=== PATIENT | male | born 1940 | race Caucasian/White ===

== ENCOUNTER 2020-06-20 08:33 | Inpatient (IN) | payer MEDICARE ==
[~2020-06-20] VITALS: Ht 182.9 cm; Wt 66.4 kg
[2020-06-20 09:09] LABS: BILIRUBIN,URINE NEGATIVE (NEG); CLARITY,URINE CLOUDY; COLOR,URINE AMBER; NITRITE,URINE NEGATIVE (NEG); PROTEIN,URINE 30 mg/dL (NEG-TRACE); UROBILINOGEN,URINE 0.2 mg/dL (0.2 mg/dL)
[2020-06-20 09:11] LABS: BASO # 0.2 x10^3/uL (0.0-0.2); BASO % 1 % (0-3); EOS # 0.2 x10^3/uL (0.0-0.7); EOS % 1 % (0-3); HEMATOCRIT 35.6 % (39.0-53.0); HEMOGLOBIN 11.2 g/dL (13.0-17.5); LYMPH # 1.7 x10^3/uL (1.0-4.8); LYMPH % 8 % (24-48); MEAN CORPUSCULAR HEMOGLOBIN 31 pg (25-35); MEAN CORPUSCULAR HGB CONC 32 g/dL (31-37); MEAN CORPUSCULAR VOLUME 99 fL (79-100); MONO # 0.8 x10^3/uL (0.0-1.1); MONO % 3 % (0-9); NEUT # 19.3 x10^3/uL (1.8-7.7); NEUT % 87 % (31-73); PLATELET COUNT 430 x10^3/uL (140-400); RED CELL DISTRIBUTION WIDTH 15.3 % (11.5-14.5); WHITE BLOOD COUNT 22.2 x10^3/uL (4.0-11.0)
[2020-06-20 09:16] LABS: CALCIUM 9.7 mg/dL (8.5-10.1); CREATININE 3.8 mg/dL (0.7-1.3); GFR 15.4; POTASSIUM 4.3 mmol/L (3.5-5.1)
[2020-06-20 09:26] LABS: ALBUMIN 2.3 g/dL (3.4-5.0); ALBUMIN/GLOBULIN RATIO 0.5 (1.0-1.7); TOTAL BILIRUBIN 0.6 mg/dL (0.2-1.0); TOTAL PROTEIN 7.2 g/dL (6.4-8.2)
--- NOTE | 2020-06-20 09:27 | PHYS DOC ---
Past Medical History Past Medical History: Bipolar, GERD Additional Past Medical Histor: DYSPHAGIA, WEAKNESS, BPH Past Surgical History: Other Additional Past Surgical Histo: UNKNOWN Smoking Status: Unknown if ever smoked Alcohol Use: None General Adult EDM: Chief Complaint: ALTERED MENTAL STATUS HPI: HPI: Patient is a 79 year old male who was brought here by EMS from a local skilled nursing due to altered mental status. Per report patient lives at the skilled nursing, history of dementia, bipolar disorder, had chronic indwelling Carbajal catheter. Patient has been treated for UTI. It was reported that he was confused and not very responsive compared to his baseline so EMS were called to take him here for evaluation. Patient could not provide any information. Upon arrival to room, it appeared that the Carbajal catheter was not in the bladder but in his urethra. There was purulent drainage at the glans penis and inside the tubing of the Carbajal. Review of Systems: Review of Systems: NOT ABLE TO OBTAIN DUE TO CONDITION. Heart Score: Risk Factors: Risk Factors: DM, Current or recent (<one month) smoker, HTN, HLP, family history of CAD, obesity. Risk Scores: Score 0 - 3: 2.5% MACE over next 6 weeks - Discharge Home Score 4 - 6: 20.3% MACE over next 6 weeks - Admit for Clinical Observation Score 7 - 10: 72.7% MACE over next 6 weeks - Early Invasive Strategies Allergies: Allergies: Allergies Coded Allergies Type Severity Reaction Last Updated Verified amitriptyline Allergy Unknown 06/20/20 Yes haloperidol Allergy Unknown 06/20/20 Yes lorazepam Allergy Unknown UNKNOWN 06/20/20 Yes quetiapine Allergy Unknown 06/20/20 Yes Physical Exam: PE: Constitutional: Well developed, well nourished,APPEARED TOXIC, MAKING EYE CONTACT HENT: Normocephalic, atraumatic, bilateral external ears normal, oropharynx DRIED, no oral exudates, nose normal. [] Eyes: PERRLA, EOMI, conjunctiva normal, no discharge. [] Neck: Normal range of motion, no tenderness, supple, no stridor. [] Cardiovascular:Heart rate regular rhythm, no murmur [] Lungs & Thorax: Bilateral breath sounds clear to auscultation [] Abdomen: Bowel sounds normal, soft, no tenderness, no masses, no pulsatile masses. purulent drainage at the external meatus. Skin: Warm, dry, no erythema, no rash. [] Back: No tenderness, no CVA tenderness. [] Extremities: No tenderness, no cyanosis, no clubbing, ROM intact, no edema. [] Neurologic:alert but confused, just moaning, observed moving extremities Psychologic: not able to evaluate. Current Patient Data: Labs: Laboratory Tests Test 06/20/20 08:45 Sodium Level 148 mmol/L (136-145) H Potassium Level 4.3 mmol/L (3.5-5.1) Chloride Level 114 mmol/L (98-107) H Carbon Dioxide Level 26 mmol/L (21-32) Anion Gap 8 (6-14) Blood Urea Nitrogen 62 mg/dL (8-26) H Creatinine 3.8 mg/dL (0.7-1.3) H Estimated GFR (Cockcroft-Gault) 15.4 BUN/Creatinine Ratio 16 (6-20) Glucose Level 100 mg/dL (70-99) H Calcium Level 9.7 mg/dL (8.5-10.1) Total Bilirubin 0.6 mg/dL (0.2-1.0) Aspartate Amino Transferase (AST) 92 U/L (15-37) H Alanine Aminotransferase (ALT) 16 U/L (16-63) Alkaline Phosphatase 102 U/L (46-116) Total Protein 7.2 g/dL (6.4-8.2) Albumin 2.3 g/dL (3.4-5.0) L Albumin/Globulin Ratio 0.5 (1.0-1.7) L Laboratory Tests 06/20/20 08:45 Vital Signs: Vital Signs Date Time Temp Pulse Resp B/P (MAP) Pulse Ox O2 Delivery O2 Flow Rate FiO2 06/20/20 08:39 98.8 78 18 121/66 (84) 96 Room Air 98.8 EKG: EKG: EKG was done at a 50, heart rate of 78 bpm, sinus rhythm, no ST segment elevation. Radiology/Procedures: Radiology/Procedures: [][facility] [address] [place] [address] IMAGING REPORT Signed PATIENT: TRISH GRIFFITH ACCOUNT: [id number] : 1940 LOCATION: ER AGE: 79 SEX: M EXAM STATUS: REG ER ORD. PHYSICIAN: DARELL SHAVER DO REASON: SOA PROCEDURE: CHEST AP ONLY XR CHEST 1V INDICATION: Reason: SOA / Spl. Instructions: / History: . COMPARISON STUDY: None. FINDINGS: Lungs: Hyperexpanded lung volume. Prominent interstitial marking. No confluent consolidations. Pleura: No pleural effusion or pneumothorax. Heart and Mediastinum: The cardiomediastinal silhouette is normal. Ather osclerosis of the thoracic aorta. IMPRESSION: Mildly prominent interstitial markings, which may reflect interstitial edema. Electronically signed by: Alethea Gonzales MD (06/20/2020 10:34 AM) [id number] DICTATED and SIGNED BY: ALETHEA GONZALES MD DATE: 06/20/20 [id number] Course & Med Decision Making: Course & Med Decision Making Pertinent Labs and Imaging studies reviewed. (See chart for details) [] Dragon Disclaimer: Dragon Disclaimer: This electronic medical record was generated, in whole or in part, using a voice recognition dictation system. Departure Departure Impression: Primary Impression: UTI (urinary tract infection) Additional Impressions: Dehydration Renal failure Person under investigation for COVID-19 Metabolic encephalopathy Disposition: ADMITTED INPT THIS HOSP Admitting Physician: JAHAIRA (DR. FLOOD) Condition: STABLE Referrals: UNKNOWN PCP NAME (PCP) DARELL SHAVER DO Jun 20, 2020 09:27
[2020-06-20 09:35] LABS: BACTERIA,URINE MANY /HPF (0-FEW); RBC,URINE FIELD OBSCURED /HPF (0-2); WBC,URINE TNTC /HPF (0-4)
[2020-06-20 09:36] LABS: HYALINE CASTS, URINE OCCASIONAL /HPF
--- NOTE | 2020-06-20 10:36 | RAD ---
XR CHEST 1V INDICATION: Reason: SOA / Spl. Instructions: / History: . COMPARISON STUDY: None. FINDINGS: Lungs: Hyperexpanded lung volume. Prominent interstitial marking. No confluent consolidations. Pleura: No pleural effusion or pneumothorax. Heart and Mediastinum: The cardiomediastinal silhouette is normal. Atherosclerosis of the thoracic ao rta. IMPRESSION: Mildly prominent interstitial markings, which may reflect interstitial edema. Electronically signed by: Naman Gonzales MD (06/20/2020 10:34 AM) [id number]
[2020-06-20 10:42] LABS: % BANDS 3 % (0-9); % EOS 1 % (0-5); % LYMPHS 4 % (24-48); % MONOS 2 % (0-10); % SEGS 90 % (35-66); PLT ESTIMATE ADEQUATE (ADEQUATE)
[2020-06-20] MEDS ORDERED: cefTRIAXone IV Push 1 GM VIAL. IVP ONE (10:45)
[2020-06-20] MEDS ORDERED: IV NORMAL SALINE 1000ML BAG 1,000 ML IV ONE (10:45)
[2020-06-20] MEDS ORDERED: ONDANSETRON PF 4 MG/2 ML VIAL. IV PRN (11:30)
[2020-06-20] MEDS: IV NORMAL SALINE 1000ML BAG 1,000 ML IV SCH (12:00)
--- NOTE | 2020-06-20 13:28 | HP ---
ADMIT DATE: 06/20/2020 CHIEF COMPLAINT: Mental status change. HISTORY OF PRESENT ILLNESS: The patient is a pleasant 79-year-old male, who has a chronic indwelling Carbajal. He is now presenting from a facility. He has mental status change. I believe the catheter got pulled out by accident last night. I discussed the case with the ER physician. It appears he has probable urinary tract infection with urosepsis and metabolic encephalopathy. We are going to admit the patient and give him IV antibiotics and fluids and try to get him feeling better. PAST MEDICAL HISTORY: Chronic indwelling Carbajal, bipolar, GERD, dysphagia, weakness, BPH. ALLERGIES: AMITRIPTYLINE, HALDOL, LORAZEPAM AND QUETIAPINE. FAMILY HISTORY: Diabetes. SOCIAL HISTORY: I think he lives at a facility. He does not drink, smoke or take drugs. I think he is disabled. MEDICATIONS: Reviewed, please refer to the MRAD. REVIEW OF SYSTEMS: Unable to obtain. He is too confused. PHYSICAL EXAMINATION: VITALS: Within normal limits and are stable. GENERAL: He is encephalopathic. HEENT: Normocephalic, atraumatic, external auditory canals are patent. EYES: Extraocular muscles are intact, pupils are equally round and reactive to light and accommodation. MUSCULOSKELETAL: Well developed, well nourished, good range of motion. ENDOCRINE: No thyromegaly was palpated. LYMPHATICS: No cervical chain or axillary nodes were noted. HEMATOPOIETIC: No bruising. NECK: Supple, no JVD, no thyromegaly was noted. LUNGS: Clear to auscultation in all lung leo without rhonchi or wheezing. HEART: RRR, S1, S2 present. Peripheral pulses intact, no obvious murmurs were noted. ABDOMEN: Soft, nontender. Positive bowel sounds no organomegaly, normal bowel sounds. EXTREMITIES: Without any cyanosis, clubbing, or edema. Pedal pulses intact, Homans sign is negative. NEUROLOGIC: He is encephalopathic. PSYCHIATRIC: He is encephalopathic. SKIN: No ulcerations or rashes, good skin turgor, no jaundice. VASCULAR: Good capillary refill, neurovascular bundle appears to be intact. GENITOURINARY: He has a Carbajal. LABORATORY DATA: White count 22, hemoglobin 11. Urinalysis shows a large amount of leukocyte esterase and zrs-iwarliao-li-count white cells. Sodium is 148, creatinine is 3.8, BUN 62. ASSESSMENT AND PLAN: Metabolic encephalopathy, urinary tract infection, sepsis, hypernatremia, urinary tract infection, azotemia, renal failure, leukocytosis. The patient will be admitted. We will start IV antibiotics. Consult Nephrology. IV fluids, home meds, DVT prophylaxis, full code, Carbajal to bedside drainage, p.r.n. Zofran, ceftriaxone 1 gram every day. Consult by ID. YARIEL FLOOD DO DR: JOSY/susy JOB#: [id number] / [id number]
[2020-06-20 13:30] VITALS: BP 126/61
[2020-06-20] MEDS ORDERED: ROPI0.5T4 PO (14:00)
[2020-06-20] MEDS ORDERED: CIPR500T94 PO (14:00)
[2020-06-20] MEDS ORDERED: ERGO500027 PO (14:00)
[2020-06-20] MEDS ORDERED: FLUT9.9S NS (14:00)
[2020-06-20] MEDS ORDERED: METH2.5T PO (14:00)
[2020-06-20] MEDS ORDERED: ACET325T9 PO (14:00)
[2020-06-20] MEDS ORDERED: SENN-213 PO (14:00)
[2020-06-20] MEDS ORDERED: CARB1TAB22 PO (14:00)
[2020-06-20] MEDS ORDERED: NITR0.4T22 SL (14:00)
[2020-06-20] MEDS ORDERED: FOLI0.4T2 PO (14:00)
[2020-06-20] MEDS ORDERED: FERR220S16 PO (14:00)
[2020-06-20] MEDS ORDERED: MELA5TAB20 PO (14:00)
[2020-06-20] MEDS ORDERED: BUSP5TAB PO (14:00)
[2020-06-20] MEDS ORDERED: ASPI81TA59 PO (14:00)
[2020-06-20] MEDS ORDERED: LEVO125T5 PO (14:00)
[2020-06-20] MEDS ORDERED: DOCU-109 PO (14:00)
[2020-06-20] MEDS ORDERED: OLAN5TAB9 PO (14:00)
[2020-06-20] MEDS ORDERED: OMEP20TA63 PO (14:00)
[2020-06-20] MEDS ORDERED: MIDO5TAB4 PO (14:00)
[2020-06-20] MEDS ORDERED: LITH300C PO (14:00)
[2020-06-20] MEDS ORDERED: LACT10PA3 PO (14:00)
[2020-06-20] MEDS ORDERED: MULT-121 PO (14:00)
[2020-06-20] MEDS ORDERED: BUPR100T8 PO (14:00)
[2020-06-20] MEDS ORDERED: FLUD0.1T PO (14:00)
--- NOTE | 2020-06-20 14:30 | NUR ---
Verified code status with patient /emergency contact Judy. Ly remains a full code. Allergies verified with . Patient pass code given to . Updated on POC. Will continue to monitor.
[2020-06-20 15:00] VITALS: BP 111/41
--- NOTE | 2020-06-20 15:30 | NUR ---
Dr. Padilla paged to get admission orders. Awaiting a call back. Routine consults to Dr. Loomis and Dr. Shabnam Steven. Will continue to monitor.
[2020-06-20] MEDS ORDERED: cefTRIAXone IV Push 1 GM VIAL. IVP SCH (17:00)
[2020-06-20 19:00] VITALS: BP 97/41
[2020-06-20 23:00] VITALS: BP 114/74
[2020-06-21] VITALS (8 sets, daily range): BP systolic 77–130; BP diastolic 34–57
[2020-06-21] MEDS: IV NORMAL SALINE 1000ML BAG 1,000 ML IV SCH (06:22)
--- NOTE | 2020-06-21 08:59 | PDOC ---
PROGRESS NOTES Date of Service: DATE: 06/21/20 TIME: 08:59 Chief Complaint Chief Complaint ASSESSMENT AND PLAN: Metabolic encephalopathy, ACUTE urinary tract infection, sepsis, BACTEREMIA hypernatremia, urinary tract infection, azotemia, ACUTE renal INJURY , , ACUTE RENAL TUBULAR NECROSIS leukocytosis. admitted. IV antibiotics. Consult Nephrology. CONSULT ID IV fluids, chg hypotonic saline home meds, DVT prophylaxis, full code, Carbajal to bedside p.r.n. Zofran, D/C ceftriaxone 1 gram every day. CHG TO ZOSYN 1-15 D/W RN 38 MIN pt exam, chart review,> 50% of time spent with exam, chart review, pt care coordination History of Present Illness History of Present Illness HISTORY OF PRESENT ILLNESS: The patient is a pleasant 79-year-old male, who has a chronic indwelling Carbajal. He is now presenting from a facility. He has mental status change. I believe the catheter got pulled out by accident last night. I discussed the case with the ER physician. It appears he has probable urinary tract infection with urosepsis and metabolic encephalopathy. We are going to admit the patient and give him IV antibiotics and fluids and try to get him feeling better. PAST MEDICAL HISTORY: Chronic indwelling Carbajal, bipolar, GERD, dysphagia, weakness, BPH. ALLERGIES: AMITRIPTYLINE, HALDOL, LORAZEPAM AND QUETIAPINE. FAMILY HISTORY: Diabetes. SOCIAL HISTORY: I think he lives at a facility. He does not drink, smoke or take drugs. I think he is disabled. MEDICATIONS: Reviewed, please refer to the MRAD. Vitals Vitals Vital Signs Date Time Temp Pulse Resp B/P (MAP) Pulse Ox O2 Delivery O2 Flow Rate FiO2 06/21/20 03:00 96.8 76 20 117/54 (75) 96 Room Air 96.8 Physical Exam Physical Exam GENERAL: He is encephalopathic. HEENT: Normocephalic, atraumatic, external auditory canals are patent. EYES: Extraocular muscles are intact, pupils are equally round and reactive to light and accommodation. MUSCULOSKELETAL: Well developed, well nourished, good range of motion. ENDOCRINE: No thyromegaly was palpated. LYMPHATICS: No cervical chain or axillary nodes were noted. HEMATOPOIETIC: No bruising. NECK: Supple, no JVD, no thyromegaly was noted. LUNGS: Clear to auscultation in all lung leo without rhonchi or wheezing. HEART: RRR, S1, S2 present. Peripheral pulses intact, no obvious murmurs were noted. ABDOMEN: Soft, nontender. Positive bowel sounds no organomegaly, normal bowel sounds. EXTREMITIES: Without any cyanosis, clubbing, or edema. Pedal pulses intact, Homans sign is negative. NEUROLOGIC: He is encephalopathic. PSYCHIATRIC: He is encephalopathic. SKIN: No ulcerations or rashes, good skin turgor, no jaundice. VASCULAR: Good capillary refill, neurovascular bundle appears to be intact. GENITOURINARY: He has a Carbajal. Extremities: No cyanosis Labs LABS ORDERED: BCULT ------- ----- Procedure Result BLOOD CULTURE Final GRAM POSITIVE COCCI IN CLUSTERS, SUGGESTIVE OF STAPH, IN 1 OF 3 BOTTLES, TWO SETS DRAWN. CALLED TO JENNIFER SCHWARTZ RN ON 6S AT 10:45 ON 06/21/[address] [facility] FOR FURTHER WORKUP. Assessment and Plan Assessmemt and Plan Problems Medical Problems: (1) Dehydration Status: Acute (2) Metabolic encephalopathy Status: Acute (3) Person under investigation for COVID-19 Status: Acute (4) Renal failure Status: Acute (5) UTI (urinary tract infection) Status: Acute DPOA REVIEW 18 MIN to patient portal What Is a Power of Hide Washer? A power of principal scientist (POA) is a legal document giving one person (the agent or [id number]) the power to act for another person (the principal). The agent can have broad legal authority or limited authority to make legal decisions about the principal's property, finances or medical care. The power of principal scientist is frequently used in the event of a principal's illness or disability, or when the principal can't be present to sign necessary legal documents for financial transactions. A power of principal scientist can end for a number of reasons, such as when the principal dies, the principal revokes it, a court invalidates it, the principal divorces their spouse, who happens to be the agent, or the agent can no longer carry out the outlined responsibilities. Conventional POAs lapse when the creator becomes incapacitated, but a durable POA remains in force to enable the agent to manage the creators affairs, and a springing POA comes into effect only if and when the creator of the POA becomes incapacitated. A medical or healthcare POA enables an agent to make medical decisions on behalf of an incapacitated person. [employer] Takeaways A power of principal scientist (POA) is a legal document giving one person, the agent or [id number]-[id number] the power to act for another person, the principal. The agent can have broad legal authority or limited authority to make decisions about the principal's property, finances or medical care. The power of principal scientist is often used when a principal becomes ill or disabled, or when they can't be present to sign necessary legal documents for financial transactions. Understanding Power of Hide Washer A power of principal scientist should be considered when planning for long-term care. There are different types of POAs that fall under either a general power of principal scientist or limited power of principal scientist. A general power of principal scientist acts on behalf of the principal in any and all matters, as allowed by the state. The agent under a general POA agreement may be authorized to take care of issues such as handling bank accounts, signing checks, selling property and assets like stocks, f A limited power of principal scientist gives the agent the power to act on behalf of the principal in specific matters or events. For example, the limited POA may explicitly state that the agent is only allowed to manage the principal's assisted accounts. A limited POA may also be limited to a specific period of time (e.g., if the principal will be out of the country for, say, two years). Most echevarria of principal scientist documents allow an agent to represent the principal in all property and financial matters as long as the principals mental state of mind is good. If a situation occurs where the principal becomes incapable of making decisions for him or herself, the POA agreement would automatically end. However, someone who wants the POA to remain in effect after the persons health deteriorates would need to sign a durable power of principal scientist (DPOA). What is an advance directive? An advance directive is a legal document that says how you want to be cared for if you are unable to make decisions. You can include what medical treatments you would want and who you would trust to make decisions for you. An advance directive can also include other legal documents. A living will is a list of treatment preferences. It can be used to indicate whether you would want cardiopulmonary resuscitation (CPR), tube feedings, a breathing machine, or certain medicines, like antibiotics. The durable power of principal scientist for health care document identifies the person you would want to make medical decisions for you. This person is also called a proxy. Your proxy should be familiar with your values and wishes. How do I get started? You can get advance directive documents for your state from your doctor's office or from http://www.caringinfo.org. Review the forms, and ask your doctor if you have any questions. Pick a person to be your proxy, and talk it over with that person. Comment Review of Relevant I have reviewed the following items ab (where applicable) has been applied. Labs Laboratory Tests Test 06/20/20 08:45 White Blood Count 22.2 x10^3/uL (4.0-11.0) Red Blood Count 3.60 x10^6/uL (4.30-5.70) Hemoglobin 11.2 g/dL (13.0-17.5) Hematocrit 35.6 % (39.0-53.0) Mean Corpuscular Volume 99 fL (79-100) Mean Corpuscular Hemoglobin 31 pg (25-35) Mean Corpuscular Hemoglobin Concent 32 g/dL (31-37) Red Cell Distribution Width 15.3 % (11.5-14.5) Platelet Count 430 x10^3/uL (140-400) Neutrophils (%) (Auto) 87 % (31-73) Lymphocytes (%) (Auto) 8 % (24-48) Monocytes (%) (Auto) 3 % (0-9) Eosinophils (%) (Auto) 1 % (0-3) Basophils (%) (Auto) 1 % (0-3) Neutrophils # (Auto) 19.3 x10^3/uL (1.8-7.7) Lymphocytes # (Auto) 1.7 x10^3/uL (1.0-4.8) Monocytes # (Auto) 0.8 x10^3/uL (0.0-1.1) Eosinophils # (Auto) 0.2 x10^3/uL (0.0-0.7) Basophils # (Auto) 0.2 x10^3/uL (0.0-0.2) Segmented Neutrophils % 90 % (35-66) Band Neutrophils % 3 % (0-9) Lymphocytes % 4 % (24-48) Monocytes % 2 % (0-10) Eosinophils % 1 % (0-5) Platelet Estimate Adequate (ADEQUATE) Urine Collection Type U cath Urine Color Ramonita Urine Clarity Cloudy Urine pH 6.0 (<5.0-8.0) Urine Specific [place] 1.015 (1.000-1.030) Urine Protein 30 mg/dL (NEG-TRACE) Urine Glucose (UA) Negative mg/dL (NEG) Urine Ketones (Stick) Negative mg/dL (NEG) Urine Blood Moderate (NEG) Urine Nitrite Negative (NEG) Urine Bilirubin Negative (NEG) Urine Urobilinogen Dipstick 0.2 mg/dL (0.2 mg/dL) Urine Leukocyte Esterase Large (NEG) Urine RBC Field obscured /HPF (0-2) Urine WBC Tntc /HPF (0-4) Urine Bacteria Many /HPF (0-FEW) Urine Hyaline Casts Occasional /HPF Sodium Level 148 mmol/L (136-145) Potassium Level 4.3 mmol/L (3.5-5.1) Chloride Level 114 mmol/L (98-107) Carbon Dioxide Level 26 mmol/L (21-32) Anion Gap 8 (6-14) Blood Urea Nitrogen 62 mg/dL (8-26) Creatinine 3.8 mg/dL (0.7-1.3) Estimated GFR (Cockcroft-Gault) 15.4 BUN/Creatinine Ratio 16 (6-20) Glucose Level 100 mg/dL (70-99) Lactic Acid Level 1.6 mmol/L (0.4-2.0) Calcium Level 9.7 mg/dL (8.5-10.1) Magnesium Level 2.6 mg/dL (1.8-2.4) Total Bilirubin 0.6 mg/dL (0.2-1.0) Aspartate Amino Transf (AST/SGOT) 92 U/L (15-37) Alanine Aminotransferase (ALT/SGPT) 16 U/L (16-63) Alkaline Phosphatase 102 U/L (46-116) Troponin I Quantitative 0.028 ng/mL (0.000-0.055) Total Protein 7.2 g/dL (6.4-8.2) Albumin 2.3 g/dL (3.4-5.0) Albumin/Globulin Ratio 0.5 (1.0-1.7) Medications Current Medications Ceftriaxone Sodium (Rocephin) 1 gm 1X ONCE IVP Last administered on 06/20/20at 11:34; Start 06/20/20 at 10:45; Stop 06/20/20 at 10:47; Status DC Sodium Chloride 1,000 ml @ 1,000 mls/hr 1X ONCE IV Last administered on 06/20/20at 11:34; Start 06/20/20 at 10:45; Stop 06/20/20 at 11:44; Status DC Ondansetron HCl (Zofran) 4 mg PRN Q8HRS PRN IV NAUSEA/VOMITING; Start 06/20/20 at 11:30; Stop 06/21/20 at 11:29 Sodium Chloride 1,000 ml @ 75 mls/hr [id number] IV Last administered on 06/21/20at 06:22; Start 06/20/20 at 12:00; Stop 06/21/20 at 11:59 Ceftriaxone Sodium (Rocephin) 1 gm Q24H IVP Last administered on 06/20/20at 17:06; Start 06/20/20 at 17:00 Active Scripts Active Reported Tylenol (Acetaminophen) 325 Mg Tablet 2 Tab PO PRN Q6HRS PRN Senna-S 8.6-50 mg Tablet (Sennosides/Docusate Sodium) 1 Each Tablet 1 Each PO BID Ropinirole Hcl 0.5 Mg Tablet 0.5 Mg PO TID Prilosec Otc (Omeprazole Magnesium) 20 Mg Tablet.dr 40 Mg PO DAILY Olanzapine 5 Mg Tablet 5 Mg PO DAILY NITROGLYCERIN SubLingual (Nitroglycerin) 0.4 Mg Tab.subl 0.4 Mg SL PRN Q5MIN PRN Midodrine Hcl 5 Mg Tablet 10 Mg PO TID Methotrexate (Methotrexate Sodium) 2.5 Mg Tablet 20 Tab PO WEEKLY Melatonin 5 Mg Tab.rapdis 1 Tab PO QHS 30 Days [place] Carbonate 300 Mg Capsule 1 Cap PO DAILY Levothyroxine Sodium 125 Mcg Tablet 1 Tab PO DAILY Lactulose 10 Gm Packet 10 Gm PO PRN DAILY PRN Folic Acid 0.4 Mg Tablet 1 Mg PO DAILY Fludrocortisone Acetate 0.1 Mg Tablet 0.1 Mg PO DAILY Flonase Allergy Relief (Fluticasone Propionate) 9.9 Ml [place].susp 2 Sprays NS DAILY Ferrous Sulfate 220 Mg/5 Ml Solution 325 Mg PO DAILY Multiple Vitamins (Multivitamin) 1 Each Tablet 1 Tab PO DAILY 30 Days Vitamin D2 (Ergocalciferol (Vitamin D2)) 1,250 Mcg Capsule 1,250 Mcg PO DAILY Colace (Docusate Sodium) 100 Mg Capsule 1 Cap PO PRN Q12HRS PRN 30 Days Cipro (Ciprofloxacin Hcl) 500 Mg Tablet 1 Tab PO BID 7 Days Carbidopa-Levodopa 25-100 Tab (Carbidopa/Levodopa) 1 Each Tablet 2 Tab PO TID 30 Days Buspirone Hcl 5 Mg Tablet 2 Tab PO TID Bupropion Hcl Sr (Bupropion Hcl) 100 Mg Tablet.er 75 Mg PO BID Children's Aspirin (Aspirin) 81 Mg Tab.chew 1 Tab PO DAILY 30 Days Vitals/I & O Vital Sign - Last 24 Hours 06/20/20 06/20/20 06/20/20 06/20/20 09:10 09:40 10:10 10:40 Pulse 74 78 78 76 Resp 18 18 18 18 Pulse Ox 93 94 94 94 06/20/20 06/20/20 06/20/20 06/20/20 11:10 12:20 13:30 15:00 Temp 98.0 97.6 98.0 97.6 Pulse 78 77 74 Resp 18 18 18 B/P (MAP) 126/61 (82) 111/41 (64) Pulse Ox 94 97 97 O2 Delivery Room Air Room Air Room Air 06/20/20 06/20/20 06/20/20 06/21/20 19:00 20:00 23:00 03:00 Temp 97.0 97.9 96.8 97.0 97.9 96.8 Pulse 80 82 76 Resp 19 20 20 B/P (MAP) 97/41 (59) 114/74 (87) 117/54 (75) Pulse Ox 96 94 96 O2 Delivery Room Air Room Air Room Air Room Air Intake and Output 06/20/20 06/20/20 06/21/20 14:59 22:59 06:59 Intake Total 359 ml 0 ml Output Total 1551 ml 150 ml Balance -1192 ml -150 ml Justicifation of Admission Dx: Justifications for Admission: Justification of Admission Dx: Yes Sepsis: Bacteremia GRZEGORZ VERMA MD Jun 21, 2020 08:59
[2020-06-21] MEDS ORDERED: NITROGLYCERIN SUBLINGUAL 0.4 MG BOTTLE OF 25. SL PRN (10:15)
[2020-06-21] MEDS ORDERED: ACETAMINOPHEN 325 MG TABLET. PO PRN (10:15)
[2020-06-21] MEDS ORDERED: DOCUSATE SODIUM 100 MG CAPSULE. PO PRN (10:15)
[2020-06-21] MEDS ORDERED: busPIRone 5 MG TABLET. PO SCH (11:00)
--- NOTE | 2020-06-21 11:00 | NUR ---
SW following for discharge planning. Spoke with RN and reviewed chart. SW consulted as pt resides in LTC at [facility]. Pt currently COVID pending, room air, IV Rocephin, regular diet. Wound care following. BILL faxed clinicals to [facility] to coordinate care. SW following. Addendum: 06/24/20 at 0915 by REBEKA KHAN Pt identified as BPCI. Discharge planners to follow, no further needs from this SW.
[2020-06-21] MEDS: MIDODRINE 5 MG TABLET PO SCH ×2 (11:11→18:43)
[2020-06-21] MEDS ORDERED: LACTULOSE 20 GM/30 ML SOLUTION. PO PRN (11:15)
[2020-06-21] MEDS: OLANZapine 5 MG TABLET PO SCH (11:40)
[2020-06-21] MEDS: MULTIVITAMIN with MINERAL TABLET. PO SCH (11:40)
[2020-06-21] MEDS: CARBIDOPA/LEVODOPA 25/100MG TABLET PO SCH ×3 (11:40→21:29)
[2020-06-21] MEDS: buPROPion SR 100 MG TABLET.SA. PO SCH ×2 (11:40→21:29)
[2020-06-21] MEDS: SENNOSIDES/DOCUSATE 8.6/50MG TABLET. PO SCH ×2 (11:40→21:29)
[2020-06-21] MEDS: ASPIRIN CHEWABLE 81 MG TABLET. PO SCH (11:40)
[2020-06-21] MEDS: busPIRone 10 MG TABLET. PO SCH ×3 (11:41→21:29)
[2020-06-21] MEDS: LITHIUM CARBONATE ER 300 MG TABLET.ER PO SCH (11:41)
[2020-06-21] MEDS: FLUDROCORTISONE 0.1 MG TABLET PO SCH (11:41)
[2020-06-21] MEDS: FOLIC ACID 1 MG TABLET. PO SCH (11:41)
[2020-06-21] MEDS: FERROUS SULFATE 325 MG TABLET. PO SCH (11:41)
[2020-06-21] MEDS: PANTOPRAZOLE 40 MG TABLET.DR. PO SCH (11:41)
[2020-06-21] MEDS ORDERED: PIP/TAZO PER PHARMACY MC PRN (12:45)
--- NOTE | 2020-06-21 13:37 | PDOC2 ---
CONSULT Date of Consult Date of Consult DATE: 06/21/20 TIME: 13:30 Reason for Consult Reason for Consult: FRACISCO Referring Physician Referring Physician: REMIGIO Identification/Chief Complaint Chief Complaint CONFUSION Source Source: Chart review History of Present Illness Reason for Visit: THIS IS AN 79 YR OLD WITH CONFUSION. NOTED TO URINARY BLADDER ATONY AND BPH AND HAS A CHRONIC WILLIS. ADMITTED WITH AN UTI AND CONFUSION. UNABLE TO GET ANY HX. HAS SIGNIFICANT LEUCOCYTOSIS AND FRACISCO WITH A CR OF 3.8. UNKNOWN BASELINE CR LEVEL. NO HEMODYNAMIC INSTABILITY OR NEPHROTOXINS NOTED. Past Medical History Past Medical History CHRONIC INDWELLING WILLIS Cardiovascular: HTN GI: GERD Heme/Onc: Anemia NOS Psych: Bipolar Renal/: No pertinent hx, Benign prostatic enlarg. Family History Family History: No Significant Social History No ALCOHOL: none Lives: Jail Current Problem List Problem List Problems Medical Problems: (1) Dehydration Status: Acute (2) Metabolic encephalopathy Status: Acute (3) Person under investigation for COVID-19 Status: Acute (4) Renal failure Status: Acute (5) UTI (urinary tract infection) Status: Acute Current Medications Current Medications Current Medications Ceftriaxone Sodium (Rocephin) 1 gm 1X ONCE IVP Last administered on 06/20/20at 11:34; Start 06/20/20 at 10:45; Stop 06/20/20 at 10:47; Status DC Sodium Chloride 1,000 ml @ 1,000 mls/hr 1X ONCE IV Last administered on 06/20/20at 11:34; Start 06/20/20 at 10:45; Stop 06/20/20 at 11:44; Status DC Ondansetron HCl (Zofran) 4 mg PRN Q8HRS PRN IV NAUSEA/VOMITING; Start 06/20/20 at 11:30; Stop 06/21/20 at 11:29; Status DC Sodium Chloride 1,000 ml @ 75 mls/hr [id number] IV Last administered on 06/21/20at 06:22; Start 06/20/20 at 12:00; Stop 06/21/20 at 11:59; Status DC Ceftriaxone Sodium (Rocephin) 1 gm Q24H IVP Last administered on 06/20/20at 17:06; Start 06/20/20 at 17:00; Stop 06/21/20 at 12:44; Status DC Acetaminophen (Tylenol) 650 mg PRN Q6HRS PRN PO MILD PAIN 1-3; Start 06/21/20 at 10:15 Aspirin (Aspirin Chewable) 81 mg DAILY PO Last administered on 06/21/20at 11:40; Start 06/21/20 at 11:00 Bupropion HCl (Wellbutrin Sr) 75 mg BID PO Last administered on 06/21/20at 11:40; Start 06/21/20 at 11:00 Buspirone HCl (Buspar) 10 mg TID PO ; Start 06/21/20 at 11:00; Stop 06/21/20 at 10:56; Status DC Carbidopa/Levodopa (Sinemet 25/100) 2 tab TID PO Last administered on 06/21/20at 11:40; Start 06/21/20 at 11:00 Docusate Sodium (Colace) 100 mg PRN Q12HRS PRN PO CONSTIPATION; Start 06/21/20 at 10:15 Fludrocortisone Acetate (Florinef) 0.1 mg DAILY PO Last administered on 06/21/20at 11:41; Start 06/21/20 at 11:00 Levothyroxine Sodium (Synthroid) 125 mcg DAILY06 PO ; Start 06/22/20 at 06:00 Midodrine (Proamatine) 10 mg [id number] PO ; Start 06/21/20 at 13:00 Nitroglycerin (Nitrostat) 0.4 mg PRN Q5MIN PRN SL CHEST PAIN; Start 06/21/20 at 10:15 Olanzapine (ZyPREXA) 5 mg DAILY PO Last administered on 06/21/20at 11:40; Start 06/21/20 at 11:00 Senna/Docusate Sodium (Senna Plus) 1 tab BID PO Last administered on 06/21/20at 11:40; Start 06/21/20 at 11:00 Non-Formulary Medication (Ciprofloxacin Hcl (Cipro)) 1 tab BID PO ; Start 06/21/20 at 21:00 Ferrous Sulfate (Feosol) 325 mg DAILYWBKFT PO Last administered on 06/21/20at 11:41; Start 06/21/20 at 12:00 Fluticasone Propionate (Flonase) 2 spray DAILY NS ; Start 06/21/20 at 12:00 Folic Acid (Folic Acid) 1 mg DAILY PO Last administered on 06/21/20at 11:41; Start 06/21/20 at 12:00 Lactulose (Lactulose) 10 gm PRN DAILY PRN PO CONSTIPATION; Start 06/21/20 at 11:15 [place] Carbonate (Lithobid) 300 mg DAILY PO Last administered on 06/21/20at 11:41; Start 06/21/20 at 12:00 Multivitamins (Thera M Plus) 1 tab DAILY PO Last administered on 06/21/20at 11:40; Start 06/21/20 at 12:00 Pantoprazole Sodium (Protonix) 40 mg DAILYAC PO Last administered on 06/21/20at 11:41; Start 06/21/20 at 11:30 Ropinirole HCl (Requip) 0.5 mg TID PO ; Start 06/21/20 at 14:00 Buspirone HCl (Buspar) 10 mg TID PO Last administered on 06/21/20at 11:41; Start 06/21/20 at 11:00 Piperacillin Sod/ Tazobactam Sod (Zosyn Per Pharmacy) 1 each PRN DAILY PRN MC SEE COMMENTS; Start 06/21/20 at 12:45 Sodium Chloride 1,000 ml @ 100 mls/hr Q10H IV ; Start 06/21/20 at 13:00 Piperacillin Sod/ Tazobactam Sod 2.25 gm/Sodium Chloride 50 ml @ 100 mls/hr Q6HRS IV ; Start 06/21/20 at 18:00 Active Scripts Active Reported Tylenol (Acetaminophen) 325 Mg Tablet 2 Tab PO PRN Q6HRS PRN Senna-S 8.6-50 mg Tablet (Sennosides/Docusate Sodium) 1 Each Tablet 1 Each PO BID Ropinirole Hcl 0.5 Mg Tablet 0.5 Mg PO TID Prilosec Otc (Omeprazole Magnesium) 20 Mg Tablet.dr 40 Mg PO DAILY Olanzapine 5 Mg Tablet 5 Mg PO DAILY NITROGLYCERIN SubLingual (Nitroglycerin) 0.4 Mg Tab.subl 0.4 Mg SL PRN Q5MIN PRN Midodrine Hcl 5 Mg Tablet 10 Mg PO TID Methotrexate (Methotrexate Sodium) 2.5 Mg Tablet 20 Tab PO WEEKLY Melatonin 5 Mg Tab.rapdis 1 Tab PO QHS 30 Days [place] Carbonate 300 Mg Capsule 1 Cap PO DAILY Levothyroxine Sodium 125 Mcg Tablet 1 Tab PO DAILY Lactulose 10 Gm Packet 10 Gm PO PRN DAILY PRN Folic Acid 0.4 Mg Tablet 1 Mg PO DAILY Fludrocortisone Acetate 0.1 Mg Tablet 0.1 Mg PO DAILY Flonase Allergy Relief (Fluticasone Propionate) 9.9 Ml [place].susp 2 Sprays NS DAILY Ferrous Sulfate 220 Mg/5 Ml Solution 325 Mg PO DAILY Multiple Vitamins (Multivitamin) 1 Each Tablet 1 Tab PO DAILY 30 Days Vitamin D2 (Ergocalciferol (Vitamin D2)) 1,250 Mcg Capsule 1,250 Mcg PO DAILY Colace (Docusate Sodium) 100 Mg Capsule 1 Cap PO PRN Q12HRS PRN 30 Days Cipro (Ciprofloxacin Hcl) 500 Mg Tablet 1 Tab PO BID 7 Days Carbidopa-Levodopa 25-100 Tab (Carbidopa/Levodopa) 1 Each Tablet 2 Tab PO TID 30 Days Buspirone Hcl 5 Mg Tablet 2 Tab PO TID Bupropion Hcl Sr (Bupropion Hcl) 100 Mg Tablet.er 75 Mg PO BID Children's Aspirin (Aspirin) 81 Mg Tab.chew 1 Tab PO DAILY 30 Days Allergies Allergies: Coded Allergies: amitriptyline (Verified Allergy, Intermediate, 06/20/20) haloperidol (Verified Allergy, Intermediate, 06/20/20) lorazepam (Verified Allergy, Intermediate, UNKNOWN, 06/20/20) quetiapine (Verified Allergy, Intermediate, 06/20/20) ROS Review of System UNABLE TO OBTAIN Physical Exam General: No acute distress HEENT: Atraumatic, Other (IKER MUCOSA) Lungs: Clear to auscultation Heart: Regular rate Abdomen: Normal bowel sounds, Soft, No tenderness Extremities: No cyanosis Skin: No breakdown Neuro: Other (CONFUSED) Psych/Mental Status: Other (UNABLE TO ASCERTAIN) MUSCULOSKELETAL: No deformity, Other (ATROPHY) Vitals VITALS Vital Signs Date Time Temp Pulse Resp B/P (MAP) Pulse Ox O2 Delivery O2 Flow Rate FiO2 06/21/20 11:11 74 130/57 06/21/20 11:06 96.3 14 94 Nasal Cannula 2.0 96.3 Labs Labs Laboratory Tests Test 06/20/20 08:45 White Blood Count 22.2 x10^3/uL (4.0-11.0) Red Blood Count 3.60 x10^6/uL (4.30-5.70) Hemoglobin 11.2 g/dL (13.0-17.5) Hematocrit 35.6 % (39.0-53.0) Mean Corpuscular Volume 99 fL (79-100) Mean Corpuscular Hemoglobin 31 pg (25-35) Mean Corpuscular Hemoglobin Concent 32 g/dL (31-37) Red Cell Distribution Width 15.3 % (11.5-14.5) Platelet Count 430 x10^3/uL (140-400) Neutrophils (%) (Auto) 87 % (31-73) Lymphocytes (%) (Auto) 8 % (24-48) Monocytes (%) (Auto) 3 % (0-9) Eosinophils (%) (Auto) 1 % (0-3) Basophils (%) (Auto) 1 % (0-3) Neutrophils # (Auto) 19.3 x10^3/uL (1.8-7.7) Lymphocytes # (Auto) 1.7 x10^3/uL (1.0-4.8) Monocytes # (Auto) 0.8 x10^3/uL (0.0-1.1) Eosinophils # (Auto) 0.2 x10^3/uL (0.0-0.7) Basophils # (Auto) 0.2 x10^3/uL (0.0-0.2) Segmented Neutrophils % 90 % (35-66) Band Neutrophils % 3 % (0-9) Lymphocytes % 4 % (24-48) Monocytes % 2 % (0-10) Eosinophils % 1 % (0-5) Platelet Estimate Adequate (ADEQUATE) Urine Collection Type U cath Urine Color Ramonita Urine Clarity Cloudy Urine pH 6.0 (<5.0-8.0) Urine Specific [place] 1.015 (1.000-1.030) Urine Protein 30 mg/dL (NEG-TRACE) Urine Glucose (UA) Negative mg/dL (NEG) Urine Ketones (Stick) Negative mg/dL (NEG) Urine Blood Moderate (NEG) Urine Nitrite Negative (NEG) Urine Bilirubin Negative (NEG) Urine Urobilinogen Dipstick 0.2 mg/dL (0.2 mg/dL) Urine Leukocyte Esterase Large (NEG) Urine RBC Field obscured /HPF (0-2) Urine WBC Tntc /HPF (0-4) Urine Bacteria Many /HPF (0-FEW) Urine Hyaline Casts Occasional /HPF Sodium Level 148 mmol/L (136-145) Potassium Level 4.3 mmol/L (3.5-5.1) Chloride Level 114 mmol/L (98-107) Carbon Dioxide Level 26 mmol/L (21-32) Anion Gap 8 (6-14) Blood Urea Nitrogen 62 mg/dL (8-26) Creatinine 3.8 mg/dL (0.7-1.3) Estimated GFR (Cockcroft-Gault) 15.4 BUN/Creatinine Ratio 16 (6-20) Glucose Level 100 mg/dL (70-99) Lactic Acid Level 1.6 mmol/L (0.4-2.0) Calcium Level 9.7 mg/dL (8.5-10.1) Magnesium Level 2.6 mg/dL (1.8-2.4) Total Bilirubin 0.6 mg/dL (0.2-1.0) Aspartate Amino Transf (AST/SGOT) 92 U/L (15-37) Alanine Aminotransferase (ALT/SGPT) 16 U/L (16-63) Alkaline Phosphatase 102 U/L (46-116) Troponin I Quantitative 0.028 ng/mL (0.000-0.055) Total Protein 7.2 g/dL (6.4-8.2) Albumin 2.3 g/dL (3.4-5.0) Albumin/Globulin Ratio 0.5 (1.0-1.7) Assessment/Plan Assessment/Plan IMP FRACISCO-CR OF 3.8-UNKNOWN BASELINE CR EXTRACELLULAR VOLUME DEPLETION URINARY TRACT INFECTION MET ENCEPHALOPATHY HYPERNATREMIA LEUCOCYTOSIS PLAN HYDRATION ANTIBIOTICS RENAL SONOGRAM LABS IN AM WILL FOLLOW RUBEN MCNEIL MD Jun 21, 2020 13:36
[2020-06-21] MEDS: rOPINIRole 0.25 MG TABLET. PO SCH ×2 (15:30→21:29)
[2020-06-21] MEDS: IV 1/2 NORMAL SALINE 1,000 ML IV SCH (15:30)
[2020-06-21] MEDS: FLUTICASONE 50MCG/NASAL SPRAY 16GM BOTTLE. NS SCH (15:31)
--- NOTE | 2020-06-21 15:32 | NUR ---
Wound Care Wound Type/Assessment: Consult to eval and treat for multiple wounds present on admission. All wounds measured and recorded in wound assessment. No blisters noted to feet, L plantar foot has a forefoot callus, and plantar heel callus that are intact and stable; wound occurrence discontinued to reflect absence of wound. R elbow skin tear unapproximated with red, nongranulated wound bed. R lower leg (merino) skin tear unapproximated with pale pink wound bed. R hip ST I pressure is intact, reddened and nonblanchable. L dorsal hand skin tear wound bed is slough covered. R buttock abrasion has dry, intact, stable scabs and is healed. Maintained wound occurrence in assessment for documentation of wound monitoring. Scrotum and L buttock/ischial ST II with DTI is dark red, nongranulated, with purple DTI to periwound ( into 2 different wound occurrences in wound assessment). L ischial tuberosity/hip ST I PU is red, intact, nonblanchable. Blanchable redness noted to lateral ankles and midfoot bilaterally, as well as a formerly pictured areas to the posterior L knee. The latter is blanchable at this time and not considered pressure, but will maintain a wound assessment for monitoring purposes. No other wounds noted on head to toe assessment. Treatment Recommendations/Plan: R elbow, RLE, L hand: Cleanse and pat dry. Apply xeroform gauze and foam dressings. R hip, R buttock, L hip: Cleanse and dry. Apply skin prep and foam for protection. L ischium, scrotum: Apply A&D oitnemnt BID and PRN soiling. Education provided: Pt did not receive education d/t mental status Offloading surface/device: [place] bed, pillows for positioning and comfort. Heel medics boots bilaterally. Recommended Referrals/Tests: NA Discharge Recommendations for dressings: As above./ Follow up 06/26/20
--- NOTE | 2020-06-21 15:35 | PDOC2 ---
CONSULT Date of Consult Date of Consult DATE: 06/21/20 TIME: 15:28 Reason for Consult Reason for Consult: UTI and sepsis Referring Physician Referring Physician: Dr. Padilla Identification/Chief Complaint Chief Complaint Mental status changes Source Source: Caregiver, Chart review History of Present Illness Reason for Visit: 79-year-old group home resident was brought in from the facility with altered mental status. Catheter got pulled out by accident night before admission. Patient is unable to give history history obtained from chart and medical staff. Patient found to have leukocytosis, pyuria, patient had been on Cipro prior to admission. He received a dose of ceftriaxone in the ER. He was started on IV Zosyn. ID consultation has been requested for antibiotic management. Patient has multiple decubitus wounds including scrotum. Blood cultures were done which are positive for gram-positive cocci. Patient appears very weak. Does not answer most of the questions. Past Medical History Cardiovascular: HTN GI: GERD Heme/Onc: Anemia NOS Psych: Bipolar Renal/: No pertinent hx, Benign prostatic enlarg. Family History Family History: No Significant Social History No ALCOHOL: none Lives: [facility] Current Problem List Problem List Problems Medical Problems: (1) Dehydration Status: Acute (2) Metabolic encephalopathy Status: Acute (3) Person under investigation for COVID-19 Status: Acute (4) Renal failure Status: Acute (5) UTI (urinary tract infection) Status: Acute Current Medications Current Medications Current Medications Ceftriaxone Sodium (Rocephin) 1 gm 1X ONCE IVP Last administered on 06/20/20at 11:34; Start 06/20/20 at 10:45; Stop 06/20/20 at 10:47; Status DC Sodium Chloride 1,000 ml @ 1,000 mls/hr 1X ONCE IV Last administered on 06/20/20at 11:34; Start 06/20/20 at 10:45; Stop 06/20/20 at 11:44; Status DC Ondansetron HCl (Zofran) 4 mg PRN Q8HRS PRN IV NAUSEA/VOMITING; Start 06/20/20 at 11:30; Stop 06/21/20 at 11:29; Status DC Sodium Chloride 1,000 ml @ 75 mls/hr [id number] IV Last administered on 06/21/20at 06:22; Start 06/20/20 at 12:00; Stop 06/21/20 at 11:59; Status DC Ceftriaxone Sodium (Rocephin) 1 gm Q24H IVP Last administered on 06/20/20at 17:06; Start 06/20/20 at 17:00; Stop 06/21/20 at 12:44; Status DC Acetaminophen (Tylenol) 650 mg PRN Q6HRS PRN PO MILD PAIN 1-3; Start 06/21/20 at 10:15 Aspirin (Aspirin Chewable) 81 mg DAILY PO Last administered on 06/21/20at 11:40; Start 06/21/20 at 11:00 Bupropion HCl (Wellbutrin Sr) 75 mg BID PO Last administered on 06/21/20at 11:40; Start 06/21/20 at 11:00 Buspirone HCl (Buspar) 10 mg TID PO ; Start 06/21/20 at 11:00; Stop 06/21/20 at 10:56; Status DC Carbidopa/Levodopa (Sinemet 25/100) 2 tab TID PO Last administered on 06/21/20at 11:40; Start 06/21/20 at 11:00 Docusate Sodium (Colace) 100 mg PRN Q12HRS PRN PO CONSTIPATION; Start 06/21/20 at 10:15 Fludrocortisone Acetate (Florinef) 0.1 mg DAILY PO Last administered on at 11:41; Start 06/21/20 at 11:00 Levothyroxine Sodium (Synthroid) 125 mcg DAILY06 PO ; Start 06/22/20 at 06:00 Midodrine (Proamatine) 10 mg [id number] PO ; Start 06/21/20 at 13:00 Nitroglycerin (Nitrostat) 0.4 mg PRN Q5MIN PRN SL CHEST PAIN; Start 06/21/20 at 10:15 Olanzapine (ZyPREXA) 5 mg DAILY PO Last administered on 06/21/20at 11:40; Start 06/21/20 at 11:00 Senna/Docusate Sodium (Senna Plus) 1 tab BID PO Last administered on 06/21/20at 11:40; Start 06/21/20 at 11:00 Non-Formulary Medication (Ciprofloxacin Hcl (Cipro)) 1 tab BID PO ; Start 06/21/20 at 21:00; Stop 06/21/20 at 15:01; Status DC Ferrous Sulfate (Feosol) 325 mg DAILYWBKFT PO Last administered on 06/21/20at 11:41; Start 06/21/20 at 12:00 Fluticasone Propionate (Flonase) 2 spray DAILY NS ; Start 06/21/20 at 12:00 Folic Acid (Folic Acid) 1 mg DAILY PO Last administered on 06/21/20at 11:41; Start 06/21/20 at 12:00 Lactulose (Lactulose) 10 gm PRN DAILY PRN PO CONSTIPATION; Start 06/21/20 at 11:15 [place] Carbonate (Lithobid) 300 mg DAILY PO Last administered on 06/21/20at 11:41; Start 06/21/20 at 12:00 Multivitamins (Thera M Plus) 1 tab DAILY PO Last administered on 06/21/20at 11:40; Start 06/21/20 at 12:00 Pantoprazole Sodium (Protonix) 40 mg DAILYAC PO Last administered on 06/21/20at 11:41; Start 06/21/20 at 11:30 Ropinirole HCl (Requip) 0.5 mg TID PO ; Start 06/21/20 at 14:00 Buspirone HCl (Buspar) 10 mg TID PO Last administered on 06/21/20at 11:41; Start 06/21/20 at 11:00 Piperacillin Sod/ Tazobactam Sod (Zosyn Per Pharmacy) 1 each PRN DAILY PRN MC SEE COMMENTS; Start 06/21/20 at 12:45 Sodium Chloride 1,000 ml @ 100 mls/hr Q10H IV ; Start 06/21/20 at 13:00 Piperacillin Sod/ Tazobactam Sod 2.25 gm/Sodium Chloride 50 ml @ 100 mls/hr Q6HRS IV ; Start 06/21/20 at 18:00 Daptomycin 350 mg/ Sodium Chloride 50 ml @ 100 mls/hr Q48H IV ; Start 06/21/20 at 17:00 Active Scripts Active Reported Tylenol (Acetaminophen) 325 Mg Tablet 2 Tab PO PRN Q6HRS PRN Senna-S 8.6-50 mg Tablet (Sennosides/Docusate Sodium) 1 Each Tablet 1 Each PO BID Ropinirole Hcl 0.5 Mg Tablet 0.5 Mg PO TID Prilosec Otc (Omeprazole Magnesium) 20 Mg Tablet.dr 40 Mg PO DAILY Olanzapine 5 Mg Tablet 5 Mg PO DAILY NITROGLYCERIN SubLingual (Nitroglycerin) 0.4 Mg Tab.subl 0.4 Mg SL PRN Q5MIN PRN Midodrine Hcl 5 Mg Tablet 10 Mg PO TID Methotrexate (Methotrexate Sodium) 2.5 Mg Tablet 20 Tab PO WEEKLY Melatonin 5 Mg Tab.rapdis 1 Tab PO QHS 30 Days [place] Carbonate 300 Mg Capsule 1 Cap PO DAILY Levothyroxine Sodium 125 Mcg Tablet 1 Tab PO DAILY Lactulose 10 Gm Packet 10 Gm PO PRN DAILY PRN Folic Acid 0.4 Mg Tablet 1 Mg PO DAILY Fludrocortisone Acetate 0.1 Mg Tablet 0.1 Mg PO DAILY Flonase Allergy Relief (Fluticasone Propionate) 9.9 Ml [place].susp 2 Sprays NS DAILY Ferrous Sulfate 220 Mg/5 Ml Solution 325 Mg PO DAILY Multiple Vitamins (Multivitamin) 1 Each Tablet 1 Tab PO DAILY 30 Days Vitamin D2 (Ergocalciferol (Vitamin D2)) 1,250 Mcg Capsule 1,250 Mcg PO DAILY Colace (Docusate Sodium) 100 Mg Capsule 1 Cap PO PRN Q12HRS PRN 30 Days Cipro (Ciprofloxacin Hcl) 500 Mg Tablet 1 Tab PO BID 7 Days Carbidopa-Levodopa 25-100 Tab (Carbidopa/Levodopa) 1 Each Tablet 2 Tab PO TID 30 Days Buspirone Hcl 5 Mg Tablet 2 Tab PO TID Bupropion Hcl Sr (Bupropion Hcl) 100 Mg Tablet.er 75 Mg PO BID Children's Aspirin (Aspirin) 81 Mg Tab.chew 1 Tab PO DAILY 30 Days Allergies Allergies: Coded Allergies: amitriptyline (Verified Allergy, Intermediate, 06/20/20) haloperidol (Verified Allergy, Intermediate, 06/20/20) lorazepam (Verified Allergy, Intermediate, UNKNOWN, 06/20/20) quetiapine (Verified Allergy, Intermediate, 06/20/20) ROS Review of System Unable to obtain due to altered mental status Physical Exam Physical Exam General lethargic, arousable but does not answer any questions HEENT normocephalic atraumatic anicteric no thrush oral mucosa moist Neck supple Lungs clear bilaterally no wheezing Heart S1-S2 Abdomen soft nontender nondistended Carbajal in place, scrotal enlargement, scrotal wounds, Extremities no edema no cyanosis contractures Neuro lethargic, confused Psychiatric unable to obtain Derm multiple wounds Per chart review Vitals VITALS Vital Signs Date Time Temp Pulse Resp B/P (MAP) Pulse Ox O2 Delivery O2 Flow Rate FiO2 06/21/20 11:11 74 130/57 06/21/20 11:06 96.3 14 94 Nasal Cannula 2.0 96.3 Labs Labs Laboratory Tests Test 06/20/20 08:45 White Blood Count 22.2 x10^3/uL (4.0-11.0) Red Blood Count 3.60 x10^6/uL (4.30-5.70) Hemoglobin 11.2 g/dL (13.0-17.5) Hematocrit 35.6 % (39.0-53.0) Mean Corpuscular Volume 99 fL (79-100) Mean Corpuscular Hemoglobin 31 pg (25-35) Mean Corpuscular Hemoglobin Concent 32 g/dL (31-37) Red Cell Distribution Width 15.3 % (11.5-14.5) Platelet Count 430 x10^3/uL (140-400) Neutrophils (%) (Auto) 87 % (31-73) Lymphocytes (%) (Auto) 8 % (24-48) Monocytes (%) (Auto) 3 % (0-9) Eosinophils (%) (Auto) 1 % (0-3) Basophils (%) (Auto) 1 % (0-3) Neutrophils # (Auto) 19.3 x10^3/uL (1.8-7.7) Lymphocytes # (Auto) 1.7 x10^3/uL (1.0-4.8) Monocytes # (Auto) 0.8 x10^3/uL (0.0-1.1) Eosinophils # (Auto) 0.2 x10^3/uL (0.0-0.7) Basophils # (Auto) 0.2 x10^3/uL (0.0-0.2) Segmented Neutrophils % 90 % (35-66) Band Neutrophils % 3 % (0-9) Lymphocytes % 4 % (24-48) Monocytes % 2 % (0-10) Eosinophils % 1 % (0-5) Platelet Estimate Adequate (ADEQUATE) Urine Collection Type U cath Urine Color Ramonita Urine Clarity Cloudy Urine pH 6.0 (<5.0-8.0) Urine Specific [place] 1.015 (1.000-1.030) Urine Protein 30 mg/dL (NEG-TRACE) Urine Glucose (UA) Negative mg/dL (NEG) Urine Ketones (Stick) Negative mg/dL (NEG) Urine Blood Moderate (NEG) Urine Nitrite Negative (NEG) Urine Bilirubin Negative (NEG) Urine Urobilinogen Dipstick 0.2 mg/dL (0.2 mg/dL) Urine Leukocyte Esterase Large (NEG) Urine RBC Field obscured /HPF (0-2) Urine WBC Tntc /HPF (0-4) Urine Bacteria Many /HPF (0-FEW) Urine Hyaline Casts Occasional /HPF Sodium Level 148 mmol/L (136-145) Potassium Level 4.3 mmol/L (3.5-5.1) Chloride Level 114 mmol/L (98-107) Carbon Dioxide Level 26 mmol/L (21-32) Anion Gap 8 (6-14) Blood Urea Nitrogen 62 mg/dL (8-26) Creatinine 3.8 mg/dL (0.7-1.3) Estimated GFR (Cockcroft-Gault) 15.4 BUN/Creatinine Ratio 16 (6-20) Glucose Level 100 mg/dL (70-99) Lactic Acid Level 1.6 mmol/L (0.4-2.0) Calcium Level 9.7 mg/dL (8.5-10.1) Magnesium Level 2.6 mg/dL (1.8-2.4) Total Bilirubin 0.6 mg/dL (0.2-1.0) Aspartate Amino Transf (AST/SGOT) 92 U/L (15-37) Alanine Aminotransferase (ALT/SGPT) 16 U/L (16-63) Alkaline Phosphatase 102 U/L (46-116) Troponin I Quantitative 0.028 ng/mL (0.000-0.055) Total Protein 7.2 g/dL (6.4-8.2) Albumin 2.3 g/dL (3.4-5.0) Albumin/Globulin Ratio 0.5 (1.0-1.7) Assessment/Plan Assessment/Plan Sepsis Leukocytosis Bacteremia gram-positive cocci UTI FRACISCO with underlying CKD Hypernatremia Covid PUI Encephalopathy likely metabolic Multiple wounds Generalized debility History of bipolar disorder BPH GERD Recommendations DC Cipro Continue Zosyn Start daptomycin Follow GPC in blood culture Follow cultures Monitor labs Follow-up COVID-19 PCR Wound care as directed Offload Maintain aspiration precaution Continue supportive care Overall prognosis poor Thank you for allowing me to participate in this patient's care. If you have any questions do not hesitate to contact me. SADIA STEWARD MD Jun 21, 2020 15:35
[2020-06-21] MEDS: DAPTOmycin (GENERIC) IVPB 350 MG in IV NORMAL SALINE 50ML 50 ML IV SCH (16:37)
--- NOTE | 2020-06-21 17:03 | RAD ---
US RENAL BILAT History: Reason: FRACISCO / Spl. Instructions: / History: Comparison: None. Procedure: Transabdominal ultrasound images are obtained of the kidneys and bladder. Findings: Degraded evaluation due to patient's immobility. Right kidney: measures 9.5 x 5.0 x 4.0 cm. Normal cortical echotexture. Corticomedullary differentia tion is preserved. No hydronephrosis. Left kidney: measures 7.1 x 4.3 x 3.6 cm. Normal cortical echotexture. Corticomedullary differentiat ion is preserved. No hydronephrosis. Urinary bladder: Decompressed urinary bladder. Aorta and IVC not well seen due to overlying structures. IMPRESSION: 1. Degraded evaluation. Unremarkable renal ultrasound. Electronically signed by: Chetan Cota DO (06/21/2020 5:01 PM) [facility]
[2020-06-21] MEDS: PIPERACILLIN/TAZOBACTAM 2.25 GM in IV NORMAL SALINE 50ML 50 ML IV SCH (17:39)
[2020-06-21] MEDS: VITS A & D/LANOLIN TOPICAL OINTMENT 42GM TUBE. TP SCH ×2 (17:39→21:30)
[2020-06-21] MEDS ORDERED: NON FORMULARY ITEM (Ciprofloxacin Hcl (Cipro) 1 TAB) PO SCH (21:00)
[2020-06-21] MEDS: LACTOBACILLUS RHAMNOSUS GG 1 CAPSULE. PO SCH (21:29)
[2020-06-22 03:00] VITALS: BP 102/47
[2020-06-22 05:09] LABS: BASO # 0.1 x10^3/uL (0.0-0.2); BASO % 1 % (0-3); EOS # 0.6 x10^3/uL (0.0-0.7); EOS % 3 % (0-3); HEMOGLOBIN 9.8 g/dL (13.0-17.5); LYMPH # 2.3 x10^3/uL (1.0-4.8); LYMPH % 12 % (24-48); MEAN CORPUSCULAR HEMOGLOBIN 32 pg (25-35); MEAN CORPUSCULAR HGB CONC 32 g/dL (31-37); MEAN CORPUSCULAR VOLUME 101 fL (79-100); MONO # 0.8 x10^3/uL (0.0-1.1); MONO % 4 % (0-9); NEUT # 15.2 x10^3/uL (1.8-7.7); NEUT % 80 % (31-73); PLATELET COUNT 306 x10^3/uL (140-400); RED BLOOD COUNT 3.06 x10^6/uL (4.30-5.70); RED CELL DISTRIBUTION WIDTH 15.8 % (11.5-14.5); WHITE BLOOD COUNT 19.1 x10^3/uL (4.0-11.0)
[2020-06-22] MEDS: PIPERACILLIN/TAZOBACTAM 2.25 GM in IV NORMAL SALINE 50ML 50 ML IV SCH ×5 (06:00→23:28)
[2020-06-22] MEDS: LEVOTHYROXINE 125 MCG TABLET PO SCH (06:09)
[2020-06-22] MEDS: IV 1/2 NORMAL SALINE 1,000 ML IV SCH ×3 (06:17→21:22)
[2020-06-22 06:18] VITALS: BP 115/42
[2020-06-22] MEDS: MIDODRINE 5 MG TABLET PO SCH ×3 (06:18→17:32)
[2020-06-22 08:29] LABS: ALBUMIN 1.7 g/dL (3.4-5.0); ALBUMIN/GLOBULIN RATIO 0.4 (1.0-1.7); CREATININE 2.4 mg/dL (0.7-1.3); GFR 26.1; POTASSIUM 3.5 mmol/L (3.5-5.1); TOTAL BILIRUBIN 0.3 mg/dL (0.2-1.0); TOTAL PROTEIN 5.6 g/dL (6.4-8.2)
[2020-06-22] MEDS: CARBIDOPA/LEVODOPA 25/100MG TABLET PO SCH ×3 (10:15→21:22)
[2020-06-22] MEDS: SENNOSIDES/DOCUSATE 8.6/50MG TABLET. PO SCH ×2 (10:15→21:22)
[2020-06-22] MEDS: buPROPion SR 100 MG TABLET.SA. PO SCH ×2 (10:15→21:22)
[2020-06-22] MEDS: LITHIUM CARBONATE ER 300 MG TABLET.ER PO SCH (10:15)
[2020-06-22] MEDS: FLUDROCORTISONE 0.1 MG TABLET PO SCH (10:16)
[2020-06-22] MEDS: MULTIVITAMIN with MINERAL TABLET. PO SCH (10:33)
[2020-06-22] MEDS: busPIRone 10 MG TABLET. PO SCH ×3 (10:33→21:22)
[2020-06-22] MEDS: rOPINIRole 0.25 MG TABLET. PO SCH ×3 (10:33→21:22)
[2020-06-22] MEDS: PANTOPRAZOLE 40 MG TABLET.DR. PO SCH (10:33)
[2020-06-22] MEDS: OLANZapine 5 MG TABLET PO SCH (10:33)
[2020-06-22] MEDS: LACTOBACILLUS RHAMNOSUS GG 1 CAPSULE. PO SCH ×2 (10:34→21:22)
[2020-06-22] MEDS: FLUTICASONE 50MCG/NASAL SPRAY 16GM BOTTLE. NS SCH (10:34)
[2020-06-22] MEDS: VITS A & D/LANOLIN TOPICAL OINTMENT 42GM TUBE. TP SCH ×2 (10:34→21:23)
[2020-06-22] MEDS: ASPIRIN CHEWABLE 81 MG TABLET. PO SCH (10:34)
[2020-06-22] MEDS: FOLIC ACID 1 MG TABLET. PO SCH (10:34)
[2020-06-22] MEDS: FERROUS SULFATE 325 MG TABLET. PO SCH (10:34)
--- NOTE | 2020-06-22 10:45 | PDOC ---
PROGRESS NOTES Date of Service: DATE: 06/22/20 TIME: 10:45 Chief Complaint Chief Complaint ASSESSMENT AND PLAN: Metabolic encephalopathy, ACUTE urinary tract infection, sepsis, BACTEREMIA hypernatremia, urinary tract infection, azotemia, ACUTE renal INJURY , , ACUTE RENAL TUBULAR NECROSIS leukocytosis. PLAN admitted. IV antibiotics. Consult Nephrology. CONSULT ID IV fluids, chg hypotonic saline home meds, DVT prophylaxis, full code, Carbajal to bedside p.r.n. Zofran, CHG TO ZOSYN 1-15 Continue Zosyn Start daptomycin IV Follow GPC in blood culture D/W RN 39 MIN pt exam, chart review,> 50% of time spent with exam, chart review, pt care coordination History of Present Illness History of Present Illness HISTORY OF PRESENT ILLNESS: The patient is a pleasant 79-year-old male, who has a chronic indwelling Carbajal. He is now presenting from a facility. He has mental status change. I believe the catheter got pulled out by accident last night. I discussed the case with the ER physician. It appears he has probable urinary tract infection with urosepsis and metabolic encephalopathy. We are going to admit the patient and give him IV antibiotics and fluids and try to get him feeling better. PAST MEDICAL HISTORY: Chronic indwelling Carbajal, bipolar, GERD, dysphagia, weakness, BPH. ALLERGIES: AMITRIPTYLINE, HALDOL, LORAZEPAM AND QUETIAPINE. FAMILY HISTORY: Diabetes. SOCIAL HISTORY: I think he lives at a facility. He does not drink, smoke or take drugs. I think he is disabled. MEDICATIONS: Reviewed, please refer to the MRAD. Vitals Vitals Vital Signs Date Time Temp Pulse Resp B/P (MAP) Pulse Ox O2 Delivery O2 Flow Rate FiO2 06/22/20 06:18 115/42 (66) 06/22/20 03:00 97.4 82 18 95 Nasal Cannula 3.5 97.4 Physical Exam Physical Exam GENERAL: encephalopathic., LETHARGIC HEENT: Normocephalic, atraumatic, external auditory canals are patent. EYES: Extraocular muscles are intact, pupils are equally round and reactive to light and accommodation. MUSCULOSKELETAL: Well developed, well nourished, good range of motion. ENDOCRINE: No thyromegaly was palpated. LYMPHATICS: No cervical chain or axillary nodes were noted. HEMATOPOIETIC: No bruising. NECK: Supple, no JVD, no thyromegaly was noted. LUNGS: Clear to auscultation in all lung leo without rhonchi or wheezing. HEART: RRR, S1, S2 present. Peripheral pulses intact, no obvious murmurs were noted. ABDOMEN: Soft, nontender. Positive bowel sounds no organomegaly, normal bowel sounds. EXTREMITIES: Without any cyanosis, clubbing, or edema. Pedal pulses intact, Homans sign is negative. NEUROLOGIC: He is encephalopathic. PSYCHIATRIC: He is encephalopathic. SKIN: No ulcerations or rashes, good skin turgor, no jaundice. VASCULAR: Good capillary refill, neurovascular bundle appears to be intact. GENITOURINARY: Carbajal. General: Cooperative, No acute distress Heart: Regular rate Abdomen: Normal bowel sounds, Soft, No tenderness, No hepatosplenomegaly Extremities: No clubbing, No cyanosis Skin: No breakdown Labs LABS SPEC #: [id number] WILLIE: 06/20/20 STATUS: RES REQ #: [id number] RECD: 06/20/[address]: DARELL SHAVER DO SOURCE: BLOOD ENTR: 06/21/20 [facility] DR: UNKNOWN PCP NAME SPDC: ORDERED: BLD CULT - LC Procedure Result BLOOD CULTURE LC Preliminary Preliminary FINAL ID= [STAPHYLOCOCCUS HOMINIS] Growth of organism in only one of multiple sets; isolation does not necessarily indicate infection. Contact Microbiology Lab if further testing is clinically warranted. STAPHYLOCOCCUS HOMINIS Unless otherwise specified, Testing Performed by: [address] [address] For Inquires, the Physician may contact the Microbiology department at [phone] XR CHEST 1V INDICATION: Reason: SOA / Spl. Instructions: / History: . COMPARISON STUDY: None. FINDINGS: Lungs: Hyperexpanded lung volume. Prominent interstitial marking. No confluent consolidations. Pleura: No pleural effusion or pneumothorax. Heart and Mediastinum: The cardiomediastinal silhouette is normal. Atherosclerosis of the thoracic aorta. IMPRESSION: Mildly prominent interstitial markings, which may reflect interstitial edema. Electronically signed by: Alethea Gonzales MD (06/20/2020 10:34 AM) [id number] DICTATED and SIGNED BY: ALETHEA GONZALES MSigned PATIENT: TRISH GRIFFITH ACCOUNT: [id number] : 1940 LOCATION: [address] [place] [address] AGE: 79 SEX: M EXAM STATUS: ADM IN ORD. PHYSICIAN: RUBEN MCNEIL MD REASON: FRACISCO PROCEDURE: RENAL COMPLETE BILATERAL US RENAL BILAT History: Reason: FRACISCO / Spl. Instructions: / History: Comparison: None. Procedure: Transabdominal ultrasound images are obtained of the kidneys and bladder. Findings: Degraded evaluation due to patient's immobility. Right kidney: measures 9.5 x 5.0 x 4.0 cm. Normal cortical echotexture. Corticomedullary differentiation is preserved. No hydronephrosis. Left kidney: measures 7.1 x 4.3 x 3.6 cm. Normal cortical echotexture. Corticomedullary differentiation is preserved. No hydronephrosis. Urinary bladder: Decompressed urinary bladder. Aorta and IVC not well seen due to overlying structures. IMPRESSION: 1. Degraded evaluation. Unremarkable renal ultrasound. Electronically signed by: Chetan Lerma DO (06/21/2020 5:01 PM) [facility] DICTATED and SIGNED BY: CHETAN LERMA DO DATE: 06/21/20 [id number] PDESC: ORDERED: BLD CULT - LC Procedure Result -- BLOOD CULTURE LC Preliminary Preliminary FINAL ID= [STAPHYLOCOCCUS HOMINIS] Growth of organism in only one of multiple sets; isolation does not necessarily indicate infection. Contact Microbiology Lab if further testing is clinically warranted. STAPHYLOCOCCUS HOMINIS Unless otherwise specified, Testing Performed by: [address] [address] For Inquires, the Physician may contact the Microbiology department at [phone] Laboratory Tests Test 06/21/20 15:05 06/22/20 04:30 Procalcitonin 0.30 ng/mL (0.00-0.10) White Blood Count 19.1 x10^3/uL (4.0-11.0) Red Blood Count 3.06 x10^6/uL (4.30-5.70) Hemoglobin 9.8 g/dL (13.0-17.5) Hematocrit 31.0 % (39.0-53.0) Mean Corpuscular Volume 101 fL (79-100) Mean Corpuscular Hemoglobin 32 pg (25-35) Mean Corpuscular Hemoglobin Concent 32 g/dL (31-37) Red Cell Distribution Width 15.8 % (11.5-14.5) Platelet Count 306 x10^3/uL (140-400) Neutrophils (%) (Auto) 80 % (31-73) Lymphocytes (%) (Auto) 12 % (24-48) Monocytes (%) (Auto) 4 % (0-9) Eosinophils (%) (Auto) 3 % (0-3) Basophils (%) (Auto) 1 % (0-3) Neutrophils # (Auto) 15.2 x10^3/uL (1.8-7.7) Lymphocytes # (Auto) 2.3 x10^3/uL (1.0-4.8) Monocytes # (Auto) 0.8 x10^3/uL (0.0-1.1) Eosinophils # (Auto) 0.6 x10^3/uL (0.0-0.7) Basophils # (Auto) 0.1 x10^3/uL (0.0-0.2) Sodium Level 156 mmol/L (136-145) Potassium Level 3.5 mmol/L (3.5-5.1) Chloride Level 123 mmol/L (98-107) Carbon Dioxide Level 26 mmol/L (21-32) Anion Gap 7 (6-14) Blood Urea Nitrogen 46 mg/dL (8-26) Creatinine 2.4 mg/dL (0.7-1.3) Estimated GFR (Cockcroft-Gault) 26.1 BUN/Creatinine Ratio 19 (6-20) Glucose Level 84 mg/dL (70-99) Calcium Level 9.0 mg/dL (8.5-10.1) Total Bilirubin 0.3 mg/dL (0.2-1.0) Aspartate Amino Transf (AST/SGOT) 70 U/L (15-37) Alanine Aminotransferase (ALT/SGPT) 9 U/L (16-63) Alkaline Phosphatase 75 U/L (46-116) Total Protein 5.6 g/dL (6.4-8.2) Albumin 1.7 g/dL (3.4-5.0) Albumin/Globulin Ratio 0.4 (1.0-1.7) Assessment and Plan Assessmemt and Plan Problems Medical Problems: (1) Dehydration Status: Acute (2) Metabolic encephalopathy Status: Acute (3) Person under investigation for COVID-19 Status: Acute (4) Renal failure Status: Acute (5) UTI (urinary tract infection) Status: Acute Comment Review of Relevant I have reviewed the following items ab (where applicable) has been applied. Labs Laboratory Tests Test 06/21/20 15:05 06/22/20 04:30 Procalcitonin 0.30 ng/mL (0.00-0.10) White Blood Count 19.1 x10^3/uL (4.0-11.0) Red Blood Count 3.06 x10^6/uL (4.30-5.70) Hemoglobin 9.8 g/dL (13.0-17.5) Hematocrit 31.0 % (39.0-53.0) Mean Corpuscular Volume 101 fL (79-100) Mean Corpuscular Hemoglobin 32 pg (25-35) Mean Corpuscular Hemoglobin Concent 32 g/dL (31-37) Red Cell Distribution Width 15.8 % (11.5-14.5) Platelet Count 306 x10^3/uL (140-400) Neutrophils (%) (Auto) 80 % (31-73) Lymphocytes (%) (Auto) 12 % (24-48) Monocytes (%) (Auto) 4 % (0-9) Eosinophils (%) (Auto) 3 % (0-3) Basophils (%) (Auto) 1 % (0-3) Neutrophils # (Auto) 15.2 x10^3/uL (1.8-7.7) Lymphocytes # (Auto) 2.3 x10^3/uL (1.0-4.8) Monocytes # (Auto) 0.8 x10^3/uL (0.0-1.1) Eosinophils # (Auto) 0.6 x10^3/uL (0.0-0.7) Basophils # (Auto) 0.1 x10^3/uL (0.0-0.2) Sodium Level 156 mmol/L (136-145) Potassium Level 3.5 mmol/L (3.5-5.1) Chloride Level 123 mmol/L (98-107) Carbon Dioxide Level 26 mmol/L (21-32) Anion Gap 7 (6-14) Blood Urea Nitrogen 46 mg/dL (8-26) Creatinine 2.4 mg/dL (0.7-1.3) Estimated GFR (Cockcroft-Gault) 26.1 BUN/Creatinine Ratio 19 (6-20) Glucose Level 84 mg/dL (70-99) Calcium Level 9.0 mg/dL (8.5-10.1) Total Bilirubin 0.3 mg/dL (0.2-1.0) Aspartate Amino Transf (AST/SGOT) 70 U/L (15-37) Alanine Aminotransferase (ALT/SGPT) 9 U/L (16-63) Alkaline Phosphatase 75 U/L (46-116) Total Protein 5.6 g/dL (6.4-8.2) Albumin 1.7 g/dL (3.4-5.0) Albumin/Globulin Ratio 0.4 (1.0-1.7) Laboratory Tests Test 06/21/20 15:05 06/22/20 04:30 Procalcitonin 0.30 ng/mL (0.00-0.10) White Blood Count 19.1 x10^3/uL (4.0-11.0) Red Blood Count 3.06 x10^6/uL (4.30-5.70) Hemoglobin 9.8 g/dL (13.0-17.5) Hematocrit 31.0 % (39.0-53.0) Mean Corpuscular Volume 101 fL (79-100) Mean Corpuscular Hemoglobin 32 pg (25-35) Mean Corpuscular Hemoglobin Concent 32 g/dL (31-37) Red Cell Distribution Width 15.8 % (11.5-14.5) Platelet Count 306 x10^3/uL (140-400) Neutrophils (%) (Auto) 80 % (31-73) Lymphocytes (%) (Auto) 12 % (24-48) Monocytes (%) (Auto) 4 % (0-9) Eosinophils (%) (Auto) 3 % (0-3) Basophils (%) (Auto) 1 % (0-3) Neutrophils # (Auto) 15.2 x10^3/uL (1.8-7.7) Lymphocytes # (Auto) 2.3 x10^3/uL (1.0-4.8) Monocytes # (Auto) 0.8 x10^3/uL (0.0-1.1) Eosinophils # (Auto) 0.6 x10^3/uL (0.0-0.7) Basophils # (Auto) 0.1 x10^3/uL (0.0-0.2) Sodium Level 156 mmol/L (136-145) Potassium Level 3.5 mmol/L (3.5-5.1) Chloride Level 123 mmol/L (98-107) Carbon Dioxide Level 26 mmol/L (21-32) Anion Gap 7 (6-14) Blood Urea Nitrogen 46 mg/dL (8-26) Creatinine 2.4 mg/dL (0.7-1.3) Estimated GFR (Cockcroft-Gault) 26.1 BUN/Creatinine Ratio 19 (6-20) Glucose Level 84 mg/dL (70-99) Calcium Level 9.0 mg/dL (8.5-10.1) Total Bilirubin 0.3 mg/dL (0.2-1.0) Aspartate Amino Transf (AST/SGOT) 70 U/L (15-37) Alanine Aminotransferase (ALT/SGPT) 9 U/L (16-63) Alkaline Phosphatase 75 U/L (46-116) Total Protein 5.6 g/dL (6.4-8.2) Albumin 1.7 g/dL (3.4-5.0) Albumin/Globulin Ratio 0.4 (1.0-1.7) Microbiology 06/20/20 Blood Culture - Preliminary, Resulted Medications Current Medications Ceftriaxone Sodium (Rocephin) 1 gm 1X ONCE IVP Last administered on 06/20/20at 11:34; Start 06/20/20 at 10:45; Stop 06/20/20 at 10:47; Status DC Sodium Chloride 1,000 ml @ 1,000 mls/hr 1X ONCE IV Last administered on 06/20/20at 11:34; Start 06/20/20 at 10:45; Stop 06/20/20 at 11:44; Status DC Ondansetron HCl (Zofran) 4 mg PRN Q8HRS PRN IV NAUSEA/VOMITING; Start 06/20/20 at 11:30; Stop 06/21/20 at 11:29; Status DC Sodium Chloride 1,000 ml @ 75 mls/hr [id number] IV Last administered on 06/21/20at 06:22; Start 06/20/20 at 12:00; Stop 06/21/20 at 11:59; Status DC Ceftriaxone Sodium (Rocephin) 1 gm Q24H IVP Last administered on 06/20/20at 17:06; Start 06/20/20 at 17:00; Stop 06/21/20 at 12:44; Status DC Acetaminophen (Tylenol) 650 mg PRN Q6HRS PRN PO MILD PAIN 1-3; Start 06/21/20 at 10:15 Aspirin (Aspirin Chewable) 81 mg DAILY PO Last administered on 06/22/20at 10:34; Start 06/21/20 at 11:00 Bupropion HCl (Wellbutrin Sr) 75 mg BID PO Last administered on 06/22/20at 10:15; Start 06/21/20 at 11:00 Buspirone HCl (Buspar) 10 mg TID PO ; Start 06/21/20 at 11:00; Stop 06/21/20 at 10:56; Status DC Carbidopa/Levodopa (Sinemet 25/100) 2 tab TID PO Last administered on 06/22/20at 10:15; Start 06/21/20 at 11:00 Docusate Sodium (Colace) 100 mg PRN Q12HRS PRN PO CONSTIPATION; Start 06/21/20 at 10:15 Fludrocortisone Acetate (Florinef) 0.1 mg DAILY PO Last administered on 06/22/20at 10:16; Start 06/21/20 at 11:00 Levothyroxine Sodium (Synthroid) 125 mcg DAILY06 PO Last administered on 06/22/20at 06:09; Start 06/22/20 at 06:00 Midodrine (Proamatine) 10 mg [id number] PO Last administered on 06/21/20at 18:43; Start 06/21/20 at 13:00 Nitroglycerin (Nitrostat) 0.4 mg PRN Q5MIN PRN SL CHEST PAIN; Start 06/21/20 at 10:15 Olanzapine (ZyPREXA) 5 mg DAILY PO Last administered on 06/22/20at 10:33; Start 06/21/20 at 11:00 Senna/Docusate Sodium (Senna Plus) 1 tab BID PO Last administered on 06/22/20at 10:15; Start 06/21/20 at 11:00 Non-Formulary Medication (Ciprofloxacin Hcl (Cipro)) 1 tab BID PO ; Start 06/21/20 at 21:00; Stop 06/21/20 at 15:01; Status DC Ferrous Sulfate (Feosol) 325 mg DAILYWBKFT PO Last administered on 06/22/20at 10:34; Start 06/21/20 at 12:00 Fluticasone Propionate (Flonase) 2 spray DAILY NS Last administered on 06/22/20at 10:34; Start 06/21/20 at 12:00 Folic Acid (Folic Acid) 1 mg DAILY PO Last administered on 06/22/20at 10:34; Start 06/21/20 at 12:00 Lactulose (Lactulose) 10 gm PRN DAILY PRN PO CONSTIPATION; Start 06/21/20 at 11:15 [place] Carbonate (Lithobid) 300 mg DAILY PO Last administered on 06/22/20at 10:15; Start 06/21/20 at 12:00 Multivitamins (Thera M Plus) 1 tab DAILY PO Last administered on 06/22/20at 10:33; Start 06/21/20 at 12:00 Pantoprazole Sodium (Protonix) 40 mg DAILYAC PO Last administered on 06/22/20at 10:33; Start 06/21/20 at 11:30 Ropinirole HCl (Requip) 0.5 mg TID PO Last administered on 06/22/20at 10:33; Start 06/21/20 at 14:00 Buspirone HCl (Buspar) 10 mg TID PO Last administered on 06/22/20at 10:33; Start 06/21/20 at 11:00 Piperacillin Sod/ Tazobactam Sod (Zosyn Per Pharmacy) 1 each PRN DAILY PRN MC SEE COMMENTS; Start 06/21/20 at 12:45 Sodium Chloride 1,000 ml @ 100 mls/hr Q10H IV Last administered on 06/22/20at 06:17; Start 06/21/20 at 13:00 Piperacillin Sod/ Tazobactam Sod 2.25 gm/Sodium Chloride 50 ml @ 100 mls/hr Q6HRS IV Last administered on 06/22/20at 06:08; Start 06/21/20 at 18:00 Daptomycin 350 mg/ Sodium Chloride 50 ml @ 100 mls/hr Q48H IV Last administered on 06/21/20at 16:37; Start 06/21/20 at 16:00 Vitamin A/Vitamin D (Vitamin A & D Ointment) 1 janina BID TP Last administered on 06/22/20at 10:34; Start 06/21/20 at 16:00 Lactobacillus Rhamnosus (Culturelle) 1 cap BID PO Last administered on 06/22/20at 10:34; Start 06/21/20 at 21:00 Active Scripts Active Reported Tylenol (Acetaminophen) 325 Mg Tablet 2 Tab PO PRN Q6HRS PRN Senna-S 8.6-50 mg Tablet (Sennosides/Docusate Sodium) 1 Each Tablet 1 Each PO BID Ropinirole Hcl 0.5 Mg Tablet 0.5 Mg PO TID Prilosec Otc (Omeprazole Magnesium) 20 Mg Tablet.dr 40 Mg PO DAILY Olanzapine 5 Mg Tablet 5 Mg PO DAILY NITROGLYCERIN SubLingual (Nitroglycerin) 0.4 Mg Tab.subl 0.4 Mg SL PRN Q5MIN PRN Midodrine Hcl 5 Mg Tablet 10 Mg PO TID Methotrexate (Methotrexate Sodium) 2.5 Mg Tablet 20 Tab PO WEEKLY Melatonin 5 Mg Tab.rapdis 1 Tab PO QHS 30 Days [place] Carbonate 300 Mg Capsule 1 Cap PO DAILY Levothyroxine Sodium 125 Mcg Tablet 1 Tab PO DAILY Lactulose 10 Gm Packet 10 Gm PO PRN DAILY PRN Folic Acid 0.4 Mg Tablet 1 Mg PO DAILY Fludrocortisone Acetate 0.1 Mg Tablet 0.1 Mg PO DAILY Flonase Allergy Relief (Fluticasone Propionate) 9.9 Ml [place].susp 2 Sprays NS DAILY Ferrous Sulfate 220 Mg/5 Ml Solution 325 Mg PO DAILY Multiple Vitamins (Multivitamin) 1 Each Tablet 1 Tab PO DAILY 30 Days Vitamin D2 (Ergocalciferol (Vitamin D2)) 1,250 Mcg Capsule 1,250 Mcg PO DAILY Colace (Docusate Sodium) 100 Mg Capsule 1 Cap PO PRN Q12HRS PRN 30 Days Cipro (Ciprofloxacin Hcl) 500 Mg Tablet 1 Tab PO BID 7 Days Carbidopa-Levodopa 25-100 Tab (Carbidopa/Levodopa) 1 Each Tablet 2 Tab PO TID 30 Days Buspirone Hcl 5 Mg Tablet 2 Tab PO TID Bupropion Hcl Sr (Bupropion Hcl) 100 Mg Tablet.er 75 Mg PO BID Children's Aspirin (Aspirin) 81 Mg Tab.chew 1 Tab PO DAILY 30 Days Vitals/I & O Vital Sign - Last 24 Hours 06/21/20 06/21/20 06/21/20 06/21/20 11:06 11:11 15:00 16:58 Temp 96.3 98.2 98.2 96.3 98.2 98.2 Pulse 74 74 88 88 Resp 14 14 14 B/P (MAP) 130/57 (81) 130/57 92/40 (57) 92/40 (57) Pulse Ox 94 93 93 O2 Delivery Nasal Cannula Nasal Cannula Nasal Cannula O2 Flow Rate 2.0 3.5 3.5 06/21/20 06/21/20 06/21/20 06/21/20 18:43 19:00 20:00 20:19 Temp 97.4 97.4 Pulse 88 80 Resp 18 B/P (MAP) 92/40 77/34 (48) 93/44 (60) Pulse Ox 95 O2 Delivery Nasal Cannula Nasal Cannula O2 Flow Rate 3.5 3.5 06/21/20 06/22/20 06/22/20 06/22/20 23:05 03:00 06:18 06:18 Temp 97.3 97.4 97.3 97.4 Pulse 84 82 Resp 16 18 B/P (MAP) 91/45 (60) 102/47 (65) 115/42 115/42 (66) Pulse Ox 100 95 O2 Delivery Nasal Cannula Nasal Cannula O2 Flow Rate 3.5 3.5 Intake and Output 06/21/20 06/21/20 06/22/20 15:00 23:00 07:00 Intake Total 250 ml 60 ml Output Total 800 ml 500 ml Balance -800 ml 250 ml -440 ml Nutrition Consultation Dietary Evaluation: Recommendations by RD: Dietary education by RD, Increase Calorie Intake, Protein supplementation Comments: mech soft renal diet with nepro supplements bid mvi and vit c per wound protocal Expected Outcomes/Goals: to meet >75% est nutr needs improved wound status and renal function Malnutrition Findings: Food and Nutrition Intake (Mod: <75% est energy req 7days Body Fat Depletion (Non Severe: Mild Depletion Weight Status: Underweight Justicifation of Admission Dx: Justifications for Admission: Justification of Admission Dx: Yes Sepsis: Bacteremia GRZEGORZ VERMA MD Jun 22, 2020 10:45
[2020-06-22 11:15] VITALS: BP 103/85
--- NOTE | 2020-06-22 11:29 | PDOC ---
Infectious Disease Note Vital Signs: Vital Signs Vital Signs Date Time Temp Pulse Resp B/P (MAP) Pulse Ox O2 Delivery O2 Flow Rate FiO2 06/22/20 11:15 97.7 85 18 103/85 (91) 95 Nasal Cannula 3.5 97.7 Physical Exam: PHYSICAL EXAM Medications: Inpatient Meds: Current Medications Medications (Trade) Dose Ordered Sig/Bianca Start Time Stop Time Status Last Admin Dose Admin Acetaminophen (Tylenol) 650 mg PRN Q6HRS PRN 06/21/20 10:15 Aspirin (Aspirin Chewable) 81 mg DAILY 06/21/20 11:00 06/22/20 10:34 81 MG Bupropion HCl (Wellbutrin Sr) 75 mg BID 06/21/20 11:00 06/22/20 10:15 75 MG Buspirone HCl (Buspar) 10 mg TID 06/21/20 11:00 06/22/20 10:33 10 MG Carbidopa/Levodopa (Sinemet 25/100) 2 tab TID 06/21/20 11:00 06/22/20 10:15 2 TAB Ceftriaxone Sodium (Rocephin) 1 gm Q24H 06/20/20 17:00 06/21/20 12:44 DC 06/20/20 17:06 1 GM Daptomycin 350 mg/ Sodium Chloride 50 ml @ 100 mls/hr Q48H 06/21/20 16:00 06/21/20 16:37 100 MLS/HR Docusate Sodium (Colace) 100 mg PRN Q12HRS PRN 06/21/20 10:15 Ferrous Sulfate (Feosol) 325 mg DAILYWBKFT 06/21/20 12:00 06/22/20 10:34 325 MG Fludrocortisone Acetate (Florinef) 0.1 mg DAILY 06/21/20 11:00 06/22/20 10:16 0.1 MG Fluticasone Propionate (Flonase) 2 spray DAILY 06/21/20 12:00 06/22/20 10:34 2 SPRAY Folic Acid (Folic Acid) 1 mg DAILY 06/21/20 12:00 06/22/20 10:34 1 MG Lactobacillus Rhamnosus (Culturelle) 1 cap BID 06/21/20 21:00 06/22/20 10:34 1 CAP Lactulose (Lactulose) 10 gm PRN DAILY PRN 06/21/20 11:15 Levothyroxine Sodium (Synthroid) 125 mcg DAILY06 06/22/20 06:00 06/22/20 06:09 125 MCG [place] Carbonate (Lithobid) 300 mg DAILY 06/21/20 12:00 06/22/20 10:15 300 MG Midodrine (Proamatine) 10 mg [id number] 06/21/20 13:00 06/21/20 18:43 10 MG Multivitamins (Thera M Plus) 1 tab DAILY 06/21/20 12:00 06/22/20 10:33 1 TAB Nitroglycerin (Nitrostat) 0.4 mg PRN Q5MIN PRN 06/21/20 10:15 Non-Formulary Medication (Ciprofloxacin Hcl (Cipro)) 1 tab BID 06/21/20 21:00 06/21/20 15:01 DC Olanzapine (ZyPREXA) 5 mg DAILY 06/21/20 11:00 06/22/20 10:33 5 MG Ondansetron HCl (Zofran) 4 mg PRN Q8HRS PRN 06/20/20 11:30 06/21/20 11:29 DC Pantoprazole Sodium (Protonix) 40 mg DAILYAC 06/21/20 11:30 06/22/20 10:33 40 MG Piperacillin Sod/ Tazobactam Sod (Zosyn Per Pharmacy) 1 each PRN DAILY PRN 06/21/20 12:45 Piperacillin Sod/ Tazobactam Sod 2.25 gm/Sodium Chloride 50 ml @ 100 mls/hr Q6HRS 06/21/20 18:00 06/22/20 06:08 100 MLS/HR Ropinirole HCl (Requip) 0.5 mg TID 06/21/20 14:00 06/22/20 10:33 0.5 MG Senna/Docusate Sodium (Senna Plus) 1 tab BID 06/21/20 11:00 06/22/20 10:15 1 TAB Sodium Chloride 1,000 ml @ 100 mls/hr Q10H 06/21/20 13:00 06/22/20 06:17 100 MLS/HR Vitamin A/Vitamin D (Vitamin A & D Ointment) 1 janina BID 06/21/20 16:00 06/22/20 10:34 1 JANINA Labs: Lab Laboratory Tests Test 06/21/20 15:05 06/22/20 04:30 Procalcitonin 0.30 ng/mL (0.00-0.10) White Blood Count 19.1 x10^3/uL (4.0-11.0) Red Blood Count 3.06 x10^6/uL (4.30-5.70) Hemoglobin 9.8 g/dL (13.0-17.5) Hematocrit 31.0 % (39.0-53.0) Mean Corpuscular Volume 101 fL (79-100) Mean Corpuscular Hemoglobin 32 pg (25-35) Mean Corpuscular Hemoglobin Concent 32 g/dL (31-37) Red Cell Distribution Width 15.8 % (11.5-14.5) Platelet Count 306 x10^3/uL (140-400) Neutrophils (%) (Auto) 80 % (31-73) Lymphocytes (%) (Auto) 12 % (24-48) Monocytes (%) (Auto) 4 % (0-9) Eosinophils (%) (Auto) 3 % (0-3) Basophils (%) (Auto) 1 % (0-3) Neutrophils # (Auto) 15.2 x10^3/uL (1.8-7.7) Lymphocytes # (Auto) 2.3 x10^3/uL (1.0-4.8) Monocytes # (Auto) 0.8 x10^3/uL (0.0-1.1) Eosinophils # (Auto) 0.6 x10^3/uL (0.0-0.7) Basophils # (Auto) 0.1 x10^3/uL (0.0-0.2) Sodium Level 156 mmol/L (136-145) Potassium Level 3.5 mmol/L (3.5-5.1) Chloride Level 123 mmol/L (98-107) Carbon Dioxide Level 26 mmol/L (21-32) Anion Gap 7 (6-14) Blood Urea Nitrogen 46 mg/dL (8-26) Creatinine 2.4 mg/dL (0.7-1.3) Estimated GFR (Cockcroft-Gault) 26.1 BUN/Creatinine Ratio 19 (6-20) Glucose Level 84 mg/dL (70-99) Calcium Level 9.0 mg/dL (8.5-10.1) Total Bilirubin 0.3 mg/dL (0.2-1.0) Aspartate Amino Transf (AST/SGOT) 70 U/L (15-37) Alanine Aminotransferase (ALT/SGPT) 9 U/L (16-63) Alkaline Phosphatase 75 U/L (46-116) Total Protein 5.6 g/dL (6.4-8.2) Albumin 1.7 g/dL (3.4-5.0) Albumin/Globulin Ratio 0.4 (1.0-1.7) Plan: Plan of Care SADIA Jimenez MD Jun 22, 2020 11:29
--- NOTE | 2020-06-22 12:07 | PDOC ---
Infectious Disease Note Subjective: Subjective Pt remains lethargic does not answer any questions Vital Signs: Vital Signs Vital Signs Date Time Temp Pulse Resp B/P (MAP) Pulse Ox O2 Delivery O2 Flow Rate FiO2 06/22/20 11:15 97.7 85 18 103/85 (91) 95 Nasal Cannula 3.5 97.7 Physical Exam: PHYSICAL EXAM General lethargic, arousable but does not answer any questions HEENT normocephalic atraumatic anicteric no thrush oral mucosa moist Neck supple Lungs clear bilaterally no wheezing Heart S1-S2 Abdomen soft nontender nondistended Carbajal in place, scrotal enlargement, scrotal wounds, Extremities no edema no cyanosis contractures Neuro lethargic, confused Psychiatric unable to obtain Derm multiple wounds Per chart review Medications: Inpatient Meds: Current Medications Medications (Trade) Dose Ordered Sig/Bianca Start Time Stop Time Status Last Admin Dose Admin Acetaminophen (Tylenol) 650 mg PRN Q6HRS PRN 06/21/20 10:15 Aspirin (Aspirin Chewable) 81 mg DAILY 06/21/20 11:00 06/22/20 10:34 81 MG Bupropion HCl (Wellbutrin Sr) 75 mg BID 06/21/20 11:00 06/22/20 10:15 75 MG Buspirone HCl (Buspar) 10 mg TID 06/21/20 11:00 06/22/20 10:33 10 MG Carbidopa/Levodopa (Sinemet 25/100) 2 tab TID 06/21/20 11:00 06/22/20 10:15 2 TAB Ceftriaxone Sodium (Rocephin) 1 gm Q24H 06/20/20 17:00 06/21/20 12:44 DC 06/20/20 17:06 1 GM Daptomycin 350 mg/ Sodium Chloride 50 ml @ 100 mls/hr Q48H 06/21/20 16:00 06/21/20 16:37 100 MLS/HR Docusate Sodium (Colace) 100 mg PRN Q12HRS PRN 06/21/20 10:15 Ferrous Sulfate (Feosol) 325 mg DAILYWBKFT 06/21/20 12:00 06/22/20 10:34 325 MG Fludrocortisone Acetate (Florinef) 0.1 mg DAILY 06/21/20 11:00 06/22/20 10:16 0.1 MG Fluticasone Propionate (Flonase) 2 spray DAILY 06/21/20 12:00 06/22/20 10:34 2 SPRAY Folic Acid (Folic Acid) 1 mg DAILY 06/21/20 12:00 06/22/20 10:34 1 MG Lactobacillus Rhamnosus (Culturelle) 1 cap BID 06/21/20 21:00 06/22/20 10:34 1 CAP Lactulose (Lactulose) 10 gm PRN DAILY PRN 06/21/20 11:15 Levothyroxine Sodium (Synthroid) 125 mcg DAILY06 06/22/20 06:00 06/22/20 06:09 125 MCG [place] Carbonate (Lithobid) 300 mg DAILY 06/21/20 12:00 06/22/20 10:15 300 MG Midodrine (Proamatine) 10 mg [id number] 06/21/20 13:00 06/21/20 18:43 10 MG Multivitamins (Thera M Plus) 1 tab DAILY 06/21/20 12:00 06/22/20 10:33 1 TAB Nitroglycerin (Nitrostat) 0.4 mg PRN Q5MIN PRN 06/21/20 10:15 Non-Formulary Medication (Ciprofloxacin Hcl (Cipro)) 1 tab BID 06/21/20 21:00 06/21/20 15:01 DC Olanzapine (ZyPREXA) 5 mg DAILY 06/21/20 11:00 06/22/20 10:33 5 MG Ondansetron HCl (Zofran) 4 mg PRN Q8HRS PRN 06/20/20 11:30 06/21/20 11:29 DC Pantoprazole Sodium (Protonix) 40 mg DAILYAC 06/21/20 11:30 06/22/20 10:33 40 MG Piperacillin Sod/ Tazobactam Sod (Zosyn Per Pharmacy) 1 each PRN DAILY PRN 06/21/20 12:45 Piperacillin Sod/ Tazobactam Sod 2.25 gm/Sodium Chloride 50 ml @ 100 mls/hr Q6HRS 06/21/20 18:00 06/22/20 06:08 100 MLS/HR Ropinirole HCl (Requip) 0.5 mg TID 06/21/20 14:00 06/22/20 10:33 0.5 MG Senna/Docusate Sodium (Senna Plus) 1 tab BID 06/21/20 11:00 06/22/20 10:15 1 TAB Sodium Chloride 1,000 ml @ 100 mls/hr Q10H 06/21/20 13:00 06/22/20 06:17 100 MLS/HR Vitamin A/Vitamin D (Vitamin A & D Ointment) 1 janina BID 06/21/20 16:00 06/22/20 10:34 1 JANINA Labs: Lab Laboratory Tests Test 06/21/20 15:05 06/22/20 04:30 Procalcitonin 0.30 ng/mL (0.00-0.10) White Blood Count 19.1 x10^3/uL (4.0-11.0) Red Blood Count 3.06 x10^6/uL (4.30-5.70) Hemoglobin 9.8 g/dL (13.0-17.5) Hematocrit 31.0 % (39.0-53.0) Mean Corpuscular Volume 101 fL (79-100) Mean Corpuscular Hemoglobin 32 pg (25-35) Mean Corpuscular Hemoglobin Concent 32 g/dL (31-37) Red Cell Distribution Width 15.8 % (11.5-14.5) Platelet Count 306 x10^3/uL (140-400) Neutrophils (%) (Auto) 80 % (31-73) Lymphocytes (%) (Auto) 12 % (24-48) Monocytes (%) (Auto) 4 % (0-9) Eosinophils (%) (Auto) 3 % (0-3) Basophils (%) (Auto) 1 % (0-3) Neutrophils # (Auto) 15.2 x10^3/uL (1.8-7.7) Lymphocytes # (Auto) 2.3 x10^3/uL (1.0-4.8) Monocytes # (Auto) 0.8 x10^3/uL (0.0-1.1) Eosinophils # (Auto) 0.6 x10^3/uL (0.0-0.7) Basophils # (Auto) 0.1 x10^3/uL (0.0-0.2) Sodium Level 156 mmol/L (136-145) Potassium Level 3.5 mmol/L (3.5-5.1) Chloride Level 123 mmol/L (98-107) Carbon Dioxide Level 26 mmol/L (21-32) Anion Gap 7 (6-14) Blood Urea Nitrogen 46 mg/dL (8-26) Creatinine 2.4 mg/dL (0.7-1.3) Estimated GFR (Cockcroft-Gault) 26.1 BUN/Creatinine Ratio 19 (6-20) Glucose Level 84 mg/dL (70-99) Calcium Level 9.0 mg/dL (8.5-10.1) Total Bilirubin 0.3 mg/dL (0.2-1.0) Aspartate Amino Transf (AST/SGOT) 70 U/L (15-37) Alanine Aminotransferase (ALT/SGPT) 9 U/L (16-63) Alkaline Phosphatase 75 U/L (46-116) Total Protein 5.6 g/dL (6.4-8.2) Albumin 1.7 g/dL (3.4-5.0) Albumin/Globulin Ratio 0.4 (1.0-1.7) Objective: Assessment: Sepsis Leukocytosis Bacteremia gram-positive cocci,3/4 bottles staph hominis could be a contaminant UTI FRACISCO with underlying CKD Hypernatremia Covid Negative Encephalopathy likely metabolic Multiple wounds Generalized debility History of bipolar disorder BPH GERD Recommendations DC Cipro Continue Zosyn Start daptomycin Follow GPC in blood culture Follow cultures Monitor labs Follow-up COVID-19 PCR Wound care as directed Offload Maintain aspiration precaution Continue supportive care Overall prognosis poor Plan: Plan of Care Continue Zosyn/ daptomycin Follow GPC in blood culture Follow cultures Monitor labs COVID-19 PCR negative Wound care as directed Offload Maintain aspiration precaution Continue supportive care Overall prognosis poor d/w SADIA KING MD Jun 22, 2020 12:07
--- NOTE | 2020-06-22 14:45 | PDOC ---
PROGRESS NOTES Date of Service DATE: 06/22/20 TIME: 14:43 Subjective Subjective IN FOLLOW UP OF DEHYDRATION Objective Objective Vital Signs Date Time Temp Pulse Resp B/P (MAP) Pulse Ox O2 Delivery O2 Flow Rate FiO2 06/22/20 12:29 85 103/85 06/22/20 11:15 97.7 18 95 Nasal Cannula 2.0 97.7 Intake and Output 06/22/20 07:00 Intake Total 310 ml Output Total 1300 ml Balance -990 ml Intake Oral 310 ml Output Urine Total 1300 ml Physical Exam COMMENT NO BEDSIDE EXAM DUE TO COVID 19 + Diagnosis RENAL FAILURE: Acute, Other (DEHYDRATION) Assessment Assessment Problems Medical Problems: (1) Dehydration Status: Acute (2) Metabolic encephalopathy Status: Acute (3) Person under investigation for COVID-19 Status: Acute (4) Renal failure Status: Acute (5) UTI (urinary tract infection) Status: Acute Plan Plan of Care CONT IVF AND TREND LABS. INCREASE FREE WATER Comment Review of Relevant I have reviewed the following items ab (where applicable) has been applied. Labs Laboratory Tests Test 06/21/20 15:05 06/22/20 04:30 Procalcitonin 0.30 ng/mL (0.00-0.10) White Blood Count 19.1 x10^3/uL (4.0-11.0) Red Blood Count 3.06 x10^6/uL (4.30-5.70) Hemoglobin 9.8 g/dL (13.0-17.5) Hematocrit 31.0 % (39.0-53.0) Mean Corpuscular Volume 101 fL (79-100) Mean Corpuscular Hemoglobin 32 pg (25-35) Mean Corpuscular Hemoglobin Concent 32 g/dL (31-37) Red Cell Distribution Width 15.8 % (11.5-14.5) Platelet Count 306 x10^3/uL (140-400) Neutrophils (%) (Auto) 80 % (31-73) Lymphocytes (%) (Auto) 12 % (24-48) Monocytes (%) (Auto) 4 % (0-9) Eosinophils (%) (Auto) 3 % (0-3) Basophils (%) (Auto) 1 % (0-3) Neutrophils # (Auto) 15.2 x10^3/uL (1.8-7.7) Lymphocytes # (Auto) 2.3 x10^3/uL (1.0-4.8) Monocytes # (Auto) 0.8 x10^3/uL (0.0-1.1) Eosinophils # (Auto) 0.6 x10^3/uL (0.0-0.7) Basophils # (Auto) 0.1 x10^3/uL (0.0-0.2) Sodium Level 156 mmol/L (136-145) Potassium Level 3.5 mmol/L (3.5-5.1) Chloride Level 123 mmol/L (98-107) Carbon Dioxide Level 26 mmol/L (21-32) Anion Gap 7 (6-14) Blood Urea Nitrogen 46 mg/dL (8-26) Creatinine 2.4 mg/dL (0.7-1.3) Estimated GFR (Cockcroft-Gault) 26.1 BUN/Creatinine Ratio 19 (6-20) Glucose Level 84 mg/dL (70-99) Calcium Level 9.0 mg/dL (8.5-10.1) Total Bilirubin 0.3 mg/dL (0.2-1.0) Aspartate Amino Transf (AST/SGOT) 70 U/L (15-37) Alanine Aminotransferase (ALT/SGPT) 9 U/L (16-63) Alkaline Phosphatase 75 U/L (46-116) Total Protein 5.6 g/dL (6.4-8.2) Albumin 1.7 g/dL (3.4-5.0) Albumin/Globulin Ratio 0.4 (1.0-1.7) Laboratory Tests Test 06/21/20 15:05 06/22/20 04:30 Procalcitonin 0.30 ng/mL (0.00-0.10) White Blood Count 19.1 x10^3/uL (4.0-11.0) Red Blood Count 3.06 x10^6/uL (4.30-5.70) Hemoglobin 9.8 g/dL (13.0-17.5) Hematocrit 31.0 % (39.0-53.0) Mean Corpuscular Volume 101 fL (79-100) Mean Corpuscular Hemoglobin 32 pg (25-35) Mean Corpuscular Hemoglobin Concent 32 g/dL (31-37) Red Cell Distribution Width 15.8 % (11.5-14.5) Platelet Count 306 x10^3/uL (140-400) Neutrophils (%) (Auto) 80 % (31-73) Lymphocytes (%) (Auto) 12 % (24-48) Monocytes (%) (Auto) 4 % (0-9) Eosinophils (%) (Auto) 3 % (0-3) Basophils (%) (Auto) 1 % (0-3) Neutrophils # (Auto) 15.2 x10^3/uL (1.8-7.7) Lymphocytes # (Auto) 2.3 x10^3/uL (1.0-4.8) Monocytes # (Auto) 0.8 x10^3/uL (0.0-1.1) Eosinophils # (Auto) 0.6 x10^3/uL (0.0-0.7) Basophils # (Auto) 0.1 x10^3/uL (0.0-0.2) Sodium Level 156 mmol/L (136-145) Potassium Level 3.5 mmol/L (3.5-5.1) Chloride Level 123 mmol/L (98-107) Carbon Dioxide Level 26 mmol/L (21-32) Anion Gap 7 (6-14) Blood Urea Nitrogen 46 mg/dL (8-26) Creatinine 2.4 mg/dL (0.7-1.3) Estimated GFR (Cockcroft-Gault) 26.1 BUN/Creatinine Ratio 19 (6-20) Glucose Level 84 mg/dL (70-99) Calcium Level 9.0 mg/dL (8.5-10.1) Total Bilirubin 0.3 mg/dL (0.2-1.0) Aspartate Amino Transf (AST/SGOT) 70 U/L (15-37) Alanine Aminotransferase (ALT/SGPT) 9 U/L (16-63) Alkaline Phosphatase 75 U/L (46-116) Total Protein 5.6 g/dL (6.4-8.2) Albumin 1.7 g/dL (3.4-5.0) Albumin/Globulin Ratio 0.4 (1.0-1.7) Microbiology 06/21/20 Urine Culture - Final, Complete 06/20/20 Blood Culture - Preliminary, Resulted Medications Current Medications Ceftriaxone Sodium (Rocephin) 1 gm 1X ONCE IVP Last administered on 06/20/20at 11:34; Start 06/20/20 at 10:45; Stop 06/20/20 at 10:47; Status DC Sodium Chloride 1,000 ml @ 1,000 mls/hr 1X ONCE IV Last administered on 06/20/20at 11:34; Start 06/20/20 at 10:45; Stop 06/20/20 at 11:44; Status DC Ondansetron HCl (Zofran) 4 mg PRN Q8HRS PRN IV NAUSEA/VOMITING; Start 06/20/20 at 11:30; Stop 06/21/20 at 11:29; Status DC Sodium Chloride 1,000 ml @ 75 mls/hr [id number] IV Last administered on 06/21/20at 06:22; Start 06/20/20 at 12:00; Stop 06/21/20 at 11:59; Status DC Ceftriaxone Sodium (Rocephin) 1 gm Q24H IVP Last administered on 06/20/20at 17:06; Start 06/20/20 at 17:00; Stop 06/21/20 at 12:44; Status DC Acetaminophen (Tylenol) 650 mg PRN Q6HRS PRN PO MILD PAIN 1-3; Start 06/21/20 at 10:15 Aspirin (Aspirin Chewable) 81 mg DAILY PO Last administered on 06/22/20at 10:34; Start 06/21/20 at 11:00 Bupropion HCl (Wellbutrin Sr) 75 mg BID PO Last administered on 06/22/20at 10:15; Start 06/21/20 at 11:00 Buspirone HCl (Buspar) 10 mg TID PO ; Start 06/21/20 at 11:00; Stop 06/21/20 at 10:56; Status DC Carbidopa/Levodopa (Sinemet 25/100) 2 tab TID PO Last administered on 06/22/20at 14:35; Start 06/21/20 at 11:00 Docusate Sodium (Colace) 100 mg PRN Q12HRS PRN PO CONSTIPATION; Start 06/21/20 at 10:15 Fludrocortisone Acetate (Florinef) 0.1 mg DAILY PO Last administered on 06/22/20at 10:16; Start 06/21/20 at 11:00 Levothyroxine Sodium (Synthroid) 125 mcg DAILY06 PO Last administered on 06/22/20at 06:09; Start 06/22/20 at 06:00 Midodrine (Proamatine) 10 mg [id number] PO Last administered on 06/22/20at 12:29; Start 06/21/20 at 13:00 Nitroglycerin (Nitrostat) 0.4 mg PRN Q5MIN PRN SL CHEST PAIN; Start 06/21/20 at 10:15 Olanzapine (ZyPREXA) 5 mg DAILY PO Last administered on 06/22/20at 10:33; Start 06/21/20 at 11:00 Senna/Docusate Sodium (Senna Plus) 1 tab BID PO Last administered on 06/22/20at 10:15; Start 06/21/20 at 11:00 Non-Formulary Medication (Ciprofloxacin Hcl (Cipro)) 1 tab BID PO ; Start 06/21/20 at 21:00; Stop 06/21/20 at 15:01; Status DC Ferrous Sulfate (Feosol) 325 mg DAILYWBKFT PO Last administered on 06/22/20at 10:34; Start 06/21/20 at 12:00 Fluticasone Propionate (Flonase) 2 spray DAILY NS Last administered on 06/22/20at 10:34; Start 06/21/20 at 12:00 Folic Acid (Folic Acid) 1 mg DAILY PO Last administered on 06/22/20at 10:34; Start 06/21/20 at 12:00 Lactulose (Lactulose) 10 gm PRN DAILY PRN PO CONSTIPATION; Start 06/21/20 at 11:15 [place] Carbonate (Lithobid) 300 mg DAILY PO Last administered on 06/22/20at 10:15; Start 06/21/20 at 12:00 Multivitamins (Thera M Plus) 1 tab DAILY PO Last administered on 06/22/20at 10:33; Start 06/21/20 at 12:00 Pantoprazole Sodium (Protonix) 40 mg DAILYAC PO Last administered on 06/22/20at 10:33; Start 06/21/20 at 11:30 Ropinirole HCl (Requip) 0.5 mg TID PO Last administered on 06/22/20at 14:35; Start 06/21/20 at 14:00 Buspirone HCl (Buspar) 10 mg TID PO Last administered on 06/22/20at 14:35; Start 06/21/20 at 11:00 Piperacillin Sod/ Tazobactam Sod (Zosyn Per Pharmacy) 1 each PRN DAILY PRN MC SEE COMMENTS; Start 06/21/20 at 12:45 Sodium Chloride 1,000 ml @ 100 mls/hr Q10H IV Last administered on 06/22/20at 06:17; Start 06/21/20 at 13:00 Piperacillin Sod/ Tazobactam Sod 2.25 gm/Sodium Chloride 50 ml @ 100 mls/hr Q6HRS IV Last administered on 06/22/20at 12:28; Start 06/21/20 at 18:00 Daptomycin 350 mg/ Sodium Chloride 50 ml @ 100 mls/hr Q48H IV Last administered on 06/21/20at 16:37; Start 06/21/20 at 16:00 Vitamin A/Vitamin D (Vitamin A & D Ointment) 1 janina BID TP Last administered on 06/22/20at 10:34; Start 06/21/20 at 16:00 Lactobacillus Rhamnosus (Culturelle) 1 cap BID PO Last administered on 06/22/20at 10:34; Start 06/21/20 at 21:00 Active Scripts Active Reported Tylenol (Acetaminophen) 325 Mg Tablet 2 Tab PO PRN Q6HRS PRN Senna-S 8.6-50 mg Tablet (Sennosides/Docusate Sodium) 1 Each Tablet 1 Each PO BID Ropinirole Hcl 0.5 Mg Tablet 0.5 Mg PO TID Prilosec Otc (Omeprazole Magnesium) 20 Mg Tablet.dr 40 Mg PO DAILY Olanzapine 5 Mg Tablet 5 Mg PO DAILY NITROGLYCERIN SubLingual (Nitroglycerin) 0.4 Mg Tab.subl 0.4 Mg SL PRN Q5MIN PRN Midodrine Hcl 5 Mg Tablet 10 Mg PO TID Methotrexate (Methotrexate Sodium) 2.5 Mg Tablet 20 Tab PO WEEKLY Melatonin 5 Mg Tab.rapdis 1 Tab PO QHS 30 Days [place] Carbonate 300 Mg Capsule 1 Cap PO DAILY Levothyroxine Sodium 125 Mcg Tablet 1 Tab PO DAILY Lactulose 10 Gm Packet 10 Gm PO PRN DAILY PRN Folic Acid 0.4 Mg Tablet 1 Mg PO DAILY Fludrocortisone Acetate 0.1 Mg Tablet 0.1 Mg PO DAILY Flonase Allergy Relief (Fluticasone Propionate) 9.9 Ml [place].susp 2 Sprays NS DAILY Ferrous Sulfate 220 Mg/5 Ml Solution 325 Mg PO DAILY Multiple Vitamins (Multivitamin) 1 Each Tablet 1 Tab PO DAILY 30 Days Vitamin D2 (Ergocalciferol (Vitamin D2)) 1,250 Mcg Capsule 1,250 Mcg PO DAILY Colace (Docusate Sodium) 100 Mg Capsule 1 Cap PO PRN Q12HRS PRN 30 Days Cipro (Ciprofloxacin Hcl) 500 Mg Tablet 1 Tab PO BID 7 Days Carbidopa-Levodopa 25-100 Tab (Carbidopa/Levodopa) 1 Each Tablet 2 Tab PO TID 30 Days Buspirone Hcl 5 Mg Tablet 2 Tab PO TID Bupropion Hcl Sr (Bupropion Hcl) 100 Mg Tablet.er 75 Mg PO BID Children's Aspirin (Aspirin) 81 Mg Tab.chew 1 Tab PO DAILY 30 Days Vitals/I & O Vital Sign - Last 24 Hours 06/21/20 06/21/20 06/21/20 06/21/20 15:00 16:58 18:43 19:00 Temp 98.2 98.2 97.4 98.2 98.2 97.4 Pulse 88 88 88 80 Resp 14 14 18 B/P (MAP) 92/40 (57) 92/40 (57) 92/40 77/34 (48) Pulse Ox 93 93 95 O2 Delivery Nasal Cannula Nasal Cannula Nasal Cannula O2 Flow Rate 3.5 3.5 3.5 06/21/20 06/21/20 06/21/20 06/22/20 20:00 20:19 23:05 03:00 Temp 97.3 97.4 97.3 97.4 Pulse 84 82 Resp 16 18 B/P (MAP) 93/44 (60) 91/45 (60) 102/47 (65) Pulse Ox 100 95 O2 Delivery Nasal Cannula Nasal Cannula Nasal Cannula O2 Flow Rate 3.5 3.5 3.5 06/22/20 06/22/20 06/22/20 06/22/20 06:18 06:18 08:00 11:15 Temp 97.7 97.7 Pulse 85 Resp 18 B/P (MAP) 115/42 115/42 (66) 103/85 (91) Pulse Ox 95 O2 Delivery Nasal Cannula Nasal Cannula O2 Flow Rate 2.0 2.0 06/22/20 12:29 Pulse 85 B/P (MAP) 103/85 Intake and Output 06/21/20 06/21/20 06/22/20 15:00 23:00 07:00 Intake Total 250 ml 60 ml Output Total 800 ml 500 ml Balance -800 ml 250 ml -440 ml Justifications for Admission Other Justification Nutrition Consultation Dietary Evaluation: Recommendations by RD: Dietary education by RD, Increase Calorie Intake, Protein supplementation Comments: mech soft renal diet with nepro supplements bid mvi and vit c per wound protocal Expected Outcomes/Goals: to meet >75% est nutr needs improved wound status and renal function Malnutrition Findings: Food and Nutrition Intake (Mod: <75% est energy req 7days Body Fat Depletion (Non Severe: Mild Depletion Weight Status: Underweight MYRTLE PERDOMO MD Jun 22, 2020 14:45
[2020-06-22 15:10] VITALS: BP 106/56
[2020-06-22 19:00] VITALS: BP 90/48
[2020-06-22 23:00] VITALS: BP 102/49
[2020-06-23] VITALS (7 sets, daily range): BP systolic 101–119; BP diastolic 49–65
[2020-06-23 04:43] LABS: BASO # 0.1 x10^3/uL (0.0-0.2); BASO % 0 % (0-3); EOS # 0.6 x10^3/uL (0.0-0.7); EOS % 3 % (0-3); HEMATOCRIT 31.7 % (39.0-53.0); HEMOGLOBIN 10.1 g/dL (13.0-17.5); LYMPH # 1.9 x10^3/uL (1.0-4.8); LYMPH % 10 % (24-48); MEAN CORPUSCULAR HEMOGLOBIN 32 pg (25-35); MEAN CORPUSCULAR HGB CONC 32 g/dL (31-37); MEAN CORPUSCULAR VOLUME 100 fL (79-100); MONO # 0.6 x10^3/uL (0.0-1.1); MONO % 3 % (0-9); NEUT # 15.3 x10^3/uL (1.8-7.7); NEUT % 83 % (31-73); PLATELET COUNT 312 x10^3/uL (140-400); RED BLOOD COUNT 3.16 x10^6/uL (4.30-5.70); RED CELL DISTRIBUTION WIDTH 15.5 % (11.5-14.5); WHITE BLOOD COUNT 18.4 x10^3/uL (4.0-11.0)
[2020-06-23 04:59] LABS: ALBUMIN 1.7 g/dL (3.4-5.0); ALBUMIN/GLOBULIN RATIO 0.4 (1.0-1.7); CALCIUM 8.4 mg/dL (8.5-10.1); GFR 32.2; POTASSIUM 3.7 mmol/L (3.5-5.1); TOTAL BILIRUBIN 0.4 mg/dL (0.2-1.0); TOTAL PROTEIN 5.7 g/dL (6.4-8.2)
[2020-06-23] MEDS: PIPERACILLIN/TAZOBACTAM 2.25 GM in IV NORMAL SALINE 50ML 50 ML IV SCH ×3 (06:11→17:14)
[2020-06-23] MEDS: LEVOTHYROXINE 125 MCG TABLET PO SCH (06:11)
[2020-06-23] MEDS: MIDODRINE 5 MG TABLET PO SCH ×3 (06:19→17:12)
[2020-06-23] MEDS: PANTOPRAZOLE 40 MG TABLET.DR. PO SCH (07:30)
--- NOTE | 2020-06-23 07:53 | PDOC ---
Infectious Disease Note Subjective: Subjective Pt cont to remain lethargic does not answer any questions Vital Signs: Vital Signs Vital Signs Date Time Temp Pulse Resp B/P (MAP) Pulse Ox O2 Delivery O2 Flow Rate FiO2 06/23/20 06:19 103/51 (68) 06/23/20 03:00 96.8 67 16 100 Nasal Cannula 2.0 96.8 Physical Exam: PHYSICAL EXAM General lethargic, arousable but does not answer any questions HEENT normocephalic atraumatic anicteric no thrush oral mucosa moist Neck supple Lungs clear bilaterally no wheezing Heart S1-S2 Abdomen soft nontender nondistended Carbajal in place, scrotal enlargement, scrotal wounds, Extremities no edema no cyanosis + contractures Neuro lethargic, confused Psychiatric unable to obtain Derm multiple wounds Per chart review Medications: Inpatient Meds: Current Medications Medications (Trade) Dose Ordered Sig/Bianca Start Time Stop Time Status Last Admin Dose Admin Acetaminophen (Tylenol) 650 mg PRN Q6HRS PRN 06/21/20 10:15 Aspirin (Aspirin Chewable) 81 mg DAILY 06/21/20 11:00 06/22/20 10:34 81 MG Bupropion HCl (Wellbutrin Sr) 75 mg BID 06/21/20 11:00 06/22/20 21:22 75 MG Buspirone HCl (Buspar) 10 mg TID 06/21/20 11:00 06/22/20 21:22 10 MG Carbidopa/Levodopa (Sinemet 25/100) 2 tab TID 06/21/20 11:00 06/22/20 21:22 2 TAB Ceftriaxone Sodium (Rocephin) 1 gm Q24H 06/20/20 17:00 06/21/20 12:44 DC 06/20/20 17:06 1 GM Daptomycin 350 mg/ Sodium Chloride 50 ml @ 100 mls/hr Q48H 06/21/20 16:00 06/21/20 16:37 100 MLS/HR Docusate Sodium (Colace) 100 mg PRN Q12HRS PRN 06/21/20 10:15 Ferrous Sulfate (Feosol) 325 mg DAILYWBKFT 06/21/20 12:00 06/22/20 10:34 325 MG Fludrocortisone Acetate (Florinef) 0.1 mg DAILY 06/21/20 11:00 06/22/20 10:16 0.1 MG Fluticasone Propionate (Flonase) 2 spray DAILY 06/21/20 12:00 06/22/20 10:34 2 SPRAY Folic Acid (Folic Acid) 1 mg DAILY 06/21/20 12:00 06/22/20 10:34 1 MG Lactobacillus Rhamnosus (Culturelle) 1 cap BID 06/21/20 21:00 06/22/20 21:22 1 CAP Lactulose (Lactulose) 10 gm PRN DAILY PRN 06/21/20 11:15 Levothyroxine Sodium (Synthroid) 125 mcg DAILY06 06/22/20 06:00 06/23/20 06:11 125 MCG [place] Carbonate (Lithobid) 300 mg DAILY 06/21/20 12:00 06/22/20 10:15 300 MG Midodrine (Proamatine) 10 mg [id number] 06/21/20 13:00 06/23/20 06:19 10 MG Multivitamins (Thera M Plus) 1 tab DAILY 06/21/20 12:00 06/22/20 10:33 1 TAB Nitroglycerin (Nitrostat) 0.4 mg PRN Q5MIN PRN 06/21/20 10:15 Non-Formulary Medication (Ciprofloxacin Hcl (Cipro)) 1 tab BID 06/21/20 21:00 06/21/20 15:01 DC Olanzapine (ZyPREXA) 5 mg DAILY 06/21/20 11:00 06/22/20 10:33 5 MG Ondansetron HCl (Zofran) 4 mg PRN Q8HRS PRN 06/20/20 11:30 06/21/20 11:29 DC Pantoprazole Sodium (Protonix) 40 mg DAILYAC 06/21/20 11:30 06/22/20 10:33 40 MG Piperacillin Sod/ Tazobactam Sod (Zosyn Per Pharmacy) 1 each PRN DAILY PRN 06/21/20 12:45 Piperacillin Sod/ Tazobactam Sod 2.25 gm/Sodium Chloride 50 ml @ 100 mls/hr Q6HRS 06/21/20 18:00 06/23/20 06:11 100 MLS/HR Ropinirole HCl (Requip) 0.5 mg TID 06/21/20 14:00 06/22/20 21:22 0.5 MG Senna/Docusate Sodium (Senna Plus) 1 tab BID 06/21/20 11:00 06/22/20 21:22 1 TAB Sodium Chloride 1,000 ml @ 100 mls/hr Q10H 06/21/20 13:00 06/22/20 21:22 100 MLS/HR Vitamin A/Vitamin D (Vitamin A & D Ointment) 1 janina BID 06/21/20 16:00 06/22/20 21:23 1 JANINA Labs: Lab Laboratory Tests Test 06/23/20 04:00 White Blood Count 18.4 x10^3/uL (4.0-11.0) Red Blood Count 3.16 x10^6/uL (4.30-5.70) Hemoglobin 10.1 g/dL (13.0-17.5) Hematocrit 31.7 % (39.0-53.0) Mean Corpuscular Volume 100 fL (79-100) Mean Corpuscular Hemoglobin 32 pg (25-35) Mean Corpuscular Hemoglobin Concent 32 g/dL (31-37) Red Cell Distribution Width 15.5 % (11.5-14.5) Platelet Count 312 x10^3/uL (140-400) Neutrophils (%) (Auto) 83 % (31-73) Lymphocytes (%) (Auto) 10 % (24-48) Monocytes (%) (Auto) 3 % (0-9) Eosinophils (%) (Auto) 3 % (0-3) Basophils (%) (Auto) 0 % (0-3) Neutrophils # (Auto) 15.3 x10^3/uL (1.8-7.7) Lymphocytes # (Auto) 1.9 x10^3/uL (1.0-4.8) Monocytes # (Auto) 0.6 x10^3/uL (0.0-1.1) Eosinophils # (Auto) 0.6 x10^3/uL (0.0-0.7) Basophils # (Auto) 0.1 x10^3/uL (0.0-0.2) Sodium Level 158 mmol/L (136-145) Potassium Level 3.7 mmol/L (3.5-5.1) Chloride Level 124 mmol/L (98-107) Carbon Dioxide Level 25 mmol/L (21-32) Anion Gap 9 (6-14) Blood Urea Nitrogen 34 mg/dL (8-26) Creatinine 2.0 mg/dL (0.7-1.3) Estimated GFR (Cockcroft-Gault) 32.2 BUN/Creatinine Ratio 17 (6-20) Glucose Level 92 mg/dL (70-99) Calcium Level 8.4 mg/dL (8.5-10.1) Total Bilirubin 0.4 mg/dL (0.2-1.0) Aspartate Amino Transf (AST/SGOT) 51 U/L (15-37) Alanine Aminotransferase (ALT/SGPT) 10 U/L (16-63) Alkaline Phosphatase 78 U/L (46-116) Total Protein 5.7 g/dL (6.4-8.2) Albumin 1.7 g/dL (3.4-5.0) Albumin/Globulin Ratio 0.4 (1.0-1.7) Objective: Assessment: Sepsis source wounds vs uti Leukocytosis Bacteremia gram-positive cocci,3/4 bottles staph hominis could be a contaminant UTI cult neg FRACISCO with underlying CKD Hypernatremia Covid Negative Encephalopathy likely metabolic Multiple wounds Generalized debility History of bipolar disorder BPH GERD Recommendations DC Cipro Continue Zosyn Start daptomycin Follow GPC in blood culture Follow cultures Monitor labs Follow-up COVID-19 PCR Wound care as directed Offload Maintain aspiration precaution Continue supportive care Overall prognosis poor Plan: Plan of Care Continue Zosyn/ daptomycin Follow cultures and labs COVID-19 PCR negative Wound care as directed Offload Maintain aspiration precaution Continue supportive care Overall prognosis poor consider palliative care d/w SADIA KING MD Jun 23, 2020 07:53
[2020-06-23] MEDS: LITHIUM CARBONATE ER 300 MG TABLET.ER PO SCH (10:27)
[2020-06-23] MEDS: rOPINIRole 0.25 MG TABLET. PO SCH ×4 (10:27→22:39)
[2020-06-23] MEDS: SENNOSIDES/DOCUSATE 8.6/50MG TABLET. PO SCH ×2 (10:27→22:39)
[2020-06-23] MEDS: ASPIRIN CHEWABLE 81 MG TABLET. PO SCH (10:27)
[2020-06-23] MEDS: IV 1/2 NORMAL SALINE 1,000 ML IV SCH (10:27)
[2020-06-23] MEDS: CARBIDOPA/LEVODOPA 25/100MG TABLET PO SCH ×4 (10:28→22:39)
[2020-06-23] MEDS: buPROPion SR 100 MG TABLET.SA. PO SCH ×2 (10:28→22:37)
[2020-06-23] MEDS: FOLIC ACID 1 MG TABLET. PO SCH (10:28)
[2020-06-23] MEDS: busPIRone 10 MG TABLET. PO SCH ×4 (10:28→22:40)
[2020-06-23] MEDS: OLANZapine 5 MG TABLET PO SCH (10:28)
[2020-06-23] MEDS: FLUDROCORTISONE 0.1 MG TABLET PO SCH (10:28)
[2020-06-23] MEDS: LACTOBACILLUS RHAMNOSUS GG 1 CAPSULE. PO SCH ×2 (10:28→22:40)
[2020-06-23] MEDS: VITS A & D/LANOLIN TOPICAL OINTMENT 42GM TUBE. TP SCH ×2 (10:29→22:37)
[2020-06-23] MEDS: FERROUS SULFATE 325 MG TABLET. PO SCH (10:29)
[2020-06-23] MEDS: FLUTICASONE 50MCG/NASAL SPRAY 16GM BOTTLE. NS SCH (10:29)
[2020-06-23] MEDS: MULTIVITAMIN with MINERAL TABLET. PO SCH (10:30)
--- NOTE | 2020-06-23 11:06 | PDOC ---
PROGRESS NOTES Date of Service: DATE: 06/23/20 TIME: 11:06 Chief Complaint Chief Complaint ASSESSMENT AND PLAN: Metabolic encephalopathy, ACUTE urinary tract infection, sepsis, BACTEREMIA hypernatremia, urinary tract infection, azotemia, ACUTE renal INJURY , , ACUTE RENAL TUBULAR NECROSIS leukocytosis. FRACISCO with underlying CKD Hypernatremia Covid Negative Encephalopathy likely metabolic severe protein-caloric malnutrition Multiple wounds Generalized debility PLAN admitted. IV antibiotics. Consult Nephrology. CONSULT ID IV fluids, chg hypotonic saline / ns home meds, DVT prophylaxis, full code, Carbajal to bedside p.r.n. Zofran, Continue Zosyn iv q 6 hrs continue daptomycin IV Follow GPC in blood culture D/W RN 37 MIN pt exam, chart review,> 50% of time spent with exam, chart review, pt care coordination History of Present Illness History of Present Illness HISTORY OF PRESENT ILLNESS: The patient is a pleasant 79-year-old male, who has a chronic indwelling Carbajal. He is now presenting from a facility. He has mental status change. I believe the catheter got pulled out by accident last night. I discussed the case with the ER physician. It appears he has probable urinary tract infection with urosepsis and metabolic encephalopathy. We are going to admit the patient and give him IV antibiotics and fluids and try to get him feeling better. PAST MEDICAL HISTORY: Chronic indwelling Carbajal, bipolar, GERD, dysphagia, weakness, BPH. ALLERGIES: AMITRIPTYLINE, HALDOL, LORAZEPAM AND QUETIAPINE. FAMILY HISTORY: Diabetes. SOCIAL HISTORY: I think he lives at a facility. He does not drink, smoke or take drugs. I think he is disabled. MEDICATIONS: Reviewed, please refer to the MRAD. Vitals Vitals Vital Signs Date Time Temp Pulse Resp B/P (MAP) Pulse Ox O2 Delivery O2 Flow Rate FiO2 06/23/20 06:19 103/51 (68) 06/23/20 03:00 96.8 67 16 100 Nasal Cannula 2.0 96.8 Physical Exam Physical Exam General lethargic, arousable but does not answer any questions HEENT normocephalic atraumatic anicteric no thrush oral mucosa moist Neck supple Lungs clear bilaterally no wheezing Heart S1-S2 Abdomen soft nontender nondistended Carbajal in place, scrotal enlargement, scrotal wounds, Extremities no edema no cyanosis + contractures Neuro lethargic, confused Psychiatric unable to obtain Derm multiple wounds Per chart review General: Cooperative, No acute distress Heart: Regular rate Abdomen: Normal bowel sounds, Soft, No tenderness, No hepatosplenomegaly Extremities: No clubbing, No cyanosis Skin: No breakdown Labs LABS Laboratory Tests Test 06/23/20 04:00 White Blood Count 18.4 x10^3/uL (4.0-11.0) Red Blood Count 3.16 x10^6/uL (4.30-5.70) Hemoglobin 10.1 g/dL (13.0-17.5) Hematocrit 31.7 % (39.0-53.0) Mean Corpuscular Volume 100 fL (79-100) Mean Corpuscular Hemoglobin 32 pg (25-35) Mean Corpuscular Hemoglobin Concent 32 g/dL (31-37) Red Cell Distribution Width 15.5 % (11.5-14.5) Platelet Count 312 x10^3/uL (140-400) Neutrophils (%) (Auto) 83 % (31-73) Lymphocytes (%) (Auto) 10 % (24-48) Monocytes (%) (Auto) 3 % (0-9) Eosinophils (%) (Auto) 3 % (0-3) Basophils (%) (Auto) 0 % (0-3) Neutrophils # (Auto) 15.3 x10^3/uL (1.8-7.7) Lymphocytes # (Auto) 1.9 x10^3/uL (1.0-4.8) Monocytes # (Auto) 0.6 x10^3/uL (0.0-1.1) Eosinophils # (Auto) 0.6 x10^3/uL (0.0-0.7) Basophils # (Auto) 0.1 x10^3/uL (0.0-0.2) Sodium Level 158 mmol/L (136-145) Potassium Level 3.7 mmol/L (3.5-5.1) Chloride Level 124 mmol/L (98-107) Carbon Dioxide Level 25 mmol/L (21-32) Anion Gap 9 (6-14) Blood Urea Nitrogen 34 mg/dL (8-26) Creatinine 2.0 mg/dL (0.7-1.3) Estimated GFR (Cockcroft-Gault) 32.2 BUN/Creatinine Ratio 17 (6-20) Glucose Level 92 mg/dL (70-99) Calcium Level 8.4 mg/dL (8.5-10.1) Total Bilirubin 0.4 mg/dL (0.2-1.0) Aspartate Amino Transf (AST/SGOT) 51 U/L (15-37) Alanine Aminotransferase (ALT/SGPT) 10 U/L (16-63) Alkaline Phosphatase 78 U/L (46-116) Total Protein 5.7 g/dL (6.4-8.2) Albumin 1.7 g/dL (3.4-5.0) Albumin/Globulin Ratio 0.4 (1.0-1.7) Assessment and Plan Assessmemt and Plan Problems Medical Problems: (1) Dehydration Status: Acute (2) Metabolic encephalopathy Status: Acute (3) Person under investigation for COVID-19 Status: Acute (4) Renal failure Status: Acute (5) UTI (urinary tract infection) Status: Acute Comment Review of Relevant I have reviewed the following items ab (where applicable) has been applied. Labs Laboratory Tests Test 06/21/20 15:05 06/22/20 04:30 06/23/20 04:00 Procalcitonin 0.30 ng/mL (0.00-0.10) White Blood Count 19.1 x10^3/uL (4.0-11.0) 18.4 x10^3/uL (4.0-11.0) Red Blood Count 3.06 x10^6/uL (4.30-5.70) 3.16 x10^6/uL (4.30-5.70) Hemoglobin 9.8 g/dL (13.0-17.5) 10.1 g/dL (13.0-17.5) Hematocrit 31.0 % (39.0-53.0) 31.7 % (39.0-53.0) Mean Corpuscular Volume 101 fL (79-100) 100 fL (79-100) Mean Corpuscular Hemoglobin 32 pg (25-35) 32 pg (25-35) Mean Corpuscular Hemoglobin Concent 32 g/dL (31-37) 32 g/dL (31-37) Red Cell Distribution Width 15.8 % (11.5-14.5) 15.5 % (11.5-14.5) Platelet Count 306 x10^3/uL (140-400) 312 x10^3/uL (140-400) Neutrophils (%) (Auto) 80 % (31-73) 83 % (31-73) Lymphocytes (%) (Auto) 12 % (24-48) 10 % (24-48) Monocytes (%) (Auto) 4 % (0-9) 3 % (0-9) Eosinophils (%) (Auto) 3 % (0-3) 3 % (0-3) Basophils (%) (Auto) 1 % (0-3) 0 % (0-3) Neutrophils # (Auto) 15.2 x10^3/uL (1.8-7.7) 15.3 x10^3/uL (1.8-7.7) Lymphocytes # (Auto) 2.3 x10^3/uL (1.0-4.8) 1.9 x10^3/uL (1.0-4.8) Monocytes # (Auto) 0.8 x10^3/uL (0.0-1.1) 0.6 x10^3/uL (0.0-1.1) Eosinophils # (Auto) 0.6 x10^3/uL (0.0-0.7) 0.6 x10^3/uL (0.0-0.7) Basophils # (Auto) 0.1 x10^3/uL (0.0-0.2) 0.1 x10^3/uL (0.0-0.2) Sodium Level 156 mmol/L (136-145) 158 mmol/L (136-145) Potassium Level 3.5 mmol/L (3.5-5.1) 3.7 mmol/L (3.5-5.1) Chloride Level 123 mmol/L (98-107) 124 mmol/L (98-107) Carbon Dioxide Level 26 mmol/L (21-32) 25 mmol/L (21-32) Anion Gap 7 (6-14) 9 (6-14) Blood Urea Nitrogen 46 mg/dL (8-26) 34 mg/dL (8-26) Creatinine 2.4 mg/dL (0.7-1.3) 2.0 mg/dL (0.7-1.3) Estimated GFR (Cockcroft-Gault) 26.1 32.2 BUN/Creatinine Ratio 19 (6-20) 17 (6-20) Glucose Level 84 mg/dL (70-99) 92 mg/dL (70-99) Calcium Level 9.0 mg/dL (8.5-10.1) 8.4 mg/dL (8.5-10.1) Total Bilirubin 0.3 mg/dL (0.2-1.0) 0.4 mg/dL (0.2-1.0) Aspartate Amino Transf (AST/SGOT) 70 U/L (15-37) 51 U/L (15-37) Alanine Aminotransferase (ALT/SGPT) 9 U/L (16-63) 10 U/L (16-63) Alkaline Phosphatase 75 U/L (46-116) 78 U/L (46-116) Total Protein 5.6 g/dL (6.4-8.2) 5.7 g/dL (6.4-8.2) Albumin 1.7 g/dL (3.4-5.0) 1.7 g/dL (3.4-5.0) Albumin/Globulin Ratio 0.4 (1.0-1.7) 0.4 (1.0-1.7) Laboratory Tests Test 06/23/20 04:00 White Blood Count 18.4 x10^3/uL (4.0-11.0) Red Blood Count 3.16 x10^6/uL (4.30-5.70) Hemoglobin 10.1 g/dL (13.0-17.5) Hematocrit 31.7 % (39.0-53.0) Mean Corpuscular Volume 100 fL (79-100) Mean Corpuscular Hemoglobin 32 pg (25-35) Mean Corpuscular Hemoglobin Concent 32 g/dL (31-37) Red Cell Distribution Width 15.5 % (11.5-14.5) Platelet Count 312 x10^3/uL (140-400) Neutrophils (%) (Auto) 83 % (31-73) Lymphocytes (%) (Auto) 10 % (24-48) Monocytes (%) (Auto) 3 % (0-9) Eosinophils (%) (Auto) 3 % (0-3) Basophils (%) (Auto) 0 % (0-3) Neutrophils # (Auto) 15.3 x10^3/uL (1.8-7.7) Lymphocytes # (Auto) 1.9 x10^3/uL (1.0-4.8) Monocytes # (Auto) 0.6 x10^3/uL (0.0-1.1) Eosinophils # (Auto) 0.6 x10^3/uL (0.0-0.7) Basophils # (Auto) 0.1 x10^3/uL (0.0-0.2) Sodium Level 158 mmol/L (136-145) Potassium Level 3.7 mmol/L (3.5-5.1) Chloride Level 124 mmol/L (98-107) Carbon Dioxide Level 25 mmol/L (21-32) Anion Gap 9 (6-14) Blood Urea Nitrogen 34 mg/dL (8-26) Creatinine 2.0 mg/dL (0.7-1.3) Estimated GFR (Cockcroft-Gault) 32.2 BUN/Creatinine Ratio 17 (6-20) Glucose Level 92 mg/dL (70-99) Calcium Level 8.4 mg/dL (8.5-10.1) Total Bilirubin 0.4 mg/dL (0.2-1.0) Aspartate Amino Transf (AST/SGOT) 51 U/L (15-37) Alanine Aminotransferase (ALT/SGPT) 10 U/L (16-63) Alkaline Phosphatase 78 U/L (46-116) Total Protein 5.7 g/dL (6.4-8.2) Albumin 1.7 g/dL (3.4-5.0) Albumin/Globulin Ratio 0.4 (1.0-1.7) Microbiology 06/21/20 Urine Culture - Final, Complete 06/20/20 Blood Culture - Final, Complete Medications Current Medications Ceftriaxone Sodium (Rocephin) 1 gm 1X ONCE IVP Last administered on 06/20/20at 11:34; Start 06/20/20 at 10:45; Stop 06/20/20 at 10:47; Status DC Sodium Chloride 1,000 ml @ 1,000 mls/hr 1X ONCE IV Last administered on 06/20/20at 11:34; Start 06/20/20 at 10:45; Stop 06/20/20 at 11:44; Status DC Ondansetron HCl (Zofran) 4 mg PRN Q8HRS PRN IV NAUSEA/VOMITING; Start 06/20/20 at 11:30; Stop 06/21/20 at 11:29; Status DC Sodium Chloride 1,000 ml @ 75 mls/hr [id number] IV Last administered on 06/21/20at 06:22; Start 06/20/20 at 12:00; Stop 06/21/20 at 11:59; Status DC Ceftriaxone Sodium (Rocephin) 1 gm Q24H IVP Last administered on 06/20/20at 17:06; Start 06/20/20 at 17:00; Stop 06/21/20 at 12:44; Status DC Acetaminophen (Tylenol) 650 mg PRN Q6HRS PRN PO MILD PAIN 1-3; Start 06/21/20 at 10:15 Aspirin (Aspirin Chewable) 81 mg DAILY PO Last administered on 06/23/20at 10:27; Start 06/21/20 at 11:00 Bupropion HCl (Wellbutrin Sr) 75 mg BID PO Last administered on 06/23/20at 10:28; Start 06/21/20 at 11:00 Buspirone HCl (Buspar) 10 mg TID PO ; Start 06/21/20 at 11:00; Stop 06/21/20 at 10:56; Status DC Carbidopa/Levodopa (Sinemet 25/100) 2 tab TID PO Last administered on 06/23/20at 10:28; Start 06/21/20 at 11:00 Docusate Sodium (Colace) 100 mg PRN Q12HRS PRN PO CONSTIPATION; Start 06/21/20 at 10:15 Fludrocortisone Acetate (Florinef) 0.1 mg DAILY PO Last administered on 06/23/20at 10:28; Start 06/21/20 at 11:00 Levothyroxine Sodium (Synthroid) 125 mcg DAILY06 PO Last administered on 06/23/20at 06:11; Start 06/22/20 at 06:00 Midodrine (Proamatine) 10 mg [id number] PO Last administered on 06/23/20at 06:19; Start 06/21/20 at 13:00 Nitroglycerin (Nitrostat) 0.4 mg PRN Q5MIN PRN SL CHEST PAIN; Start 06/21/20 at 10:15 Olanzapine (ZyPREXA) 5 mg DAILY PO Last administered on 06/23/20at 10:28; Start 06/21/20 at 11:00 Senna/Docusate Sodium (Senna Plus) 1 tab BID PO Last administered on 06/23/20at 10:27; Start 06/21/20 at 11:00 Non-Formulary Medication (Ciprofloxacin Hcl (Cipro)) 1 tab BID PO ; Start 06/21/20 at 21:00; Stop 06/21/20 at 15:01; Status DC Ferrous Sulfate (Feosol) 325 mg DAILYWBKFT PO Last administered on 06/23/20at 10:29; Start 06/21/20 at 12:00 Fluticasone Propionate (Flonase) 2 spray DAILY NS Last administered on 06/23/20at 10:29; Start 06/21/20 at 12:00 Folic Acid (Folic Acid) 1 mg DAILY PO Last administered on 06/23/20at 10:28; Start 06/21/20 at 12:00 Lactulose (Lactulose) 10 gm PRN DAILY PRN PO CONSTIPATION; Start 06/21/20 at 11:15 [place] Carbonate (Lithobid) 300 mg DAILY PO Last administered on 06/23/20at 10:27; Start 06/21/20 at 12:00 Multivitamins (Thera M Plus) 1 tab DAILY PO Last administered on 06/23/20at 10:30; Start 06/21/20 at 12:00 Pantoprazole Sodium (Protonix) 40 mg DAILYAC PO Last administered on 06/22/20at 10:33; Start 06/21/20 at 11:30 Ropinirole HCl (Requip) 0.5 mg TID PO Last administered on 06/23/20at 10:27; Start 06/21/20 at 14:00 Buspirone HCl (Buspar) 10 mg TID PO Last administered on 06/23/20at 10:28; Start 06/21/20 at 11:00 Piperacillin Sod/ Tazobactam Sod (Zosyn Per Pharmacy) 1 each PRN DAILY PRN MC SEE COMMENTS; Start 06/21/20 at 12:45 Sodium Chloride 1,000 ml @ 100 mls/hr Q10H IV Last administered on 06/23/20at 10:27; Start 06/21/20 at 13:00 Piperacillin Sod/ Tazobactam Sod 2.25 gm/Sodium Chloride 50 ml @ 100 mls/hr Q6HRS IV Last administered on 06/23/20at 06:11; Start 06/21/20 at 18:00 Daptomycin 350 mg/ Sodium Chloride 50 ml @ 100 mls/hr Q48H IV Last administered on 06/21/20at 16:37; Start 06/21/20 at 16:00 Vitamin A/Vitamin D (Vitamin A & D Ointment) 1 janina BID TP Last administered on 06/23/20at 10:29; Start 06/21/20 at 16:00 Lactobacillus Rhamnosus (Culturelle) 1 cap BID PO Last administered on 06/23/20at 10:28; Start 06/21/20 at 21:00 Active Scripts Active Reported Tylenol (Acetaminophen) 325 Mg Tablet 2 Tab PO PRN Q6HRS PRN Senna-S 8.6-50 mg Tablet (Sennosides/Docusate Sodium) 1 Each Tablet 1 Each PO BID Ropinirole Hcl 0.5 Mg Tablet 0.5 Mg PO TID Prilosec Otc (Omeprazole Magnesium) 20 Mg Tablet.dr 40 Mg PO DAILY Olanzapine 5 Mg Tablet 5 Mg PO DAILY NITROGLYCERIN SubLingual (Nitroglycerin) 0.4 Mg Tab.subl 0.4 Mg SL PRN Q5MIN PRN Midodrine Hcl 5 Mg Tablet 10 Mg PO TID Methotrexate (Methotrexate Sodium) 2.5 Mg Tablet 20 Tab PO WEEKLY Melatonin 5 Mg Tab.rapdis 1 Tab PO QHS 30 Days [place] Carbonate 300 Mg Capsule 1 Cap PO DAILY Levothyroxine Sodium 125 Mcg Tablet 1 Tab PO DAILY Lactulose 10 Gm Packet 10 Gm PO PRN DAILY PRN Folic Acid 0.4 Mg Tablet 1 Mg PO DAILY Fludrocortisone Acetate 0.1 Mg Tablet 0.1 Mg PO DAILY Flonase Allergy Relief (Fluticasone Propionate) 9.9 Ml [place].susp 2 Sprays NS DAILY Ferrous Sulfate 220 Mg/5 Ml Solution 325 Mg PO DAILY Multiple Vitamins (Multivitamin) 1 Each Tablet 1 Tab PO DAILY 30 Days Vitamin D2 (Ergocalciferol (Vitamin D2)) 1,250 Mcg Capsule 1,250 Mcg PO DAILY Colace (Docusate Sodium) 100 Mg Capsule 1 Cap PO PRN Q12HRS PRN 30 Days Cipro (Ciprofloxacin Hcl) 500 Mg Tablet 1 Tab PO BID 7 Days Carbidopa-Levodopa 25-100 Tab (Carbidopa/Levodopa) 1 Each Tablet 2 Tab PO TID 30 Days Buspirone Hcl 5 Mg Tablet 2 Tab PO TID Bupropion Hcl Sr (Bupropion Hcl) 100 Mg Tablet.er 75 Mg PO BID Children's Aspirin (Aspirin) 81 Mg Tab.chew 1 Tab PO DAILY 30 Days Vitals/I & O Vital Sign - Last 24 Hours 06/22/20 06/22/20 06/22/20 06/22/20 11:15 12:29 15:10 17:32 Temp 97.7 97.7 97.7 97.7 Pulse 85 85 79 79 Resp 18 18 B/P (MAP) 103/85 (91) 103/85 106/56 (73) 106/56 Pulse Ox 95 98 O2 Delivery Nasal Cannula Nasal Cannula O2 Flow Rate 2.0 2.0 06/22/20 06/22/20 06/22/20 06/23/20 19:00 20:00 23:00 03:00 Temp 96.9 96.8 96.8 96.9 96.8 96.8 Pulse 63 66 67 Resp 16 18 16 B/P (MAP) 90/48 (62) 102/49 (66) 101/49 (66) Pulse Ox 94 100 100 O2 Delivery Nasal Cannula Nasal Cannula Nasal Cannula Nasal Cannula O2 Flow Rate 2.0 2.0 2.0 2.0 06/23/20 06/23/20 06:19 06:19 B/P (MAP) 103/51 103/51 (68) Intake and Output 06/22/20 06/22/20 06/23/20 15:00 23:00 07:00 Intake Total 140 ml 110 ml 0 ml Output Total 1000 ml 300 ml Balance 140 ml -890 ml -300 ml Nutrition Consultation Dietary Evaluation: Recommendations by RD: Dietary education by RD, Increase Calorie Intake, Protein supplementation Comments: mech soft renal diet with nepro supplements bid mvi and vit c per wound protocal Expected Outcomes/Goals: to meet >75% est nutr needs improved wound status and renal function Malnutrition Findings: Food and Nutrition Intake (Mod: <75% est energy req 7days Body Fat Depletion (Non Severe: Mild Depletion Weight Status: Underweight Justicifation of Admission Dx: Justifications for Admission: Justification of Admission Dx: Yes Sepsis: Bacteremia GRZEGORZ VERMA MD Jun 23, 2020 11:06
[2020-06-23] MEDS: IV DEXTROSE 5 %-0.2 % NACL 1,000 ML IV SCH (12:50)
[2020-06-23] MEDS: DAPTOmycin (GENERIC) IVPB 350 MG in IV NORMAL SALINE 50ML 50 ML IV SCH (15:46)
[2020-06-24] VITALS (7 sets, daily range): BP systolic 88–128; BP diastolic 39–60
[2020-06-24] MEDS: PIPERACILLIN/TAZOBACTAM 2.25 GM in IV NORMAL SALINE 50ML 50 ML IV SCH ×5 (00:14→23:43)
[2020-06-24] MEDS: IV DEXTROSE 5 %-0.2 % NACL 1,000 ML IV SCH (06:15)
[2020-06-24] MEDS: LEVOTHYROXINE 125 MCG TABLET PO SCH (06:15)
[2020-06-24] MEDS: MIDODRINE 5 MG TABLET PO SCH ×3 (06:16→17:14)
[2020-06-24] MEDS: PANTOPRAZOLE 40 MG TABLET.DR. PO SCH ×2 (07:30→09:23)
[2020-06-24] MEDS: FERROUS SULFATE 325 MG TABLET. PO SCH ×2 (08:00→09:23)
[2020-06-24] MEDS: CARBIDOPA/LEVODOPA 25/100MG TABLET PO SCH ×4 (09:00→22:43)
[2020-06-24] MEDS: OLANZapine 5 MG TABLET PO SCH ×2 (09:00→09:22)
[2020-06-24] MEDS: rOPINIRole 0.25 MG TABLET. PO SCH ×4 (09:00→22:42)
[2020-06-24] MEDS: FOLIC ACID 1 MG TABLET. PO SCH ×2 (09:00→09:23)
[2020-06-24] MEDS: LACTOBACILLUS RHAMNOSUS GG 1 CAPSULE. PO SCH ×3 (09:00→22:43)
[2020-06-24] MEDS: ASPIRIN CHEWABLE 81 MG TABLET. PO SCH ×2 (09:00→09:23)
[2020-06-24] MEDS: LITHIUM CARBONATE ER 300 MG TABLET.ER PO SCH ×2 (09:00→09:22)
[2020-06-24] MEDS: SENNOSIDES/DOCUSATE 8.6/50MG TABLET. PO SCH ×3 (09:00→22:43)
[2020-06-24] MEDS: buPROPion SR 100 MG TABLET.SA. PO SCH ×2 (09:00→09:22)
[2020-06-24] MEDS: busPIRone 10 MG TABLET. PO SCH ×4 (09:00→22:42)
[2020-06-24] MEDS: FLUDROCORTISONE 0.1 MG TABLET PO SCH ×2 (09:00→09:23)
[2020-06-24] MEDS: MULTIVITAMIN with MINERAL TABLET. PO SCH ×2 (09:00→09:23)
[2020-06-24] MEDS: FLUTICASONE 50MCG/NASAL SPRAY 16GM BOTTLE. NS SCH (09:22)
[2020-06-24] MEDS: VITS A & D/LANOLIN TOPICAL OINTMENT 42GM TUBE. TP SCH ×2 (09:23→22:44)
--- NOTE | 2020-06-24 10:42 | NUR ---
Pt not alert enough to swallow medications. Pt arouses to name but does not keep his eyes open. Non-administered morning medications. Dr. Khan notified. Will continue to monitor.
--- NOTE | 2020-06-24 11:37 | PDOC ---
Infectious Disease Note Subjective: Subjective Pt cont to remain lethargic does not answer any questions Vital Signs: Vital Signs Vital Signs Date Time Temp Pulse Resp B/P (MAP) Pulse Ox O2 Delivery O2 Flow Rate FiO2 06/24/20 11:00 95.4 73 22 128/60 (82) 100 Room Air 95.4 06/23/20 08:00 1.0 Physical Exam: PHYSICAL EXAM General lethargic, arousable but does not answer any questions HEENT normocephalic atraumatic anicteric no thrush oral mucosa moist Neck supple Lungs clear bilaterally no wheezing Heart S1-S2 Abdomen soft nontender nondistended Carbajal in place, scrotal enlargement, scrotal wounds, Extremities no edema no cyanosis + contractures Neuro lethargic, confused Psychiatric unable to obtain Derm multiple wounds Per chart review Medications: Inpatient Meds: Current Medications Medications (Trade) Dose Ordered Sig/Bianca Start Time Stop Time Status Last Admin Dose Admin Acetaminophen (Tylenol) 650 mg PRN Q6HRS PRN 06/21/20 10:15 Aspirin (Aspirin Chewable) 81 mg DAILY 06/21/20 11:00 06/23/20 10:27 81 MG Bupropion HCl (Wellbutrin Sr) 75 mg BID 06/21/20 11:00 06/23/20 22:37 75 MG Buspirone HCl (Buspar) 10 mg TID 06/21/20 11:00 06/23/20 22:40 10 MG Carbidopa/Levodopa (Sinemet 25/100) 2 tab TID 06/21/20 11:00 06/23/20 22:39 2 TAB Ceftriaxone Sodium (Rocephin) 1 gm Q24H 06/20/20 17:00 06/21/20 12:44 DC 06/20/20 17:06 1 GM Daptomycin 350 mg/ Sodium Chloride 50 ml @ 100 mls/hr Q48H 06/21/20 16:00 06/23/20 15:46 100 MLS/HR Dextrose/Sodium Chloride 1,000 ml @ 60 mls/hr [id number] 06/23/20 11:30 06/24/20 06:15 60 MLS/HR Docusate Sodium (Colace) 100 mg PRN Q12HRS PRN 06/21/20 10:15 Ferrous Sulfate (Feosol) 325 mg DAILYWBKFT 06/21/20 12:00 06/23/20 10:29 325 MG Fludrocortisone Acetate (Florinef) 0.1 mg DAILY 06/21/20 11:00 06/23/20 10:28 0.1 MG Fluticasone Propionate (Flonase) 2 spray DAILY 06/21/20 12:00 06/24/20 09:22 2 SPRAY Folic Acid (Folic Acid) 1 mg DAILY 06/21/20 12:00 06/23/20 10:28 1 MG Lactobacillus Rhamnosus (Culturelle) 1 cap BID 06/21/20 21:00 06/23/20 22:40 1 CAP Lactulose (Lactulose) 10 gm PRN DAILY PRN 06/21/20 11:15 Levothyroxine Sodium (Synthroid) 125 mcg DAILY06 06/22/20 06:00 06/24/20 06:15 125 MCG [place] Carbonate (Lithobid) 300 mg DAILY 06/21/20 12:00 06/23/20 10:27 300 MG Midodrine (Proamatine) 10 mg [id number] 06/21/20 13:00 06/24/20 06:16 10 MG Multivitamins (Thera M Plus) 1 tab DAILY 06/21/20 12:00 06/23/20 10:30 1 TAB Nitroglycerin (Nitrostat) 0.4 mg PRN Q5MIN PRN 06/21/20 10:15 Non-Formulary Medication (Ciprofloxacin Hcl (Cipro)) 1 tab BID 06/21/20 21:00 06/21/20 15:01 DC Olanzapine (ZyPREXA) 5 mg DAILY 06/21/20 11:00 06/23/20 10:28 5 MG Ondansetron HCl (Zofran) 4 mg PRN Q8HRS PRN 06/20/20 11:30 06/21/20 11:29 DC Pantoprazole Sodium (Protonix) 40 mg DAILYAC 06/21/20 11:30 06/22/20 10:33 40 MG Piperacillin Sod/ Tazobactam Sod (Zosyn Per Pharmacy) 1 each PRN DAILY PRN 06/21/20 12:45 Piperacillin Sod/ Tazobactam Sod 2.25 gm/Sodium Chloride 50 ml @ 100 mls/hr Q6HRS 06/21/20 18:00 06/24/20 06:14 100 MLS/HR Ropinirole HCl (Requip) 0.5 mg TID 06/21/20 14:00 06/23/20 22:39 0.5 MG Senna/Docusate Sodium (Senna Plus) 1 tab BID 06/21/20 11:00 06/23/20 22:39 1 TAB Sodium Chloride 1,000 ml @ 100 mls/hr Q10H 06/21/20 13:00 06/23/20 11:27 DC 06/23/20 10:27 100 MLS/HR Vitamin A/Vitamin D (Vitamin A & D Ointment) 1 janina BID 06/21/20 16:00 06/24/20 09:23 1 JANINA Labs: Micro RUN DATE: 06/22/20 [facility] LAB *LIVE* PAGE 1 RUN TIME: 1309 Specimen Inquiry PATIENT: GLADISTRISH Brissa ACCT: [id number] LOC: [address] [place] [address] U: [id number] AGE/SX: 79/M ROOM: 673 RE06/20/[address]: YARIEL FLOOD III, DO : 1940 BED: 1 DIS: STATUS: ADM IN TLOC: SPEC #: [id number] WILLIE: 06/21/20 STATUS: EMERSON REQ #: [id number] RECD: 06/21/[address] [facility] [address]: YARIEL FLOOD III, DO SOURCE: VOID ENTR: 06/21/[address] [facility] DR: KELY STEWARD MD [facility]: RUBEN MCNEIL MD UNKNOWN PCP NAME ORDERED: URINE CULTURE Procedure Result URINE CULTURE Final Final No Growth on 06/22/20 at 1305 Testing Performed by: [address] [id number] For Inquires, the Physician may contact the Microbiology department at [phone] Unless otherwise specified, Testing Performed by: [address] [address] For Inquires, the Physician may contact the Microbiology department at [phone] --- RUN DATE: 06/23/20 [facility] LAB *LIVE* PAGE 1 RUN TIME: 912 Specimen Inquiry PATIENT: TRISH GRIFFITH ACCT: [id number] LOC: [address] [place] [address] U: [id number] AGE/SX: 79/M ROOM: 3 RE06/20/[address]: YARIEL FLOOD III, DO : 1940 BED: 1 DIS: STATUS: ADM IN TLOC: SPEC #: [id number] WILLIE: 06/20/20 STATUS: COMP REQ #: [id number] RECD: 06/20/[address]: DARELL SHAVER DO SOURCE: BLOOD ENTR: 06/21/20-[address]: UNKNOWN PCP NAME SPDESC: ORDERED: BLD CULT - LC Procedure Result BLOOD CULTURE LC Final Final FINAL ID= [STAPHYLOCOCCUS HOMINIS] Growth of organism in only one of multiple sets; isolation does not necessarily indicate infection. Contact Microbiology Lab if further testing is clinically warranted. STAPHYLOCOCCUS HOMINIS Unless otherwise specified, Testing Performed by: [address] [id number] For Inquires, the Physician may contact the Microbiology department at [phone] RUN DATE: 06/24/20 [facility] LAB *LIVE* PAGE 1 RUN TIME: 930 Specimen Inquiry PATIENT: TRISH GRIFFITH ACCT: [id number] LOC: [address] [place] [address] U: [id number] AGE/SX: 79/M ROOM: 3 RE06/20/[address]: YARIEL FLOOD III, DO : 1940 BED: 1 DIS: STATUS: ADM IN TLOC: SPEC #: [id number] WILLIE: 06/20/20 STATUS: COMP REQ #: [id number] RECD: 06/20/[address]: DARELL SHAVER DO SOURCE: BLOOD ENTR: 06/21/[address] [facility] DR: UNKNOWN PCP NAME SPDC: ORDERED: BLD CULT - LC Procedure Result BLOOD CULTURE LC Final Final FINAL ID= [STAPHYLOCOCCUS EPIDERMIDIS] Growth of organism in only one of multiple sets; isolation does not necessarily indicate infection. Contact Microbiology Lab if further testing is clinically warranted. STAPHYLOCOCCUS EPIDERMIDIS Unless otherwise specified, Testing Performed by: [address] [id number] For Inquires, the Physician may contact the Microbiology department at [phone] Objective: Assessment: Sepsis source wounds vs uti cultures nonrevealing Leukocytosis Bacteremia gram-positive cocci, staph hominis and epidermidis could be a contaminant UTI cult neg FRACISCO with underlying CKD Hypernatremia Covid Negative Encephalopathy likely metabolic Multiple wounds Generalized debility History of bipolar disorder BPH GERD Recommendations DC Cipro Continue Zosyn Start daptomycin Follow GPC in blood culture Follow cultures Monitor labs Follow-up COVID-19 PCR Wound care as directed Offload Maintain aspiration precaution Continue supportive care Overall prognosis poor Plan: Plan of Care Continue Zosyn DC daptomycin Follow cultures and labs COVID-19 PCR negative Wound care as directed Offload Maintain aspiration precaution Continue supportive care Overall prognosis poor consider palliative care d/w SADIA KING MD Jun 24, 2020 11:37
--- NOTE | 2020-06-24 11:52 | PDOC ---
DATE OF SERVICE DATE: 06/24/20 TIME: 11:52 SUBJECTIVE ROS CVS: [] Orthopnea, [] CP RESP: [] SOB, [] CHACKO GI: [] Nausea, [] Vomiting : [] Dysuria, [] Urgency OBJECTIVE Vital Signs Vital Signs Date Time Temp Pulse Resp B/P (MAP) Pulse Ox O2 Delivery O2 Flow Rate FiO2 06/24/20 11:00 95.4 73 22 128/60 (82) 100 Room Air 95.4 06/23/20 08:00 1.0 I & 0 Intake and Output 06/24/20 07:00 Intake Total 0 ml Output Total 2325 ml Balance -2325 ml Intake Oral 0 ml Output Urine Total 2325 ml # Voids 1 # Bowel Movements 1 PHYSICAL EXAM Physical Exam GEN: Awake, Oriented x [], In [] distress EYES: Vision Unchanged, Conjunctiva Normal EN: No EN Drainage, Mucous Membranes [] NECK: [] JVD, [] JVP, Supple, [] Thyromegaly CVS: S1S2, [] Murmur, No Gallop, No Rub,[] Edema RESP: [] Rales, [] Rhonchi,[] Acc. Muscle Use GI: BS + ve, NO Bruit, Non Tender, Non Distended : [] CVA tenderness, [] Suprapubic Tenderness DIAGNOSIS/ASSESSMENT Assessment & Plan ESRD/ARF: Current fluid and E-lyte status does not necessitate emergent need for dialysis. Will re-evaluate for dialysis in the am and continue on [] schedule. ANEMIA; [] Aranap as ordered, [] Transfuse [] with next HD as needed HTN: Current BP meds as reviewed. See orders for changes. BONE & MINERAL: [] Discussed Plan of Care with family [] at bedside [] over the phone COMMENT/RELEVANT DATA Meds Current Medications Medications (Trade) Dose Ordered Sig/Bianca Start Time Stop Time Status Last Admin Dose Admin Acetaminophen (Tylenol) 650 mg PRN Q6HRS PRN 06/21/20 10:15 Aspirin (Aspirin Chewable) 81 mg DAILY 06/21/20 11:00 06/23/20 10:27 81 MG Bupropion HCl (Wellbutrin Sr) 75 mg BID 06/21/20 11:00 06/23/20 22:37 75 MG Buspirone HCl (Buspar) 10 mg TID 06/21/20 11:00 06/23/20 22:40 10 MG Carbidopa/Levodopa (Sinemet 25/100) 2 tab TID 06/21/20 11:00 06/23/20 22:39 2 TAB Ceftriaxone Sodium (Rocephin) 1 gm Q24H 06/20/20 17:00 06/21/20 12:44 DC 06/20/20 17:06 1 GM Daptomycin 350 mg/ Sodium Chloride 50 ml @ 100 mls/hr Q48H 06/21/20 16:00 06/24/20 11:38 DC 06/23/20 15:46 100 MLS/HR Dextrose/Sodium Chloride 1,000 ml @ 60 mls/hr [id number] 06/23/20 11:30 06/24/20 06:15 60 MLS/HR Docusate Sodium (Colace) 100 mg PRN Q12HRS PRN 06/21/20 10:15 Ferrous Sulfate (Feosol) 325 mg [id number] 06/21/20 12:00 06/23/20 10:29 325 MG Fludrocortisone Acetate (Florinef) 0.1 mg DAILY 06/21/20 11:00 06/23/20 10:28 0.1 MG Fluticasone Propionate (Flonase) 2 spray DAILY 06/21/20 12:00 06/24/20 09:22 2 SPRAY Folic Acid (Folic Acid) 1 mg DAILY 06/21/20 12:00 06/23/20 10:28 1 MG Lactobacillus Rhamnosus (Culturelle) 1 cap BID 06/21/20 21:00 06/23/20 22:40 1 CAP Lactulose (Lactulose) 10 gm PRN DAILY PRN 06/21/20 11:15 Levothyroxine Sodium (Synthroid) 125 mcg DAILY06 06/22/20 06:00 06/24/20 06:15 125 MCG [place] Carbonate (Lithobid) 300 mg DAILY 06/21/20 12:00 06/23/20 10:27 300 MG Midodrine (Proamatine) 10 mg [id number] 06/21/20 13:00 06/24/20 06:16 10 MG Multivitamins (Thera M Plus) 1 tab DAILY 06/21/20 12:00 06/23/20 10:30 1 TAB Nitroglycerin (Nitrostat) 0.4 mg PRN Q5MIN PRN 06/21/20 10:15 Non-Formulary Medication (Ciprofloxacin Hcl (Cipro)) 1 tab BID 06/21/20 21:00 06/21/20 15:01 DC Olanzapine (ZyPREXA) 5 mg DAILY 06/21/20 11:00 06/23/20 10:28 5 MG Ondansetron HCl (Zofran) 4 mg PRN Q8HRS PRN 06/20/20 11:30 06/21/20 11:29 DC Pantoprazole Sodium (Protonix) 40 mg DAILYAC 06/21/20 11:30 06/22/20 10:33 40 MG Piperacillin Sod/ Tazobactam Sod (Zosyn Per Pharmacy) 1 each PRN DAILY PRN 06/21/20 12:45 Piperacillin Sod/ Tazobactam Sod 2.25 gm/Sodium Chloride 50 ml @ 100 mls/hr Q6HRS 06/21/20 18:00 06/24/20 06:14 100 MLS/HR Ropinirole HCl (Requip) 0.5 mg TID 06/21/20 14:00 06/23/20 22:39 0.5 MG Senna/Docusate Sodium (Senna Plus) 1 tab BID 06/21/20 11:00 06/23/20 22:39 1 TAB Sodium Chloride 1,000 ml @ 100 mls/hr Q10H 06/21/20 13:00 06/23/20 11:27 DC 06/23/20 10:27 100 MLS/HR Vitamin A/Vitamin D (Vitamin A & D Ointment) 1 janina BID 06/21/20 16:00 06/24/20 09:23 1 JANINA Results All relevant outside records, renal labs, imaging studies, telemetry/EKG's were reviewed. Justicifation of Admission Dx: Justifications for Admission: Justification of Admission Dx: Yes Sepsis: Bacteremia RACHEL HARDING MD Jun 24, 2020 11:52
[2020-06-24] MEDS: IV DEXTROSE 5% 1,000 ML IV SCH (12:33)
--- NOTE | 2020-06-24 15:19 | PDOC ---
DATE OF SERVICE DATE: 06/24/20 TIME: 15:15 SUBJECTIVE ROS stable OBJECTIVE Vital Signs Vital Signs Date Time Temp Pulse Resp B/P (MAP) Pulse Ox O2 Delivery O2 Flow Rate FiO2 06/24/20 14:08 73 128/60 06/24/20 11:00 95.4 22 100 Room Air 95.4 06/23/20 08:00 1.0 I & 0 Intake and Output 06/24/20 07:00 Intake Total 0 ml Output Total 2325 ml Balance -2325 ml Intake Oral 0 ml Output Urine Total 2325 ml # Voids 1 # Bowel Movements 1 PHYSICAL EXAM Physical Exam General lethargic, arousable but does not answer any questions HEENT OM moist Neck supple Lungs clear bilaterally non labored Heart S1-S2 Abdomen soft nontender nondistended Carbajal in place, scrotal enlargement, scrotal wounds, Extremities no edema no cyanosis + contractures Neuro lethargic, confused Psychiatric unable to obtain DIAGNOSIS/ASSESSMENT Assessment & Plan FRACISCO- 2/2 Vol depletion Cr 3.8 POA , improving 2.0, no labs today . Supportive care HyperNatremia- recommend IV D5W , Dw RN Sepsis source wounds vs uti cultures nonrevealing UTI cult neg COMMENT/RELEVANT DATA Meds Current Medications Medications (Trade) Dose Ordered Sig/Bianca Start Time Stop Time Status Last Admin Dose Admin Acetaminophen (Tylenol) 650 mg PRN Q6HRS PRN 06/21/20 10:15 Aspirin (Aspirin Chewable) 81 mg DAILY 06/21/20 11:00 06/23/20 10:27 81 MG Bupropion HCl (Wellbutrin Sr) 75 mg BID 06/21/20 11:00 06/23/20 22:37 75 MG Buspirone HCl (Buspar) 10 mg TID 06/21/20 11:00 06/24/20 14:07 10 MG Carbidopa/Levodopa (Sinemet 25/100) 2 tab TID 06/21/20 11:00 06/24/20 14:08 2 TAB Ceftriaxone Sodium (Rocephin) 1 gm Q24H 06/20/20 17:00 06/21/20 12:44 DC 06/20/20 17:06 1 GM Daptomycin 350 mg/ Sodium Chloride 50 ml @ 100 mls/hr Q48H 06/21/20 16:00 06/24/20 11:38 DC 06/23/20 15:46 100 MLS/HR Dextrose 1,000 ml @ 75 mls/hr [id number] 06/24/20 12:30 06/24/20 12:33 75 MLS/HR Dextrose/Sodium Chloride 1,000 ml @ 60 mls/hr [id number] 06/23/20 11:30 06/24/20 12:25 DC 06/24/20 06:15 60 MLS/HR Docusate Sodium (Colace) 100 mg PRN Q12HRS PRN 06/21/20 10:15 Ferrous Sulfate (Feosol) 325 mg [id number] 06/21/20 12:00 06/23/20 10:29 325 MG Fludrocortisone Acetate (Florinef) 0.1 mg DAILY 06/21/20 11:00 06/23/20 10:28 0.1 MG Fluticasone Propionate (Flonase) 2 spray DAILY 06/21/20 12:00 06/24/20 09:22 2 SPRAY Folic Acid (Folic Acid) 1 mg DAILY 06/21/20 12:00 06/23/20 10:28 1 MG Lactobacillus Rhamnosus (Culturelle) 1 cap BID 06/21/20 21:00 06/23/20 22:40 1 CAP Lactulose (Lactulose) 10 gm PRN DAILY PRN 06/21/20 11:15 Levothyroxine Sodium (Synthroid) 125 mcg DAILY06 06/22/20 06:00 06/24/20 06:15 125 MCG [place] Carbonate (Lithobid) 300 mg DAILY 06/21/20 12:00 06/23/20 10:27 300 MG Midodrine (Proamatine) 10 mg [id number] 06/21/20 13:00 06/24/20 14:08 10 MG Multivitamins (Thera M Plus) 1 tab DAILY 06/21/20 12:00 06/23/20 10:30 1 TAB Nitroglycerin (Nitrostat) 0.4 mg PRN Q5MIN PRN 06/21/20 10:15 Non-Formulary Medication (Ciprofloxacin Hcl (Cipro)) 1 tab BID 06/21/20 21:00 06/21/20 15:01 DC Olanzapine (ZyPREXA) 5 mg DAILY 06/21/20 11:00 06/23/20 10:28 5 MG Ondansetron HCl (Zofran) 4 mg PRN Q8HRS PRN 06/20/20 11:30 06/21/20 11:29 DC Pantoprazole Sodium (Protonix) 40 mg DAILYAC 06/21/20 11:30 06/22/20 10:33 40 MG Piperacillin Sod/ Tazobactam Sod (Zosyn Per Pharmacy) 1 each PRN DAILY PRN 06/21/20 12:45 Piperacillin Sod/ Tazobactam Sod 2.25 gm/Sodium Chloride 50 ml @ 100 mls/hr Q6HRS 06/21/20 18:00 06/24/20 12:00 100 MLS/HR Ropinirole HCl (Requip) 0.5 mg TID 06/21/20 14:00 06/24/20 14:07 0.5 MG Senna/Docusate Sodium (Senna Plus) 1 tab BID 06/21/20 11:00 06/23/20 22:39 1 TAB Sodium Chloride 1,000 ml @ 100 mls/hr Q10H 06/21/20 13:00 06/23/20 11:27 DC 06/23/20 10:27 100 MLS/HR Vitamin A/Vitamin D (Vitamin A & D Ointment) 1 janina BID 06/21/20 16:00 06/24/20 09:23 1 JANINA Results All relevant outside records, renal labs, imaging studies, telemetry/EKG's were reviewed. Justicifation of Admission Dx: Justifications for Admission: Justification of Admission Dx: Yes Sepsis: Bacteremia RACHEL HARDING MD Jun 24, 2020 15:19
--- NOTE | 2020-06-24 17:34 | PDOC ---
[employer] PROGRESS NOTE Date of Service DOS: DATE: 06/24/20 TIME: 17:33 Chief Complaint Chief Complaint ASSESSMENT AND PLAN: Metabolic encephalopathy, ACUTE urinary tract infection, sepsis, BACTEREMIA hypernatremia, urinary tract infection, azotemia, ACUTE renal INJURY , , ACUTE RENAL TUBULAR NECROSIS leukocytosis. FRACISCO with underlying CKD Hypernatremia Covid Negative Encephalopathy likely metabolic severe protein-caloric malnutrition Multiple wounds Generalized debility PLAN admitted. IV antibiotics. Consult Nephrology. CONSULT ID IV fluids, chg hypotonic saline / ns home meds, DVT prophylaxis, full code, Carbajal to bedside p.r.n. Zofran, Continue Zosyn iv q 6 hrs continue daptomycin IV Follow GPC in blood culture History of Present Illness History of Present Illness HISTORY OF PRESENT ILLNESS: The patient is a pleasant 79-year-old male, who has a chronic indwelling Carbajal. He is now presenting from a facility. He has mental status change. I believe the catheter got pulled out by accident last night. I discussed the case with the ER physician. It appears he has probable urinary tract infection with urosepsis and metabolic encephalopathy. We are going to admit the patient and give him IV antibiotics and fluids and try to get him feeling better. 06/24: Patient seen and evaluated at bedside. Afebrile, no acute events over night. Continue IV antibiotics for positive blood culture and UTI. Still with some hypernatremia. Will continue with IV fluids. Charts and labs reviewed. Vitals/I&O Vitals/I&O: Vital Signs Date Time Temp Pulse Resp B/P (MAP) Pulse Ox O2 Delivery O2 Flow Rate FiO2 06/24/20 17:14 80 128/47 06/24/20 15:00 98.0 20 100 Room Air 98.0 06/23/20 08:00 1.0 I & O 06/23/20 06/23/20 06/24/20 15:00 23:00 07:00 Intake Total 0 ml 0 ml Output Total 1400 ml 925 ml Balance -1400 ml -925 ml Physical Exam Physical Exam: General lethargic, arousable but does not answer any questions HEENT normocephalic atraumatic anicteric no thrush oral mucosa moist Neck supple Lungs clear bilaterally no wheezing Heart S1-S2 Abdomen soft nontender nondistended Carbajal in place, scrotal enlargement, scrotal wounds, Extremities no edema no cyanosis + contractures Neuro lethargic, confused Psychiatric unable to obtain Derm multiple wounds Per chart review General: Cooperative, No acute distress Heart: Regular rate Abdomen: Normal bowel sounds, Soft, No tenderness, No hepatosplenomegaly Extremities: No clubbing, No cyanosis Skin: No breakdown Assessment and Plan Assessmemt and Plan Problems Medical Problems: (1) Dehydration Status: Acute (2) Metabolic encephalopathy Status: Acute (3) Person under investigation for COVID-19 Status: Acute (4) Renal failure Status: Acute (5) UTI (urinary tract infection) Status: Acute Comment Review of Relevant I have reviewed the following items ab (where applicable) has been applied. Medications: Current Medications Medications (Trade) Dose Ordered Sig/Bianca Route PRN Reason Start Time Stop Time Status Last Admin Dose Admin Dextrose 1,000 ml @ 75 mls/hr [id number] IV 06/24/20 12:30 06/24/20 12:33 Justifications for Admission Other Justification BEBETO SANABRIA MD Jun 24, 2020 17:34
[2020-06-24] MEDS: buPROPion 75 MG TABLET. PO SCH (22:43)
[2020-06-25] MEDS: IV DEXTROSE 5% 1,000 ML IV SCH ×2 (02:44→19:24)
[2020-06-25 03:00] VITALS: BP 95/49
[2020-06-25] MEDS: PIPERACILLIN/TAZOBACTAM 2.25 GM in IV NORMAL SALINE 50ML 50 ML IV SCH ×4 (05:30→23:21)
[2020-06-25] MEDS: LEVOTHYROXINE 125 MCG TABLET PO SCH ×2 (05:30→06:00)
--- NOTE | 2020-06-25 06:17 | NUR ---
Patient arousable to name, but not alert enough to safely swallow 0600 dose of levothyroxine, medication non-administered.
[2020-06-25 07:18] VITALS: BP 100/50
[2020-06-25] MEDS: busPIRone 10 MG TABLET. PO SCH ×3 (09:09→21:00)
[2020-06-25] MEDS: rOPINIRole 0.25 MG TABLET. PO SCH ×3 (09:10→21:00)
[2020-06-25] MEDS: FLUDROCORTISONE 0.1 MG TABLET PO SCH (09:10)
[2020-06-25] MEDS: LITHIUM CARBONATE ER 300 MG TABLET.ER PO SCH (09:10)
[2020-06-25] MEDS: MIDODRINE 5 MG TABLET PO SCH ×3 (09:10→18:00)
[2020-06-25] MEDS: SENNOSIDES/DOCUSATE 8.6/50MG TABLET. PO SCH ×2 (09:10→21:00)
[2020-06-25] MEDS: OLANZapine 5 MG TABLET PO SCH (09:11)
[2020-06-25] MEDS: ASPIRIN CHEWABLE 81 MG TABLET. PO SCH (09:11)
[2020-06-25] MEDS: MULTIVITAMIN with MINERAL TABLET. PO SCH (09:11)
[2020-06-25] MEDS: FOLIC ACID 1 MG TABLET. PO SCH (09:11)
[2020-06-25] MEDS: FERROUS SULFATE 325 MG TABLET. PO SCH (09:11)
[2020-06-25] MEDS: CARBIDOPA/LEVODOPA 25/100MG TABLET PO SCH ×3 (09:11→21:00)
[2020-06-25] MEDS: LACTOBACILLUS RHAMNOSUS GG 1 CAPSULE. PO SCH ×2 (09:14→21:00)
[2020-06-25] MEDS: PANTOPRAZOLE 40 MG TABLET.DR. PO SCH (09:15)
--- NOTE | 2020-06-25 09:19 | PDOC ---
DATE OF SERVICE DATE: 06/25/20 TIME: 09:18 SUBJECTIVE ROS stable OBJECTIVE Vital Signs Vital Signs Date Time Temp Pulse Resp B/P (MAP) Pulse Ox O2 Delivery O2 Flow Rate FiO2 06/25/20 09:10 65 100/50 06/25/20 07:18 96.0 20 100 Room Air 96.0 I & 0 Intake and Output 06/25/20 07:00 Intake Total 300 ml Output Total 1435 ml Balance -1135 ml Intake Oral 0 ml IV Total 300 ml Output Urine Total 1435 ml PHYSICAL EXAM Physical Exam General lethargic, arousable but does not answer any questions HEENT OM moist Neck supple Lungs clear bilaterally non labored Heart S1-S2 Abdomen soft nontender nondistended Carbajal in place, scrotal enlargement, scrotal wounds, Extremities no edema no cyanosis + contractures Neuro lethargic, confused Psychiatric unable to obtain DIAGNOSIS/ASSESSMENT Assessment & Plan FRACISCO- 2/2 Vol depletion Cr 3.8 POA , improving ,supportive care HyperNatremia- improving with IV D5W ,continue the same Sepsis source wounds vs uti cultures nonrevealing UTI cult neg CoVid 19 Negative COMMENT/RELEVANT DATA Meds Current Medications Medications (Trade) Dose Ordered Sig/Bianca Start Time Stop Time Status Last Admin Dose Admin Acetaminophen (Tylenol) 650 mg PRN Q6HRS PRN 06/21/20 10:15 Aspirin (Aspirin Chewable) 81 mg DAILY 06/21/20 11:00 06/25/20 09:11 81 MG Bupropion HCl (Wellbutrin Sr) 75 mg BID 06/21/20 11:00 06/24/20 15:23 DC 06/23/20 22:37 75 MG Bupropion HCl (Wellbutrin) 75 mg BID 06/24/20 21:00 06/24/20 22:43 75 MG Buspirone HCl (Buspar) 10 mg TID 06/21/20 11:00 06/25/20 09:09 10 MG Carbidopa/Levodopa (Sinemet 25/100) 2 tab TID 06/21/20 11:00 06/25/20 09:11 2 TAB Ceftriaxone Sodium (Rocephin) 1 gm Q24H 06/20/20 17:00 06/21/20 12:44 DC 06/20/20 17:06 1 GM Daptomycin 350 mg/ Sodium Chloride 50 ml @ 100 mls/hr Q48H 06/21/20 16:00 06/24/20 11:38 DC 06/23/20 15:46 100 MLS/HR Dextrose 1,000 ml @ 75 mls/hr [id number] 06/24/20 12:30 06/25/20 02:44 75 MLS/HR Dextrose/Sodium Chloride 1,000 ml @ 60 mls/hr [id number] 06/23/20 11:30 06/24/20 12:25 DC 06/24/20 06:15 60 MLS/HR Docusate Sodium (Colace) 100 mg PRN Q12HRS PRN 06/21/20 10:15 Ferrous Sulfate (Feosol) 325 mg [id number] 06/21/20 12:00 06/25/20 09:11 325 MG Fludrocortisone Acetate (Florinef) 0.1 mg DAILY 06/21/20 11:00 06/25/20 09:10 0.1 MG Fluticasone Propionate (Flonase) 2 spray DAILY 06/21/20 12:00 06/24/20 09:22 2 SPRAY Folic Acid (Folic Acid) 1 mg DAILY 06/21/20 12:00 06/25/20 09:11 1 MG Lactobacillus Rhamnosus (Culturelle) 1 cap BID 06/21/20 21:00 06/25/20 09:14 1 CAP Lactulose (Lactulose) 10 gm PRN DAILY PRN 06/21/20 11:15 Levothyroxine Sodium (Synthroid) 125 mcg DAILY06 06/22/20 06:00 06/24/20 06:15 125 MCG [place] Carbonate (Lithobid) 300 mg DAILY 06/21/20 12:00 06/25/20 09:10 300 MG Midodrine (Proamatine) 10 mg [id number] 06/21/20 13:00 06/25/20 09:10 10 MG Multivitamins (Thera M Plus) 1 tab DAILY 06/21/20 12:00 06/25/20 09:11 1 TAB Nitroglycerin (Nitrostat) 0.4 mg PRN Q5MIN PRN 06/21/20 10:15 Non-Formulary Medication (Ciprofloxacin Hcl (Cipro)) 1 tab BID 06/21/20 21:00 06/21/20 15:01 DC Olanzapine (ZyPREXA) 5 mg DAILY 06/21/20 11:00 06/25/20 09:11 5 MG Ondansetron HCl (Zofran) 4 mg PRN Q8HRS PRN 06/20/20 11:30 06/21/20 11:29 DC Pantoprazole Sodium (Protonix) 40 mg DAILYAC 06/21/20 11:30 06/25/20 09:15 40 MG Piperacillin Sod/ Tazobactam Sod (Zosyn Per Pharmacy) 1 each PRN DAILY PRN 06/21/20 12:45 Piperacillin Sod/ Tazobactam Sod 2.25 gm/Sodium Chloride 50 ml @ 100 mls/hr Q6HRS 06/21/20 18:00 06/25/20 05:30 100 MLS/HR Ropinirole HCl (Requip) 0.5 mg TID 06/21/20 14:00 06/25/20 09:10 0.5 MG Senna/Docusate Sodium (Senna Plus) 1 tab BID 06/21/20 11:00 06/25/20 09:10 1 TAB Sodium Chloride 1,000 ml @ 100 mls/hr Q10H 06/21/20 13:00 06/23/20 11:27 DC 06/23/20 10:27 100 MLS/HR Vitamin A/Vitamin D (Vitamin A & D Ointment) 1 janina BID 06/21/20 16:00 06/24/20 22:44 1 JANINA Results All relevant outside records, renal labs, imaging studies, telemetry/EKG's were reviewed. Justicifation of Admission Dx: Justifications for Admission: Justification of Admission Dx: Yes Sepsis: Bacteremia RCAHEL HARDING MD Jun 25, 2020 09:19
[2020-06-25] MEDS: VITS A & D/LANOLIN TOPICAL OINTMENT 42GM TUBE. TP SCH ×2 (09:20→21:04)
[2020-06-25] MEDS: FLUTICASONE 50MCG/NASAL SPRAY 16GM BOTTLE. NS SCH (09:22)
[2020-06-25 09:51] LABS: CALCIUM 8.9 mg/dL (8.5-10.1); CREATININE 1.9 mg/dL (0.7-1.3); GFR 34.2; POTASSIUM 3.9 mmol/L (3.5-5.1)
[2020-06-25] MEDS: buPROPion 75 MG TABLET. PO SCH ×2 (09:52→21:00)
--- NOTE | 2020-06-25 10:21 | NUR ---
PATIENT ARRIVED ON THE UNIT AT THIS TIME, COMFORT MEASURES GIVEN, WILL REVIEW ORDERS.
--- NOTE | 2020-06-25 10:22 | NUR ---
Report called to Mirta DOWNS. The patient was transferred to Room 530 via bed, awake, alert, on room air at 1010. Belonging are with the patient, call light placed within reach.
--- NOTE | 2020-06-25 10:49 | PDOC ---
Infectious Disease Note Subjective: Subjective Pt cont to remain the same Vital Signs: Vital Signs Vital Signs Date Time Temp Pulse Resp B/P (MAP) Pulse Ox O2 Delivery O2 Flow Rate FiO2 06/25/20 09:10 65 100/50 06/25/20 08:00 Room Air 06/25/20 07:18 96.0 20 100 96.0 Physical Exam: PHYSICAL EXAM General lethargic, arousable but does not answer any questions HEENT normocephalic atraumatic anicteric no thrush oral mucosa moist Neck supple Lungs clear bilaterally no wheezing Heart S1-S2 Abdomen soft nontender nondistended Carbajal in place, scrotal enlargement, scrotal wounds, Extremities no edema no cyanosis + contractures Neuro lethargic, confused Psychiatric unable to obtain Derm multiple wounds Per chart review Medications: Inpatient Meds: Current Medications Medications (Trade) Dose Ordered Sig/Bianca Start Time Stop Time Status Last Admin Dose Admin Acetaminophen (Tylenol) 650 mg PRN Q6HRS PRN 06/21/20 10:15 Aspirin (Aspirin Chewable) 81 mg DAILY 06/21/20 11:00 06/25/20 09:11 81 MG Bupropion HCl (Wellbutrin Sr) 75 mg BID 06/21/20 11:00 06/24/20 15:23 DC 06/23/20 22:37 75 MG Bupropion HCl (Wellbutrin) 75 mg BID 06/24/20 21:00 06/25/20 09:52 75 MG Buspirone HCl (Buspar) 10 mg TID 06/21/20 11:00 06/25/20 09:09 10 MG Carbidopa/Levodopa (Sinemet 25/100) 2 tab TID 06/21/20 11:00 06/25/20 09:11 2 TAB Ceftriaxone Sodium (Rocephin) 1 gm Q24H 06/20/20 17:00 06/21/20 12:44 DC 06/20/20 17:06 1 GM Daptomycin 350 mg/ Sodium Chloride 50 ml @ 100 mls/hr Q48H 06/21/20 16:00 06/24/20 11:38 DC 06/23/20 15:46 100 MLS/HR Dextrose 1,000 ml @ 75 mls/hr [id number] 06/24/20 12:30 06/25/20 02:44 75 MLS/HR Dextrose/Sodium Chloride 1,000 ml @ 60 mls/hr [id number] 06/23/20 11:30 06/24/20 12:25 DC 06/24/20 06:15 60 MLS/HR Docusate Sodium (Colace) 100 mg PRN Q12HRS PRN 06/21/20 10:15 Ferrous Sulfate (Feosol) 325 mg [id number] 06/21/20 12:00 06/25/20 09:11 325 MG Fludrocortisone Acetate (Florinef) 0.1 mg DAILY 06/21/20 11:00 06/25/20 09:10 0.1 MG Fluticasone Propionate (Flonase) 2 spray DAILY 06/21/20 12:00 06/25/20 09:22 2 SPRAY Folic Acid (Folic Acid) 1 mg DAILY 06/21/20 12:00 06/25/20 09:11 1 MG Lactobacillus Rhamnosus (Culturelle) 1 cap BID 06/21/20 21:00 06/25/20 09:14 1 CAP Lactulose (Lactulose) 10 gm PRN DAILY PRN 06/21/20 11:15 Levothyroxine Sodium (Synthroid) 125 mcg DAILY06 06/22/20 06:00 06/24/20 06:15 125 MCG [place] Carbonate (Lithobid) 300 mg DAILY 06/21/20 12:00 06/25/20 09:10 300 MG Midodrine (Proamatine) 10 mg [id number] 06/21/20 13:00 06/25/20 09:10 10 MG Multivitamins (Thera M Plus) 1 tab DAILY 06/21/20 12:00 06/25/20 09:11 1 TAB Nitroglycerin (Nitrostat) 0.4 mg PRN Q5MIN PRN 06/21/20 10:15 Non-Formulary Medication (Ciprofloxacin Hcl (Cipro)) 1 tab BID 06/21/20 21:00 06/21/20 15:01 DC Olanzapine (ZyPREXA) 5 mg DAILY 06/21/20 11:00 06/25/20 09:11 5 MG Ondansetron HCl (Zofran) 4 mg PRN Q8HRS PRN 06/20/20 11:30 06/21/20 11:29 DC Pantoprazole Sodium (Protonix) 40 mg DAILYAC 06/21/20 11:30 06/25/20 09:15 40 MG Piperacillin Sod/ Tazobactam Sod (Zosyn Per Pharmacy) 1 each PRN DAILY PRN 06/21/20 12:45 Piperacillin Sod/ Tazobactam Sod 2.25 gm/Sodium Chloride 50 ml @ 100 mls/hr Q6HRS 06/21/20 18:00 06/25/20 05:30 100 MLS/HR Ropinirole HCl (Requip) 0.5 mg TID 06/21/20 14:00 06/25/20 09:10 0.5 MG Senna/Docusate Sodium (Senna Plus) 1 tab BID 06/21/20 11:00 06/25/20 09:10 1 TAB Sodium Chloride 1,000 ml @ 100 mls/hr Q10H 06/21/20 13:00 06/23/20 11:27 DC 06/23/20 10:27 100 MLS/HR Vitamin A/Vitamin D (Vitamin A & D Ointment) 1 janina BID 06/21/20 16:00 06/25/20 09:20 1 JANINA Labs: Lab Laboratory Tests Test 06/25/20 09:26 Sodium Level 154 mmol/L (136-145) Potassium Level 3.9 mmol/L (3.5-5.1) Chloride Level 121 mmol/L (98-107) Carbon Dioxide Level 25 mmol/L (21-32) Anion Gap 8 (6-14) Blood Urea Nitrogen 24 mg/dL (8-26) Creatinine 1.9 mg/dL (0.7-1.3) Estimated GFR (Cockcroft-Gault) 34.2 Glucose Level 111 mg/dL (70-99) Calcium Level 8.9 mg/dL (8.5-10.1) Micro RUN DATE: 06/22/20 [facility] *LIVE* PAGE 1 RUN TIME: 1309 Specimen Inquiry PATIENT: TRISH GRIFFITH ACCT: [id number] LOC: [address] [place] [address] U: [id number] AGE/SX: 79/M ROOM: [facility] RE06/20/[address]: YARIEL FLOOD III, DO : 1940 BED: 1 DIS: STATUS: ADM IN TLOC: SPEC #: [id number] WILLIE: 06/21/20 STATUS: COMP REQ #: [id number] RECD: 06/21/[address]: YARIEL FLOOD III, DO SOURCE: VOID ENTR: 06/21/[address]: KELY STEWARD MD SPDESC: RUBEN MCNEIL MD UNKNOWN PCP NAME ORDERED: URINE CULTURE Procedure Result URINE CULTURE Final Final No Growth on 06/22/20 at 1305 Testing Performed by: [address] [address] For Inquires, the Physician may contact the Microbiology department at [phone] Unless otherwise specified, Testing Performed by: [address] [address] For Inquires, the Physician may contact the Microbiology department at [phone] --- RUN DATE: 06/23/20 [facility] *LIVE* PAGE 1 RUN TIME: 09 Specimen Inquiry PATIENT: YAOSamanthaTRISH ACCT: [id number] LOC: [address] [place] [address] U: [id number] AGE/SX: 79/M ROOM: 3 RE06/20/[address]: YARIEL FLOOD III, DO : 1940 BED: 1 DIS: STATUS: ADM IN TLOC: SPEC #: [id number] WILLIE: 06/20/20 STATUS: COMP REQ #: [id number] RECD: 06/20/[address]: DARELL SHAVER DO SOURCE: BLOOD ENTR: 06/21/20-[address] [facility] DR: UNKNOWN PCP NAME [facility]: ORDERED: BLD CULT - LC Procedure Result BLOOD CULTURE LC Final Final FINAL ID= [STAPHYLOCOCCUS HOMINIS] Growth of organism in only one of multiple sets; isolation does not necessarily indicate infection. Contact Microbiology Lab if further testing is clinically warranted. STAPHYLOCOCCUS HOMINIS Unless otherwise specified, Testing Performed by: [address] [address] For Inquires, the Physician may contact the Microbiology department at [phone] RUN DATE: 06/24/20 [facility] *LIVE* PAGE 1 RUN TIME: 930 Specimen Inquiry PATIENT: TRISH GRIFFITH Brissa ACCT: [id number] LOC: [address] [place] [address] U: [id number] AGE/SX: 79/M ROOM: [facility] RE06/20/[address]: YARIEL FLOOD III, DO : 1940 BED: 1 DIS: STATUS: ADM IN TLOC: ---- -------- SPEC #: [id number] WILLIE: 06/20/20 STATUS: [place] REQ #: [id number] RECD: 06/20/20 [facility] DR: DARELL SHAVER DO SOURCE: BLOOD ENTR: 06/21/20-151 [facility] : UNKNOWN PCP NAME [facility]: ORDERED: BLD CULT - LC Procedure Result BLOOD CULTURE LC Final Final FINAL ID= [STAPHYLOCOCCUS EPIDERMIDIS] Growth of organism in only one of multiple sets; isolation does not necessarily indicate infection. Contact Microbiology Lab if further testing is clinically warranted. STAPHYLOCOCCUS EPIDERMIDIS Unless otherwise specified, Testing Performed by: [address] [id number] For Inquires, the Physician may contact the Microbiology department at [phone] ------ ------ Objective: Assessment: Sepsis source wounds vs uti cultures nonrevealing Leukocytosis Bacteremia gram-positive cocci, staph hominis and epidermidis could be a contaminant UTI cult neg FRACISCO with underlying CKD Hypernatremia Covid Negative Encephalopathy likely metabolic Multiple wounds Generalized debility History of bipolar disorder BPH GERD Recommendations DC Cipro Continue Zosyn Start daptomycin Follow GPC in blood culture Follow cultures Monitor labs Follow-up COVID-19 PCR Wound care as directed Offload Maintain aspiration precaution Continue supportive care Overall prognosis poor Plan: Plan of Care Continue Zosyn Wound care as directed Offload Maintain aspiration precaution Continue supportive care Overall prognosis poor consider palliative care d/w SADIA KING MD Jun 25, 2020 10:49
[2020-06-25 11:00] VITALS: BP 97/50
--- NOTE | 2020-06-25 13:30 | NUR ---
Patient alert and makes eye contact, nods head to yes/no questions, patient pocketing food/meds when given medications crushed in applesauce, will change diet to npo and place order for speech (bedside swallow eval)
--- NOTE | 2020-06-25 14:56 | PDOC ---
[employer] PROGRESS NOTE Date of Service DOS: DATE: 06/25/20 TIME: 14:55 Chief Complaint Chief Complaint ASSESSMENT AND PLAN: Metabolic encephalopathy, ACUTE urinary tract infection, sepsis, BACTEREMIA hypernatremia, urinary tract infection, azotemia, ACUTE renal INJURY , , ACUTE RENAL TUBULAR NECROSIS leukocytosis. FRACISCO with underlying CKD Hypernatremia Covid Negative Encephalopathy likely metabolic severe protein-caloric malnutrition Multiple wounds Generalized debility PLAN admitted. IV antibiotics. Consult Nephrology. CONSULT ID IV fluids, chg hypotonic saline / ns home meds, DVT prophylaxis, full code, Carbajal to bedside p.r.n. Zofran, Continue Zosyn iv q 6 hrs continue daptomycin IV Follow GPC in blood culture History of Present Illness History of Present Illness HISTORY OF PRESENT ILLNESS: The patient is a pleasant 79-year-old male, who has a chronic indwelling Carbajal. He is now presenting from a facility. He has mental status change. I believe the catheter got pulled out by accident last night. I discussed the case with the ER physician. It appears he has probable urinary tract infection with urosepsis and metabolic encephalopathy. We are going to admit the patient and give him IV antibiotics and fluids and try to get him feeling better. 06/24: Patient seen and evaluated at bedside. Afebrile, no acute events over night. Continue IV antibiotics for positive blood culture and UTI. Still with some hypernatremia. Will continue with IV fluids. Charts and labs reviewed. 06/25: Patient seen and evaluated. He is COVID-19 negative. Transferred to medical floors. Creatinine continues to improve. Continue IV antibiotics for sepsis, UTI, bacteremia (possible contaminant). Vitals/I&O Vitals/I&O: Vital Signs Date Time Temp Pulse Resp B/P (MAP) Pulse Ox O2 Delivery O2 Flow Rate FiO2 06/25/20 13:03 65 100/50 06/25/20 11:00 96.9 16 96 Room Air 96.9 I & O 06/24/20 06/24/20 06/25/20 15:00 23:00 07:00 Intake Total 300 ml 0 ml Output Total 60 ml 1150 ml 225 ml Balance 240 ml -1150 ml -225 ml Physical Exam Physical Exam: General lethargic, arousable but does not answer any questions HEENT normocephalic atraumatic anicteric no thrush oral mucosa moist Neck supple Lungs clear bilaterally no wheezing Heart S1-S2 Abdomen soft nontender nondistended Carbajal in place, scrotal enlargement, scrotal wounds, Extremities no edema no cyanosis + contractures Neuro lethargic, confused Psychiatric unable to obtain Derm multiple wounds Per chart review General: Cooperative, No acute distress Heart: Regular rate Abdomen: Normal bowel sounds, Soft, No tenderness, No hepatosplenomegaly Extremities: No clubbing, No cyanosis Skin: No breakdown Labs Labs: Laboratory Tests Test 06/25/20 09:26 Sodium Level 154 mmol/L (136-145) Potassium Level 3.9 mmol/L (3.5-5.1) Chloride Level 121 mmol/L (98-107) Carbon Dioxide Level 25 mmol/L (21-32) Anion Gap 8 (6-14) Blood Urea Nitrogen 24 mg/dL (8-26) Creatinine 1.9 mg/dL (0.7-1.3) Estimated GFR (Cockcroft-Gault) 34.2 Glucose Level 111 mg/dL (70-99) Calcium Level 8.9 mg/dL (8.5-10.1) Assessment and Plan Assessmemt and Plan Problems Medical Problems: (1) Dehydration Status: Acute (2) Metabolic encephalopathy Status: Acute (3) Person under investigation for COVID-19 Status: Acute (4) Renal failure Status: Acute (5) UTI (urinary tract infection) Status: Acute Comment Review of Relevant I have reviewed the following items ab (where applicable) has been applied. Medications: Current Medications Medications (Trade) Dose Ordered Sig/Bianca Route PRN Reason Start Time Stop Time Status Last Admin Dose Admin Bupropion HCl (Wellbutrin) 75 mg BID PO 06/24/20 21:00 06/25/20 09:52 Justifications for Admission Other Justification BEBETO SANABRIA MD Jun 25, 2020 14:56
[2020-06-25 15:00] VITALS: BP 100/43
[2020-06-25 19:00] VITALS: BP 91/40
[2020-06-25 23:00] VITALS: BP 104/49
[2020-06-26 03:00] VITALS: BP 106/43
[2020-06-26] MEDS: IV DEXTROSE 5% 1,000 ML IV SCH ×3 (04:30→22:59)
[2020-06-26] MEDS: LEVOTHYROXINE 125 MCG TABLET PO SCH (05:25)
[2020-06-26] MEDS: MIDODRINE 5 MG TABLET PO SCH ×3 (05:25→18:00)
[2020-06-26] MEDS: PIPERACILLIN/TAZOBACTAM 2.25 GM in IV NORMAL SALINE 50ML 50 ML IV SCH ×3 (05:26→20:15)
[2020-06-26 07:00] VITALS: BP 110/54
[2020-06-26] MEDS: PANTOPRAZOLE 40 MG TABLET.DR. PO SCH (07:30)
[2020-06-26 07:36] LABS: BASO # 0.1 x10^3/uL (0.0-0.2); BASO % 1 % (0-3); EOS # 0.6 x10^3/uL (0.0-0.7); EOS % 4 % (0-3); HEMATOCRIT 31.2 % (39.0-53.0); HEMOGLOBIN 10.1 g/dL (13.0-17.5); LYMPH # 2.6 x10^3/uL (1.0-4.8); LYMPH % 16 % (24-48); MEAN CORPUSCULAR HEMOGLOBIN 32 pg (25-35); MEAN CORPUSCULAR HGB CONC 33 g/dL (31-37); MEAN CORPUSCULAR VOLUME 99 fL (79-100); MONO # 0.7 x10^3/uL (0.0-1.1); MONO % 4 % (0-9); NEUT # 12.3 x10^3/uL (1.8-7.7); NEUT % 76 % (31-73); PLATELET COUNT 338 x10^3/uL (140-400); RED BLOOD COUNT 3.15 x10^6/uL (4.30-5.70); RED CELL DISTRIBUTION WIDTH 15.6 % (11.5-14.5); WHITE BLOOD COUNT 16.2 x10^3/uL (4.0-11.0)
[2020-06-26] MEDS: FERROUS SULFATE 325 MG TABLET. PO SCH (08:00)
--- NOTE | 2020-06-26 08:10 | PDOC ---
[employer] PROGRESS NOTE Date of Service DOS: DATE: 06/26/20 TIME: 08:08 Chief Complaint Chief Complaint ASSESSMENT AND PLAN: Metabolic encephalopathy, ACUTE urinary tract infection, sepsis, BACTEREMIA hypernatremia, urinary tract infection, azotemia, ACUTE renal INJURY , , ACUTE RENAL TUBULAR NECROSIS leukocytosis. FRACISCO with underlying CKD Hypernatremia Covid Negative Encephalopathy likely metabolic severe protein-caloric malnutrition Multiple wounds Generalized debility PLAN admitted. IV antibiotics. Consult Nephrology. CONSULT ID IV fluids, chg hypotonic saline 06/10 ns home meds, DVT prophylaxis, full code, Carbajal to bedside p.r.n. Zofran, Continue Zosyn iv q 6 hrs continue daptomycin IV Follow GPC in blood culture History of Present Illness History of Present Illness HISTORY OF PRESENT ILLNESS: The patient is a pleasant 79-year-old male, who has a chronic indwelling Carbajal. He is now presenting from a facility. He has mental status change. I believe the catheter got pulled out by accident last night. I discussed the case with the ER physician. It appears he has probable urinary tract infection with urosepsis and metabolic encephalopathy. We are going to admit the patient and give him IV antibiotics and fluids and try to get him feeling better. 06/24: Patient seen and evaluated at bedside. Afebrile, no acute events over night. Continue IV antibiotics for positive blood culture and UTI. Still with some hypernatremia. Will continue with IV fluids. Charts and labs reviewed. 06/25: Patient seen and evaluated. He is COVID-19 negative. Transferred to medical floors. Creatinine continues to improve. Continue IV antibiotics for sepsis, UTI, bacteremia (possible contaminant). 06/26: No acute events overnight. Afebrile, breathing comfortably on room air. Leukocytosis improving. Further morning labs pending. Continue to monitor for creatinine and sodium improvement. Continue IV antibiotics, per ID. Daptomycin was added to Zosyn. Discussed with Dr. Steven, no significant improvement noted, patient still very lethargic. Will attempt to discuss with DPOA today about goals of care and hospice. Vitals/I&O Vitals/I&O: Vital Signs Date Time Temp Pulse Resp B/P (MAP) Pulse Ox O2 Delivery O2 Flow Rate FiO2 06/26/20 03:00 97.5 64 18 106/43 (64) 94 Room Air 97.5 I & O 06/25/20 06/25/20 06/26/20 15:00 23:00 07:00 Intake Total 0 ml 1050 ml 100 ml Output Total 525 ml 300 ml Balance 0 ml 525 ml -200 ml Physical Exam Physical Exam: General lethargic, arousable but does not answer any questions HEENT normocephalic atraumatic anicteric no thrush oral mucosa moist Neck supple Lungs clear bilaterally no wheezing Heart S1-S2 Abdomen soft nontender nondistended Carbajal in place, scrotal enlargement, scrotal wounds, Extremities no edema no cyanosis + contractures Neuro lethargic, confused Psychiatric unable to obtain Derm multiple wounds Per chart review General: Cooperative, No acute distress Heart: Regular rate Abdomen: Normal bowel sounds, Soft, No tenderness, No hepatosplenomegaly Extremities: No clubbing, No cyanosis Skin: No breakdown Labs Labs: Laboratory Tests Test 06/25/20 09:26 06/26/20 07:08 Sodium Level 154 mmol/L (136-145) Potassium Level 3.9 mmol/L (3.5-5.1) Chloride Level 121 mmol/L (98-107) Carbon Dioxide Level 25 mmol/L (21-32) Anion Gap 8 (6-14) Blood Urea Nitrogen 24 mg/dL (8-26) Creatinine 1.9 mg/dL (0.7-1.3) Estimated GFR (Cockcroft-Gault) 34.2 Glucose Level 111 mg/dL (70-99) Calcium Level 8.9 mg/dL (8.5-10.1) White Blood Count 16.2 x10^3/uL (4.0-11.0) Red Blood Count 3.15 x10^6/uL (4.30-5.70) Hemoglobin 10.1 g/dL (13.0-17.5) Hematocrit 31.2 % (39.0-53.0) Mean Corpuscular Volume 99 fL (79-100) Mean Corpuscular Hemoglobin 32 pg (25-35) Mean Corpuscular Hemoglobin Concent 33 g/dL (31-37) Red Cell Distribution Width 15.6 % (11.5-14.5) Platelet Count 338 x10^3/uL (140-400) Neutrophils (%) (Auto) 76 % (31-73) Lymphocytes (%) (Auto) 16 % (24-48) Monocytes (%) (Auto) 4 % (0-9) Eosinophils (%) (Auto) 4 % (0-3) Basophils (%) (Auto) 1 % (0-3) Neutrophils # (Auto) 12.3 x10^3/uL (1.8-7.7) Lymphocytes # (Auto) 2.6 x10^3/uL (1.0-4.8) Monocytes # (Auto) 0.7 x10^3/uL (0.0-1.1) Eosinophils # (Auto) 0.6 x10^3/uL (0.0-0.7) Basophils # (Auto) 0.1 x10^3/uL (0.0-0.2) Assessment and Plan Assessmemt and Plan Problems Medical Problems: (1) Dehydration Status: Acute (2) Metabolic encephalopathy Status: Acute (3) Person under investigation for COVID-19 Status: Acute (4) Renal failure Status: Acute (5) UTI (urinary tract infection) Status: Acute Comment Review of Relevant I have reviewed the following items ab (where applicable) has been applied. Justifications for Admission Other Justification BEBETO SANABRIA MD Jun 26, 2020 08:10
[2020-06-26 08:17] LABS: ALBUMIN 1.7 g/dL (3.4-5.0); ALBUMIN/GLOBULIN RATIO 0.4 (1.0-1.7); CALCIUM 8.5 mg/dL (8.5-10.1); CREATININE 1.8 mg/dL (0.7-1.3); GFR 36.4; POTASSIUM 3.1 mmol/L (3.5-5.1); TOTAL BILIRUBIN 0.4 mg/dL (0.2-1.0); TOTAL PROTEIN 5.8 g/dL (6.4-8.2)
[2020-06-26] MEDS: FOLIC ACID 1 MG TABLET. PO SCH (09:00)
[2020-06-26] MEDS: OLANZapine 5 MG TABLET PO SCH (09:00)
[2020-06-26] MEDS: buPROPion 75 MG TABLET. PO SCH ×2 (09:00→20:59)
[2020-06-26] MEDS: busPIRone 10 MG TABLET. PO SCH ×3 (09:00→20:59)
[2020-06-26] MEDS: rOPINIRole 0.25 MG TABLET. PO SCH ×3 (09:00→20:59)
[2020-06-26] MEDS: CARBIDOPA/LEVODOPA 25/100MG TABLET PO SCH ×3 (09:00→20:59)
[2020-06-26] MEDS: LACTOBACILLUS RHAMNOSUS GG 1 CAPSULE. PO SCH ×2 (09:00→20:59)
[2020-06-26] MEDS: LITHIUM CARBONATE ER 300 MG TABLET.ER PO SCH (09:00)
[2020-06-26] MEDS: ASPIRIN CHEWABLE 81 MG TABLET. PO SCH (09:00)
[2020-06-26] MEDS: FLUTICASONE 50MCG/NASAL SPRAY 16GM BOTTLE. NS SCH (09:00)
[2020-06-26] MEDS: FLUDROCORTISONE 0.1 MG TABLET PO SCH (09:00)
[2020-06-26] MEDS: MULTIVITAMIN with MINERAL TABLET. PO SCH (09:00)
[2020-06-26] MEDS: SENNOSIDES/DOCUSATE 8.6/50MG TABLET. PO SCH ×2 (09:00→20:59)
--- NOTE | 2020-06-26 10:35 | PDOC ---
Infectious Disease Note Subjective: Subjective Pt cont to remain the same lethargic Vital Signs: Vital Signs Vital Signs Date Time Temp Pulse Resp B/P (MAP) Pulse Ox O2 Delivery O2 Flow Rate FiO2 06/26/20 07:00 96.8 58 16 110/54 (72) 93 Room Air 96.8 Physical Exam: PHYSICAL EXAM General lethargic, arousable but does not answer any questions HEENT normocephalic atraumatic anicteric no thrush oral mucosa moist Neck supple Lungs clear bilaterally no wheezing Heart S1-S2 Abdomen soft nontender nondistended Carbajal in place, scrotal enlargement, scrotal wounds, Extremities no edema no cyanosis + contractures Neuro lethargic, confused Psychiatric unable to obtain Derm multiple wounds Per chart review Medications: Inpatient Meds: Current Medications Medications (Trade) Dose Ordered Sig/Bianca Start Time Stop Time Status Last Admin Dose Admin Acetaminophen (Tylenol) 650 mg PRN Q6HRS PRN 06/21/20 10:15 Aspirin (Aspirin Chewable) 81 mg DAILY 06/21/20 11:00 06/25/20 09:11 81 MG Bupropion HCl (Wellbutrin Sr) 75 mg BID 06/21/20 11:00 06/24/20 15:23 DC 06/23/20 22:37 75 MG Bupropion HCl (Wellbutrin) 75 mg BID 06/24/20 21:00 06/25/20 09:52 75 MG Buspirone HCl (Buspar) 10 mg TID 06/21/20 11:00 06/25/20 09:09 10 MG Carbidopa/Levodopa (Sinemet 25/100) 2 tab TID 06/21/20 11:00 06/25/20 09:11 2 TAB Ceftriaxone Sodium (Rocephin) 1 gm Q24H 06/20/20 17:00 06/21/20 12:44 DC 06/20/20 17:06 1 GM Daptomycin 350 mg/ Sodium Chloride 50 ml @ 100 mls/hr Q48H 06/21/20 16:00 06/24/20 11:38 DC 06/23/20 15:46 100 MLS/HR Dextrose 1,000 ml @ 75 mls/hr [id number] 06/24/20 12:30 06/25/20 19:24 75 MLS/HR Dextrose/Sodium Chloride 1,000 ml @ 60 mls/hr [id number] 06/23/20 11:30 06/24/20 12:25 DC 06/24/20 06:15 60 MLS/HR Docusate Sodium (Colace) 100 mg PRN Q12HRS PRN 06/21/20 10:15 Ferrous Sulfate (Feosol) 325 mg [id number] 06/21/20 12:00 06/25/20 09:11 325 MG Fludrocortisone Acetate (Florinef) 0.1 mg DAILY 06/21/20 11:00 06/25/20 09:10 0.1 MG Fluticasone Propionate (Flonase) 2 spray DAILY 06/21/20 12:00 06/25/20 09:22 2 SPRAY Folic Acid (Folic Acid) 1 mg DAILY 06/21/20 12:00 06/25/20 09:11 1 MG Lactobacillus Rhamnosus (Culturelle) 1 cap BID 06/21/20 21:00 06/25/20 09:14 1 CAP Lactulose (Lactulose) 10 gm PRN DAILY PRN 06/21/20 11:15 Levothyroxine Sodium (Synthroid) 125 mcg DAILY06 06/22/20 06:00 06/24/20 06:15 125 MCG [place] Carbonate (Lithobid) 300 mg DAILY 06/21/20 12:00 06/25/20 09:10 300 MG Midodrine (Proamatine) 10 mg [id number] 06/21/20 13:00 06/25/20 13:03 10 MG Multivitamins (Thera M Plus) 1 tab DAILY 06/21/20 12:00 06/25/20 09:11 1 TAB Nitroglycerin (Nitrostat) 0.4 mg PRN Q5MIN PRN 06/21/20 10:15 Non-Formulary Medication (Ciprofloxacin Hcl (Cipro)) 1 tab BID 06/21/20 21:00 06/21/20 15:01 DC Olanzapine (ZyPREXA) 5 mg DAILY 06/21/20 11:00 06/25/20 09:11 5 MG Ondansetron HCl (Zofran) 4 mg PRN Q8HRS PRN 06/20/20 11:30 06/21/20 11:29 DC Pantoprazole Sodium (Protonix) 40 mg DAILYAC 06/21/20 11:30 06/25/20 09:15 40 MG Piperacillin Sod/ Tazobactam Sod (Zosyn Per Pharmacy) 1 each PRN DAILY PRN 06/21/20 12:45 Piperacillin Sod/ Tazobactam Sod 2.25 gm/Sodium Chloride 50 ml @ 100 mls/hr Q6HRS 06/21/20 18:00 06/26/20 05:26 100 MLS/HR Ropinirole HCl (Requip) 0.5 mg TID 06/21/20 14:00 06/25/20 09:10 0.5 MG Senna/Docusate Sodium (Senna Plus) 1 tab BID 06/21/20 11:00 06/25/20 09:10 1 TAB Sodium Chloride 1,000 ml @ 100 mls/hr Q10H 06/21/20 13:00 06/23/20 11:27 DC 06/23/20 10:27 100 MLS/HR Vitamin A/Vitamin D (Vitamin A & D Ointment) 1 janina BID 06/21/20 16:00 06/25/20 21:04 1 JANINA Labs: Lab Laboratory Tests Test 06/26/20 07:08 White Blood Count 16.2 x10^3/uL (4.0-11.0) Red Blood Count 3.15 x10^6/uL (4.30-5.70) Hemoglobin 10.1 g/dL (13.0-17.5) Hematocrit 31.2 % (39.0-53.0) Mean Corpuscular Volume 99 fL (79-100) Mean Corpuscular Hemoglobin 32 pg (25-35) Mean Corpuscular Hemoglobin Concent 33 g/dL (31-37) Red Cell Distribution Width 15.6 % (11.5-14.5) Platelet Count 338 x10^3/uL (140-400) Neutrophils (%) (Auto) 76 % (31-73) Lymphocytes (%) (Auto) 16 % (24-48) Monocytes (%) (Auto) 4 % (0-9) Eosinophils (%) (Auto) 4 % (0-3) Basophils (%) (Auto) 1 % (0-3) Neutrophils # (Auto) 12.3 x10^3/uL (1.8-7.7) Lymphocytes # (Auto) 2.6 x10^3/uL (1.0-4.8) Monocytes # (Auto) 0.7 x10^3/uL (0.0-1.1) Eosinophils # (Auto) 0.6 x10^3/uL (0.0-0.7) Basophils # (Auto) 0.1 x10^3/uL (0.0-0.2) Sodium Level 154 mmol/L (136-145) Potassium Level 3.1 mmol/L (3.5-5.1) Chloride Level 120 mmol/L (98-107) Carbon Dioxide Level 26 mmol/L (21-32) Anion Gap 8 (6-14) Blood Urea Nitrogen 19 mg/dL (8-26) Creatinine 1.8 mg/dL (0.7-1.3) Estimated GFR (Cockcroft-Gault) 36.4 BUN/Creatinine Ratio 11 (6-20) Glucose Level 89 mg/dL (70-99) Calcium Level 8.5 mg/dL (8.5-10.1) Total Bilirubin 0.4 mg/dL (0.2-1.0) Aspartate Amino Transf (AST/SGOT) 31 U/L (15-37) Alanine Aminotransferase (ALT/SGPT) 14 U/L (16-63) Alkaline Phosphatase 69 U/L (46-116) Total Protein 5.8 g/dL (6.4-8.2) Albumin 1.7 g/dL (3.4-5.0) Albumin/Globulin Ratio 0.4 (1.0-1.7) Micro RUN DATE: 06/22/20 [facility] *LIVE* PAGE 1 RUN TIME: 1309 Specimen Inquiry PATIENT: TRISH GRIFFITH ACCT: [id number] LOC: [address] [place] [address] U: [id number] AGE/SX: 79/M ROOM: 3 RE06/20/[address]: YARIEL FLOOD III, DO : 1940 BED: 1 DIS: STATUS: ADM IN TLOC: SPEC #: [id number] WILLIE: 06/21/20 STATUS: COMP REQ #: [id number] RECD: 06/21/[address]: YARIEL FLOOD III, DO SOURCE: VOID ENTR: 06/21/[address]: KELY STEWARD MD SPDESC: RUBEN MCNEIL MD UNKNOWN PCP NAME ORDERED: URINE CULTURE Procedure Result URINE CULTURE Final Final No Growth on 06/22/20 at 1305 Testing Performed by: [address] [address] For Inquires, the Physician may contact the Microbiology department at [phone] Unless otherwise specified, Testing Performed by: [address] [address] For Inquires, the Physician may contact the Microbiology department at [phone] --- --------- --- RUN DATE: 06/23/20 [facility] *LIVE* PAGE 1 RUN TIME: 912 Specimen Inquiry PATIENT: TRISH GRIFFITH ACCT: [id number] LOC: [facility] U: [id number] AGE/SX: 79/M ROOM: [facility] RE06/20/[address]: YARIEL FLOOD III DO : 1940 BED: 1 DIS: STATUS: ADM IN TLOC: SPEC #: [id number] WILLIE: 06/20/20 STATUS: COMP REQ #: [id number] RECD: 06/20/[address] [facility] [address]: DARELL SHAVER DO SOURCE: BLOOD ENTR: 06/21/20-[address] [facility] [address]: UNKNOWN PCP NAME [facility]: ORDERED: BLD CULT - LC Procedure Result BLOOD CULTURE LC Final Final FINAL ID= [STAPHYLOCOCCUS HOMINIS] Growth of organism in only one of multiple sets; isolation does not necessarily indicate infection. Contact Microbiology Lab if further testing is clinically warranted. STAPHYLOCOCCUS HOMINIS Unless otherwise specified, Testing Performed by: [address] [address] For Inquires, the Physician may contact the Microbiology department at [phone] --------- RUN DATE: 06/24/20 [facility] *LIVE* PAGE 1 RUN TIME: 930 Specimen Inquiry PATIENT: TRISH GRIFFITH ACCT: [id number] LOC: [address] [place] [address] U: [id number] AGE/SX: 79/M ROOM: 3 RE06/20/[address]: YARIEL FLOOD III, DO : 1940 BED: 1 DIS: STATUS: ADM IN TLOC: SPEC #: [id number] WILLIE: 06/20/20 STATUS: COMP REQ #: [id number] RECD: 06/20/20-[address]: DARELL SHAVER DO SOURCE: BLOOD ENTR: 06/21/20-[address]: UNKNOWN PCP NAME SPDESC: ORDERED: BLD CULT - LC Procedure Result BLOOD CULTURE LC Final Final FINAL ID= [STAPHYLOCOCCUS EPIDERMIDIS] Growth of organism in only one of multiple sets; isolation does not necessarily indicate infection. Contact Microbiology Lab if further testing is clinically warranted. STAPHYLOCOCCUS EPIDERMIDIS Unless otherwise specified, Testing Performed by: [address] [address] For Inquires, the Physician may contact the Microbiology department at [phone] Objective: Assessment: Sepsis source wounds vs uti cultures nonrevealing Leukocytosis Bacteremia gram-positive cocci, staph hominis and staph epidermidis likely contaminant UTI cult neg FRACISCO with underlying CKD Hypernatremia Covid Negative Encephalopathy likely metabolic Multiple wounds Generalized debility History of bipolar disorder BPH GERD Recommendations DC Cipro Continue Zosyn Start daptomycin Follow GPC in blood culture Follow cultures Monitor labs Follow-up COVID-19 PCR Wound care as directed Offload Maintain aspiration precaution Continue supportive care Overall prognosis poor Plan: Plan of Care Continue Zosyn Wound care as directed Offload Maintain aspiration precaution Continue supportive care Overall prognosis poor consider palliative care d/w SADIA KING MD Jun 26, 2020 10:35
[2020-06-26 11:00] VITALS: BP 123/61
--- NOTE | 2020-06-26 11:03 | PDOC ---
DATE OF SERVICE DATE: 06/26/20 TIME: 11:01 SUBJECTIVE ROS stable, lethargic, arousable, does not answer questions OBJECTIVE Vital Signs Vital Signs Date Time Temp Pulse Resp B/P (MAP) Pulse Ox O2 Delivery O2 Flow Rate FiO2 06/26/20 07:00 96.8 58 16 110/54 (72) 93 Room Air 96.8 I & 0 Intake and Output 06/26/20 07:00 Intake Total 1150 ml Output Total 825 ml Balance 325 ml Intake Oral 0 ml IV Total 1150 ml Output Urine Total 825 ml PHYSICAL EXAM Physical Exam Physical Exam General lethargic, arousable but does not answer any questions HEENT OM moist Neck supple Lungs clear bilaterally non labored Heart S1-S2 Abdomen soft nontender nondistended Carbajal in place, scrotal enlargement, scrotal wounds, Extremities no edema no cyanosis + contractures Neuro lethargic, confused Psychiatric unable to obtain DIAGNOSIS/ASSESSMENT Assessment & Plan FRACISCO- 2/2 Vol depletion Cr 3.8 POA , improving ,supportive care HyperNatremia- improving with IV D5W ,continue HypoKalemia- replace Sepsis source wounds vs uti cultures nonrevealing UTI cult neg CoVid 19 Negative COMMENT/RELEVANT DATA Meds Current Medications Medications (Trade) Dose Ordered Sig/Bianca Start Time Stop Time Status Last Admin Dose Admin Acetaminophen (Tylenol) 650 mg PRN Q6HRS PRN 06/21/20 10:15 Aspirin (Aspirin Chewable) 81 mg DAILY 06/21/20 11:00 06/25/20 09:11 81 MG Bupropion HCl (Wellbutrin Sr) 75 mg BID 06/21/20 11:00 06/24/20 15:23 DC 06/23/20 22:37 75 MG Bupropion HCl (Wellbutrin) 75 mg BID 06/24/20 21:00 06/25/20 09:52 75 MG Buspirone HCl (Buspar) 10 mg TID 06/21/20 11:00 06/25/20 09:09 10 MG Carbidopa/Levodopa (Sinemet 25/100) 2 tab TID 06/21/20 11:00 06/25/20 09:11 2 TAB Ceftriaxone Sodium (Rocephin) 1 gm Q24H 06/20/20 17:00 06/21/20 12:44 DC 06/20/20 17:06 1 GM Daptomycin 350 mg/ Sodium Chloride 50 ml @ 100 mls/hr Q48H 06/21/20 16:00 06/24/20 11:38 DC 06/23/20 15:46 100 MLS/HR Dextrose 1,000 ml @ 75 mls/hr [id number] 06/24/20 12:30 06/25/20 19:24 75 MLS/HR Dextrose/Sodium Chloride 1,000 ml @ 60 mls/hr [id number] 06/23/20 11:30 06/24/20 12:25 DC 06/24/20 06:15 60 MLS/HR Docusate Sodium (Colace) 100 mg PRN Q12HRS PRN 06/21/20 10:15 Ferrous Sulfate (Feosol) 325 mg [id number] 06/21/20 12:00 06/25/20 09:11 325 MG Fludrocortisone Acetate (Florinef) 0.1 mg DAILY 06/21/20 11:00 06/25/20 09:10 0.1 MG Fluticasone Propionate (Flonase) 2 spray DAILY 06/21/20 12:00 06/25/20 09:22 2 SPRAY Folic Acid (Folic Acid) 1 mg DAILY 06/21/20 12:00 06/25/20 09:11 1 MG Lactobacillus Rhamnosus (Culturelle) 1 cap BID 06/21/20 21:00 06/25/20 09:14 1 CAP Lactulose (Lactulose) 10 gm PRN DAILY PRN 06/21/20 11:15 Levothyroxine Sodium (Synthroid) 125 mcg DAILY06 06/22/20 06:00 06/24/20 06:15 125 MCG [place] Carbonate (Lithobid) 300 mg DAILY 06/21/20 12:00 06/25/20 09:10 300 MG Midodrine (Proamatine) 10 mg [id number] 06/21/20 13:00 06/25/20 13:03 10 MG Multivitamins (Thera M Plus) 1 tab DAILY 06/21/20 12:00 06/25/20 09:11 1 TAB Nitroglycerin (Nitrostat) 0.4 mg PRN Q5MIN PRN 06/21/20 10:15 Non-Formulary Medication (Ciprofloxacin Hcl (Cipro)) 1 tab BID 06/21/20 21:00 06/21/20 15:01 DC Olanzapine (ZyPREXA) 5 mg DAILY 06/21/20 11:00 06/25/20 09:11 5 MG Ondansetron HCl (Zofran) 4 mg PRN Q8HRS PRN 06/20/20 11:30 06/21/20 11:29 DC Pantoprazole Sodium (Protonix) 40 mg DAILYAC 06/21/20 11:30 06/25/20 09:15 40 MG Piperacillin Sod/ Tazobactam Sod (Zosyn Per Pharmacy) 1 each PRN DAILY PRN 06/21/20 12:45 Piperacillin Sod/ Tazobactam Sod 2.25 gm/Sodium Chloride 50 ml @ 100 mls/hr Q6HRS 06/21/20 18:00 06/26/20 05:26 100 MLS/HR Ropinirole HCl (Requip) 0.5 mg TID 06/21/20 14:00 06/25/20 09:10 0.5 MG Senna/Docusate Sodium (Senna Plus) 1 tab BID 06/21/20 11:00 06/25/20 09:10 1 TAB Sodium Chloride 1,000 ml @ 100 mls/hr Q10H 06/21/20 13:00 06/23/20 11:27 DC 06/23/20 10:27 100 MLS/HR Vitamin A/Vitamin D (Vitamin A & D Ointment) 1 janina BID 06/21/20 16:00 06/25/20 21:04 1 JANINA Lab Laboratory Tests Test 06/26/20 07:08 White Blood Count 16.2 x10^3/uL (4.0-11.0) Red Blood Count 3.15 x10^6/uL (4.30-5.70) Hemoglobin 10.1 g/dL (13.0-17.5) Hematocrit 31.2 % (39.0-53.0) Mean Corpuscular Volume 99 fL (79-100) Mean Corpuscular Hemoglobin 32 pg (25-35) Mean Corpuscular Hemoglobin Concent 33 g/dL (31-37) Red Cell Distribution Width 15.6 % (11.5-14.5) Platelet Count 338 x10^3/uL (140-400) Neutrophils (%) (Auto) 76 % (31-73) Lymphocytes (%) (Auto) 16 % (24-48) Monocytes (%) (Auto) 4 % (0-9) Eosinophils (%) (Auto) 4 % (0-3) Basophils (%) (Auto) 1 % (0-3) Neutrophils # (Auto) 12.3 x10^3/uL (1.8-7.7) Lymphocytes # (Auto) 2.6 x10^3/uL (1.0-4.8) Monocytes # (Auto) 0.7 x10^3/uL (0.0-1.1) Eosinophils # (Auto) 0.6 x10^3/uL (0.0-0.7) Basophils # (Auto) 0.1 x10^3/uL (0.0-0.2) Sodium Level 154 mmol/L (136-145) Potassium Level 3.1 mmol/L (3.5-5.1) Chloride Level 120 mmol/L (98-107) Carbon Dioxide Level 26 mmol/L (21-32) Anion Gap 8 (6-14) Blood Urea Nitrogen 19 mg/dL (8-26) Creatinine 1.8 mg/dL (0.7-1.3) Estimated GFR (Cockcroft-Gault) 36.4 BUN/Creatinine Ratio 11 (6-20) Glucose Level 89 mg/dL (70-99) Calcium Level 8.5 mg/dL (8.5-10.1) Total Bilirubin 0.4 mg/dL (0.2-1.0) Aspartate Amino Transf (AST/SGOT) 31 U/L (15-37) Alanine Aminotransferase (ALT/SGPT) 14 U/L (16-63) Alkaline Phosphatase 69 U/L (46-116) Total Protein 5.8 g/dL (6.4-8.2) Albumin 1.7 g/dL (3.4-5.0) Albumin/Globulin Ratio 0.4 (1.0-1.7) Results All relevant outside records, renal labs, imaging studies, telemetry/EKG's were reviewed. Justicifation of Admission Dx: Justifications for Admission: Justification of Admission Dx: Yes Sepsis: Bacteremia RACHEL HARDING MD Jun 26, 2020 11:03
--- NOTE | 2020-06-26 14:40 | NUR ---
Wound Care Attempted to see pt for wound care assessment. Pt's family is currently having a meeting at bedside re: possible Hospice, will attempt to reevaluate tomorrow.
[2020-06-26 15:00] VITALS: BP 118/67
[2020-06-26] MEDS ORDERED: POTASSIUM CHLORIDE 20MEQ 100 ML IV ONE (16:00)
[2020-06-26] MEDS: VITS A & D/LANOLIN TOPICAL OINTMENT 42GM TUBE. TP SCH ×2 (16:24→21:37)
[2020-06-26 19:00] VITALS: BP 126/58
[2020-06-26 23:00] VITALS: BP 114/61
[2020-06-27] MEDS: PIPERACILLIN/TAZOBACTAM 2.25 GM in IV NORMAL SALINE 50ML 50 ML IV SCH ×4 (00:35→18:09)
[2020-06-27 02:42] VITALS: BP 118/59
[2020-06-27] MEDS: LEVOTHYROXINE 125 MCG TABLET PO SCH (02:52)
[2020-06-27] MEDS: MIDODRINE 5 MG TABLET PO SCH ×3 (06:07→18:00)
[2020-06-27 07:00] VITALS: BP 124/60
[2020-06-27] MEDS: PANTOPRAZOLE 40 MG TABLET.DR. PO SCH (07:30)
[2020-06-27] MEDS: FERROUS SULFATE 325 MG TABLET. PO SCH (08:00)
[2020-06-27 08:14] LABS: CALCIUM 8.5 mg/dL (8.5-10.1); CREATININE 1.7 mg/dL (0.7-1.3); GFR 38.9; POTASSIUM 3.2 mmol/L (3.5-5.1)
--- NOTE | 2020-06-27 08:57 | PDOC ---
Infectious Disease Note Vital Signs: Vital Signs Vital Signs Date Time Temp Pulse Resp B/P (MAP) Pulse Ox O2 Delivery O2 Flow Rate FiO2 06/27/20 07:00 97.9 67 18 124/60 (81) 97 Room Air 97.9 Physical Exam: PHYSICAL EXAM Medications: Inpatient Meds: Current Medications Medications (Trade) Dose Ordered Sig/Bianca Start Time Stop Time Status Last Admin Dose Admin Acetaminophen (Tylenol) 650 mg PRN Q6HRS PRN 06/21/20 10:15 Aspirin (Aspirin Chewable) 81 mg DAILY 06/21/20 11:00 06/25/20 09:11 81 MG Bupropion HCl (Wellbutrin Sr) 75 mg BID 06/21/20 11:00 06/24/20 15:23 DC 06/23/20 22:37 75 MG Bupropion HCl (Wellbutrin) 75 mg BID 06/24/20 21:00 06/25/20 09:52 75 MG Buspirone HCl (Buspar) 10 mg TID 06/21/20 11:00 06/25/20 09:09 10 MG Carbidopa/Levodopa (Sinemet 25/100) 2 tab TID 06/21/20 11:00 06/25/20 09:11 2 TAB Ceftriaxone Sodium (Rocephin) 1 gm Q24H 06/20/20 17:00 06/21/20 12:44 DC 06/20/20 17:06 1 GM Daptomycin 350 mg/ Sodium Chloride 50 ml @ 100 mls/hr Q48H 06/21/20 16:00 06/24/20 11:38 DC 06/23/20 15:46 100 MLS/HR Dextrose 1,000 ml @ 100 mls/hr Q10H 06/24/20 12:30 06/26/20 22:59 100 MLS/HR Dextrose/Sodium Chloride 1,000 ml @ 60 mls/hr [id number] 06/23/20 11:30 06/24/20 12:25 DC 06/24/20 06:15 60 MLS/HR Docusate Sodium (Colace) 100 mg PRN Q12HRS PRN 06/21/20 10:15 Ferrous Sulfate (Feosol) 325 mg DAILYWBKFT 06/21/20 12:00 06/25/20 09:11 325 MG Fludrocortisone Acetate (Florinef) 0.1 mg DAILY 06/21/20 11:00 06/25/20 09:10 0.1 MG Fluticasone Propionate (Flonase) 2 spray DAILY 06/21/20 12:00 06/25/20 09:22 2 SPRAY Folic Acid (Folic Acid) 1 mg DAILY 06/21/20 12:00 06/25/20 09:11 1 MG Lactobacillus Rhamnosus (Culturelle) 1 cap BID 06/21/20 21:00 06/25/20 09:14 1 CAP Lactulose (Lactulose) 10 gm PRN DAILY PRN 06/21/20 11:15 Levothyroxine Sodium (Synthroid) 125 mcg DAILY06 06/22/20 06:00 06/24/20 06:15 125 MCG [place] Carbonate (Lithobid) 300 mg DAILY 06/21/20 12:00 06/25/20 09:10 300 MG Midodrine (Proamatine) 10 mg [id number] 06/21/20 13:00 06/25/20 13:03 10 MG Multivitamins (Thera M Plus) 1 tab DAILY 06/21/20 12:00 06/25/20 09:11 1 TAB Nitroglycerin (Nitrostat) 0.4 mg PRN Q5MIN PRN 06/21/20 10:15 Non-Formulary Medication (Ciprofloxacin Hcl (Cipro)) 1 tab BID 06/21/20 21:00 06/21/20 15:01 DC Olanzapine (ZyPREXA) 5 mg DAILY 06/21/20 11:00 06/25/20 09:11 5 MG Ondansetron HCl (Zofran) 4 mg PRN Q8HRS PRN 06/20/20 11:30 06/21/20 11:29 DC Pantoprazole Sodium (Protonix) 40 mg DAILYAC 06/21/20 11:30 06/25/20 09:15 40 MG Piperacillin Sod/ Tazobactam Sod (Zosyn Per Pharmacy) 1 each PRN DAILY PRN 06/21/20 12:45 Piperacillin Sod/ Tazobactam Sod 2.25 gm/Sodium Chloride 50 ml @ 100 mls/hr Q6HRS 06/21/20 18:00 06/27/20 05:52 100 MLS/HR Potassium Chloride/Water 100 ml @ 50 mls/hr 1X ONCE 06/26/20 16:00 06/26/20 17:59 DC 06/26/20 16:24 50 MLS/HR Ropinirole HCl (Requip) 0.5 mg TID 06/21/20 14:00 06/25/20 09:10 0.5 MG Senna/Docusate Sodium (Senna Plus) 1 tab BID 06/21/20 11:00 06/25/20 09:10 1 TAB Sodium Chloride 1,000 ml @ 100 mls/hr Q10H 06/21/20 13:00 06/23/20 11:27 DC 06/23/20 10:27 100 MLS/HR Vitamin A/Vitamin D (Vitamin A & D Ointment) 1 janina BID 06/21/20 16:00 06/26/20 21:37 1 JANINA Labs: Lab Laboratory Tests Test 06/27/20 06:40 Sodium Level 153 mmol/L (136-145) Potassium Level 3.2 mmol/L (3.5-5.1) Chloride Level 119 mmol/L (98-107) Carbon Dioxide Level 27 mmol/L (21-32) Anion Gap 7 (6-14) Blood Urea Nitrogen 15 mg/dL (8-26) Creatinine 1.7 mg/dL (0.7-1.3) Estimated GFR (Cockcroft-Gault) 38.9 Glucose Level 93 mg/dL (70-99) Calcium Level 8.5 mg/dL (8.5-10.1) Micro RUN DATE: 06/22/20 [facility] LAB *LIVE* PAGE 1 RUN TIME: 3479 Specimen Inquiry PATIENT: TRISH GRIFFITH ACCT: [id number] LOC: 6 [facility] U: [id number] AGE/SX: 79/M ROOM: [facility] RE06/20/[address]: YARIEL FLOOD III, DO : 1940 BED: 1 DIS: STATUS: ADM IN TLOC: SPEC #: [id number] WILLIE: 06/21/20 STATUS: COMP REQ #: [id number] RECD: 06/21/[address]: YARIEL FLOOD III, DO SOURCE: VOID ENTR: 06/21/[address]: KELY STEWARD MD [facility]: RUBEN MCNEIL MD UNKNOWN PCP NAME ORDERED: URINE CULTURE Procedure Result URINE CULTURE Final Final No Growth on 06/22/20 at 1305 Testing Performed by: [facility] [address] [place] [address] For Inquires, the Physician may contact the Microbiology department at [phone] Unless otherwise specified, Testing Performed by: [facility] [address] [place] [address] For Inquires, the Physician may contact the Microbiology department at [phone] - --- RUN DATE: 06/23/20 [facility] LAB *LIVE* PAGE 1 RUN TIME: 912 Specimen Inquiry PATIENT: TRISH GRIFFITH Brissa ACCT: [id number] LOC: 6 [facility] U: [id number] AGE/SX: 79/M ROOM: 673 RE06/20/[address]: YARIEL FLOOD III, DO : 1940 BED: 1 DIS: STATUS: ADM IN TLOC: SPEC #: [id number] WILLIE: 06/20/20 STATUS: [place] REQ #: [id number] RECD: 06/20/[address] [facility] [address]: DARELL SHAVER DO SOURCE: BLOOD ENTR: 06/21/[address] [facility] [address]: UNKNOWN PCP NAME [facility]: ORDERED: BLD CULT - LC Procedure Result BLOOD CULTURE LC Final Final FINAL ID= [STAPHYLOCOCCUS HOMINIS] Growth of organism in only one of multiple sets; isolation does not necessarily indicate infection. Contact Microbiology Lab if further testing is clinically warranted. STAPHYLOCOCCUS HOMINIS Unless otherwise specified, Testing Performed by: [address] [place] [address] For Inquires, the Physician may contact the Microbiology department at [phone] --------- RUN DATE: 06/24/20 [facility] LAB *LIVE* PAGE 1 RUN TIME: 930 Specimen Inquiry PATIENT: GLADISTRISH Brissa ACCT: [id number] LOC: [address] [place] [address] U: [id number] AGE/SX: 79/M ROOM: [facility] RE06/20/[address]: YARIEL FLOOD III, DO : 1940 BED: 1 DIS: STATUS: ADM IN TLOC: SPEC #: [id number] WILLIE: 06/20/20 STATUS: COMP REQ #: [id number] RECD: 06/20/[address]: DARELL SHAVER DO SOURCE: BLOOD ENTR: 06/21/20-[address] [facility] [address]: UNKNOWN PCP NAME SPDESC: ORDERED: BLD CULT - LC Procedure Result BLOOD CULTURE LC Final Final FINAL ID= [STAPHYLOCOCCUS EPIDERMIDIS] Growth of organism in only one of multiple sets; isolation does not necessarily indicate infection. Contact Microbiology Lab if further testing is clinically warranted. STAPHYLOCOCCUS EPIDERMIDIS Unless otherwise specified, Testing Performed by: [address] [address] For Inquires, the Physician may contact the Microbiology department at [phone] Plan: Plan of Care See other note SADIA STEWARD MD Jun 27, 2020 08:57
[2020-06-27] MEDS: busPIRone 10 MG TABLET. PO SCH ×3 (09:00→19:53)
[2020-06-27] MEDS: LACTOBACILLUS RHAMNOSUS GG 1 CAPSULE. PO SCH ×2 (09:00→19:53)
[2020-06-27] MEDS: OLANZapine 5 MG TABLET PO SCH (09:00)
[2020-06-27] MEDS: SENNOSIDES/DOCUSATE 8.6/50MG TABLET. PO SCH ×2 (09:00→19:54)
[2020-06-27] MEDS: CARBIDOPA/LEVODOPA 25/100MG TABLET PO SCH ×3 (09:00→19:54)
[2020-06-27] MEDS: LITHIUM CARBONATE ER 300 MG TABLET.ER PO SCH (09:00)
[2020-06-27] MEDS: rOPINIRole 0.25 MG TABLET. PO SCH ×3 (09:00→19:54)
[2020-06-27] MEDS: FLUDROCORTISONE 0.1 MG TABLET PO SCH (09:00)
[2020-06-27] MEDS: MULTIVITAMIN with MINERAL TABLET. PO SCH (09:00)
[2020-06-27] MEDS: ASPIRIN CHEWABLE 81 MG TABLET. PO SCH (09:00)
[2020-06-27] MEDS: FOLIC ACID 1 MG TABLET. PO SCH (09:00)
[2020-06-27] MEDS: buPROPion 75 MG TABLET. PO SCH ×2 (09:00→19:54)
--- NOTE | 2020-06-27 09:34 | PDOC ---
Infectious Disease Note Subjective: Subjective Pt cont to remain the same lethargic Does not answer any questions Vital Signs: Vital Signs Vital Signs Date Time Temp Pulse Resp B/P (MAP) Pulse Ox O2 Delivery O2 Flow Rate FiO2 06/27/20 07:00 97.9 67 18 124/60 (81) 97 Room Air 97.9 Physical Exam: PHYSICAL EXAM General lethargic, arousable but does not answer any questions HEENT normocephalic atraumatic anicteric no thrush oral mucosa moist Neck supple Lungs clear bilaterally no wheezing Heart S1-S2 Abdomen soft nontender nondistended Carbajal in place, scrotal enlargement, scrotal wounds, Extremities no edema no cyanosis Neuro lethargic, confused Psychiatric unable to obtain Derm multiple wounds pictures reviewed Medications: Inpatient Meds: Current Medications Medications (Trade) Dose Ordered Sig/Bianca Start Time Stop Time Status Last Admin Dose Admin Acetaminophen (Tylenol) 650 mg PRN Q6HRS PRN 06/21/20 10:15 Aspirin (Aspirin Chewable) 81 mg DAILY 06/21/20 11:00 06/25/20 09:11 81 MG Bupropion HCl (Wellbutrin Sr) 75 mg BID 06/21/20 11:00 06/24/20 15:23 DC 06/23/20 22:37 75 MG Bupropion HCl (Wellbutrin) 75 mg BID 06/24/20 21:00 06/25/20 09:52 75 MG Buspirone HCl (Buspar) 10 mg TID 06/21/20 11:00 06/25/20 09:09 10 MG Carbidopa/Levodopa (Sinemet 25/100) 2 tab TID 06/21/20 11:00 06/25/20 09:11 2 TAB Ceftriaxone Sodium (Rocephin) 1 gm Q24H 06/20/20 17:00 06/21/20 12:44 DC 06/20/20 17:06 1 GM Daptomycin 350 mg/ Sodium Chloride 50 ml @ 100 mls/hr Q48H 06/21/20 16:00 06/24/20 11:38 DC 06/23/20 15:46 100 MLS/HR Dextrose 1,000 ml @ 100 mls/hr Q10H 06/24/20 12:30 06/26/20 22:59 100 MLS/HR Dextrose/Sodium Chloride 1,000 ml @ 60 mls/hr [id number] 06/23/20 11:30 06/24/20 12:25 DC 06/24/20 06:15 60 MLS/HR Docusate Sodium (Colace) 100 mg PRN Q12HRS PRN 06/21/20 10:15 Ferrous Sulfate (Feosol) 325 mg DAILYWBKFT 06/21/20 12:00 06/25/20 09:11 325 MG Fludrocortisone Acetate (Florinef) 0.1 mg DAILY 06/21/20 11:00 06/25/20 09:10 0.1 MG Fluticasone Propionate (Flonase) 2 spray DAILY 06/21/20 12:00 06/25/20 09:22 2 SPRAY Folic Acid (Folic Acid) 1 mg DAILY 06/21/20 12:00 06/25/20 09:11 1 MG Lactobacillus Rhamnosus (Culturelle) 1 cap BID 06/21/20 21:00 06/25/20 09:14 1 CAP Lactulose (Lactulose) 10 gm PRN DAILY PRN 06/21/20 11:15 Levothyroxine Sodium (Synthroid) 125 mcg DAILY06 06/22/20 06:00 06/24/20 06:15 125 MCG [place] Carbonate (Lithobid) 300 mg DAILY 06/21/20 12:00 06/25/20 09:10 300 MG Midodrine (Proamatine) 10 mg [id number] 06/21/20 13:00 06/25/20 13:03 10 MG Multivitamins (Thera M Plus) 1 tab DAILY 06/21/20 12:00 06/25/20 09:11 1 TAB Nitroglycerin (Nitrostat) 0.4 mg PRN Q5MIN PRN 06/21/20 10:15 Non-Formulary Medication (Ciprofloxacin Hcl (Cipro)) 1 tab BID 06/21/20 21:00 06/21/20 15:01 DC Olanzapine (ZyPREXA) 5 mg DAILY 06/21/20 11:00 06/25/20 09:11 5 MG Ondansetron HCl (Zofran) 4 mg PRN Q8HRS PRN 06/20/20 11:30 06/21/20 11:29 DC Pantoprazole Sodium (Protonix) 40 mg DAILYAC 06/21/20 11:30 06/25/20 09:15 40 MG Piperacillin Sod/ Tazobactam Sod (Zosyn Per Pharmacy) 1 each PRN DAILY PRN 06/21/20 12:45 Piperacillin Sod/ Tazobactam Sod 2.25 gm/Sodium Chloride 50 ml @ 100 mls/hr Q6HRS 06/21/20 18:00 06/27/20 05:52 100 MLS/HR Potassium Chloride/Water 100 ml @ 50 mls/hr 1X ONCE 06/26/20 16:00 06/26/20 17:59 DC 06/26/20 16:24 50 MLS/HR Ropinirole HCl (Requip) 0.5 mg TID 06/21/20 14:00 06/25/20 09:10 0.5 MG Senna/Docusate Sodium (Senna Plus) 1 tab BID 06/21/20 11:00 06/25/20 09:10 1 TAB Sodium Chloride 1,000 ml @ 100 mls/hr Q10H 06/21/20 13:00 06/23/20 11:27 DC 06/23/20 10:27 100 MLS/HR Vitamin A/Vitamin D (Vitamin A & D Ointment) 1 janina BID 06/21/20 16:00 06/26/20 21:37 1 JANINA Labs: Lab Laboratory Tests Test 06/27/20 06:40 Sodium Level 153 mmol/L (136-145) Potassium Level 3.2 mmol/L (3.5-5.1) Chloride Level 119 mmol/L (98-107) Carbon Dioxide Level 27 mmol/L (21-32) Anion Gap 7 (6-14) Blood Urea Nitrogen 15 mg/dL (8-26) Creatinine 1.7 mg/dL (0.7-1.3) Estimated GFR (Cockcroft-Gault) 38.9 Glucose Level 93 mg/dL (70-99) Calcium Level 8.5 mg/dL (8.5-10.1) Micro RUN DATE: 06/22/20 [facility] LAB *LIVE* PAGE 1 RUN TIME: 1309 Specimen Inquiry PATIENT: TRISH GRIFFITH ACCT: [id number] LOC: 6 [facility] U: [id number] AGE/SX: 79/M ROOM: [facility] RE06/20/[address]: YARIEL FLOOD III, DO : 1940 BED: 1 DIS: STATUS: ADM IN TLOC: -- SPEC #: [id number] WILLIE: 06/21/20 STATUS: COMP REQ #: [id number] RECD: 06/21/[address] [facility] [address]: YARIEL FLOOD III, DO SOURCE: VOID ENTR: 06/21/[address] [facility] [address]: KELY STEWARD MD SPDESC: RUBEN MCNEIL MD UNKNOWN PCP NAME ORDERED: URINE CULTURE -------- ---- Procedure Result URINE CULTURE Final Final No Growth on 06/22/20 at 1305 Testing Performed by: [address] [address] For Inquires, the Physician may contact the Microbiology department at [phone] Unless otherwise specified, Testing Performed by: [address] [address] For Inquires, the Physician may contact the Microbiology department at [phone] --- ---- -------- RUN DATE: 06/23/20 [facility] LAB *LIVE* PAGE 1 RUN TIME: 912 Specimen Inquiry PATIENT: TRISH GRIFFITH ACCT: [id number] LOC: [address] [place] [address] U: [id number] AGE/SX: 79/M ROOM: 673 RE06/20/[address]: YARIEL FLOOD III, DO : 1940 BED: 1 DIS: STATUS: ADM IN TLOC: SPEC #: [id number] WILLIE: 06/20/20 STATUS: COMP REQ #: [id number] RECD: 06/20/[address]: DARELL SHAVER DO SOURCE: BLOOD ENTR: 06/21/20-[address] [facility] [address]: UNKNOWN PCP NAME [facility]: ORDERED: BLD CULT - LC Procedure Result BLOOD CULTURE LC Final Final FINAL ID= [STAPHYLOCOCCUS HOMINIS] Growth of organism in only one of multiple sets; isolation does not necessarily indicate infection. Contact Microbiology Lab if further testing is clinically warranted. STAPHYLOCOCCUS HOMINIS Unless otherwise specified, Testing Performed by: [address] [address] For Inquires, the Physician may contact the Microbiology department at [phone] --------- RUN DATE: 06/24/20 [facility] LAB *LIVE* PAGE 1 RUN TIME: 930 Specimen Inquiry PATIENT: TRISH GRIFFITH Brissa ACCT: [id number] LOC: [address] [place] [address] U: [id number] AGE/SX: 79/M ROOM: 673 RE06/20/[address]: YARIEL FLOOD III, DO : 1940 BED: 1 DIS: STATUS: ADM IN TLOC: SPEC #: [id number] WILLIE: 06/20/20 STATUS: COMP REQ #: [id number] RECD: 06/20/[address] [facility] [address]: DARELL SHAVER DO SOURCE: BLOOD ENTR: 06/21/20-[address] [facility] [address]: UNKNOWN PCP NAME [facility]: ORDERED: BLD CULT - LC Procedure Result BLOOD CULTURE LC Final Final FINAL ID= [STAPHYLOCOCCUS EPIDERMIDIS] Growth of organism in only one of multiple sets; isolation does not necessarily indicate infection. Contact Microbiology Lab if further testing is clinically warranted. STAPHYLOCOCCUS EPIDERMIDIS Unless otherwise specified, Testing Performed by: [address] [address] For Inquires, the Physician may contact the Microbiology department at [phone] Objective: Assessment: Sepsis source wounds vs uti cultures nonrevealing Leukocytosis Bacteremia gram-positive cocci, staph hominis and staph epidermidis likely cont aminant UTI cult neg FRACISCO with underlying CKD Hypernatremia Covid Negative Encephalopathy likely metabolic Multiple wounds Generalized debility History of bipolar disorder BPH GERD Recommendations DC Cipro Continue Zosyn Start daptomycin Follow GPC in blood culture Follow cultures Monitor labs Follow-up COVID-19 PCR Wound care as directed Offload Maintain aspiration precaution Continue supportive care Overall prognosis poor Plan: Plan of Care Continue Zosyn for now Will de-escalate to p.o. antibiotics soon Micafungin for now Wound care as directed Offload Maintain aspiration precaution Continue supportive care Overall prognosis poor Palliative care meeting later today d/w SADIA KING MD Jun 27, 2020 09:34
[2020-06-27] MEDS: IV DEXTROSE 5% 1,000 ML IV SCH ×2 (10:05→20:11)
[2020-06-27] MEDS: MICAFUNGIN 100 MG in IV DEXTROSE 5% 100ML 100 ML IV SCH (10:08)
[2020-06-27] MEDS: FLUTICASONE 50MCG/NASAL SPRAY 16GM BOTTLE. NS SCH (10:08)
[2020-06-27] MEDS: VITS A & D/LANOLIN TOPICAL OINTMENT 42GM TUBE. TP SCH ×2 (10:09→20:10)
--- NOTE | 2020-06-27 10:37 | PDOC ---
DATE OF SERVICE DATE: 06/27/20 TIME: 10:36 SUBJECTIVE ROS stable, remains the same OBJECTIVE Vital Signs Vital Signs Date Time Temp Pulse Resp B/P (MAP) Pulse Ox O2 Delivery O2 Flow Rate FiO2 06/27/20 07:00 97.9 67 18 124/60 (81) 97 Room Air 97.9 I & 0 Intake and Output 06/27/20 07:00 Output Total 1770 ml Balance -1770 ml Output Urine Total 1770 ml PHYSICAL EXAM Physical Exam General lethargic, arousable but does not answer any questions HEENT OM moist Neck supple Lungs clear bilaterally non labored Heart S1-S2 Abdomen soft nontender nondistended Carbajal in place, scrotal enlargement, scrotal wounds, Extremities no edema no cyanosis + contractures Neuro lethargic, confused Psychiatric unable to obtain DIAGNOSIS/ASSESSMENT Assessment & Plan FRACISCO- 2/2 Vol depletion Cr 3.8 POA , improving ,supportive care HyperNatremia- improving with IV D5W ,continue HypoKalemia- replace Sepsis source wounds vs uti cultures nonrevealing UTI cult neg CoVid 19 Negative COMMENT/RELEVANT DATA Meds Current Medications Medications (Trade) Dose Ordered Sig/Bianca Start Time Stop Time Status Last Admin Dose Admin Acetaminophen (Tylenol) 650 mg PRN Q6HRS PRN 06/21/20 10:15 Aspirin (Aspirin Chewable) 81 mg DAILY 06/21/20 11:00 06/25/20 09:11 81 MG Bupropion HCl (Wellbutrin Sr) 75 mg BID 06/21/20 11:00 06/24/20 15:23 DC 06/23/20 22:37 75 MG Bupropion HCl (Wellbutrin) 75 mg BID 06/24/20 21:00 06/25/20 09:52 75 MG Buspirone HCl (Buspar) 10 mg TID 06/21/20 11:00 06/25/20 09:09 10 MG Carbidopa/Levodopa (Sinemet 25/100) 2 tab TID 06/21/20 11:00 06/25/20 09:11 2 TAB Ceftriaxone Sodium (Rocephin) 1 gm Q24H 06/20/20 17:00 06/21/20 12:44 DC 06/20/20 17:06 1 GM Daptomycin 350 mg/ Sodium Chloride 50 ml @ 100 mls/hr Q48H 06/21/20 16:00 06/24/20 11:38 DC 06/23/20 15:46 100 MLS/HR Dextrose 1,000 ml @ 100 mls/hr Q10H 06/24/20 12:30 06/27/20 10:05 100 MLS/HR Dextrose/Sodium Chloride 1,000 ml @ 60 mls/hr [id number] 06/23/20 11:30 06/24/20 12:25 DC 06/24/20 06:15 60 MLS/HR Docusate Sodium (Colace) 100 mg PRN Q12HRS PRN 06/21/20 10:15 Ferrous Sulfate (Feosol) 325 mg [id number] 06/21/20 12:00 06/25/20 09:11 325 MG Fludrocortisone Acetate (Florinef) 0.1 mg DAILY 06/21/20 11:00 06/25/20 09:10 0.1 MG Fluticasone Propionate (Flonase) 2 spray DAILY 06/21/20 12:00 06/27/20 10:08 2 SPRAY Folic Acid (Folic Acid) 1 mg DAILY 06/21/20 12:00 06/25/20 09:11 1 MG Lactobacillus Rhamnosus (Culturelle) 1 cap BID 06/21/20 21:00 06/25/20 09:14 1 CAP Lactulose (Lactulose) 10 gm PRN DAILY PRN 06/21/20 11:15 Levothyroxine Sodium (Synthroid) 125 mcg DAILY06 06/22/20 06:00 06/24/20 06:15 125 MCG [place] Carbonate (Lithobid) 300 mg DAILY 06/21/20 12:00 06/25/20 09:10 300 MG Micafungin Sodium 100 mg/Dextrose 100 ml @ 100 mls/hr Q24H 06/27/20 11:00 06/27/20 10:08 100 MLS/HR Midodrine (Proamatine) 10 mg [id number] 06/21/20 13:00 06/25/20 13:03 10 MG Multivitamins (Thera M Plus) 1 tab DAILY 06/21/20 12:00 06/25/20 09:11 1 TAB Nitroglycerin (Nitrostat) 0.4 mg PRN Q5MIN PRN 06/21/20 10:15 Non-Formulary Medication (Ciprofloxacin Hcl (Cipro)) 1 tab BID 06/21/20 21:00 06/21/20 15:01 DC Olanzapine (ZyPREXA) 5 mg DAILY 06/21/20 11:00 06/25/20 09:11 5 MG Ondansetron HCl (Zofran) 4 mg PRN Q8HRS PRN 06/20/20 11:30 06/21/20 11:29 DC Pantoprazole Sodium (Protonix) 40 mg DAILYAC 06/21/20 11:30 06/25/20 09:15 40 MG Piperacillin Sod/ Tazobactam Sod (Zosyn Per Pharmacy) 1 each PRN DAILY PRN 06/21/20 12:45 Piperacillin Sod/ Tazobactam Sod 2.25 gm/Sodium Chloride 50 ml @ 100 mls/hr Q6HRS 06/21/20 18:00 06/27/20 05:52 100 MLS/HR Potassium Chloride/Water 100 ml @ 50 mls/hr 1X ONCE 06/26/20 16:00 06/26/20 17:59 DC 06/26/20 16:24 50 MLS/HR Ropinirole HCl (Requip) 0.5 mg TID 06/21/20 14:00 06/25/20 09:10 0.5 MG Senna/Docusate Sodium (Senna Plus) 1 tab BID 06/21/20 11:00 06/25/20 09:10 1 TAB Sodium Chloride 1,000 ml @ 100 mls/hr Q10H 06/21/20 13:00 06/23/20 11:27 DC 06/23/20 10:27 100 MLS/HR Vitamin A/Vitamin D (Vitamin A & D Ointment) 1 janina BID 06/21/20 16:00 06/27/20 10:09 1 JANINA Lab Laboratory Tests Test 06/27/20 06:40 Sodium Level 153 mmol/L (136-145) Potassium Level 3.2 mmol/L (3.5-5.1) Chloride Level 119 mmol/L (98-107) Carbon Dioxide Level 27 mmol/L (21-32) Anion Gap 7 (6-14) Blood Urea Nitrogen 15 mg/dL (8-26) Creatinine 1.7 mg/dL (0.7-1.3) Estimated GFR (Cockcroft-Gault) 38.9 Glucose Level 93 mg/dL (70-99) Calcium Level 8.5 mg/dL (8.5-10.1) Results All relevant outside records, renal labs, imaging studies, telemetry/EKG's were reviewed. Justicifation of Admission Dx: Justifications for Admission: Justification of Admission Dx: Yes Sepsis: Bacteremia RACHEL HARDING MD Jun 27, 2020 10:37
[2020-06-27 11:00] VITALS: BP 95/47
--- NOTE | 2020-06-27 11:20 | PDOC ---
[employer] PROGRESS NOTE Date of Service DOS: DATE: 06/27/20 TIME: 11:15 Chief Complaint Chief Complaint ASSESSMENT AND PLAN: Metabolic encephalopathy, ACUTE urinary tract infection, sepsis, BACTEREMIA hypernatremia, urinary tract infection, azotemia, ACUTE renal INJURY , , ACUTE RENAL TUBULAR NECROSIS leukocytosis. FRACISCO with underlying CKD Hypernatremia Covid Negative Encephalopathy likely metabolic severe protein-caloric malnutrition Multiple wounds Generalized debility PLAN admitted. IV antibiotics. Consult Nephrology. CONSULT ID IV fluids, chg hypotonic saline 06/10 ns home meds, DVT prophylaxis, full code, Carbajal to bedside p.r.n. Zofran, Continue Zosyn iv q 6 hrs continue daptomycin IV Follow GPC in blood culture History of Present Illness History of Present Illness HISTORY OF PRESENT ILLNESS: The patient is a pleasant 79-year-old male, who has a chronic indwelling Carbajal. He is now presenting from a facility. He has mental status change. I believe the catheter got pulled out by accident last night. I discussed the case with the ER physician. It appears he has probable urinary tract infection with urosepsis and metabolic encephalopathy. We are going to admit the patient and give him IV antibiotics and fluids and try to get him feeling better. 06/24: Patient seen and evaluated at bedside. Afebrile, no acute events over night. Continue IV antibiotics for positive blood culture and UTI. Still with some hypernatremia. Will continue with IV fluids. Charts and labs reviewed. 06/25: Patient seen and evaluated. He is COVID-19 negative. Transferred to medical floors. Creatinine continues to improve. Continue IV antibiotics for sepsis, UTI, bacteremia (possible contaminant). 06/26: No acute events overnight. Afebrile, breathing comfortably on room air. Leukocytosis improving. Further morning labs pending. Continue to monitor for creatinine and sodium improvement. Continue IV antibiotics, per ID. Daptomycin was added to Zosyn. Discussed with Dr. Steven, no significant improvement noted, patient still very lethargic. Will attempt to discuss with DPOA today about goals of care and hospice. 06/27: No acute events overnight. Patient was made DNR yesterday. Hospice to meet with patient's family to discuss palliative care. Per ID, antibiotics may be switched to p.o. soon. ST evaluated patient yesterday with noted moderate to high risk of aspiration. Would consider puree with honey thick with understanding of risk of aspiration. Vitals/I&O Vitals/I&O: Vital Signs Date Time Temp Pulse Resp B/P (MAP) Pulse Ox O2 Delivery O2 Flow Rate FiO2 06/27/20 11:00 97.7 98 16 95/47 (63) 78 Room Air 97.7 I & O 06/26/20 06/26/20 06/27/20 15:00 23:00 07:00 Output Total 900 ml 620 ml 250 ml Balance -900 ml -620 ml -250 ml Physical Exam Physical Exam: General: Cooperative, No acute distress Heart: Regular rate Abdomen: Normal bowel sounds, Soft, No tenderness, No hepatosplenomegaly Extremities: No clubbing, No cyanosis Skin: No breakdown Labs Labs: Laboratory Tests Test 06/27/20 06:40 Sodium Level 153 mmol/L (136-145) Potassium Level 3.2 mmol/L (3.5-5.1) Chloride Level 119 mmol/L (98-107) Carbon Dioxide Level 27 mmol/L (21-32) Anion Gap 7 (6-14) Blood Urea Nitrogen 15 mg/dL (8-26) Creatinine 1.7 mg/dL (0.7-1.3) Estimated GFR (Cockcroft-Gault) 38.9 Glucose Level 93 mg/dL (70-99) Calcium Level 8.5 mg/dL (8.5-10.1) Assessment and Plan Assessmemt and Plan Problems Medical Problems: (1) Dehydration Status: Acute (2) Metabolic encephalopathy Status: Acute (3) Person under investigation for COVID-19 Status: Acute (4) Renal failure Status: Acute (5) UTI (urinary tract infection) Status: Acute Comment Review of Relevant I have reviewed the following items ab (where applicable) has been applied. Medications: Current Medications Medications (Trade) Dose Ordered Sig/Bianca Route PRN Reason Start Time Stop Time Status Last Admin Dose Admin Potassium Chloride/Water 100 ml @ 50 mls/hr 1X ONCE IV 06/26/20 16:00 06/26/20 17:59 DC 06/26/20 16:24 Micafungin Sodium 100 mg/Dextrose 100 ml @ 100 mls/hr Q24H IV 06/27/20 11:00 06/27/20 10:08 Justifications for Admission Other Justification BEBETO SANABRIA MD Jun 27, 2020 11:20
--- NOTE | 2020-06-27 13:25 | NUR ---
BILL following this BPCI patient today. Spoke with Dr. Gay who spoke with pt's and son and would like referral for evaluation for GIP LOC. Referral sent to Kev with [facility]. BILL M for . BILL following. Addendum: 06/27/20 at 1541 by REBEKA KHAN BILL met with pt[facility] and son at [facility] to provide support. BILL coordinated care with Blank from [facility] who will come to [facility] to evaluate pt and meet with the family. Pt choice of vendor form was completed.
[2020-06-27 15:00] VITALS: BP 104/50
--- NOTE | 2020-06-27 15:35 | PDOC2 ---
NEUROLOGY CONSULT Date of Service DOS: DATE: 06/27/20 TIME: 15:25 Reason for Consult Reason for Consult: Parkinson's management Referring Physician Referring Physician: Dr. Khan Source Source: Chart review History of Present Illness History of Present Illness The patient is an 79-year-old male with parkinsonism and dementia, came in from the long-term 9 days ago with mental status change. Swallow study shows he can have pured with honey. Consideration is being made to switch to hospice. It was decided to consult neurology today Past Medical History Cardiovascular: AFIB, Other (Sleep apnea) CENTRAL NERVOUS SYSTEM: Other (Parkinson's with dementia and neurogenic dysphagia) GI: GERD Psych: Bipolar, Depression Rheumatologic: Rheumatoid arthritis Renal/: Benign prostatic enlarg. Endocrine: Hypothyroidism Past Surgical History Past Surgical History: No pertinent history Family History Family History: DM Social History Social History group home resident Current Medications Current Medications Current Medications Ceftriaxone Sodium (Rocephin) 1 gm 1X ONCE IVP Last administered on 06/20/20at 11:34; Start 06/20/20 at 10:45; Stop 06/20/20 at 10:47; Status DC Sodium Chloride 1,000 ml @ 1,000 mls/hr 1X ONCE IV Last administered on 06/20/20at 11:34; Start 06/20/20 at 10:45; Stop 06/20/20 at 11:44; Status DC Ondansetron HCl (Zofran) 4 mg PRN Q8HRS PRN IV NAUSEA/VOMITING; Start 06/20/20 at 11:30; Stop 06/21/20 at 11:29; Status DC Sodium Chloride 1,000 ml @ 75 mls/hr [id number] IV Last administered on 06/21/20at 06:22; Start 06/20/20 at 12:00; Stop 06/21/20 at 11:59; Status DC Ceftriaxone Sodium (Rocephin) 1 gm Q24H IVP Last administered on 06/20/20at 17:06; Start 06/20/20 at 17:00; Stop 06/21/20 at 12:44; Status DC Acetaminophen (Tylenol) 650 mg PRN Q6HRS PRN PO MILD PAIN 1-3; Start 06/21/20 at 10:15 Aspirin (Aspirin Chewable) 81 mg DAILY PO Last administered on 06/25/20at 09:11; Start 06/21/20 at 11:00 Bupropion HCl (Wellbutrin Sr) 75 mg BID PO Last administered on 06/23/20at 22:37; Start 06/21/20 at 11:00; Stop 06/24/20 at 15:23; Status DC Buspirone HCl (Buspar) 10 mg TID PO ; Start 06/21/20 at 11:00; Stop 06/21/20 at 10:56; Status DC Carbidopa/Levodopa (Sinemet 25/100) 2 tab TID PO Last administered on 06/25/20at 09:11; Start 06/21/20 at 11:00 Docusate Sodium (Colace) 100 mg PRN Q12HRS PRN PO HARD STOOLS; Start 06/21/20 at 10:15 Fludrocortisone Acetate (Florinef) 0.1 mg DAILY PO Last administered on 06/25/20at 09:10; Start 06/21/20 at 11:00 Levothyroxine Sodium (Synthroid) 125 mcg DAILY06 PO Last administered on 06/24/20at 06:15; Start 06/22/20 at 06:00 Midodrine (Proamatine) 10 mg [id number] PO Last administered on 06/25/20at 13:03; Start 06/21/20 at 13:00 Nitroglycerin (Nitrostat) 0.4 mg PRN Q5MIN PRN SL CHEST PAIN; Start 06/21/20 at 10:15 Olanzapine (ZyPREXA) 5 mg DAILY PO Last administered on 06/25/20at 09:11; Start 06/21/20 at 11:00 Senna/Docusate Sodium (Senna Plus) 1 tab BID PO Last administered on 06/25/20at 09:10; Start 06/21/20 at 11:00 Non-Formulary Medication (Ciprofloxacin Hcl (Cipro)) 1 tab BID PO ; Start 06/21/20 at 21:00; Stop 06/21/20 at 15:01; Status DC Ferrous Sulfate (Feosol) 325 mg [id number] PO Last administered on 06/25/20at 09:11; Start 06/21/20 at 12:00 Fluticasone Propionate (Flonase) 2 spray DAILY NS Last administered on 06/27/20at 10:08; Start 06/21/20 at 12:00 Folic Acid (Folic Acid) 1 mg DAILY PO Last administered on 06/25/20at 09:11; Start 06/21/20 at 12:00 Lactulose (Lactulose) 10 gm PRN DAILY PRN PO CONSTIPATION; Start 06/21/20 at 11:15 Fyffe Carbonate (Lithobid) 300 mg DAILY PO Last administered on 06/25/20at 09:10; Start 06/21/20 at 12:00 Multivitamins (Thera M Plus) 1 tab DAILY PO Last administered on 06/25/20at 09:11; Start 06/21/20 at 12:00 Pantoprazole Sodium (Protonix) 40 mg DAILYAC PO Last administered on 06/25/20at 09:15; Start 06/21/20 at 11:30 Ropinirole HCl (Requip) 0.5 mg TID PO Last administered on 06/25/20at 09:10; Start 06/21/20 at 14:00 Buspirone HCl (Buspar) 10 mg TID PO Last administered on 06/25/20at 09:09; Start 06/21/20 at 11:00 Piperacillin Sod/ Tazobactam Sod (Zosyn Per Pharmacy) 1 each PRN DAILY PRN MC SEE COMMENTS; Start 06/21/20 at 12:45 Sodium Chloride 1,000 ml @ 100 mls/hr Q10H IV Last administered on 06/23/20at 10:27; Start 06/21/20 at 13:00; Stop 06/23/20 at 11:27; Status DC Piperacillin Sod/ Tazobactam Sod 2.25 gm/Sodium Chloride 50 ml @ 100 mls/hr Q6HRS IV Last administered on 06/27/20at 13:18; Start 06/21/20 at 18:00 Daptomycin 350 mg/ Sodium Chloride 50 ml @ 100 mls/hr Q48H IV Last administered on 06/23/20at 15:46; Start 06/21/20 at 16:00; Stop 06/24/20 at 11:38; Status DC Vitamin A/Vitamin D (Vitamin A & D Ointment) 1 janina BID TP Last administered on 06/27/20at 10:09; Start 06/21/20 at 16:00 Lactobacillus Rhamnosus (Culturelle) 1 cap BID PO Last administered on 06/25/20at 09:14; Start 06/21/20 at 21:00 Dextrose/Sodium Chloride 1,000 ml @ 60 mls/hr [id number] IV Last administered on 06/24/20at 06:15; Start 06/23/20 at 11:30; Stop 06/24/20 at 12:25; Status DC Dextrose 1,000 ml @ 100 mls/hr Q10H IV Last administered on 06/27/20at 10:05; Start 06/24/20 at 12:30 Bupropion HCl (Wellbutrin) 75 mg BID PO Last administered on 06/25/20at 09:52; Start 06/24/20 at 21:00 Potassium Chloride/Water 100 ml @ 50 mls/hr 1X ONCE IV Last administered on 06/26/20at 16:24; Start 06/26/20 at 16:00; Stop 06/26/20 at 17:59; Status DC Micafungin Sodium 100 mg/Dextrose 100 ml @ 100 mls/hr Q24H IV Last administered on 06/27/20at 10:08; Start 06/27/20 at 11:00 Active Scripts Active Reported Tylenol (Acetaminophen) 325 Mg Tablet 2 Tab PO PRN Q6HRS PRN Senna-S 8.6-50 mg Tablet (Sennosides/Docusate Sodium) 1 Each Tablet 1 Each PO BID Ropinirole Hcl 0.5 Mg Tablet 0.5 Mg PO TID Prilosec Otc (Omeprazole Magnesium) 20 Mg Tablet.dr 40 Mg PO DAILY Olanzapine 5 Mg Tablet 5 Mg PO DAILY NITROGLYCERIN SubLingual (Nitroglycerin) 0.4 Mg Tab.subl 0.4 Mg SL PRN Q5MIN PRN Midodrine Hcl 5 Mg Tablet 10 Mg PO TID Methotrexate (Methotrexate Sodium) 2.5 Mg Tablet 20 Tab PO WEEKLY Melatonin 5 Mg Tab.rapdis 1 Tab PO QHS 30 Days Fyffe Carbonate 300 Mg Capsule 1 Cap PO DAILY Levothyroxine Sodium 125 Mcg Tablet 1 Tab PO DAILY Lactulose 10 Gm Packet 10 Gm PO PRN DAILY PRN Folic Acid 0.4 Mg Tablet 1 Mg PO DAILY Fludrocortisone Acetate 0.1 Mg Tablet 0.1 Mg PO DAILY Flonase Allergy Relief (Fluticasone Propionate) 9.9 Ml [place].susp 2 Sprays NS DAILY Ferrous Sulfate 220 Mg/5 Ml Solution 325 Mg PO DAILY Multiple Vitamins (Multivitamin) 1 Each Tablet 1 Tab PO DAILY 30 Days Vitamin D2 (Ergocalciferol (Vitamin D2)) 1,250 Mcg Capsule 1,250 Mcg PO DAILY Colace (Docusate Sodium) 100 Mg Capsule 1 Cap PO PRN Q12HRS PRN 30 Days Cipro (Ciprofloxacin Hcl) 500 Mg Tablet 1 Tab PO BID 7 Days Carbidopa-Levodopa 25-100 Tab (Carbidopa/Levodopa) 1 Each Tablet 2 Tab PO TID 30 Days Buspirone Hcl 5 Mg Tablet 2 Tab PO TID Bupropion Hcl Sr (Bupropion Hcl) 100 Mg Tablet.er 75 Mg PO BID Children's Aspirin (Aspirin) 81 Mg Tab.chew 1 Tab PO DAILY 30 Days Allergies Allergies: Coded Allergies: amitriptyline (Verified Allergy, Intermediate, 06/20/20) haloperidol (Verified Allergy, Intermediate, 06/20/20) lorazepam (Verified Allergy, Intermediate, UNKNOWN, 06/20/20) quetiapine (Verified Allergy, Intermediate, 06/20/20) ROS Review of System Not reliably obtained Physical Exam Physical Examination General: Well-developed, well-nourished white male in no acute distress HEENT: Normocephalic andatraumatic. Temporal arteriespulsatile and nontender. Neck: Supple without bruit, no meningismus Musculoskeletal: Stability:see neurologic. Gait exam:see neurologic. Tone:see neurologic.Strength:see neurologic. Neurological: Mental Status:Eyes open, nonverbal, does not follow commands. Cranial Nerves:Pupils equal and reactive to light, extraocular movements areintact, visual leo are full to threat. Facial sensation is normal. There is no facial asymmetry. Vestibulo-ocular reflex is intact. All other cranial related problems are negative except as mentioned before.Reflexes:0+ and symmetric with silent plantar responses. Motor: Increased tone in all 4 extremities, no tremor, contractures. Coordination and gait: Not cooperative. Sensory:Responds to pinprick in all 4 extremities. Vitals VITALS Vital Signs Date Time Temp Pulse Resp B/P (MAP) Pulse Ox O2 Delivery O2 Flow Rate FiO2 06/27/20 15:00 97.3 62 16 104/50 (68) 100 Nasal Cannula 3.0 97.3 Labs Labs Laboratory Tests Test 06/26/20 07:08 06/27/20 06:40 White Blood Count 16.2 x10^3/uL (4.0-11.0) Red Blood Count 3.15 x10^6/uL (4.30-5.70) Hemoglobin 10.1 g/dL (13.0-17.5) Hematocrit 31.2 % (39.0-53.0) Mean Corpuscular Volume 99 fL (79-100) Mean Corpuscular Hemoglobin 32 pg (25-35) Mean Corpuscular Hemoglobin Concent 33 g/dL (31-37) Red Cell Distribution Width 15.6 % (11.5-14.5) Platelet Count 338 x10^3/uL (140-400) Neutrophils (%) (Auto) 76 % (31-73) Lymphocytes (%) (Auto) 16 % (24-48) Monocytes (%) (Auto) 4 % (0-9) Eosinophils (%) (Auto) 4 % (0-3) Basophils (%) (Auto) 1 % (0-3) Neutrophils # (Auto) 12.3 x10^3/uL (1.8-7.7) Lymphocytes # (Auto) 2.6 x10^3/uL (1.0-4.8) Monocytes # (Auto) 0.7 x10^3/uL (0.0-1.1) Eosinophils # (Auto) 0.6 x10^3/uL (0.0-0.7) Basophils # (Auto) 0.1 x10^3/uL (0.0-0.2) Sodium Level 154 mmol/L (136-145) 153 mmol/L (136-145) Potassium Level 3.1 mmol/L (3.5-5.1) 3.2 mmol/L (3.5-5.1) Chloride Level 120 mmol/L (98-107) 119 mmol/L (98-107) Carbon Dioxide Level 26 mmol/L (21-32) 27 mmol/L (21-32) Anion Gap 8 (6-14) 7 (6-14) Blood Urea Nitrogen 19 mg/dL (8-26) 15 mg/dL (8-26) Creatinine 1.8 mg/dL (0.7-1.3) 1.7 mg/dL (0.7-1.3) Estimated GFR (Cockcroft-Gault) 36.4 38.9 BUN/Creatinine Ratio 11 (6-20) Glucose Level 89 mg/dL (70-99) 93 mg/dL (70-99) Calcium Level 8.5 mg/dL (8.5-10.1) 8.5 mg/dL (8.5-10.1) Total Bilirubin 0.4 mg/dL (0.2-1.0) Aspartate Amino Transf (AST/SGOT) 31 U/L (15-37) Alanine Aminotransferase (ALT/SGPT) 14 U/L (16-63) Alkaline Phosphatase 69 U/L (46-116) Total Protein 5.8 g/dL (6.4-8.2) Albumin 1.7 g/dL (3.4-5.0) Albumin/Globulin Ratio 0.4 (1.0-1.7) Laboratory Tests Test 06/27/20 06:40 Sodium Level 153 mmol/L (136-145) Potassium Level 3.2 mmol/L (3.5-5.1) Chloride Level 119 mmol/L (98-107) Carbon Dioxide Level 27 mmol/L (21-32) Anion Gap 7 (6-14) Blood Urea Nitrogen 15 mg/dL (8-26) Creatinine 1.7 mg/dL (0.7-1.3) Estimated GFR (Cockcroft-Gault) 38.9 Glucose Level 93 mg/dL (70-99) Calcium Level 8.5 mg/dL (8.5-10.1) Assessment/Plan Assessment/Plan Impression: This is end-stage parkinsonism with dysphagia, dementia, and contractures also may be contributed to from his rheumatoid arthritis. Admitted with metabolic encephalopathy, urinary tract infection with sepsis, hypernatremia, azotemia and acute renal injury in setting of chronic kidney disease, leukocytosis, hyponatremia, severe protein-calorie malnutrition, multiple wounds, general debility He was made DNR yesterday. Hospice to meet with patient's family to discuss pal liative care. Recommendations: I do not feel that manipulating his Parkinson's medications will help his o verall condition. Neurology will follow as needed. Discussed with Dr. Khan Thank you for letting me help with the patient's care. LYLE LANDEROS MD Jun 27, 2020 15:35
[2020-06-27 19:00] VITALS: BP 104/43
[2020-06-27 23:00] VITALS: BP 90/38
[2020-06-28] MEDS: PIPERACILLIN/TAZOBACTAM 2.25 GM in IV NORMAL SALINE 50ML 50 ML IV SCH ×5 (00:04→23:49)
[2020-06-28 03:07] VITALS: BP 109/51
[2020-06-28] MEDS: PANTOPRAZOLE 40 MG TABLET.DR. PO SCH (05:17)
[2020-06-28] MEDS: LEVOTHYROXINE 125 MCG TABLET PO SCH (05:17)
[2020-06-28] MEDS: MIDODRINE 5 MG TABLET PO SCH ×3 (05:17→15:38)
[2020-06-28 07:00] VITALS: BP_SYST 88; BP_SYST 97; BP_DIAS 38
--- NOTE | 2020-06-28 07:26 | PDOC ---
[employer] PROGRESS NOTE Date of Service DOS: DATE: 06/28/20 TIME: 07:17 Chief Complaint Chief Complaint ASSESSMENT AND PLAN: Metabolic encephalopathy, ACUTE urinary tract infection, sepsis, BACTEREMIA hypernatremia, urinary tract infection, azotemia, ACUTE renal INJURY , , ACUTE RENAL TUBULAR NECROSIS leukocytosis. FRACISCO with underlying CKD Hypernatremia Covid Negative Encephalopathy likely metabolic severe protein-caloric malnutrition Multiple wounds Generalized debility PLAN admitted. IV antibiotics. Consult Nephrology. CONSULT ID IV fluids, chg hypotonic saline 06/10 ns home meds, DVT prophylaxis, full code, Carbajal to bedside p.r.n. Zofran, Continue Zosyn iv q 6 hrs continue daptomycin IV Follow GPC in blood culture History of Present Illness History of Present Illness HISTORY OF PRESENT ILLNESS: The patient is a pleasant 79-year-old male, who has a chronic indwelling Carbajal. He is now presenting from a facility. He has mental status change. I believe the catheter got pulled out by accident last night. I discussed the case with the ER physician. It appears he has probable urinary tract infection with urosepsis and metabolic encephalopathy. We are going to admit the patient and give him IV antibiotics and fluids and try to get him feeling better. 06/24: Patient seen and evaluated at bedside. Afebrile, no acute events over night. Continue IV antibiotics for positive blood culture and UTI. Still with some hypernatremia. Will continue with IV fluids. Charts and labs reviewed. 06/25: Patient seen and evaluated. He is COVID-19 negative. Transferred to medical floors. Creatinine continues to improve. Continue IV antibiotics for sepsis, UTI, bacteremia (possible contaminant). 06/26: No acute events overnight. Afebrile, breathing comfortably on room air. Leukocytosis improving. Further morning labs pending. Continue to monitor for creatinine and sodium improvement. Continue IV antibiotics, per ID. Daptomycin was added to Zosyn. Discussed with Dr. Steven, no significant improvement noted, patient still very lethargic. Will attempt to discuss with DPOA today about goals of care and hospice. 06/27: No acute events overnight. Patient was made DNR yesterday. Hospice to meet with patient's family to discuss palliative care. Per ID, antibiotics may be switched to p.o. soon. ST evaluated patient yesterday with noted moderate to high risk of aspiration. Would consider puree with honey thick with understanding of risk of aspiration. 06/28: Afebrile. No acute events. ST to re-eval swallow study. Will consult GI for PEG tube placement. Will initiate PPN. I appreciate Dr. Gibson's input; no manipulating his Parkinson's medications will not change overall prognosis. Continue antibiotics, per ID. Vitals/I&O Vitals/I&O: Vital Signs Date Time Temp Pulse Resp B/P (MAP) Pulse Ox O2 Delivery O2 Flow Rate FiO2 06/28/20 05:17 74 114/53 06/28/20 03:07 98.4 18 97 Nasal Cannula 98.4 06/27/20 23:00 3.0 I & O 06/27/20 06/27/20 06/28/20 15:00 23:00 07:00 Output Total 700 ml 150 ml 150 ml Balance -700 ml -150 ml -150 ml Physical Exam Physical Exam: General: No acute distress Heart: Regular rate Lungs: Crackles Abdomen: Normal bowel sounds, Soft, No tenderness Extremities: No clubbing, No cyanosis Skin: No rashes Assessment and Plan Assessmemt and Plan Problems Medical Problems: (1) Dehydration Status: Acute (2) Metabolic encephalopathy Status: Acute (3) Person under investigation for COVID-19 Status: Acute (4) Renal failure Status: Acute (5) UTI (urinary tract infection) Status: Acute Comment Review of Relevant I have reviewed the following items ab (where applicable) has been applied. Medications: Current Medications Medications (Trade) Dose Ordered Sig/Bianca Route PRN Reason Start Time Stop Time Status Last Admin Dose Admin Micafungin Sodium 100 mg/Dextrose 100 ml @ 100 mls/hr Q24H IV 06/27/20 11:00 06/27/20 10:08 Justifications for Admission Other Justification BEBETO SANABRIA MD Jun 28, 2020 07:25
[2020-06-28] MEDS: FERROUS SULFATE 325 MG TABLET. PO SCH (08:00)
[2020-06-28] MEDS: IV DEXTROSE 5% 1,000 ML IV SCH (08:08)
[2020-06-28] MEDS: rOPINIRole 0.25 MG TABLET. PO SCH ×3 (09:00→20:56)
[2020-06-28] MEDS: buPROPion 75 MG TABLET. PO SCH ×2 (09:00→20:56)
[2020-06-28] MEDS: MULTIVITAMIN with MINERAL TABLET. PO SCH (09:00)
[2020-06-28] MEDS: ASPIRIN CHEWABLE 81 MG TABLET. PO SCH (09:00)
[2020-06-28] MEDS: LITHIUM CARBONATE ER 300 MG TABLET.ER PO SCH (09:00)
[2020-06-28] MEDS: busPIRone 10 MG TABLET. PO SCH ×3 (09:00→20:55)
[2020-06-28] MEDS: OLANZapine 5 MG TABLET PO SCH (09:00)
[2020-06-28] MEDS: SENNOSIDES/DOCUSATE 8.6/50MG TABLET. PO SCH ×2 (09:00→20:56)
[2020-06-28] MEDS: LACTOBACILLUS RHAMNOSUS GG 1 CAPSULE. PO SCH ×2 (09:00→20:55)
[2020-06-28] MEDS: CARBIDOPA/LEVODOPA 25/100MG TABLET PO SCH ×3 (09:00→20:56)
[2020-06-28] MEDS: FOLIC ACID 1 MG TABLET. PO SCH (09:00)
[2020-06-28] MEDS: FLUDROCORTISONE 0.1 MG TABLET PO SCH (09:00)
--- NOTE | 2020-06-28 09:14 | PDOC ---
Infectious Disease Note Subjective: Subjective Patient does not answer any questions Appears comfortable Awaiting PEG tube placement Vital Signs: Vital Signs Vital Signs Date Time Temp Pulse Resp B/P (MAP) Pulse Ox O2 Delivery O2 Flow Rate FiO2 06/28/20 07:00 88/38 (55) 06/28/20 07:00 97.9 61 14 100 Nasal Cannula 3.0 97.9 Physical Exam: PHYSICAL EXAM General lethargic, arousable but does not answer any questions HEENT normocephalic atraumatic anicteric no thrush oral mucosa moist Neck supple Lungs clear bilaterally no wheezing Heart S1-S2 Abdomen soft nontender nondistended Carbajal in place, scrotal enlargement, scrotal wounds, Extremities no edema no cyanosis Neuro lethargic, confused Psychiatric unable to obtain Derm multiple wounds pictures reviewed Medications: Inpatient Meds: Current Medications Medications (Trade) Dose Ordered Sig/Bianca Start Time Stop Time Status Last Admin Dose Admin Acetaminophen (Tylenol) 650 mg PRN Q6HRS PRN 06/21/20 10:15 Aspirin (Aspirin Chewable) 81 mg DAILY 06/21/20 11:00 06/25/20 09:11 81 MG Bupropion HCl (Wellbutrin Sr) 75 mg BID 06/21/20 11:00 06/24/20 15:23 DC 06/23/20 22:37 75 MG Bupropion HCl (Wellbutrin) 75 mg BID 06/24/20 21:00 06/25/20 09:52 75 MG Buspirone HCl (Buspar) 10 mg TID 06/21/20 11:00 06/25/20 09:09 10 MG Carbidopa/Levodopa (Sinemet 25/100) 2 tab TID 06/21/20 11:00 06/25/20 09:11 2 TAB Ceftriaxone Sodium (Rocephin) 1 gm Q24H 06/20/20 17:00 06/21/20 12:44 DC 06/20/20 17:06 1 GM Daptomycin 350 mg/ Sodium Chloride 50 ml @ 100 mls/hr Q48H 06/21/20 16:00 06/24/20 11:38 DC 06/23/20 15:46 100 MLS/HR Dextrose 1,000 ml @ 100 mls/hr Q10H 06/24/20 12:30 06/27/20 20:11 100 MLS/HR Dextrose/Sodium Chloride 1,000 ml @ 60 mls/hr [id number] 06/23/20 11:30 06/24/20 12:25 DC 06/24/20 06:15 60 MLS/HR Docusate Sodium (Colace) 100 mg PRN Q12HRS PRN 06/21/20 10:15 Ferrous Sulfate (Feosol) 325 mg [id number] 06/21/20 12:00 06/25/20 09:11 325 MG Fludrocortisone Acetate (Florinef) 0.1 mg DAILY 06/21/20 11:00 06/25/20 09:10 0.1 MG Fluticasone Propionate (Flonase) 2 spray DAILY 06/21/20 12:00 06/27/20 10:08 2 SPRAY Folic Acid (Folic Acid) 1 mg DAILY 06/21/20 12:00 06/25/20 09:11 1 MG Lactobacillus Rhamnosus (Culturelle) 1 cap BID 06/21/20 21:00 06/25/20 09:14 1 CAP Lactulose (Lactulose) 10 gm PRN DAILY PRN 06/21/20 11:15 Levothyroxine Sodium (Synthroid) 125 mcg DAILY06 06/22/20 06:00 06/24/20 06:15 125 MCG [place] Carbonate (Lithobid) 300 mg DAILY 06/21/20 12:00 06/25/20 09:10 300 MG Micafungin Sodium 100 mg/Dextrose 100 ml @ 100 mls/hr Q24H 06/27/20 11:00 06/27/20 10:08 100 MLS/HR Midodrine (Proamatine) 10 mg [id number] 06/21/20 13:00 06/25/20 13:03 10 MG Multivitamins (Thera M Plus) 1 tab DAILY 06/21/20 12:00 06/25/20 09:11 1 TAB Nitroglycerin (Nitrostat) 0.4 mg PRN Q5MIN PRN 06/21/20 10:15 Non-Formulary Medication (Ciprofloxacin Hcl (Cipro)) 1 tab BID 06/21/20 21:00 06/21/20 15:01 DC Olanzapine (ZyPREXA) 5 mg DAILY 06/21/20 11:00 06/25/20 09:11 5 MG Ondansetron HCl (Zofran) 4 mg PRN Q8HRS PRN 06/20/20 11:30 06/21/20 11:29 DC Pantoprazole Sodium (Protonix) 40 mg DAILYAC 06/21/20 11:30 06/25/20 09:15 40 MG Piperacillin Sod/ Tazobactam Sod (Zosyn Per Pharmacy) 1 each PRN DAILY PRN 06/21/20 12:45 Piperacillin Sod/ Tazobactam Sod 2.25 gm/Sodium Chloride 50 ml @ 100 mls/hr Q6HRS 06/21/20 18:00 06/28/20 05:16 100 MLS/HR Potassium Chloride/Water 100 ml @ 50 mls/hr 1X ONCE 06/26/20 16:00 06/26/20 17:59 DC 06/26/20 16:24 50 MLS/HR Ropinirole HCl (Requip) 0.5 mg TID 06/21/20 14:00 06/25/20 09:10 0.5 MG Senna/Docusate Sodium (Senna Plus) 1 tab BID 06/21/20 11:00 06/25/20 09:10 1 TAB Sodium Chloride 1,000 ml @ 100 mls/hr Q10H 06/21/20 13:00 06/23/20 11:27 DC 06/23/20 10:27 100 MLS/HR Vitamin A/Vitamin D (Vitamin A & D Ointment) 1 janina BID 06/21/20 16:00 06/27/20 20:10 1 JANINA Labs: Micro RUN DATE: 06/22/20 [facility] LAB *LIVE* PAGE 1 RUN TIME: 1309 Specimen Inquiry PATIENT: TRISH GRIFFITH ACCT: [id number] LOC: [address] [place] [address] U: [id number] AGE/SX: 79/M ROOM: 3 RE06/20/[address]: YARIEL FLOOD III, DO : 1940 BED: 1 DIS: STATUS: ADM IN TLOC: SPEC #: [id number] WILLIE: 06/21/20 STATUS: COMP REQ #: [id number] RECD: 06/21/[address]: YARIEL FLOOD III, DO SOURCE: VOID ENTR: 06/21/[address]: KELY STEWARD MD SPDESC: RUBEN MCNEIL MD UNKNOWN PCP NAME ORDERED: URINE CULTURE Procedure Result URINE CULTURE Final Final No Growth on 06/22/20 at 1305 Testing Performed by: [address] [address] For Inquires, the Physician may contact the Microbiology department at [phone] Unless otherwise specified, Testing Performed by: [address] [address] For Inquires, the Physician may contact the Microbiology department at [phone] --- RUN DATE: 06/23/20 [facility] LAB *LIVE* PAGE 1 RUN TIME: 912 Specimen Inquiry ------- ----- PATIENT: TRISH GRIFFITH ACCT: [id number] LOC: [facility] U: [id number] AGE/SX: 79/M ROOM: [facility] RE06/20/[address]: YARIEL FLOOD III DO : 1940 BED: 1 DIS: STATUS: ADM IN TLOC: SPEC #: [id number] WILLIE: 06/20/20 STATUS: COMP REQ #: [id number] RECD: 06/20/[address] [facility] [address]: DARELL SHAVER DO SOURCE: BLOOD ENTR: 06/21/20-[address] [facility] [address]: UNKNOWN PCP NAME [facility]: ORDERED: BLD CULT - LC Procedure Result BLOOD CULTURE LC Final Final FINAL ID= [STAPHYLOCOCCUS HOMINIS] Growth of organism in only one of multiple sets; isolation does not necessarily indicate infection. Contact Microbiology Lab if further testing is clinically warranted. STAPHYLOCOCCUS HOMINIS Unless otherwise specified, Testing Performed by: [address] [address] For Inquires, the Physician may contact the Microbiology department at [phone] --------- RUN DATE: 06/24/20 [facility] LAB *LIVE* PAGE 1 RUN TIME: 930 Specimen Inquiry PATIENT: TRISH GRIFFITH ACCT: [id number] LOC: [address] [place] [address] U: [id number] AGE/SX: 79/M ROOM: 3 RE06/20/[address]: YARIEL FLOOD III, DO : 1940 BED: 1 DIS: STATUS: ADM IN TLOC: SPEC #: [id number] WILLIE: 06/20/20 STATUS: COMP REQ #: [id number] RECD: 06/20/20-[address]: DARELL SHAVER DO SOURCE: BLOOD ENTR: 06/21/20-[address]: UNKNOWN PCP NAME SPDESC: ORDERED: BLD CULT - LC -- Procedure Result BLOOD CULTURE LC Final Final FINAL ID= [STAPHYLOCOCCUS EPIDERMIDIS] Growth of organism in only one of multiple sets; isolation does not necessarily indicate infection. Contact Microbiology Lab if further testing is clinically warranted. STAPHYLOCOCCUS EPIDERMIDIS Unless otherwise specified, Testing Performed by: [address] [address] For Inquires, the Physician may contact the Microbiology department at [phone] Objective: Assessment: Sepsis source wounds vs uti cultures nonrevealing Leukocytosis Bacteremia gram-positive cocci, staph hominis and staph epidermidis likely contaminant UTI cult neg FRACISCO with underlying CKD Hypernatremia Covid Negative Encephalopathy likely metabolic Multiple wounds Generalized debility History of bipolar disorder BPH GERD Plan: Plan of Care Continue Zosyn/Micafungin Start Dapto Wound care as directed Offload Maintain aspiration precaution Continue supportive care Overall prognosis poor Awaiting PEG tube placement Patient is full code per team d/w SADIA KING MD Jun 28, 2020 09:14
[2020-06-28 09:22] LABS: CALCIUM 8.2 mg/dL (8.5-10.1); CREATININE 1.6 mg/dL (0.7-1.3); GFR 41.7; POTASSIUM 3.2 mmol/L (3.5-5.1)
[2020-06-28] MEDS: MICAFUNGIN 100 MG in IV DEXTROSE 5% 100ML 100 ML IV SCH (10:27)
[2020-06-28] MEDS: AMINO AC 3%/ELECTROLYTE/GLYCER 1,000 ML IV SCH ×2 (10:33→23:48)
[2020-06-28] MEDS: FLUTICASONE 50MCG/NASAL SPRAY 16GM BOTTLE. NS SCH (10:34)
[2020-06-28] MEDS: VITS A & D/LANOLIN TOPICAL OINTMENT 42GM TUBE. TP SCH ×2 (10:35→21:00)
[2020-06-28 11:00] VITALS: BP 86/41
--- NOTE | 2020-06-28 11:44 | PDOC2 ---
GI CONSULT Date of Service: DATE: 06/28/20 TIME: 11:26 Reason For Consult: PEG HPI: HPI: 79 y/o male w/ end-stage Parkinson's w/ dysphagia, dementia, and contractures admitted 06/20/20 w/ UTI/possible bacteremia, FRACISCO, and encephalopathy. He was made DNR. Per nurse, family declined Hospice. BOAT RIGGER trino notes oropharyngeal dysphagia w/ delay and aspiration. NPO w/ plans for PPN. We are asked to see for consideration of PEG placement. No family present when I saw and no history from pt. D/w hospitalist, BOAT RIGGER, and nurse. Summary list includes iron, omeprazole, ASA, and lactulose. PMH: PMH: per chart: A Fib, HTN, DENZEL, BPH, Parkinson's, RA, hypothyroidism, bipolar, depression FH: Family History: DM Social History: Smoke: No ALCOHOL: none Drugs: None ROS: Unable to obtain. Vitals: Vitals: Vital Signs Date Time Temp Pulse Resp B/P (MAP) Pulse Ox O2 Delivery O2 Flow Rate FiO2 06/28/20 08:00 Room Air 06/28/20 07:00 88/38 (55) 06/28/20 07:00 97.9 61 14 100 3.0 97.9 Labs: Labs: Laboratory Tests Test 06/28/20 07:49 Sodium Level 151 mmol/L (136-145) Potassium Level 3.2 mmol/L (3.5-5.1) Chloride Level 118 mmol/L (98-107) Carbon Dioxide Level 26 mmol/L (21-32) Anion Gap 7 (6-14) Blood Urea Nitrogen 15 mg/dL (8-26) Creatinine 1.6 mg/dL (0.7-1.3) Estimated GFR (Cockcroft-Gault) 41.7 Glucose Level 106 mg/dL (70-99) Calcium Level 8.2 mg/dL (8.5-10.1) URINE CULTURE Final Final No Growth on 06/22/20 at 1305 BLOOD CULTURE LC Final Final FINAL ID= [STAPHYLOCOCCUS HOMINIS] FINAL ID= [STAPHYLOCOCCUS EPIDERMIDIS] Allergies: Coded Allergies: amitriptyline (Verified Allergy, Intermediate, 06/20/20) haloperidol (Verified Allergy, Intermediate, 06/20/20) lorazepam (Verified Allergy, Intermediate, UNKNOWN, 06/20/20) quetiapine (Verified Allergy, Intermediate, 06/20/20) Medications: Current Medications Medications (Trade) Dose Ordered Sig/Bianca Route PRN Reason Start Time Stop Time Status Last Admin Dose Admin Amino Acids/ Glycerin/ Electrolytes 1,000 ml @ 80 mls/hr [id number] IV 06/28/20 09:30 06/28/20 10:33 Imaging: Imaging: CXR 06/20 IMPRESSION: Mildly prominent interstitial markings, which may reflect interstitial edema. Renal US 06/21 IMPRESSION: 1. Degraded evaluation. Unremarkable renal ultrasound. BOAT RIGGER 06/27 * Pt presents from facility, lethargic, hx of PD per w/injection of Botox in Nov at [facility] "in his esophagus" for swallowing issues at that time. Pt was sleeping w/ and friend at his side at my entering. His specialized airflow mattress created noise that made it difficult to hear his low intensity, breathy phonation. Bed was unplugged for portion of eval w/permission of RN. Results as above. IMPRESSIONS: Moderate oropharyngeal dysphagia w/delayed oropharyngeal swallow. Delay varies but is present across consistencies to some degree, and with each swallow. Increased delay contributes to increased risk of aspiration before swallow. Overt aspiration was noted w/a single trial of honey thick liquid. Even w/constant verbal cues to swallow, delay remained present. Pt is also at risk of silent aspiration given evidence of laryngeal dysfunction w/breathy cough, phonation and impaired hyolaryngeal excursion at swallow. Given swallow typically required >10 sec, it is unlikely that pt will maintain nutritional needs via po intake. Pt's and friend noted wt loss since admission to facility in Nov. Current dysphagia may, therefore, have a chronic component. RECOMMENDATIONS: If po initiated, risk is mod to high. DW pt's and friend that variable timing of swallow equates to variable risk of aspiration. Pt's risk may vary within a meal, or day. stated she will d/w her son and make a decision re: future care. If po diet is desired, would consider puree w/honey thick w/understanding of risk of aspiration. PE: GEN: appears chronically ill HEENT: Atraumatic, PERRL LUNGS: diminished anteriorly, poor effort HEART: RRR, distant ABD: soft, non-tender, BS+ EXTREMITY: contractures, feet in boots NEURO/PSYCH: awake, does not verbalize, lifts eyebrows when I say his name A/P: A/P: UTI (culture negative), bacteremia (?contaminant), encephalopathy Leukocytosis, anemia, FRACISCO, hypernatremia, hypokalemia Parkinson's w/ dysphagia and dementia - end stage - family declines Hospice COVID negative 06/20 -- Will attempt to discuss w/ pt's family and return to see later w/ Dr. Arboleda. Unlikely PEG placement will change long-term survival. Will change to IV PPI. Unable to reach pt's , Tierra, by phone. ARMAND MAGDALENO Jun 28, 2020 11:44
--- NOTE | 2020-06-28 13:29 | PDOC ---
DATE OF SERVICE DATE: 06/28/20 TIME: 13:26 SUBJECTIVE ROS stable, OBJECTIVE Vital Signs Vital Signs Date Time Temp Pulse Resp B/P (MAP) Pulse Ox O2 Delivery O2 Flow Rate FiO2 06/28/20 11:00 97.7 65 14 86/41 (56) 100 Nasal Cannula 3.0 97.7 I & 0 Intake and Output 06/28/20 07:00 Output Total 1000 ml Balance -1000 ml Output Urine Total 1000 ml PHYSICAL EXAM Physical Exam General lethargic, arousable but does not answer any questions HEENT OM moist Neck supple Lungs clear bilaterally non labored Heart S1-S2 Abdomen soft nontender nondistended Carbajal in place, scrotal enlargement, scrotal wounds, Extremities no edema no cyanosis + contractures Neuro lethargic, confused Psychiatric unable to obtain DIAGNOSIS/ASSESSMENT Assessment & Plan FRACISCO- 2/2 Vol depletion Cr 3.8 POA , improving ,supportive care HyperNatremia- improving with IV D5W ,continue HypoKalemia- replace Sepsis source wounds vs uti cultures nonrevealing UTI cult neg CoVid 19 Negative COMMENT/RELEVANT DATA Meds Current Medications Medications (Trade) Dose Ordered Sig/Bianca Start Time Stop Time Status Last Admin Dose Admin Acetaminophen (Tylenol) 650 mg PRN Q6HRS PRN 06/21/20 10:15 Amino Acids/ Glycerin/ Electrolytes 1,000 ml @ 80 mls/hr [id number] 06/28/20 09:30 06/28/20 10:33 80 MLS/HR Aspirin (Aspirin Chewable) 81 mg DAILY 06/21/20 11:00 06/25/20 09:11 81 MG Bupropion HCl (Wellbutrin Sr) 75 mg BID 06/21/20 11:00 06/24/20 15:23 DC 06/23/20 22:37 75 MG Bupropion HCl (Wellbutrin) 75 mg BID 06/24/20 21:00 06/25/20 09:52 75 MG Buspirone HCl (Buspar) 10 mg TID 06/21/20 11:00 06/25/20 09:09 10 MG Carbidopa/Levodopa (Sinemet 25/100) 2 tab TID 06/21/20 11:00 06/25/20 09:11 2 TAB Ceftriaxone Sodium (Rocephin) 1 gm Q24H 06/20/20 17:00 06/21/20 12:44 DC 06/20/20 17:06 1 GM Daptomycin 270 mg/ Sodium Chloride 50 ml @ 100 mls/hr Q24H 06/28/20 13:00 Daptomycin 350 mg/ Sodium Chloride 50 ml @ 100 mls/hr Q48H 06/21/20 16:00 06/24/20 11:38 DC 06/23/20 15:46 100 MLS/HR Dextrose 1,000 ml @ 100 mls/hr Q10H 06/24/20 12:30 06/28/20 13:16 DC 06/27/20 20:11 100 MLS/HR Dextrose/Sodium Chloride 1,000 ml @ 60 mls/hr [id number] 06/23/20 11:30 06/24/20 12:25 DC 06/24/20 06:15 60 MLS/HR Docusate Sodium (Colace) 100 mg PRN Q12HRS PRN 06/21/20 10:15 Ferrous Sulfate (Feosol) 325 mg [id number] 06/21/20 12:00 06/25/20 09:11 325 MG Fludrocortisone Acetate (Florinef) 0.1 mg DAILY 06/21/20 11:00 06/25/20 09:10 0.1 MG Fluticasone Propionate (Flonase) 2 spray DAILY 06/21/20 12:00 06/28/20 10:34 2 SPRAY Folic Acid (Folic Acid) 1 mg DAILY 06/21/20 12:00 06/25/20 09:11 1 MG Lactobacillus Rhamnosus (Culturelle) 1 cap BID 06/21/20 21:00 06/25/20 09:14 1 CAP Lactulose (Lactulose) 10 gm PRN DAILY PRN 06/21/20 11:15 Levothyroxine Sodium (Synthroid) 125 mcg DAILY06 06/22/20 06:00 06/24/20 06:15 125 MCG [place] Carbonate (Lithobid) 300 mg DAILY 06/21/20 12:00 06/25/20 09:10 300 MG Micafungin Sodium 100 mg/Dextrose 100 ml @ 100 mls/hr Q24H 06/27/20 11:00 06/28/20 10:27 100 MLS/HR Midodrine (Proamatine) 10 mg [id number] 06/21/20 13:00 06/25/20 13:03 10 MG Multivitamins (Thera M Plus) 1 tab DAILY 06/21/20 12:00 06/25/20 09:11 1 TAB Nitroglycerin (Nitrostat) 0.4 mg PRN Q5MIN PRN 06/21/20 10:15 Non-Formulary Medication (Ciprofloxacin Hcl (Cipro)) 1 tab BID 06/21/20 21:00 06/21/20 15:01 DC Olanzapine (ZyPREXA) 5 mg DAILY 06/21/20 11:00 06/25/20 09:11 5 MG Ondansetron HCl (Zofran) 4 mg PRN Q8HRS PRN 06/20/20 11:30 06/21/20 11:29 DC Pantoprazole Sodium (PROTONIX VIAL for IV PUSH) 40 mg DAILYAC 06/29/20 07:30 Pantoprazole Sodium (Protonix) 40 mg DAILYAC 06/21/20 11:30 06/28/20 11:48 DC 06/25/20 09:15 40 MG Piperacillin Sod/ Tazobactam Sod (Zosyn Per Pharmacy) 1 each PRN DAILY PRN 06/21/20 12:45 Piperacillin Sod/ Tazobactam Sod 2.25 gm/Sodium Chloride 50 ml @ 100 mls/hr Q6HRS 06/21/20 18:00 06/28/20 11:53 100 MLS/HR Potassium Chloride/Water 100 ml @ 50 mls/hr 1X ONCE 06/26/20 16:00 06/26/20 17:59 DC 06/26/20 16:24 50 MLS/HR Ropinirole HCl (Requip) 0.5 mg TID 06/21/20 14:00 06/25/20 09:10 0.5 MG Senna/Docusate Sodium (Senna Plus) 1 tab BID 06/21/20 11:00 06/25/20 09:10 1 TAB Sodium Chloride 1,000 ml @ 100 mls/hr Q10H 06/21/20 13:00 06/23/20 11:27 DC 06/23/20 10:27 100 MLS/HR Vitamin A/Vitamin D (Vitamin A & D Ointment) 1 janina BID 06/21/20 16:00 06/28/20 10:35 1 JANINA Lab Laboratory Tests Test 06/28/20 07:49 Sodium Level 151 mmol/L (136-145) Potassium Level 3.2 mmol/L (3.5-5.1) Chloride Level 118 mmol/L (98-107) Carbon Dioxide Level 26 mmol/L (21-32) Anion Gap 7 (6-14) Blood Urea Nitrogen 15 mg/dL (8-26) Creatinine 1.6 mg/dL (0.7-1.3) Estimated GFR (Cockcroft-Gault) 41.7 Glucose Level 106 mg/dL (70-99) Calcium Level 8.2 mg/dL (8.5-10.1) Results All relevant outside records, renal labs, imaging studies, telemetry/EKG's were reviewed. Justicifation of Admission Dx: Justifications for Admission: Justification of Admission Dx: Yes Sepsis: Bacteremia RACHEL HARDING MD Jun 28, 2020 13:29
[2020-06-28 15:00] VITALS: BP 105/42
[2020-06-28] MEDS: NORMAL SALINE IV SCH (16:15)
[2020-06-28] MEDS: DAPTOMYCIN IV SCH (16:15)
[2020-06-28 19:00] VITALS: BP 106/42
[2020-06-28 23:15] VITALS: BP 104/48
[2020-06-29 03:09] VITALS: BP 122/53
[2020-06-29] MEDS: LEVOTHYROXINE 125 MCG TABLET PO SCH (05:22)
[2020-06-29] MEDS: MIDODRINE 5 MG TABLET PO SCH ×3 (05:22→17:51)
[2020-06-29] MEDS: PIPERACILLIN/TAZOBACTAM 2.25 GM in IV NORMAL SALINE 50ML 50 ML IV SCH ×4 (05:58→23:49)
[2020-06-29 07:59] VITALS: BP 116/53
[2020-06-29] MEDS: FERROUS SULFATE 325 MG TABLET. PO SCH (08:00)
[2020-06-29 08:47] LABS: BASO # 0.1 x10^3/uL (0.0-0.2); BASO % 1 % (0-3); EOS # 0.4 x10^3/uL (0.0-0.7); EOS % 4 % (0-3); HEMATOCRIT 34.6 % (39.0-53.0); HEMOGLOBIN 11.1 g/dL (13.0-17.5); LYMPH # 2.4 x10^3/uL (1.0-4.8); LYMPH % 22 % (24-48); MEAN CORPUSCULAR HEMOGLOBIN 32 pg (25-35); MEAN CORPUSCULAR HGB CONC 32 g/dL (31-37); MEAN CORPUSCULAR VOLUME 100 fL (79-100); MONO # 0.6 x10^3/uL (0.0-1.1); MONO % 5 % (0-9); NEUT # 7.2 x10^3/uL (1.8-7.7); NEUT % 68 % (31-73); PLATELET COUNT 401 x10^3/uL (140-400); RED BLOOD COUNT 3.48 x10^6/uL (4.30-5.70); RED CELL DISTRIBUTION WIDTH 16.2 % (11.5-14.5); WHITE BLOOD COUNT 10.6 x10^3/uL (4.0-11.0)
[2020-06-29] MEDS: FLUTICASONE 50MCG/NASAL SPRAY 16GM BOTTLE. NS SCH (08:59)
[2020-06-29] MEDS: VITS A & D/LANOLIN TOPICAL OINTMENT 42GM TUBE. TP SCH ×2 (08:59→20:30)
[2020-06-29] MEDS: PANTOPRAZOLE IV PUSH 40 MG VIAL. IVP SCH (08:59)
[2020-06-29] MEDS: LACTOBACILLUS RHAMNOSUS GG 1 CAPSULE. PO SCH ×2 (09:00→20:28)
[2020-06-29] MEDS: CARBIDOPA/LEVODOPA 25/100MG TABLET PO SCH ×3 (09:00→20:28)
[2020-06-29] MEDS: LITHIUM CARBONATE ER 300 MG TABLET.ER PO SCH (09:00)
[2020-06-29] MEDS: FOLIC ACID 1 MG TABLET. PO SCH (09:00)
[2020-06-29] MEDS: MULTIVITAMIN with MINERAL TABLET. PO SCH (09:00)
[2020-06-29] MEDS: buPROPion 75 MG TABLET. PO SCH ×2 (09:00→20:29)
[2020-06-29] MEDS: SENNOSIDES/DOCUSATE 8.6/50MG TABLET. PO SCH ×2 (09:00→20:28)
[2020-06-29] MEDS: busPIRone 10 MG TABLET. PO SCH ×3 (09:00→20:28)
[2020-06-29] MEDS: FLUDROCORTISONE 0.1 MG TABLET PO SCH (09:00)
[2020-06-29] MEDS: OLANZapine 5 MG TABLET PO SCH (09:00)
[2020-06-29] MEDS: rOPINIRole 0.25 MG TABLET. PO SCH ×3 (09:00→20:28)
[2020-06-29] MEDS: ASPIRIN CHEWABLE 81 MG TABLET. PO SCH (09:00)
--- NOTE | 2020-06-29 09:00 | PDOC ---
Infectious Disease Note Subjective: Subjective Patient more alert today Does not answer most of the question Appears comfortable Vital Signs: Vital Signs Vital Signs Date Time Temp Pulse Resp B/P (MAP) Pulse Ox O2 Delivery O2 Flow Rate FiO2 06/29/20 03:09 98.4 80 18 122/53 (76) 97 Nasal Cannula 3.0 98.4 Physical Exam: PHYSICAL EXAM General lethargic, arousable but does not answer any questions HEENT normocephalic atraumatic anicteric no thrush oral mucosa moist Neck supple Lungs clear bilaterally no wheezing Heart S1-S2 Abdomen soft nontender nondistended Carbajal in place, scrotal enlargement, scrotal wounds, Extremities no edema no cyanosis Neuro lethargic, confused Psychiatric unable to obtain Derm multiple wounds pictures reviewed Medications: Inpatient Meds: Current Medications Medications (Trade) Dose Ordered Sig/Bianca Start Time Stop Time Status Last Admin Dose Admin Acetaminophen (Tylenol) 650 mg PRN Q6HRS PRN 06/21/20 10:15 Amino Acids/ Glycerin/ Electrolytes 1,000 ml @ 80 mls/hr [id number] 06/28/20 09:30 06/28/20 23:48 80 MLS/HR Aspirin (Aspirin Chewable) 81 mg DAILY 06/21/20 11:00 06/25/20 09:11 81 MG Bupropion HCl (Wellbutrin Sr) 75 mg BID 06/21/20 11:00 06/24/20 15:23 DC 06/23/20 22:37 75 MG Bupropion HCl (Wellbutrin) 75 mg BID 06/24/20 21:00 06/25/20 09:52 75 MG Buspirone HCl (Buspar) 10 mg TID 06/21/20 11:00 06/25/20 09:09 10 MG Carbidopa/Levodopa (Sinemet 25/100) 2 tab TID 06/21/20 11:00 06/25/20 09:11 2 TAB Ceftriaxone Sodium (Rocephin) 1 gm Q24H 06/20/20 17:00 06/21/20 12:44 DC 06/20/20 17:06 1 GM Daptomycin 270 mg/ Sodium Chloride 50 ml @ 100 mls/hr Q24H 06/28/20 13:00 06/28/20 16:15 100 MLS/HR Daptomycin 350 mg/ Sodium Chloride 50 ml @ 100 mls/hr Q48H 06/21/20 16:00 06/24/20 11:38 DC 06/23/20 15:46 100 MLS/HR Dextrose 1,000 ml @ 100 mls/hr Q10H 06/24/20 12:30 06/28/20 13:16 DC 06/27/20 20:11 100 MLS/HR Dextrose/Sodium Chloride 1,000 ml @ 60 mls/hr [id number] 06/23/20 11:30 06/24/20 12:25 DC 06/24/20 06:15 60 MLS/HR Docusate Sodium (Colace) 100 mg PRN Q12HRS PRN 06/21/20 10:15 Ferrous Sulfate (Feosol) 325 mg [id number] 06/21/20 12:00 06/25/20 09:11 325 MG Fludrocortisone Acetate (Florinef) 0.1 mg DAILY 06/21/20 11:00 06/25/20 09:10 0.1 MG Fluticasone Propionate (Flonase) 2 spray DAILY 06/21/20 12:00 06/29/20 08:59 2 SPRAY Folic Acid (Folic Acid) 1 mg DAILY 06/21/20 12:00 06/25/20 09:11 1 MG Lactobacillus Rhamnosus (Culturelle) 1 cap BID 06/21/20 21:00 06/25/20 09:14 1 CAP Lactulose (Lactulose) 10 gm PRN DAILY PRN 06/21/20 11:15 Levothyroxine Sodium (Synthroid) 125 mcg DAILY06 06/22/20 06:00 06/24/20 06:15 125 MCG [place] Carbonate (Lithobid) 300 mg DAILY 06/21/20 12:00 06/25/20 09:10 300 MG Micafungin Sodium 100 mg/Dextrose 100 ml @ 100 mls/hr Q24H 06/27/20 11:00 06/28/20 10:27 100 MLS/HR Midodrine (Proamatine) 10 mg [id number] 06/21/20 13:00 06/25/20 13:03 10 MG Multivitamins (Thera M Plus) 1 tab DAILY 06/21/20 12:00 06/25/20 09:11 1 TAB Nitroglycerin (Nitrostat) 0.4 mg PRN Q5MIN PRN 06/21/20 10:15 Non-Formulary Medication (Ciprofloxacin Hcl (Cipro)) 1 tab BID 06/21/20 21:00 06/21/20 15:01 DC Olanzapine (ZyPREXA) 5 mg DAILY 06/21/20 11:00 06/25/20 09:11 5 MG Ondansetron HCl (Zofran) 4 mg PRN Q8HRS PRN 06/20/20 11:30 06/21/20 11:29 DC Pantoprazole Sodium (PROTONIX VIAL for IV PUSH) 40 mg DAILYAC 06/29/20 07:30 06/29/20 08:59 40 MG Pantoprazole Sodium (Protonix) 40 mg DAILYAC 06/21/20 11:30 06/28/20 11:48 DC 06/25/20 09:15 40 MG Piperacillin Sod/ Tazobactam Sod (Zosyn Per Pharmacy) 1 each PRN DAILY PRN 06/21/20 12:45 Piperacillin Sod/ Tazobactam Sod 2.25 gm/Sodium Chloride 50 ml @ 100 mls/hr Q6HRS 06/21/20 18:00 06/29/20 05:58 100 MLS/HR Potassium Chloride/Water 100 ml @ 50 mls/hr 1X ONCE 06/26/20 16:00 06/26/20 17:59 DC 06/26/20 16:24 50 MLS/HR Ropinirole HCl (Requip) 0.5 mg TID 06/21/20 14:00 06/25/20 09:10 0.5 MG Senna/Docusate Sodium (Senna Plus) 1 tab BID 06/21/20 11:00 06/25/20 09:10 1 TAB Sodium Chloride 1,000 ml @ 100 mls/hr Q10H 06/21/20 13:00 06/23/20 11:27 DC 06/23/20 10:27 100 MLS/HR Vitamin A/Vitamin D (Vitamin A & D Ointment) 1 janina BID 06/21/20 16:00 06/29/20 08:59 1 JANINA Labs: Lab Laboratory Tests Test 06/29/20 08:09 White Blood Count 10.6 x10^3/uL (4.0-11.0) Red Blood Count 3.48 x10^6/uL (4.30-5.70) Hemoglobin 11.1 g/dL (13.0-17.5) Hematocrit 34.6 % (39.0-53.0) Mean Corpuscular Volume 100 fL (79-100) Mean Corpuscular Hemoglobin 32 pg (25-35) Mean Corpuscular Hemoglobin Concent 32 g/dL (31-37) Red Cell Distribution Width 16.2 % (11.5-14.5) Platelet Count 401 x10^3/uL (140-400) Neutrophils (%) (Auto) 68 % (31-73) Lymphocytes (%) (Auto) 22 % (24-48) Monocytes (%) (Auto) 5 % (0-9) Eosinophils (%) (Auto) 4 % (0-3) Basophils (%) (Auto) 1 % (0-3) Neutrophils # (Auto) 7.2 x10^3/uL (1.8-7.7) Lymphocytes # (Auto) 2.4 x10^3/uL (1.0-4.8) Monocytes # (Auto) 0.6 x10^3/uL (0.0-1.1) Eosinophils # (Auto) 0.4 x10^3/uL (0.0-0.7) Basophils # (Auto) 0.1 x10^3/uL (0.0-0.2) Micro RUN DATE: 06/22/20 [facility] *LIVE* PAGE 1 RUN TIME: 1309 Specimen Inquiry PATIENT: TRISH GRIFFITH ACCT: [id number] LOC: [facility] U: [id number] AGE/SX: 79/M ROOM: 673 RE06/20/[address]: YARIEL FLOOD III, DO : 1940 BED: 1 DIS: STATUS: ADM IN TLOC: SPEC #: [id number] WILLIE: 06/21/20 STATUS: COMP REQ #: [id number] RECD: 06/21/[address]: YARIEL FLOOD III, DO SOURCE: VOID ENTR: 06/21/[address]: KELY STEWARD MD SPDESC: RUBEN MCNEIL MD UNKNOWN PCP NAME ORDERED: URINE CULTURE Procedure Result URINE CULTURE Final Final No Growth on 06/22/20 at 1305 Testing Performed by: [address] [place] [address] For Inquires, the Physician may contact the Microbiology department at [phone] Unless otherwise specified, Testing Performed by: [facility] [address] [place] [address] For Inquires, the Physician may contact the Microbiology department at [phone] --- RUN DATE: 06/23/20 [facility] *LIVE* PAGE 1 RUN TIME: 912 Specimen Inquiry PATIENT: GLADISTRISH Brissa ACCT: [id number] LOC: [address] [place] [address] U: [id number] AGE/SX: 79/M ROOM: 673 RE06/20/[address]: YARIEL FLOOD III, DO : 1940 BED: 1 DIS: STATUS: ADM IN TLOC: SPEC #: [id number] WILLIE: 06/20/20 STATUS: EMERSON REAmol #: [id number] RECD: 06/20/[address]: DARELL SHAVER DO SOURCE: BLOOD ENTR: 06/21/[address] [facility] [address]: UNKNOWN PCP NAME [facility]: ORDERED: BLD CULT - LC Procedure Result BLOOD CULTURE LC Final Final FINAL ID= [STAPHYLOCOCCUS HOMINIS] Growth of organism in only one of multiple sets; isolation does not necessarily indicate infection. Contact Microbiology Lab if further testing is clinically warranted. STAPHYLOCOCCUS HOMINIS Unless otherwise specified, Testing Performed by: [address] [address] For Inquires, the Physician may contact the Microbiology department at [phone] RUN DATE: 06/24/20 [facility] *LIVE* PAGE 1 RUN TIME: 930 Specimen Inquiry PATIENT: GLADISBALBINAY Brissa ACCT: [id number] LOC: [address] [place] [address] U: [id number] AGE/SX: 79/M ROOM: [facility] RE06/20/[address]: YARIEL FLOOD III, DO : 1940 BED: 1 DIS: STATUS: ADM IN TLOC: SPEC #: [id number] WILLIE: 06/20/20 STATUS: COMP REQ #: [id number] RECD: 06/20/[address]: DARELL HSAVER DO SOURCE: BLOOD ENTR: 06/21/20-[address] [facility] [address]: UNKNOWN PCP NAME SPDC: ORDERED: BLD CULT - LC Procedure Result BLOOD CULTURE LC Final Final FINAL ID= [STAPHYLOCOCCUS EPIDERMIDIS] Growth of organism in only one of multiple sets; isolation does not necessarily indicate infection. Contact Microbiology Lab if further testing is clinically warranted. STAPHYLOCOCCUS EPIDERMIDIS Unless otherwise specified, Testing Performed by: [address] [address] For Inquires, the Physician may contact the Microbiology department at [phone] Objective: Assessment: Sepsis source wounds vs uti cultures nonrevealing Leukocytosis Bacteremia gram-positive cocci, staph hominis and staph epidermidis likely contaminant UTI cult neg FRACISCO with underlying CKD Hypernatremia Covid Negative Encephalopathy likely metabolic Multiple wounds Generalized debility History of bipolar disorder BPH GERD Plan: Plan of Care Continue Zosyn/Micafungin Continue Dapto Wound care as directed Offload Maintain aspiration precaution Continue supportive care Overall prognosis poor Team is in talks with family regarding final goals of treatment d/w SADIA KING MD Jun 29, 2020 09:00
[2020-06-29 09:04] LABS: CALCIUM 8.5 mg/dL (8.5-10.1); CREATININE 1.4 mg/dL (0.7-1.3); GFR 48.6; POTASSIUM 3.8 mmol/L (3.5-5.1)
[2020-06-29 11:59] VITALS: BP 134/68
[2020-06-29] MEDS: MICAFUNGIN 100 MG in IV DEXTROSE 5% 100ML 100 ML IV SCH (12:39)
[2020-06-29] MEDS: AMINO AC 3%/ELECTROLYTE/GLYCER 1,000 ML IV SCH ×2 (15:32→23:00)
[2020-06-29] MEDS: NORMAL SALINE IV SCH (15:32)
[2020-06-29] MEDS: DAPTOMYCIN IV SCH (15:32)
[2020-06-29 15:59] VITALS: BP 141/72
--- NOTE | 2020-06-29 16:39 | PDOC ---
[employer] PROGRESS NOTE Date of Service DOS: DATE: 06/29/20 TIME: 16:37 Chief Complaint Chief Complaint ASSESSMENT AND PLAN: Metabolic encephalopathy, ACUTE urinary tract infection, sepsis, BACTEREMIA hypernatremia, urinary tract infection, azotemia, ACUTE renal INJURY , , ACUTE RENAL TUBULAR NECROSIS leukocytosis. FRACISCO with underlying CKD Hypernatremia Covid Negative Encephalopathy likely metabolic severe protein-caloric malnutrition Multiple wounds Generalized debility PLAN admitted. IV antibiotics. Consult Nephrology. CONSULT ID IV fluids, chg hypotonic saline 06/10 ns home meds, DVT prophylaxis, full code, Carbajal to bedside p.r.n. Zofran, Continue Zosyn iv q 6 hrs continue daptomycin IV Follow GPC in blood culture History of Present Illness History of Present Illness HISTORY OF PRESENT ILLNESS: The patient is a pleasant 79-year-old male, who has a chronic indwelling Carbajal. He is now presenting from a facility. He has mental status change. I believe the catheter got pulled out by accident last night. I discussed the case with the ER physician. It appears he has probable urinary tract infection with urosepsis and metabolic encephalopathy. We are going to admit the patient and give him IV antibiotics and fluids and try to get him feeling better. 06/24: Patient seen and evaluated at bedside. Afebrile, no acute events over night. Continue IV antibiotics for positive blood culture and UTI. Still with some hypernatremia. Will continue with IV fluids. Charts and labs reviewed. 06/25: Patient seen and evaluated. He is COVID-19 negative. Transferred to medical floors. Creatinine continues to improve. Continue IV antibiotics for sepsis, UTI, bacteremia (possible contaminant). 06/26: No acute events overnight. Afebrile, breathing comfortably on room air. Leukocytosis improving. Further morning labs pending. Continue to monitor for creatinine and sodium improvement. Continue IV antibiotics, per ID. Daptomycin was added to Zosyn. Discussed with Dr. Steven, no significant improvement noted, patient still very lethargic. Will attempt to discuss with DPOA today about goals of care and hospice. 06/27: No acute events overnight. Patient was made DNR yesterday. Hospice to meet with patient's family to discuss palliative care. Per ID, antibiotics may be switched to p.o. soon. ST evaluated patient yesterday with noted moderate to high risk of aspiration. Would consider puree with honey thick with understanding of risk of aspiration. 06/28: Afebrile. No acute events. ST to re-eval swallow study. Will consult GI for PEG tube placement. Will initiate PPN. I appreciate Dr. Gibson's input; no manipulating his Parkinson's medications will not change overall prognosis. Continue antibiotics, per ID. 06/29: Patient evaluated with at bedside. WBC improved, sodium slightly improved. Patient does say few words with to me today. Still n.p.o. as he is unsafe for oral intake. Will need PEG tube, which will not evaluate his risk of aspiration. would like to discuss with son further. Charts and labs reviewed. Vitals/I&O Vitals/I&O: Vital Signs Date Time Temp Pulse Resp B/P (MAP) Pulse Ox O2 Delivery O2 Flow Rate FiO2 06/29/20 11:59 97.5 78 20 134/68 (90) 97 Nasal Cannula 0.5 97.5 I & O 06/28/20 06/28/20 06/29/20 15:00 23:00 07:00 Intake Total 650 ml 100 ml 800 ml Output Total 800 ml 1200 ml Balance 650 ml -700 ml -400 ml Physical Exam Physical Exam: General lethargic, arousable but does not answer any questions HEENT normocephalic atraumatic anicteric no thrush oral mucosa moist Neck supple Lungs clear bilaterally no wheezing Heart S1-S2 Abdomen soft nontender nondistended Carbajal in place, scrotal enlargement, scrotal wounds, Extremities no edema no cyanosis Neuro lethargic, confused Psychiatric unable to obtain Derm multiple wounds pictures reviewed General: Alert, No acute distress Heart: Regular rate Lungs: Crackles Abdomen: Normal bowel sounds, Soft, No tenderness Extremities: No clubbing, No cyanosis Skin: No rashes Labs Labs: Laboratory Tests Test 06/29/20 08:09 White Blood Count 10.6 x10^3/uL (4.0-11.0) Red Blood Count 3.48 x10^6/uL (4.30-5.70) Hemoglobin 11.1 g/dL (13.0-17.5) Hematocrit 34.6 % (39.0-53.0) Mean Corpuscular Volume 100 fL (79-100) Mean Corpuscular Hemoglobin 32 pg (25-35) Mean Corpuscular Hemoglobin Concent 32 g/dL (31-37) Red Cell Distribution Width 16.2 % (11.5-14.5) Platelet Count 401 x10^3/uL (140-400) Neutrophils (%) (Auto) 68 % (31-73) Lymphocytes (%) (Auto) 22 % (24-48) Monocytes (%) (Auto) 5 % (0-9) Eosinophils (%) (Auto) 4 % (0-3) Basophils (%) (Auto) 1 % (0-3) Neutrophils # (Auto) 7.2 x10^3/uL (1.8-7.7) Lymphocytes # (Auto) 2.4 x10^3/uL (1.0-4.8) Monocytes # (Auto) 0.6 x10^3/uL (0.0-1.1) Eosinophils # (Auto) 0.4 x10^3/uL (0.0-0.7) Basophils # (Auto) 0.1 x10^3/uL (0.0-0.2) Sodium Level 150 mmol/L (136-145) Potassium Level 3.8 mmol/L (3.5-5.1) Chloride Level 117 mmol/L (98-107) Carbon Dioxide Level 24 mmol/L (21-32) Anion Gap 9 (6-14) Blood Urea Nitrogen 18 mg/dL (8-26) Creatinine 1.4 mg/dL (0.7-1.3) Estimated GFR (Cockcroft-Gault) 48.6 Glucose Level 79 mg/dL (70-99) Calcium Level 8.5 mg/dL (8.5-10.1) Creatine Kinase 36 U/L (39-308) Assessment and Plan Assessmemt and Plan Problems Medical Problems: (1) Dehydration Status: Acute (2) Metabolic encephalopathy Status: Acute (3) Person under investigation for COVID-19 Status: Acute (4) Renal failure Status: Acute (5) UTI (urinary tract infection) Status: Acute Comment Review of Relevant I have reviewed the following items ab (where applicable) has been applied. Medications: Current Medications Medications (Trade) Dose Ordered Sig/Bianca Route PRN Reason Start Time Stop Time Status Last Admin Dose Admin Pantoprazole Sodium (PROTONIX VIAL for IV PUSH) 40 mg DAILYAC IVP 06/29/20 07:30 06/29/20 08:59 Justifications for Admission Other Justification BEBETO SANABRIA MD Jun 29, 2020 16:39
[2020-06-29 19:00] VITALS: BP 123/66
[2020-06-29 23:03] VITALS: BP 138/86
[2020-06-30 03:04] VITALS: BP 131/74
[2020-06-30] MEDS: PIPERACILLIN/TAZOBACTAM 2.25 GM in IV NORMAL SALINE 50ML 50 ML IV SCH ×3 (06:00→17:56)
[2020-06-30] MEDS: LEVOTHYROXINE 125 MCG TABLET PO SCH (06:00)
[2020-06-30] MEDS: MIDODRINE 5 MG TABLET PO SCH ×3 (06:07→17:55)
[2020-06-30 07:59] VITALS: BP 101/58
[2020-06-30] MEDS: FERROUS SULFATE 325 MG TABLET. PO SCH (08:00)
--- NOTE | 2020-06-30 08:08 | PDOC ---
Infectious Disease Note Subjective: Subjective Patient more alert today Does not answer most of the question Appears comfortable Vital Signs: Vital Signs Vital Signs Date Time Temp Pulse Resp B/P (MAP) Pulse Ox O2 Delivery O2 Flow Rate FiO2 06/30/20 03:04 98.3 80 18 131/74 (93) 97 Room Air 98.3 06/29/20 11:59 0.5 Physical Exam: PHYSICAL EXAM General lethargic, arousable but does not answer any questions HEENT normocephalic atraumatic anicteric no thrush oral mucosa moist Neck supple Lungs clear bilaterally no wheezing Heart S1-S2 Abdomen soft nontender nondistended Carbajal in place, scrotal enlargement, scrotal wounds, Extremities no edema no cyanosis Neuro lethargic, confused Psychiatric unable to obtain Derm multiple wounds pictures reviewed Medications: Inpatient Meds: Current Medications Medications (Trade) Dose Ordered Sig/Bianca Start Time Stop Time Status Last Admin Dose Admin Acetaminophen (Tylenol) 650 mg PRN Q6HRS PRN 06/21/20 10:15 Amino Acids/ Glycerin/ Electrolytes 1,000 ml @ 80 mls/hr [id number] 06/28/20 09:30 06/29/20 15:32 80 MLS/HR Aspirin (Aspirin Chewable) 81 mg DAILY 06/21/20 11:00 06/25/20 09:11 81 MG Bupropion HCl (Wellbutrin Sr) 75 mg BID 06/21/20 11:00 06/24/20 15:23 DC 06/23/20 22:37 75 MG Bupropion HCl (Wellbutrin) 75 mg BID 06/24/20 21:00 06/25/20 09:52 75 MG Buspirone HCl (Buspar) 10 mg TID 06/21/20 11:00 06/25/20 09:09 10 MG Carbidopa/Levodopa (Sinemet 25/100) 2 tab TID 06/21/20 11:00 06/25/20 09:11 2 TAB Ceftriaxone Sodium (Rocephin) 1 gm Q24H 06/20/20 17:00 06/21/20 12:44 DC 06/20/20 17:06 1 GM Daptomycin 270 mg/ Sodium Chloride 50 ml @ 100 mls/hr Q24H 06/28/20 13:00 06/29/20 15:32 100 MLS/HR Daptomycin 350 mg/ Sodium Chloride 50 ml @ 100 mls/hr Q48H 06/21/20 16:00 06/24/20 11:38 DC 06/23/20 15:46 100 MLS/HR Dextrose 1,000 ml @ 100 mls/hr Q10H 06/24/20 12:30 06/28/20 13:16 DC 06/27/20 20:11 100 MLS/HR Dextrose/Sodium Chloride 1,000 ml @ 60 mls/hr [id number] 06/23/20 11:30 06/24/20 12:25 DC 06/24/20 06:15 60 MLS/HR Docusate Sodium (Colace) 100 mg PRN Q12HRS PRN 06/21/20 10:15 Ferrous Sulfate (Feosol) 325 mg [id number] 06/21/20 12:00 06/25/20 09:11 325 MG Fludrocortisone Acetate (Florinef) 0.1 mg DAILY 06/21/20 11:00 06/25/20 09:10 0.1 MG Fluticasone Propionate (Flonase) 2 spray DAILY 06/21/20 12:00 06/29/20 08:59 2 SPRAY Folic Acid (Folic Acid) 1 mg DAILY 06/21/20 12:00 06/25/20 09:11 1 MG Lactobacillus Rhamnosus (Culturelle) 1 cap BID 06/21/20 21:00 06/25/20 09:14 1 CAP Lactulose (Lactulose) 10 gm PRN DAILY PRN 06/21/20 11:15 Levothyroxine Sodium (Synthroid) 125 mcg DAILY06 06/22/20 06:00 06/24/20 06:15 125 MCG [place] Carbonate (Lithobid) 300 mg DAILY 06/21/20 12:00 06/25/20 09:10 300 MG Micafungin Sodium 100 mg/Dextrose 100 ml @ 100 mls/hr Q24H 06/27/20 11:00 06/29/20 12:39 100 MLS/HR Midodrine (Proamatine) 10 mg [id number] 06/21/20 13:00 06/25/20 13:03 10 MG Multivitamins (Thera M Plus) 1 tab DAILY 06/21/20 12:00 06/25/20 09:11 1 TAB Nitroglycerin (Nitrostat) 0.4 mg PRN Q5MIN PRN 06/21/20 10:15 Non-Formulary Medication (Ciprofloxacin Hcl (Cipro)) 1 tab BID 06/21/20 21:00 06/21/20 15:01 DC Olanzapine (ZyPREXA) 5 mg DAILY 06/21/20 11:00 06/25/20 09:11 5 MG Ondansetron HCl (Zofran) 4 mg PRN Q8HRS PRN 06/20/20 11:30 06/21/20 11:29 DC Pantoprazole Sodium (PROTONIX VIAL for IV PUSH) 40 mg DAILYAC 06/29/20 07:30 06/29/20 08:59 40 MG Pantoprazole Sodium (Protonix) 40 mg DAILYAC 06/21/20 11:30 06/28/20 11:48 DC 06/25/20 09:15 40 MG Piperacillin Sod/ Tazobactam Sod (Zosyn Per Pharmacy) 1 each PRN DAILY PRN 06/21/20 12:45 Piperacillin Sod/ Tazobactam Sod 2.25 gm/Sodium Chloride 50 ml @ 100 mls/hr Q6HRS 06/21/20 18:00 06/30/20 06:00 100 MLS/HR Potassium Chloride/Water 100 ml @ 50 mls/hr 1X ONCE 06/26/20 16:00 06/26/20 17:59 DC 06/26/20 16:24 50 MLS/HR Ropinirole HCl (Requip) 0.5 mg TID 06/21/20 14:00 06/25/20 09:10 0.5 MG Senna/Docusate Sodium (Senna Plus) 1 tab BID 06/21/20 11:00 06/25/20 09:10 1 TAB Sodium Chloride 1,000 ml @ 100 mls/hr Q10H 06/21/20 13:00 06/23/20 11:27 DC 06/23/20 10:27 100 MLS/HR Vitamin A/Vitamin D (Vitamin A & D Ointment) 1 janina BID 06/21/20 16:00 06/29/20 20:30 1 JANINA Labs: Lab Laboratory Tests Test 06/29/20 08:09 White Blood Count 10.6 x10^3/uL (4.0-11.0) Red Blood Count 3.48 x10^6/uL (4.30-5.70) Hemoglobin 11.1 g/dL (13.0-17.5) Hematocrit 34.6 % (39.0-53.0) Mean Corpuscular Volume 100 fL (79-100) Mean Corpuscular Hemoglobin 32 pg (25-35) Mean Corpuscular Hemoglobin Concent 32 g/dL (31-37) Red Cell Distribution Width 16.2 % (11.5-14.5) Platelet Count 401 x10^3/uL (140-400) Neutrophils (%) (Auto) 68 % (31-73) Lymphocytes (%) (Auto) 22 % (24-48) Monocytes (%) (Auto) 5 % (0-9) Eosinophils (%) (Auto) 4 % (0-3) Basophils (%) (Auto) 1 % (0-3) Neutrophils # (Auto) 7.2 x10^3/uL (1.8-7.7) Lymphocytes # (Auto) 2.4 x10^3/uL (1.0-4.8) Monocytes # (Auto) 0.6 x10^3/uL (0.0-1.1) Eosinophils # (Auto) 0.4 x10^3/uL (0.0-0.7) Basophils # (Auto) 0.1 x10^3/uL (0.0-0.2) Sodium Level 150 mmol/L (136-145) Potassium Level 3.8 mmol/L (3.5-5.1) Chloride Level 117 mmol/L (98-107) Carbon Dioxide Level 24 mmol/L (21-32) Anion Gap 9 (6-14) Blood Urea Nitrogen 18 mg/dL (8-26) Creatinine 1.4 mg/dL (0.7-1.3) Estimated GFR (Cockcroft-Gault) 48.6 Glucose Level 79 mg/dL (70-99) Calcium Level 8.5 mg/dL (8.5-10.1) Creatine Kinase 36 U/L (39-308) Micro RUN DATE: 06/22/20 [facility] LAB *LIVE* PAGE 1 RUN TIME: 1309 Specimen Inquiry PATIENT: TRISH GRIFFITH ACCT: [id number] LOC: [address] [place] [address] U: [id number] AGE/SX: 79/M ROOM: [facility] RE06/20/[address]: YARIEL FLOOD III, DO : 1940 BED: 1 DIS: STATUS: ADM IN TLOC: SPEC #: [id number] WILLIE: 06/21/20 STATUS: COMP REQ #: [id number] RECD: 06/21/[address]: YARIEL FLOOD III, DO SOURCE: VOID ENTR: 06/21/[address]: KELY STEWARD MD [facility]: RUBEN MCNEIL MD UNKNOWN PCP NAME ORDERED: URINE CULTURE Procedure Result URINE CULTURE Final Final No Growth on 06/22/20 at 1305 Testing Performed by: [address] [address] For Inquires, the Physician may contact the Microbiology department at [phone] Unless otherwise specified, Testing Performed by: [address] [address] For Inquires, the Physician may contact the Microbiology department at [phone] --- RUN DATE: 06/23/20 [facility] LAB *LIVE* PAGE 1 RUN TIME: 912 Specimen Inquiry PATIENT: TRISH GRIFFITH ACCT: [id number] LOC: 6 [facility] U: [id number] AGE/SX: 79/M ROOM: 673 RE06/20/[address]: YARIEL FLOOD III, DO : 1940 BED: 1 DIS: STATUS: ADM IN TLOC: SPEC #: [id number] WILLIE: 06/20/20 STATUS: COMP REQ #: [id number] RECD: 06/20/[address]: DARELL SHAVER DO SOURCE: BLOOD ENTR: 06/21/20-[address]: UNKNOWN PCP NAME [facility]: ORDERED: BLD CULT - LC Procedure Result ------ ------ BLOOD CULTURE LC Final Final FINAL ID= [STAPHYLOCOCCUS HOMINIS] Growth of organism in only one of multiple sets; isolation does not necessarily indicate infection. Contact Microbiology Lab if further testing is clinically warranted. STAPHYLOCOCCUS HOMINIS Unless otherwise specified, Testing Performed by: [address] [address] For Inquires, the Physician may contact the Microbiology department at [phone] RUN DATE: 06/24/20 [facility] LAB *LIVE* PAGE 1 RUN TIME: 930 Specimen Inquiry PATIENT: GLADISTRISH Brissa ACCT: [id number] LOC: [address] [place] [address] U: [id number] AGE/SX: 79/M ROOM: 3 RE06/20/[address]: YARIEL FLOOD III, DO : 1940 BED: 1 DIS: STATUS: ADM IN TLOC: SPEC #: [id number] WILLIE: 06/20/20 STATUS: [place] REQ #: [id number] RECD: 06/20/[address] [facility] [address]: DARELL SHAVER DO SOURCE: BLOOD ENTR: 06/21/20-1518 [facility] DR: UNKNOWN PCP NAME [facility]: ORDERED: BLD CULT - LC Procedure Result BLOOD CULTURE LC Final Final FINAL ID= [STAPHYLOCOCCUS EPIDERMIDIS] Growth of organism in only one of multiple sets; isolation does not necessarily indicate infection. Contact Microbiology Lab if further testing is clinically warranted. STAPHYLOCOCCUS EPIDERMIDIS Unless otherwise specified, Testing Performed by: [address] [address] For Inquires, the Physician may contact the Microbiology department at [phone] Objective: Assessment: Sepsis source unclear cultures nonrevealing Leukocytosis resolved Bacteremia gram-positive cocci, staph hominis and staph epidermidis likely contaminant UTI cult neg FRACISCO with underlying CKD Hypernatremia Covid Negative Encephalopathy likely metabolic Multiple wounds Generalized debility History of bipolar disorder BPH GERD Yeast in groin Dysphagia Plan: Plan of Care Continue Zosyn/Micafungin / Dapto Wound care as directed Offload Maintain aspiration precaution Continue supportive care Overall prognosis poor GI input noted for peg tube placement Consider palliative care Team is in talks with family regarding final goals of treatment,full code for now per d/w RN. d/w SADIA KING MD Jun 30, 2020 08:08
--- NOTE | 2020-06-30 08:38 | PDOC ---
[employer] PROGRESS NOTE Date of Service DOS: DATE: 06/30/20 TIME: 08:36 Chief Complaint Chief Complaint ASSESSMENT AND PLAN: Metabolic encephalopathy, ACUTE urinary tract infection, sepsis, BACTEREMIA hypernatremia, urinary tract infection, azotemia, ACUTE renal INJURY , , ACUTE RENAL TUBULAR NECROSIS leukocytosis. FRACISCO with underlying CKD Hypernatremia Covid Negative Encephalopathy likely metabolic severe protein-caloric malnutrition Multiple wounds Generalized debility PLAN admitted. IV antibiotics. Consult Nephrology. CONSULT ID IV fluids, chg hypotonic saline 06/10 ns home meds, DVT prophylaxis, full code, Carbajal to bedside p.r.n. Zofran, Continue Zosyn iv q 6 hrs continue daptomycin IV Follow GPC in blood culture History of Present Illness History of Present Illness HISTORY OF PRESENT ILLNESS: The patient is a pleasant 79-year-old male, who has a chronic indwelling Carbajal. He is now presenting from a facility. He has mental status change. I believe the catheter got pulled out by accident last night. I discussed the case with the ER physician. It appears he has probable urinary tract infection with urosepsis and metabolic encephalopathy. We are going to admit the patient and give him IV antibiotics and fluids and try to get him feeling better. 06/24: Patient seen and evaluated at bedside. Afebrile, no acute events over night. Continue IV antibiotics for positive blood culture and UTI. Still with some hypernatremia. Will continue with IV fluids. Charts and labs reviewed. 06/25: Patient seen and evaluated. He is COVID-19 negative. Transferred to medical floors. Creatinine continues to improve. Continue IV antibiotics for sepsis, UTI, bacteremia (possible contaminant). 06/26: No acute events overnight. Afebrile, breathing comfortably on room air. Leukocytosis improving. Further morning labs pending. Continue to monitor for creatinine and sodium improvement. Continue IV antibiotics, per ID. Daptomycin was added to Zosyn. Discussed with Dr. Steven, no significant improvement noted, patient still very lethargic. Will attempt to discuss with DPOA today about goals of care and hospice. 06/27: No acute events overnight. Patient was made DNR yesterday. Hospice to meet with patient's family to discuss palliative care. Per ID, antibiotics may be switched to p.o. soon. ST evaluated patient yesterday with noted moderate to high risk of aspiration. Would consider puree with honey thick with understanding of risk of aspiration. 06/28: Afebrile. No acute events. ST to re-eval swallow study. Will consult GI for PEG tube placement. Will initiate PPN. I appreciate Dr. Gibson's input; no manipulating his Parkinson's medications will not change overall prognosis. Continue antibiotics, per ID. 06/29: Patient evaluated with at bedside. WBC improved, sodium slightly improved. Patient does say few words with to me today. Still n.p.o. as he is unsafe for oral intake. Will need PEG tube, which will not evaluate his risk of aspiration. would like to discuss with son further. Charts and labs reviewed. 06/30: Afebrile. WBC did show some improvement, however morning labs pending. Patient still n.p.o., receiving ProcalAmine. Will discuss with son and further today about desires to proceed with PEG tube. Vitals/I&O Vitals/I&O: Vital Signs Date Time Temp Pulse Resp B/P (MAP) Pulse Ox O2 Delivery O2 Flow Rate FiO2 06/30/20 03:04 98.3 80 18 131/74 (93) 97 Room Air 98.3 06/29/20 11:59 0.5 I & O 06/29/20 06/29/20 06/30/20 15:00 23:00 07:00 Output Total 750 ml Balance -750 ml Physical Exam Physical Exam: General lethargic, arousable but does not answer any questions HEENT normocephalic atraumatic anicteric no thrush oral mucosa moist Neck supple Lungs clear bilaterally no wheezing Heart S1-S2 Abdomen soft nontender nondistended Carbajal in place, scrotal enlargement, scrotal wounds, Extremities no edema no cyanosis Neuro lethargic, confused Psychiatric unable to obtain Derm multiple wounds pictures reviewed General: Alert, No acute distress Heart: Regular rate Lungs: Crackles Abdomen: Normal bowel sounds, Soft, No tenderness Extremities: No clubbing, No cyanosis Skin: No rashes Assessment and Plan Assessmemt and Plan Problems Medical Problems: (1) Dehydration Status: Acute (2) Metabolic encephalopathy Status: Acute (3) Person under investigation for COVID-19 Status: Acute (4) Renal failure Status: Acute (5) UTI (urinary tract infection) Status: Acute Comment Review of Relevant I have reviewed the following items ab (where applicable) has been applied. Justifications for Admission Other Justification BEBETO SANABRIA MD Jun 30, 2020 08:38
[2020-06-30] MEDS: AMINO AC 3%/ELECTROLYTE/GLYCER 1,000 ML IV SCH (08:45)
[2020-06-30] MEDS ORDERED: MAGNESIUM SULFATE 2GM 50 ML IV PRN (08:45)
[2020-06-30] MEDS: FLUTICASONE 50MCG/NASAL SPRAY 16GM BOTTLE. NS SCH (08:46)
[2020-06-30] MEDS: PANTOPRAZOLE IV PUSH 40 MG VIAL. IVP SCH (08:46)
[2020-06-30] MEDS: FOLIC ACID 1 MG TABLET. PO SCH (08:47)
[2020-06-30] MEDS: rOPINIRole 0.25 MG TABLET. PO SCH ×3 (08:47→21:00)
[2020-06-30] MEDS: MULTIVITAMIN with MINERAL TABLET. PO SCH (08:47)
[2020-06-30] MEDS: ASPIRIN CHEWABLE 81 MG TABLET. PO SCH (08:47)
[2020-06-30] MEDS: LITHIUM CARBONATE ER 300 MG TABLET.ER PO SCH (08:47)
[2020-06-30] MEDS: buPROPion 75 MG TABLET. PO SCH ×2 (08:47→21:00)
[2020-06-30] MEDS: LACTOBACILLUS RHAMNOSUS GG 1 CAPSULE. PO SCH ×2 (08:47→21:00)
[2020-06-30] MEDS: busPIRone 10 MG TABLET. PO SCH ×3 (08:47→21:00)
[2020-06-30] MEDS: SENNOSIDES/DOCUSATE 8.6/50MG TABLET. PO SCH ×2 (08:47→21:00)
[2020-06-30] MEDS: CARBIDOPA/LEVODOPA 25/100MG TABLET PO SCH ×3 (08:47→21:00)
[2020-06-30] MEDS: FLUDROCORTISONE 0.1 MG TABLET PO SCH (08:47)
[2020-06-30] MEDS: VITS A & D/LANOLIN TOPICAL OINTMENT 42GM TUBE. TP SCH ×2 (08:48→21:41)
[2020-06-30] MEDS: OLANZapine 5 MG TABLET PO SCH (08:48)
[2020-06-30 08:54] LABS: BASO # 0.1 x10^3/uL (0.0-0.2); BASO % 1 % (0-3); EOS # 0.3 x10^3/uL (0.0-0.7); EOS % 3 % (0-3); HEMATOCRIT 33.9 % (39.0-53.0); HEMOGLOBIN 11.2 g/dL (13.0-17.5); LYMPH # 2.1 x10^3/uL (1.0-4.8); LYMPH % 20 % (24-48); MEAN CORPUSCULAR HEMOGLOBIN 33 pg (25-35); MEAN CORPUSCULAR HGB CONC 33 g/dL (31-37); MEAN CORPUSCULAR VOLUME 99 fL (79-100); MONO # 0.6 x10^3/uL (0.0-1.1); MONO % 6 % (0-9); NEUT # 7.1 x10^3/uL (1.8-7.7); NEUT % 69 % (31-73); PLATELET COUNT 459 x10^3/uL (140-400); RED BLOOD COUNT 3.43 x10^6/uL (4.30-5.70); RED CELL DISTRIBUTION WIDTH 16.3 % (11.5-14.5); WHITE BLOOD COUNT 10.2 x10^3/uL (4.0-11.0)
[2020-06-30 09:09] LABS: CALCIUM 8.5 mg/dL (8.5-10.1); CREATININE 1.3 mg/dL (0.7-1.3); POTASSIUM 3.7 mmol/L (3.5-5.1)
--- NOTE | 2020-06-30 10:10 | PDOC ---
DATE OF SERVICE: DOS: DATE: 06/30/20 TIME: 10:09 SUBJECTIVE ROS Follow-up for FRACISCO and hypernatremia OBJECTIVE Vital Signs Vital Signs Date Time Temp Pulse Resp B/P (MAP) Pulse Ox O2 Delivery O2 Flow Rate FiO2 06/30/20 07:59 97.9 79 22 101/58 (72) 98 Room Air 97.9 06/29/20 11:59 0.5 I & 0 Intake and Output 06/30/20 07:00 Output Total 750 ml Balance -750 ml Output Urine Total 750 ml PHYSICAL EXAM Physical Exam General Appearance: Minimally responsive Neck: No JVD or JVP Chest: CTA Bobby Heart: S1 S2 Abdomen - Soft NTND Extremities - No Edema DIAGNOSIS/ASSESSMENT Assessment & Plan FRACISCO: Almost resolved. Carbajal catheter in place Hypernatremia: Remains on PPN for now. DDAVP as ordered COMMENT/RELEVANT DATA Meds Current Medications Medications (Trade) Dose Ordered Sig/Bianca Start Time Stop Time Status Last Admin Dose Admin Acetaminophen (Tylenol) 650 mg PRN Q6HRS PRN 06/21/20 10:15 Amino Acids/ Glycerin/ Electrolytes 1,000 ml @ 80 mls/hr [id number] 06/28/20 09:30 06/30/20 08:45 80 MLS/HR Aspirin (Aspirin Chewable) 81 mg DAILY 06/21/20 11:00 06/25/20 09:11 81 MG Bupropion HCl (Wellbutrin Sr) 75 mg BID 06/21/20 11:00 06/24/20 15:23 DC 06/23/20 22:37 75 MG Bupropion HCl (Wellbutrin) 75 mg BID 06/24/20 21:00 06/25/20 09:52 75 MG Buspirone HCl (Buspar) 10 mg TID 06/21/20 11:00 06/25/20 09:09 10 MG Carbidopa/Levodopa (Sinemet 25/100) 2 tab TID 06/21/20 11:00 06/25/20 09:11 2 TAB Ceftriaxone Sodium (Rocephin) 1 gm Q24H 06/20/20 17:00 06/21/20 12:44 DC 06/20/20 17:06 1 GM Daptomycin 270 mg/ Sodium Chloride 50 ml @ 100 mls/hr Q24H 06/28/20 13:00 06/29/20 15:32 100 MLS/HR Daptomycin 350 mg/ Sodium Chloride 50 ml @ 100 mls/hr Q48H 06/21/20 16:00 06/24/20 11:38 DC 06/23/20 15:46 100 MLS/HR Dextrose 1,000 ml @ 100 mls/hr Q10H 06/24/20 12:30 06/28/20 13:16 DC 06/27/20 20:11 100 MLS/HR Dextrose/Sodium Chloride 1,000 ml @ 60 mls/hr [id number] 06/23/20 11:30 06/24/20 12:25 DC 06/24/20 06:15 60 MLS/HR Docusate Sodium (Colace) 100 mg PRN Q12HRS PRN 06/21/20 10:15 Ferrous Sulfate (Feosol) 325 mg [id number] 06/21/20 12:00 06/25/20 09:11 325 MG Fludrocortisone Acetate (Florinef) 0.1 mg DAILY 06/21/20 11:00 06/25/20 09:10 0.1 MG Fluticasone Propionate (Flonase) 2 spray DAILY 06/21/20 12:00 06/30/20 08:46 2 SPRAY Folic Acid (Folic Acid) 1 mg DAILY 06/21/20 12:00 06/25/20 09:11 1 MG Lactobacillus Rhamnosus (Culturelle) 1 cap BID 06/21/20 21:00 06/25/20 09:14 1 CAP Lactulose (Lactulose) 10 gm PRN DAILY PRN 06/21/20 11:15 Levothyroxine Sodium (Synthroid) 125 mcg DAILY06 06/22/20 06:00 06/24/20 06:15 125 MCG [place] Carbonate (Lithobid) 300 mg DAILY 06/21/20 12:00 06/25/20 09:10 300 MG Magnesium Sulfate 50 ml @ 25 mls/hr PRN DAILY PRN 06/30/20 08:45 Micafungin Sodium 100 mg/Dextrose 100 ml @ 100 mls/hr Q24H 06/27/20 11:00 06/29/20 12:39 100 MLS/HR Midodrine (Proamatine) 10 mg [id number] 06/21/20 13:00 06/25/20 13:03 10 MG Multivitamins (Thera M Plus) 1 tab DAILY 06/21/20 12:00 06/25/20 09:11 1 TAB Nitroglycerin (Nitrostat) 0.4 mg PRN Q5MIN PRN 06/21/20 10:15 Non-Formulary Medication (Ciprofloxacin Hcl (Cipro)) 1 tab BID 06/21/20 21:00 06/21/20 15:01 DC Olanzapine (ZyPREXA) 5 mg DAILY 06/21/20 11:00 06/25/20 09:11 5 MG Ondansetron HCl (Zofran) 4 mg PRN Q8HRS PRN 06/20/20 11:30 06/21/20 11:29 DC Pantoprazole Sodium (PROTONIX VIAL for IV PUSH) 40 mg DAILYAC 06/29/20 07:30 06/30/20 08:46 40 MG Pantoprazole Sodium (Protonix) 40 mg DAILYAC 06/21/20 11:30 06/28/20 11:48 DC 06/25/20 09:15 40 MG Piperacillin Sod/ Tazobactam Sod (Zosyn Per Pharmacy) 1 each PRN DAILY PRN 06/21/20 12:45 Piperacillin Sod/ Tazobactam Sod 2.25 gm/Sodium Chloride 50 ml @ 100 mls/hr Q6HRS 06/21/20 18:00 06/30/20 06:00 100 MLS/HR Potassium Chloride/Water 100 ml @ 50 mls/hr 1X ONCE 06/26/20 16:00 06/26/20 17:59 DC 06/26/20 16:24 50 MLS/HR Ropinirole HCl (Requip) 0.5 mg TID 06/21/20 14:00 06/25/20 09:10 0.5 MG Senna/Docusate Sodium (Senna Plus) 1 tab BID 06/21/20 11:00 06/25/20 09:10 1 TAB Sodium Chloride 1,000 ml @ 100 mls/hr Q10H 06/21/20 13:00 06/23/20 11:27 DC 06/23/20 10:27 100 MLS/HR Vitamin A/Vitamin D (Vitamin A & D Ointment) 1 janina BID 06/21/20 16:00 06/30/20 08:48 1 JANINA Lab Laboratory Tests Test 06/30/20 08:15 White Blood Count 10.2 x10^3/uL (4.0-11.0) Red Blood Count 3.43 x10^6/uL (4.30-5.70) Hemoglobin 11.2 g/dL (13.0-17.5) Hematocrit 33.9 % (39.0-53.0) Mean Corpuscular Volume 99 fL (79-100) Mean Corpuscular Hemoglobin 33 pg (25-35) Mean Corpuscular Hemoglobin Concent 33 g/dL (31-37) Red Cell Distribution Width 16.3 % (11.5-14.5) Platelet Count 459 x10^3/uL (140-400) Neutrophils (%) (Auto) 69 % (31-73) Lymphocytes (%) (Auto) 20 % (24-48) Monocytes (%) (Auto) 6 % (0-9) Eosinophils (%) (Auto) 3 % (0-3) Basophils (%) (Auto) 1 % (0-3) Neutrophils # (Auto) 7.1 x10^3/uL (1.8-7.7) Lymphocytes # (Auto) 2.1 x10^3/uL (1.0-4.8) Monocytes # (Auto) 0.6 x10^3/uL (0.0-1.1) Eosinophils # (Auto) 0.3 x10^3/uL (0.0-0.7) Basophils # (Auto) 0.1 x10^3/uL (0.0-0.2) Sodium Level 152 mmol/L (136-145) Potassium Level 3.7 mmol/L (3.5-5.1) Chloride Level 117 mmol/L (98-107) Carbon Dioxide Level 26 mmol/L (21-32) Anion Gap 9 (6-14) Blood Urea Nitrogen 22 mg/dL (8-26) Creatinine 1.3 mg/dL (0.7-1.3) Estimated GFR (Cockcroft-Gault) 53.0 Glucose Level 83 mg/dL (70-99) Calcium Level 8.5 mg/dL (8.5-10.1) Procalcitonin 0.18 ng/mL (0.00-0.10) Results All relevant outside records, renal labs, imaging studies, telemetry/EKG's were reviewed. Justicifation of Admission Dx: Justifications for Admission: Justification of Admission Dx: Yes Sepsis: Bacteremia LOBO STEWARD MD Jun 30, 2020 10:10
[2020-06-30] MEDS ORDERED: DESMOPRESSIN 4 MCG/ML AMPUL. SQ SCH (10:15)
[2020-06-30] MEDS: MICAFUNGIN 100 MG in IV DEXTROSE 5% 100ML 100 ML IV SCH (11:07)
[2020-06-30 11:59] VITALS: BP 112/52
--- NOTE | 2020-06-30 12:54 | PDOC ---
G I PROGRESS NOTE Subjective Non-verbal Objective Apparently not as talkative today. Physical Exam NO PE Review of Relevant I have reviewed the following items ab (where applicable) has been applied. Labs Laboratory Tests Test 06/29/20 08:09 06/30/20 08:15 White Blood Count 10.6 x10^3/uL (4.0-11.0) 10.2 x10^3/uL (4.0-11.0) Red Blood Count 3.48 x10^6/uL (4.30-5.70) 3.43 x10^6/uL (4.30-5.70) Hemoglobin 11.1 g/dL (13.0-17.5) 11.2 g/dL (13.0-17.5) Hematocrit 34.6 % (39.0-53.0) 33.9 % (39.0-53.0) Mean Corpuscular Volume 100 fL (79-100) 99 fL (79-100) Mean Corpuscular Hemoglobin 32 pg (25-35) 33 pg (25-35) Mean Corpuscular Hemoglobin Concent 32 g/dL (31-37) 33 g/dL (31-37) Red Cell Distribution Width 16.2 % (11.5-14.5) 16.3 % (11.5-14.5) Platelet Count 401 x10^3/uL (140-400) 459 x10^3/uL (140-400) Neutrophils (%) (Auto) 68 % (31-73) 69 % (31-73) Lymphocytes (%) (Auto) 22 % (24-48) 20 % (24-48) Monocytes (%) (Auto) 5 % (0-9) 6 % (0-9) Eosinophils (%) (Auto) 4 % (0-3) 3 % (0-3) Basophils (%) (Auto) 1 % (0-3) 1 % (0-3) Neutrophils # (Auto) 7.2 x10^3/uL (1.8-7.7) 7.1 x10^3/uL (1.8-7.7) Lymphocytes # (Auto) 2.4 x10^3/uL (1.0-4.8) 2.1 x10^3/uL (1.0-4.8) Monocytes # (Auto) 0.6 x10^3/uL (0.0-1.1) 0.6 x10^3/uL (0.0-1.1) Eosinophils # (Auto) 0.4 x10^3/uL (0.0-0.7) 0.3 x10^3/uL (0.0-0.7) Basophils # (Auto) 0.1 x10^3/uL (0.0-0.2) 0.1 x10^3/uL (0.0-0.2) Sodium Level 150 mmol/L (136-145) 152 mmol/L (136-145) Potassium Level 3.8 mmol/L (3.5-5.1) 3.7 mmol/L (3.5-5.1) Chloride Level 117 mmol/L (98-107) 117 mmol/L (98-107) Carbon Dioxide Level 24 mmol/L (21-32) 26 mmol/L (21-32) Anion Gap 9 (6-14) 9 (6-14) Blood Urea Nitrogen 18 mg/dL (8-26) 22 mg/dL (8-26) Creatinine 1.4 mg/dL (0.7-1.3) 1.3 mg/dL (0.7-1.3) Estimated GFR (Cockcroft-Gault) 48.6 53.0 Glucose Level 79 mg/dL (70-99) 83 mg/dL (70-99) Calcium Level 8.5 mg/dL (8.5-10.1) 8.5 mg/dL (8.5-10.1) Creatine Kinase 36 U/L (39-308) Procalcitonin 0.18 ng/mL (0.00-0.10) Laboratory Tests Test 06/30/20 08:15 White Blood Count 10.2 x10^3/uL (4.0-11.0) Red Blood Count 3.43 x10^6/uL (4.30-5.70) Hemoglobin 11.2 g/dL (13.0-17.5) Hematocrit 33.9 % (39.0-53.0) Mean Corpuscular Volume 99 fL (79-100) Mean Corpuscular Hemoglobin 33 pg (25-35) Mean Corpuscular Hemoglobin Concent 33 g/dL (31-37) Red Cell Distribution Width 16.3 % (11.5-14.5) Platelet Count 459 x10^3/uL (140-400) Neutrophils (%) (Auto) 69 % (31-73) Lymphocytes (%) (Auto) 20 % (24-48) Monocytes (%) (Auto) 6 % (0-9) Eosinophils (%) (Auto) 3 % (0-3) Basophils (%) (Auto) 1 % (0-3) Neutrophils # (Auto) 7.1 x10^3/uL (1.8-7.7) Lymphocytes # (Auto) 2.1 x10^3/uL (1.0-4.8) Monocytes # (Auto) 0.6 x10^3/uL (0.0-1.1) Eosinophils # (Auto) 0.3 x10^3/uL (0.0-0.7) Basophils # (Auto) 0.1 x10^3/uL (0.0-0.2) Sodium Level 152 mmol/L (136-145) Potassium Level 3.7 mmol/L (3.5-5.1) Chloride Level 117 mmol/L (98-107) Carbon Dioxide Level 26 mmol/L (21-32) Anion Gap 9 (6-14) Blood Urea Nitrogen 22 mg/dL (8-26) Creatinine 1.3 mg/dL (0.7-1.3) Estimated GFR (Cockcroft-Gault) 53.0 Glucose Level 83 mg/dL (70-99) Calcium Level 8.5 mg/dL (8.5-10.1) Procalcitonin 0.18 ng/mL (0.00-0.10) Microbiology 06/21/20 Urine Culture - Final, Complete 06/20/20 Blood Culture - Final, Complete Vitals/I & O Vital Sign - Last 24 Hours 06/29/20 06/29/20 06/29/20 06/29/20 15:59 19:00 20:04 23:03 Temp 97.7 97.7 97.7 97.7 97.7 97.7 Pulse 70 82 86 Resp 20 18 20 B/P (MAP) 141/72 (95) 123/66 (85) 138/86 (103) Pulse Ox 98 98 O2 Delivery Room Air Room Air Room Air Nasal Cannula 1/24/21 1/24/21 1/24/21 03:04 07:59 08:00 Temp 98.3 97.9 98.3 97.9 Pulse 80 79 Resp 18 22 B/P (MAP) 131/74 (93) 101/58 (72) Pulse Ox 97 98 O2 Delivery Room Air Room Air Room Air Intake and Output 06/29/20 06/29/20 06/30/20 15:00 23:00 07:00 Output Total 750 ml Balance -750 ml Problem List Problems Medical Problems: (1) Dehydration Status: Acute (2) Metabolic encephalopathy Status: Acute (3) Person under investigation for COVID-19 Status: Acute (4) Renal failure Status: Acute (5) UTI (urinary tract infection) Status: Acute Assessment OP dysphagia. Family still undecided re: PEG or not. Plan of Care: Continue current Tx, Mgmt Plan of Care Note Await family's decision. Justicifation of Admission Dx: Justifications for Admission: Justification of Admission Dx: Yes Sepsis: Bacteremia MYRTLE ERICKSON MD Jun 30, 2020 12:54
[2020-06-30] MEDS: NORMAL SALINE IV SCH (14:32)
[2020-06-30] MEDS: DAPTOMYCIN IV SCH (14:32)
[2020-06-30 15:59] VITALS: BP 126/75
[2020-06-30 19:00] VITALS: BP 134/65
[2020-06-30 23:02] VITALS: BP 132/67
[2020-07-01] MEDS: PIPERACILLIN/TAZOBACTAM 2.25 GM in IV NORMAL SALINE 50ML 50 ML IV SCH ×5 (00:47→23:24)
[2020-07-01] MEDS: AMINO AC 3%/ELECTROLYTE/GLYCER 1,000 ML IV SCH ×2 (00:47→11:57)
[2020-07-01 03:09] VITALS: BP 130/60
[2020-07-01] MEDS: LEVOTHYROXINE 125 MCG TABLET PO SCH (04:41)
[2020-07-01] MEDS: MIDODRINE 5 MG TABLET PO SCH ×3 (04:42→16:27)
[2020-07-01 07:00] VITALS: BP 117/53
[2020-07-01] MEDS: FERROUS SULFATE 325 MG TABLET. PO SCH (07:43)
[2020-07-01] MEDS: ASPIRIN CHEWABLE 81 MG TABLET. PO SCH (07:44)
[2020-07-01] MEDS: LITHIUM CARBONATE ER 300 MG TABLET.ER PO SCH (07:44)
[2020-07-01] MEDS: LACTOBACILLUS RHAMNOSUS GG 1 CAPSULE. PO SCH ×2 (07:44→21:00)
[2020-07-01] MEDS: SENNOSIDES/DOCUSATE 8.6/50MG TABLET. PO SCH ×2 (07:44→21:00)
[2020-07-01] MEDS: CARBIDOPA/LEVODOPA 25/100MG TABLET PO SCH ×3 (07:44→21:00)
[2020-07-01] MEDS: rOPINIRole 0.25 MG TABLET. PO SCH ×3 (07:44→21:00)
[2020-07-01] MEDS: FLUDROCORTISONE 0.1 MG TABLET PO SCH (07:44)
[2020-07-01] MEDS: FOLIC ACID 1 MG TABLET. PO SCH (07:44)
[2020-07-01] MEDS: busPIRone 10 MG TABLET. PO SCH ×3 (07:44→21:00)
[2020-07-01] MEDS: MULTIVITAMIN with MINERAL TABLET. PO SCH (07:45)
[2020-07-01] MEDS: OLANZapine 5 MG TABLET PO SCH (07:45)
[2020-07-01] MEDS: buPROPion 75 MG TABLET. PO SCH ×2 (07:45→21:00)
[2020-07-01] MEDS: FLUTICASONE 50MCG/NASAL SPRAY 16GM BOTTLE. NS SCH (08:24)
[2020-07-01] MEDS: PANTOPRAZOLE IV PUSH 40 MG VIAL. IVP SCH (08:24)
[2020-07-01] MEDS: VITS A & D/LANOLIN TOPICAL OINTMENT 42GM TUBE. TP SCH ×2 (08:25→21:19)
[2020-07-01 08:39] LABS: BASO # 0.1 x10^3/uL (0.0-0.2); BASO % 1 % (0-3); EOS # 0.3 x10^3/uL (0.0-0.7); EOS % 3 % (0-3); HEMATOCRIT 34.7 % (39.0-53.0); HEMOGLOBIN 11.2 g/dL (13.0-17.5); LYMPH # 2.4 x10^3/uL (1.0-4.8); LYMPH % 23 % (24-48); MEAN CORPUSCULAR HEMOGLOBIN 32 pg (25-35); MEAN CORPUSCULAR HGB CONC 32 g/dL (31-37); MEAN CORPUSCULAR VOLUME 99 fL (79-100); MONO # 0.6 x10^3/uL (0.0-1.1); MONO % 6 % (0-9); NEUT # 7.1 x10^3/uL (1.8-7.7); NEUT % 68 % (31-73); PLATELET COUNT 494 x10^3/uL (140-400); RED CELL DISTRIBUTION WIDTH 16.6 % (11.5-14.5); WHITE BLOOD COUNT 10.4 x10^3/uL (4.0-11.0)
--- NOTE | 2020-07-01 09:06 | PDOC ---
PROGRESS NOTES Date of Service: DATE: 07/01/20 TIME: 09:06 Chief Complaint Chief Complaint ASSESSMENT AND PLAN: Metabolic encephalopathy, ACUTE urinary tract infection, sepsis, BACTEREMIA hypernatremia, urinary tract infection, azotemia, ACUTE renal INJURY , , ACUTE RENAL TUBULAR NECROSIS leukocytosis. FRACISCO with underlying CKD Hypernatremia Covid Negative Encephalopathy likely metabolic severe protein-caloric malnutrition Multiple wounds Generalized debility PLAN admitted. IV antibiotics. Consult Nephrology. CONSULT ID IV fluids, chg hypotonic saline 06/10 ns home meds, DVT prophylaxis, full code, Carbajal to bedside p.r.n. Zofran, Continue Zosyn iv q 6 hrs continue daptomycin IV Follow GPC in blood culture Remains NPO on PPN, awaiting family decision re: PEG. 07-01 History of Present Illness History of Present Illness HISTORY OF PRESENT ILLNESS: The patient is a pleasant 79-year-old male, who has a chronic indwelling Carbajal. He is now presenting from a facility. He has mental status change. I believe the catheter got pulled out by accident last night. I discussed the case with the ER physician. It appears he has probable urinary tract infection with urosepsis and metabolic encephalopathy. We are going to admit the patient and give him IV antibiotics and fluids and try to get him feeling better. 06/24: Patient seen and evaluated at bedside. Afebrile, no acute events overnight. Continue IV antibiotics for positive blood culture and UTI. Still with some hypernatremia. Will continue with IV fluids. Charts and labs reviewed. 06/25: Patient seen and evaluated. He is COVID-19 negative. Transferred to medical floors. Creatinine continues to improve. Continue IV antibiotics for sepsis, UTI, bacteremia (possible contaminant). 06/26: No acute events overnight. Afebrile, breathing comfortably on room air. Leukocytosis improving. Further morning labs pending. Continue to monitor for creatinine and sodium improvement. Continue IV antibiotics, per ID. Daptomycin was added to Zosyn. Discussed with Dr. Steven, no significant improvement noted, patient still very lethargic. Will attempt to discuss with DPOA today about goals of care and hospice. 06/27: No acute events overnight. Patient was made DNR yesterday. Hospice to meet with patient's family to discuss palliative care. Per ID, antibiotics may be switched to p.o. soon. ST evaluated patient yesterday with noted moderate to high risk of aspiration. Would consider puree with honey thick with understanding of risk of aspiration. 06/28: Afebrile. No acute events. ST to re-eval swallow study. Will consult GI for PEG tube placement. Will initiate PPN. I appreciate Dr. Gibson's input; no manipulating his Parkinson's medications will not change overall prognosis. Continue antibiotics, per ID. 06/29: Patient evaluated with at bedside. WBC improved, sodium slightly improved. Patient does say few words with to me today. Still n.p.o. as he is unsafe for oral intake. Will need PEG tube, which will not evaluate his risk of aspiration. would like to discuss with son further. Charts and labs reviewed. 06/30: Afebrile. WBC did show some improvement, however morning labs pending. Patient still n.p.o., receiving ProcalAmine. Will discuss with son and further today about desires to proceed with PEG tube. 07-01 Remains NPO on PPN, awaiting family decision re: PEG. d/w RN Vitals Vitals Vital Signs Date Time Temp Pulse Resp B/P (MAP) Pulse Ox O2 Delivery O2 Flow Rate FiO2 07/01/20 07:00 97.6 75 18 117/53 (74) 96 Room Air 97.6 Physical Exam Physical Exam General lethargic, arousable but does not answer any questions HEENT normocephalic atraumatic anicteric no thrush oral mucosa moist Neck supple Lungs clear bilaterally no wheezing Heart S1-S2 Abdomen soft nontender nondistended Carbajal in place, scrotal enlargement, scrotal wounds, Extremities no edema no cyanosis Neuro lethargic, confused Psychiatric unable to obtain Derm multiple wounds pictures reviewed General: Alert, No acute distress Heart: Regular rate Lungs: Crackles Abdomen: Normal bowel sounds, Soft, No tenderness Extremities: No clubbing, No cyanosis Skin: No rashes Labs LABS Laboratory Tests Test 07/01/20 07:20 White Blood Count 10.4 x10^3/uL (4.0-11.0) Red Blood Count 3.50 x10^6/uL (4.30-5.70) Hemoglobin 11.2 g/dL (13.0-17.5) Hematocrit 34.7 % (39.0-53.0) Mean Corpuscular Volume 99 fL (79-100) Mean Corpuscular Hemoglobin 32 pg (25-35) Mean Corpuscular Hemoglobin Concent 32 g/dL (31-37) Red Cell Distribution Width 16.6 % (11.5-14.5) Platelet Count 494 x10^3/uL (140-400) Neutrophils (%) (Auto) 68 % (31-73) Lymphocytes (%) (Auto) 23 % (24-48) Monocytes (%) (Auto) 6 % (0-9) Eosinophils (%) (Auto) 3 % (0-3) Basophils (%) (Auto) 1 % (0-3) Neutrophils # (Auto) 7.1 x10^3/uL (1.8-7.7) Lymphocytes # (Auto) 2.4 x10^3/uL (1.0-4.8) Monocytes # (Auto) 0.6 x10^3/uL (0.0-1.1) Eosinophils # (Auto) 0.3 x10^3/uL (0.0-0.7) Basophils # (Auto) 0.1 x10^3/uL (0.0-0.2) Assessment and Plan Assessmemt and Plan Problems Medical Problems: (1) Dehydration Status: Acute (2) Metabolic encephalopathy Status: Acute (3) Person under investigation for COVID-19 Status: Acute (4) Renal failure Status: Acute (5) UTI (urinary tract infection) Status: Acute Comment Review of Relevant I have reviewed the following items ab (where applicable) has been applied. Labs Laboratory Tests Test 06/30/20 08:15 07/01/20 07:20 White Blood Count 10.2 x10^3/uL (4.0-11.0) 10.4 x10^3/uL (4.0-11.0) Red Blood Count 3.43 x10^6/uL (4.30-5.70) 3.50 x10^6/uL (4.30-5.70) Hemoglobin 11.2 g/dL (13.0-17.5) 11.2 g/dL (13.0-17.5) Hematocrit 33.9 % (39.0-53.0) 34.7 % (39.0-53.0) Mean Corpuscular Volume 99 fL (79-100) 99 fL (79-100) Mean Corpuscular Hemoglobin 33 pg (25-35) 32 pg (25-35) Mean Corpuscular Hemoglobin Concent 33 g/dL (31-37) 32 g/dL (31-37) Red Cell Distribution Width 16.3 % (11.5-14.5) 16.6 % (11.5-14.5) Platelet Count 459 x10^3/uL (140-400) 494 x10^3/uL (140-400) Neutrophils (%) (Auto) 69 % (31-73) 68 % (31-73) Lymphocytes (%) (Auto) 20 % (24-48) 23 % (24-48) Monocytes (%) (Auto) 6 % (0-9) 6 % (0-9) Eosinophils (%) (Auto) 3 % (0-3) 3 % (0-3) Basophils (%) (Auto) 1 % (0-3) 1 % (0-3) Neutrophils # (Auto) 7.1 x10^3/uL (1.8-7.7) 7.1 x10^3/uL (1.8-7.7) Lymphocytes # (Auto) 2.1 x10^3/uL (1.0-4.8) 2.4 x10^3/uL (1.0-4.8) Monocytes # (Auto) 0.6 x10^3/uL (0.0-1.1) 0.6 x10^3/uL (0.0-1.1) Eosinophils # (Auto) 0.3 x10^3/uL (0.0-0.7) 0.3 x10^3/uL (0.0-0.7) Basophils # (Auto) 0.1 x10^3/uL (0.0-0.2) 0.1 x10^3/uL (0.0-0.2) Sodium Level 152 mmol/L (136-145) Potassium Level 3.7 mmol/L (3.5-5.1) Chloride Level 117 mmol/L (98-107) Carbon Dioxide Level 26 mmol/L (21-32) Anion Gap 9 (6-14) Blood Urea Nitrogen 22 mg/dL (8-26) Creatinine 1.3 mg/dL (0.7-1.3) Estimated GFR (Cockcroft-Gault) 53.0 Glucose Level 83 mg/dL (70-99) Calcium Level 8.5 mg/dL (8.5-10.1) Procalcitonin 0.18 ng/mL (0.00-0.10) Laboratory Tests Test 07/01/20 07:20 White Blood Count 10.4 x10^3/uL (4.0-11.0) Red Blood Count 3.50 x10^6/uL (4.30-5.70) Hemoglobin 11.2 g/dL (13.0-17.5) Hematocrit 34.7 % (39.0-53.0) Mean Corpuscular Volume 99 fL (79-100) Mean Corpuscular Hemoglobin 32 pg (25-35) Mean Corpuscular Hemoglobin Concent 32 g/dL (31-37) Red Cell Distribution Width 16.6 % (11.5-14.5) Platelet Count 494 x10^3/uL (140-400) Neutrophils (%) (Auto) 68 % (31-73) Lymphocytes (%) (Auto) 23 % (24-48) Monocytes (%) (Auto) 6 % (0-9) Eosinophils (%) (Auto) 3 % (0-3) Basophils (%) (Auto) 1 % (0-3) Neutrophils # (Auto) 7.1 x10^3/uL (1.8-7.7) Lymphocytes # (Auto) 2.4 x10^3/uL (1.0-4.8) Monocytes # (Auto) 0.6 x10^3/uL (0.0-1.1) Eosinophils # (Auto) 0.3 x10^3/uL (0.0-0.7) Basophils # (Auto) 0.1 x10^3/uL (0.0-0.2) Microbiology 06/21/20 Urine Culture - Final, Complete 06/20/20 Blood Culture - Final, Complete Medications Current Medications Ceftriaxone Sodium (Rocephin) 1 gm 1X ONCE IVP Last administered on 06/20/20at 11:34; Start 06/20/20 at 10:45; Stop 06/20/20 at 10:47; Status DC Sodium Chloride 1,000 ml @ 1,000 mls/hr 1X ONCE IV Last administered on at 11:34; Start 06/20/20 at 10:45; Stop 06/20/20 at 11:44; Status DC Ondansetron HCl (Zofran) 4 mg PRN Q8HRS PRN IV NAUSEA/VOMITING; Start 06/20/20 at 11:30; Stop 06/21/20 at 11:29; Status DC Sodium Chloride 1,000 ml @ 75 mls/hr [id number] IV Last administered on 06/21/20at 06:22; Start 06/20/20 at 12:00; Stop 06/21/20 at 11:59; Status DC Ceftriaxone Sodium (Rocephin) 1 gm Q24H IVP Last administered on 06/20/20at 17:06; Start 06/20/20 at 17:00; Stop 06/21/20 at 12:44; Status DC Acetaminophen (Tylenol) 650 mg PRN Q6HRS PRN PO MILD PAIN 1-3; Start 06/21/20 at 10:15 Aspirin (Aspirin Chewable) 81 mg DAILY PO Last administered on 06/25/20at 09:11; Start 06/21/20 at 11:00 Bupropion HCl (Wellbutrin Sr) 75 mg BID PO Last administered on 06/23/20at 22:37; Start 06/21/20 at 11:00; Stop 06/24/20 at 15:23; Status DC Buspirone HCl (Buspar) 10 mg TID PO ; Start 06/21/20 at 11:00; Stop 06/21/20 at 10:56; Status DC Carbidopa/Levodopa (Sinemet 25/100) 2 tab TID PO Last administered on 06/25/20at 09:11; Start 06/21/20 at 11:00 Docusate Sodium (Colace) 100 mg PRN Q12HRS PRN PO HARD STOOLS; Start 06/21/20 at 10:15 Fludrocortisone Acetate (Florinef) 0.1 mg DAILY PO Last administered on 06/25/20at 09:10; Start 06/21/20 at 11:00 Levothyroxine Sodium (Synthroid) 125 mcg DAILY06 PO Last administered on 06/24/20at 06:15; Start 06/22/20 at 06:00 Midodrine (Proamatine) 10 mg [id number] PO Last administered on 06/25/20at 13:03; Start 06/21/20 at 13:00 Nitroglycerin (Nitrostat) 0.4 mg PRN Q5MIN PRN SL CHEST PAIN; Start 06/21/20 at 10:15 Olanzapine (ZyPREXA) 5 mg DAILY PO Last administered on 06/25/20at 09:11; Start 06/21/20 at 11:00 Senna/Docusate Sodium (Senna Plus) 1 tab BID PO Last administered on 06/25/20at 09:10; Start 06/21/20 at 11:00 Non-Formulary Medication (Ciprofloxacin Hcl (Cipro)) 1 tab BID PO ; Start 06/21/20 at 21:00; Stop 06/21/20 at 15:01; Status DC Ferrous Sulfate (Feosol) 325 mg [id number] PO Last administered on 06/25/20at 09:11; Start 06/21/20 at 12:00 Fluticasone Propionate (Flonase) 2 spray DAILY NS Last administered on 07/01/20at 08:24; Start 06/21/20 at 12:00 Folic Acid (Folic Acid) 1 mg DAILY PO Last administered on 06/25/20at 09:11; Start 06/21/20 at 12:00 Lactulose (Lactulose) 10 gm PRN DAILY PRN PO CONSTIPATION; Start 06/21/20 at 11:15 Elmore Carbonate (Lithobid) 300 mg DAILY PO Last administered on 06/25/20at 09:10; Start 06/21/20 at 12:00 Multivitamins (Thera M Plus) 1 tab DAILY PO Last administered on 06/25/20at 09:11; Start 06/21/20 at 12:00 Pantoprazole Sodium (Protonix) 40 mg DAILYAC PO Last administered on 06/25/20at 09:15; Start 06/21/20 at 11:30; Stop 06/28/20 at 11:48; Status DC Ropinirole HCl (Requip) 0.5 mg TID PO Last administered on 06/25/20at 09:10; Start 06/21/20 at 14:00 Buspirone HCl (Buspar) 10 mg TID PO Last administered on 06/25/20at 09:09; Start 06/21/20 at 11:00 Piperacillin Sod/ Tazobactam Sod (Zosyn Per Pharmacy) 1 each PRN DAILY PRN MC SEE COMMENTS; Start 06/21/20 at 12:45 Sodium Chloride 1,000 ml @ 100 mls/hr Q10H IV Last administered on 06/23/20at 10:27; Start 06/21/20 at 13:00; Stop 06/23/20 at 11:27; Status DC Piperacillin Sod/ Tazobactam Sod 2.25 gm/Sodium Chloride 50 ml @ 100 mls/hr Q6HRS IV Last administered on 07/01/20at 05:35; Start 06/21/20 at 18:00 Daptomycin 350 mg/ Sodium Chloride 50 ml @ 100 mls/hr Q48H IV Last administered on 06/23/20at 15:46; Start 06/21/20 at 16:00; Stop 06/24/20 at 11:38; Status DC Vitamin A/Vitamin D (Vitamin A & D Ointment) 1 janina BID TP Last administered on 07/01/20at 08:25; Start 06/21/20 at 16:00 Lactobacillus Rhamnosus (Culturelle) 1 cap BID PO Last administered on 06/25/20at 09:14; Start 06/21/20 at 21:00 Dextrose/Sodium Chloride 1,000 ml @ 60 mls/hr [id number] IV Last administered on 06/24/20at 06:15; Start 06/23/20 at 11:30; Stop 06/24/20 at 12:25; Status DC Dextrose 1,000 ml @ 100 mls/hr Q10H IV Last administered on 06/27/20at 20:11; Start 06/24/20 at 12:30; Stop 06/28/20 at 13:16; Status DC Bupropion HCl (Wellbutrin) 75 mg BID PO Last administered on 06/25/20at 09:52; Start 06/24/20 at 21:00 Potassium Chloride/Water 100 ml @ 50 mls/hr 1X ONCE IV Last administered on 06/26/20at 16:24; Start 06/26/20 at 16:00; Stop 06/26/20 at 17:59; Status DC Micafungin Sodium 100 mg/Dextrose 100 ml @ 100 mls/hr Q24H IV Last administered on 06/30/20at 11:07; Start 06/27/20 at 11:00 Amino Acids/ Glycerin/ Electrolytes 1,000 ml @ 80 mls/hr [id number] IV Last administered on 07/01/20at 00:47; Start 06/28/20 at 09:30 Daptomycin 270 mg/ Sodium Chloride 50 ml @ 100 mls/hr Q24H IV Last administered on 06/30/20at 14:32; Start 06/28/20 at 13:00 Pantoprazole Sodium (PROTONIX VIAL for IV PUSH) 40 mg DAILYAC IVP Last administered on 07/01/20at 08:24; Start 06/29/20 at 07:30 Magnesium Sulfate 50 ml @ 25 mls/hr PRN DAILY PRN IV for Mag < 1.7 on am labs; Start 06/30/20 at 08:45 Desmopressin Acetate (Ddavp) 4 mcg 1X SQ ; Start 06/30/20 at 10:15 Active Scripts Active Reported Tylenol (Acetaminophen) 325 Mg Tablet 2 Tab PO PRN Q6HRS PRN Senna-S 8.6-50 mg Tablet (Sennosides/Docusate Sodium) 1 Each Tablet 1 Each PO BID Ropinirole Hcl 0.5 Mg Tablet 0.5 Mg PO TID Prilosec Otc (Omeprazole Magnesium) 20 Mg Tablet.dr 40 Mg PO DAILY Olanzapine 5 Mg Tablet 5 Mg PO DAILY NITROGLYCERIN SubLingual (Nitroglycerin) 0.4 Mg Tab.subl 0.4 Mg SL PRN Q5MIN PRN Midodrine Hcl 5 Mg Tablet 10 Mg PO TID Methotrexate (Methotrexate Sodium) 2.5 Mg Tablet 20 Tab PO WEEKLY Melatonin 5 Mg Tab.rapdis 1 Tab PO QHS 30 Days Elmore Carbonate 300 Mg Capsule 1 Cap PO DAILY Levothyroxine Sodium 125 Mcg Tablet 1 Tab PO DAILY Lactulose 10 Gm Packet 10 Gm PO PRN DAILY PRN Folic Acid 0.4 Mg Tablet 1 Mg PO DAILY Fludrocortisone Acetate 0.1 Mg Tablet 0.1 Mg PO DAILY Flonase Allergy Relief (Fluticasone Propionate) 9.9 Ml Bluejacket.susp 2 Sprays NS DAILY Ferrous Sulfate 220 Mg/5 Ml Solution 325 Mg PO DAILY Multiple Vitamins (Multivitamin) 1 Each Tablet 1 Tab PO DAILY 30 Days Vitamin D2 (Ergocalciferol (Vitamin D2)) 1,250 Mcg Capsule 1,250 Mcg PO DAILY Colace (Docusate Sodium) 100 Mg Capsule 1 Cap PO PRN Q12HRS PRN 30 Days Cipro (Ciprofloxacin Hcl) 500 Mg Tablet 1 Tab PO BID 7 Days Carbidopa-Levodopa 25-100 Tab (Carbidopa/Levodopa) 1 Each Tablet 2 Tab PO TID 30 Days Buspirone Hcl 5 Mg Tablet 2 Tab PO TID Bupropion Hcl Sr (Bupropion Hcl) 100 Mg Tablet.er 75 Mg PO BID Children's Aspirin (Aspirin) 81 Mg Tab.chew 1 Tab PO DAILY 30 Days Vitals/I & O Vital Sign - Last 24 Hours 06/30/20 06/30/20 06/30/20 06/30/20 11:59 15:59 19:00 20:00 Temp 97.7 97.5 97.8 97.7 97.5 97.8 Pulse 73 77 73 Resp 18 18 20 B/P (MAP) 112/52 (72) 126/75 (92) 134/65 (88) Pulse Ox 97 99 100 O2 Delivery Room Air Room Air Room Air Room Air 06/30/20 07/01/20 07/01/20 23:02 03:09 07:00 Temp 98.0 97.9 97.6 98.0 97.9 97.6 Pulse 77 70 75 Resp 18 18 18 B/P (MAP) 132/67 (88) 130/60 (83) 117/53 (74) Pulse Ox 94 96 O2 Delivery Room Air Room Air Room Air Intake and Output 06/30/20 06/30/20 07/01/20 15:00 23:00 07:00 Intake Total 1050 ml Output Total 1300 ml 700 ml Balance -1300 ml 350 ml Nutrition Consultation Dietary Evaluation: Recommendations by RD: Dietary education by RD Comments: NPO, hospice being considered Expected Outcomes/Goals: leaning towards comfort care Malnutrition Findings: Food and Nutrition Intake (Mod: <75% est energy req 7days Body Fat Depletion (Non Severe: Mild Depletion Weight Status: Underweight Justicifation of Admission Dx: Justifications for Admission: Justification of Admission Dx: Yes Sepsis: Bacteremia GRZEGORZ VERMA MD Jul 01, 2020 09:06
[2020-07-01 09:19] LABS: ALBUMIN 1.8 g/dL (3.4-5.0); CREATININE 1.3 mg/dL (0.7-1.3); PHOSPHORUS 2.1 mg/dL (2.6-4.7); POTASSIUM 3.7 mmol/L (3.5-5.1)
--- NOTE | 2020-07-01 09:51 | PDOC ---
Date of Service: DATE: 07/01/20 TIME: 09:46 Subjective: Subjective: Says "breathing therapy." Objective: Objective: D/w nurse - hasn't heard of any decision re: PEG from family, pt asked for ice water this morning. Vital Signs: Vital Signs Date Time Temp Pulse Resp B/P (MAP) Pulse Ox O2 Delivery O2 Flow Rate FiO2 07/01/20 07:00 97.6 75 18 117/53 (74) 96 Room Air 97.6 Labs: Laboratory Tests Test 07/01/20 07:20 White Blood Count 10.4 x10^3/uL Red Blood Count 3.50 x10^6/uL Hemoglobin 11.2 g/dL Hematocrit 34.7 % Mean Corpuscular Volume 99 fL Mean Corpuscular Hemoglobin 32 pg Mean Corpuscular Hemoglobin Concent 32 g/dL Red Cell Distribution Width 16.6 % Platelet Count 494 x10^3/uL Neutrophils (%) (Auto) 68 % Lymphocytes (%) (Auto) 23 % Monocytes (%) (Auto) 6 % Eosinophils (%) (Auto) 3 % Basophils (%) (Auto) 1 % Neutrophils # (Auto) 7.1 x10^3/uL Lymphocytes # (Auto) 2.4 x10^3/uL Monocytes # (Auto) 0.6 x10^3/uL Eosinophils # (Auto) 0.3 x10^3/uL Basophils # (Auto) 0.1 x10^3/uL Sodium Level 154 mmol/L Potassium Level 3.7 mmol/L Chloride Level 117 mmol/L Carbon Dioxide Level 23 mmol/L Anion Gap 14 Blood Urea Nitrogen 25 mg/dL Creatinine 1.3 mg/dL Estimated GFR (Cockcroft-Gault) 53.0 Glucose Level 85 mg/dL Calcium Level 9.0 mg/dL Phosphorus Level 2.1 mg/dL Magnesium Level 2.3 mg/dL Albumin 1.8 g/dL PE: GEN: chronically ill LUNGS: clear, poor effort HEART: RRR ABD: soft, non-tender EXTREM: contractures NEURO/PSYCH: awake, ?confused A/P: Parkinson's w/ dysphagia Hypernatremia COVID negative 06/20 -- Remains NPO on PPN, awaiting family decision re: PEG. Justicifation of Admission Dx: Justifications for Admission: Justification of Admission Dx: Yes Sepsis: Bacteremia JOYCE-BRANINE,ARMAND PA Jul 01, 2020 09:51
--- NOTE | 2020-07-01 10:30 | PDOC ---
Infectious Disease Note Subjective Subjective Patient awake, mumbles few words Appears comfortable ROS ROS no n/v/d/sob Vital Sign Vital Signs Vital Signs Date Time Temp Pulse Resp B/P (MAP) Pulse Ox O2 Delivery O2 Flow Rate FiO2 07/01/20 07:00 97.6 75 18 117/53 (74) 96 Room Air 97.6 Physical Exam PHYSICAL EXAM General lethargic, arousable but does not answer any questions HEENT normocephalic atraumatic anicteric no thrush oral mucosa moist Neck supple Lungs clear bilaterally no wheezing Heart S1-S2 Abdomen soft nontender nondistended Carbajal in place, scrotal enlargement, scrotal wounds, Extremities no edema no cyanosis Neuro lethargic, confused Psychiatric unable to obtain Derm multiple wounds pictures reviewed Labs Lab Laboratory Tests Test 07/01/20 07:20 White Blood Count 10.4 x10^3/uL (4.0-11.0) Red Blood Count 3.50 x10^6/uL (4.30-5.70) Hemoglobin 11.2 g/dL (13.0-17.5) Hematocrit 34.7 % (39.0-53.0) Mean Corpuscular Volume 99 fL (79-100) Mean Corpuscular Hemoglobin 32 pg (25-35) Mean Corpuscular Hemoglobin Concent 32 g/dL (31-37) Red Cell Distribution Width 16.6 % (11.5-14.5) Platelet Count 494 x10^3/uL (140-400) Neutrophils (%) (Auto) 68 % (31-73) Lymphocytes (%) (Auto) 23 % (24-48) Monocytes (%) (Auto) 6 % (0-9) Eosinophils (%) (Auto) 3 % (0-3) Basophils (%) (Auto) 1 % (0-3) Neutrophils # (Auto) 7.1 x10^3/uL (1.8-7.7) Lymphocytes # (Auto) 2.4 x10^3/uL (1.0-4.8) Monocytes # (Auto) 0.6 x10^3/uL (0.0-1.1) Eosinophils # (Auto) 0.3 x10^3/uL (0.0-0.7) Basophils # (Auto) 0.1 x10^3/uL (0.0-0.2) Sodium Level 154 mmol/L (136-145) Potassium Level 3.7 mmol/L (3.5-5.1) Chloride Level 117 mmol/L (98-107) Carbon Dioxide Level 23 mmol/L (21-32) Anion Gap 14 (6-14) Blood Urea Nitrogen 25 mg/dL (8-26) Creatinine 1.3 mg/dL (0.7-1.3) Estimated GFR (Cockcroft-Gault) 53.0 Glucose Level 85 mg/dL (70-99) Calcium Level 9.0 mg/dL (8.5-10.1) Phosphorus Level 2.1 mg/dL (2.6-4.7) Magnesium Level 2.3 mg/dL (1.8-2.4) Albumin 1.8 g/dL (3.4-5.0) Micro Microbiology 06/21/20 Urine Culture - Final, Complete 06/20/20 Blood Culture - Final, Complete Objective Assessment Sepsis source wounds vs uti cultures nonrevealing Leukocytosis Bacteremia gram-positive cocci, staph hominis and staph epidermidis likely contaminant UTI cult neg FRACISCO with underlying CKD Hypernatremia Covid Negative Encephalopathy likely metabolic Multiple wounds Generalized debility History of bipolar disorder BPH GERD Plan Plan of Care cont meropenem, change to po if allowed Wound care as directed Offload Maintain aspiration precaution Continue supportive care Overall prognosis poor GI input noted for peg tube placement Consider palliative care Team is in talks with family regarding final goals of treatment,full code for now per d/w RN. need hospice d/w RN KELY STEWARD MD Jul 01, 2020 10:30
[2020-07-01 11:00] VITALS: BP 108/52
--- NOTE | 2020-07-01 12:46 | PDOC ---
Renal-Progress Notes Subjective Notes Notes CONFUSED History of Present Illness Hx of present illness NO ACUTE CHANGES Vitals Vitals Vital Signs Date Time Temp Pulse Resp B/P (MAP) Pulse Ox O2 Delivery O2 Flow Rate FiO2 07/01/20 11:00 97.9 75 18 108/52 (70) 96 Room Air 97.9 Weight Weight [ ] I.O. Intake and Output Intake and Output 07/01/20 07:00 Intake Total 1050 ml Output Total 2000 ml Balance -950 ml IV Total 1050 ml Output Urine Total 2000 ml Labs Labs Laboratory Tests Test 07/01/20 07:20 White Blood Count 10.4 x10^3/uL (4.0-11.0) Red Blood Count 3.50 x10^6/uL (4.30-5.70) Hemoglobin 11.2 g/dL (13.0-17.5) Hematocrit 34.7 % (39.0-53.0) Mean Corpuscular Volume 99 fL (79-100) Mean Corpuscular Hemoglobin 32 pg (25-35) Mean Corpuscular Hemoglobin Concent 32 g/dL (31-37) Red Cell Distribution Width 16.6 % (11.5-14.5) Platelet Count 494 x10^3/uL (140-400) Neutrophils (%) (Auto) 68 % (31-73) Lymphocytes (%) (Auto) 23 % (24-48) Monocytes (%) (Auto) 6 % (0-9) Eosinophils (%) (Auto) 3 % (0-3) Basophils (%) (Auto) 1 % (0-3) Neutrophils # (Auto) 7.1 x10^3/uL (1.8-7.7) Lymphocytes # (Auto) 2.4 x10^3/uL (1.0-4.8) Monocytes # (Auto) 0.6 x10^3/uL (0.0-1.1) Eosinophils # (Auto) 0.3 x10^3/uL (0.0-0.7) Basophils # (Auto) 0.1 x10^3/uL (0.0-0.2) Sodium Level 154 mmol/L (136-145) Potassium Level 3.7 mmol/L (3.5-5.1) Chloride Level 117 mmol/L (98-107) Carbon Dioxide Level 23 mmol/L (21-32) Anion Gap 14 (6-14) Blood Urea Nitrogen 25 mg/dL (8-26) Creatinine 1.3 mg/dL (0.7-1.3) Estimated GFR (Cockcroft-Gault) 53.0 Glucose Level 85 mg/dL (70-99) Calcium Level 9.0 mg/dL (8.5-10.1) Phosphorus Level 2.1 mg/dL (2.6-4.7) Magnesium Level 2.3 mg/dL (1.8-2.4) Albumin 1.8 g/dL (3.4-5.0) Micro Micro Microbiology 06/21/20 Urine Culture - Final, Complete 06/20/20 Blood Culture - Final, Complete Review of Systems Constitutional: yes: other (CONFUSED) Physical Exam General Appearance: no apparent distress Skin: warm Respiratory: decreased breath sounds Heart: S1S2 Abdomen: soft, bowel sounds present Genitourinary: bladder flat Extremities: pulses present Neurology: confused Assessment Assessment IMP FRACISCO-CR OF 3.8 TO 1.3 - RESOLVING EXTRACELLULAR VOLUME DEPLETION URINARY TRACT INFECTION MET ENCEPHALOPATHY HYPERNATREMIA LEUCOCYTOSIS PLAN ON PPN START D5W ANTIBIOTICS LABS IN AM WILL FOLLOW RUBEN MCNEIL MD Jul 01, 2020 12:46
[2020-07-01] MEDS: IV DEXTROSE 5% 1,000 ML IV SCH (13:00)
[2020-07-01] MEDS ORDERED: IV DEXTROSE 5% 1,000 ML IV SCH (14:45)
[2020-07-01 15:00] VITALS: BP 107/55
[2020-07-01 19:00] VITALS: BP 141/63
[2020-07-01 23:00] VITALS: BP 112/52
[2020-07-02] MEDS: AMINO AC 3%/ELECTROLYTE/GLYCER 1,000 ML IV SCH ×2 (01:59→13:30)
[2020-07-02 03:00] VITALS: BP 112/58
[2020-07-02] MEDS: IV DEXTROSE 5% 1,000 ML IV SCH ×2 (03:20→15:38)
[2020-07-02] MEDS: LEVOTHYROXINE 125 MCG TABLET PO SCH (04:06)
[2020-07-02] MEDS: MIDODRINE 5 MG TABLET PO SCH ×2 (04:06→13:00)
[2020-07-02] MEDS: PIPERACILLIN/TAZOBACTAM 2.25 GM in IV NORMAL SALINE 50ML 50 ML IV SCH ×2 (06:17→13:26)
--- NOTE | 2020-07-02 06:52 | PDOC ---
PROGRESS NOTES Date of Service: DATE: 07/02/20 TIME: 06:52 Chief Complaint Chief Complaint DISCHARGE HOSPITAL SUMMARY DATE OF ADMIT 06-20-20 date of discharge 07-02-20 complications none discharge condition, guarded D/C MEDS SEE MAR CONSULTATIONS , GI, NEPHROLOGY, NEUROLOGY, INFECTIOUS DISEASE FOLLOW UP TODAY WITH [facility] DISCHARGE DX Metabolic encephalopathy, ACUTE urinary tract infection, sepsis, BACTEREMIA hypernatremia, urinary tract infection, azotemia, ACUTE renal INJURY , , ACUTE RENAL TUBULAR NECROSIS leukocytosis. FRACISCO with underlying CKD Hypernatremia Covid Negative Encephalopathy likely metabolic severe protein-caloric malnutrition Multiple wounds Generalized debility PLAN admitted. IV antibiotics. Consult Nephrology. CONSULT ID IV fluids, chg hypotonic saline 06/10 ns home meds, DVT prophylaxis, full code, Carbajal to bedside p.r.n. Zofran, Continue Zosyn iv q 6 hrs continue daptomycin IV Follow GPC in blood culture Remains NPO on PPN, awaiting family decision re: PEG. 07-01 FAMILY HAS DECIDED ON HOSPICE CARE, [facility] D/C TODAY D/C PLANNING 35 MIN History of Present Illness History of Present Illness HISTORY OF PRESENT ILLNESS: The patient is a pleasant 79-year-old male, who has a chronic indwelling Carbajal. He is now presenting from a facility. He has mental status change. I believe the catheter got pulled out by accident last night. I discussed the case with the ER physician. It appears he has probable urinary tract infection with urosepsis and metabolic encephalopathy. We are going to admit the patient and give him IV antibiotics and fluids and try to get him feeling better. 06/24: Patient seen and evaluated at bedside. Afebrile, no acute events overnight. Continue IV antibiotics for positive blood culture and UTI. Still with some hypernatremia. Will continue with IV fluids. Charts and labs reviewed. 06/25: Patient seen and evaluated. He is COVID-19 negative. Transferred to medical floors. Creatinine continues to improve. Continue IV antibiotics for sepsis, UTI, bacteremia (possible contaminant). 06/26: No acute events overnight. Afebrile, breathing comfortably on room air. Leukocytosis improving. Further morning labs pending. Continue to monitor for creatinine and sodium improvement. Continue IV antibiotics, per ID. Daptomycin was added to Zosyn. Discussed with Dr. Steven, no significant improvement noted, patient still very lethargic. Will attempt to discuss with DPOA today about goals of care and hospice. 06/27: No acute events overnight. Patient was made DNR yesterday. Hospice to meet with patient's family to discuss palliative care. Per ID, antibiotics may be switched to p.o. soon. ST evaluated patient yesterday with noted moderate to high risk of aspiration. Would consider puree with honey thick with understanding of risk of aspiration. 06/28: Afebrile. No acute events. ST to re-eval swallow study. Will consult GI for PEG tube placement. Will initiate PPN. I appreciate Dr. Gibson's input; no manipulating his Parkinson's medications will not change overall prognosis. Continue antibiotics, per ID. 06/29: Patient evaluated with at bedside. WBC improved, sodium slightly improved. Patient does say few words with to me today. Still n.p.o. as he is unsafe for oral intake. Will need PEG tube, which will not evaluate his risk of aspiration. would like to discuss with son further. Charts and labs reviewed. 06/30: Afebrile. WBC did show some improvement, however morning labs pending. Patient still n.p.o., receiving ProcalAmine. Will discuss with son and further today about desires to proceed with PEG tube. 07-01 Remains NPO on PPN, awaiting family decision re: PEG. d/w RN Vitals Vitals Vital Signs Date Time Temp Pulse Resp B/P (MAP) Pulse Ox O2 Delivery O2 Flow Rate FiO2 07/02/20 03:00 96.8 66 18 112/58 (76) 97 Room Air 96.8 Physical Exam Physical Exam EXAM General lethargic, arousable but does not answer any questions HEENT normocephalic atraumatic anicteric no thrush oral mucosa moist Neck supple Lungs clear bilaterally no wheezing Heart S1-S2 Abdomen soft nontender nondistended Carbajal in place, scrotal enlargement, scrotal wounds, Extremities no edema no cyanosis Neuro lethargic, confused Psychiatric unable to obtain Derm multiple wounds pictures reviewed General: Alert, No acute distress Heart: Regular rate Lungs: Crackles Abdomen: Normal bowel sounds, Soft, No tenderness Extremities: No clubbing, No cyanosis Skin: No rashes Labs LABS Laboratory Tests Test 07/01/20 07:20 White Blood Count 10.4 x10^3/uL (4.0-11.0) Red Blood Count 3.50 x10^6/uL (4.30-5.70) Hemoglobin 11.2 g/dL (13.0-17.5) Hematocrit 34.7 % (39.0-53.0) Mean Corpuscular Volume 99 fL (79-100) Mean Corpuscular Hemoglobin 32 pg (25-35) Mean Corpuscular Hemoglobin Concent 32 g/dL (31-37) Red Cell Distribution Width 16.6 % (11.5-14.5) Platelet Count 494 x10^3/uL (140-400) Neutrophils (%) (Auto) 68 % (31-73) Lymphocytes (%) (Auto) 23 % (24-48) Monocytes (%) (Auto) 6 % (0-9) Eosinophils (%) (Auto) 3 % (0-3) Basophils (%) (Auto) 1 % (0-3) Neutrophils # (Auto) 7.1 x10^3/uL (1.8-7.7) Lymphocytes # (Auto) 2.4 x10^3/uL (1.0-4.8) Monocytes # (Auto) 0.6 x10^3/uL (0.0-1.1) Eosinophils # (Auto) 0.3 x10^3/uL (0.0-0.7) Basophils # (Auto) 0.1 x10^3/uL (0.0-0.2) Sodium Level 154 mmol/L (136-145) Potassium Level 3.7 mmol/L (3.5-5.1) Chloride Level 117 mmol/L (98-107) Carbon Dioxide Level 23 mmol/L (21-32) Anion Gap 14 (6-14) Blood Urea Nitrogen 25 mg/dL (8-26) Creatinine 1.3 mg/dL (0.7-1.3) Estimated GFR (Cockcroft-Gault) 53.0 Glucose Level 85 mg/dL (70-99) Calcium Level 9.0 mg/dL (8.5-10.1) Phosphorus Level 2.1 mg/dL (2.6-4.7) Magnesium Level 2.3 mg/dL (1.8-2.4) Albumin 1.8 g/dL (3.4-5.0) Assessment and Plan Assessmemt and Plan Problems Medical Problems: (1) Dehydration Status: Acute (2) Metabolic encephalopathy Status: Acute (3) Person under investigation for COVID-19 Status: Acute (4) Renal failure Status: Acute (5) UTI (urinary tract infection) Status: Acute Comment Review of Relevant I have reviewed the following items ab (where applicable) has been applied. Labs Laboratory Tests Test 06/30/20 08:15 07/01/20 07:20 White Blood Count 10.2 x10^3/uL (4.0-11.0) 10.4 x10^3/uL (4.0-11.0) Red Blood Count 3.43 x10^6/uL (4.30-5.70) 3.50 x10^6/uL (4.30-5.70) Hemoglobin 11.2 g/dL (13.0-17.5) 11.2 g/dL (13.0-17.5) Hematocrit 33.9 % (39.0-53.0) 34.7 % (39.0-53.0) Mean Corpuscular Volume 99 fL (79-100) 99 fL (79-100) Mean Corpuscular Hemoglobin 33 pg (25-35) 32 pg (25-35) Mean Corpuscular Hemoglobin Concent 33 g/dL (31-37) 32 g/dL (31-37) Red Cell Distribution Width 16.3 % (11.5-14.5) 16.6 % (11.5-14.5) Platelet Count 459 x10^3/uL (140-400) 494 x10^3/uL (140-400) Neutrophils (%) (Auto) 69 % (31-73) 68 % (31-73) Lymphocytes (%) (Auto) 20 % (24-48) 23 % (24-48) Monocytes (%) (Auto) 6 % (0-9) 6 % (0-9) Eosinophils (%) (Auto) 3 % (0-3) 3 % (0-3) Basophils (%) (Auto) 1 % (0-3) 1 % (0-3) Neutrophils # (Auto) 7.1 x10^3/uL (1.8-7.7) 7.1 x10^3/uL (1.8-7.7) Lymphocytes # (Auto) 2.1 x10^3/uL (1.0-4.8) 2.4 x10^3/uL (1.0-4.8) Monocytes # (Auto) 0.6 x10^3/uL (0.0-1.1) 0.6 x10^3/uL (0.0-1.1) Eosinophils # (Auto) 0.3 x10^3/uL (0.0-0.7) 0.3 x10^3/uL (0.0-0.7) Basophils # (Auto) 0.1 x10^3/uL (0.0-0.2) 0.1 x10^3/uL (0.0-0.2) Sodium Level 152 mmol/L (136-145) 154 mmol/L (136-145) Potassium Level 3.7 mmol/L (3.5-5.1) 3.7 mmol/L (3.5-5.1) Chloride Level 117 mmol/L (98-107) 117 mmol/L (98-107) Carbon Dioxide Level 26 mmol/L (21-32) 23 mmol/L (21-32) Anion Gap 9 (6-14) 14 (6-14) Blood Urea Nitrogen 22 mg/dL (8-26) 25 mg/dL (8-26) Creatinine 1.3 mg/dL (0.7-1.3) 1.3 mg/dL (0.7-1.3) Estimated GFR (Cockcroft-Gault) 53.0 53.0 Glucose Level 83 mg/dL (70-99) 85 mg/dL (70-99) Calcium Level 8.5 mg/dL (8.5-10.1) 9.0 mg/dL (8.5-10.1) Procalcitonin 0.18 ng/mL (0.00-0.10) Phosphorus Level 2.1 mg/dL (2.6-4.7) Magnesium Level 2.3 mg/dL (1.8-2.4) Albumin 1.8 g/dL (3.4-5.0) Laboratory Tests Test 07/01/20 07:20 White Blood Count 10.4 x10^3/uL (4.0-11.0) Red Blood Count 3.50 x10^6/uL (4.30-5.70) Hemoglobin 11.2 g/dL (13.0-17.5) Hematocrit 34.7 % (39.0-53.0) Mean Corpuscular Volume 99 fL (79-100) Mean Corpuscular Hemoglobin 32 pg (25-35) Mean Corpuscular Hemoglobin Concent 32 g/dL (31-37) Red Cell Distribution Width 16.6 % (11.5-14.5) Platelet Count 494 x10^3/uL (140-400) Neutrophils (%) (Auto) 68 % (31-73) Lymphocytes (%) (Auto) 23 % (24-48) Monocytes (%) (Auto) 6 % (0-9) Eosinophils (%) (Auto) 3 % (0-3) Basophils (%) (Auto) 1 % (0-3) Neutrophils # (Auto) 7.1 x10^3/uL (1.8-7.7) Lymphocytes # (Auto) 2.4 x10^3/uL (1.0-4.8) Monocytes # (Auto) 0.6 x10^3/uL (0.0-1.1) Eosinophils # (Auto) 0.3 x10^3/uL (0.0-0.7) Basophils # (Auto) 0.1 x10^3/uL (0.0-0.2) Sodium Level 154 mmol/L (136-145) Potassium Level 3.7 mmol/L (3.5-5.1) Chloride Level 117 mmol/L (98-107) Carbon Dioxide Level 23 mmol/L (21-32) Anion Gap 14 (6-14) Blood Urea Nitrogen 25 mg/dL (8-26) Creatinine 1.3 mg/dL (0.7-1.3) Estimated GFR (Cockcroft-Gault) 53.0 Glucose Level 85 mg/dL (70-99) Calcium Level 9.0 mg/dL (8.5-10.1) Phosphorus Level 2.1 mg/dL (2.6-4.7) Magnesium Level 2.3 mg/dL (1.8-2.4) Albumin 1.8 g/dL (3.4-5.0) Microbiology 06/21/20 Urine Culture - Final, Complete 06/20/20 Blood Culture - Final, Complete Medications Current Medications Ceftriaxone Sodium (Rocephin) 1 gm 1X ONCE IVP Last administered on 06/20/20at 11:34; Start 06/20/20 at 10:45; Stop 06/20/20 at 10:47; Status DC Sodium Chloride 1,000 ml @ 1,000 mls/hr 1X ONCE IV Last administered on 06/20/20at 11:34; Start 06/20/20 at 10:45; Stop 06/20/20 at 11:44; Status DC Ondansetron HCl (Zofran) 4 mg PRN Q8HRS PRN IV NAUSEA/VOMITING; Start 06/20/20 at 11:30; Stop 06/21/20 at 11:29; Status DC Sodium Chloride 1,000 ml @ 75 mls/hr [id number] IV Last administered on 06/21/20at 06:22; Start 06/20/20 at 12:00; Stop 06/21/20 at 11:59; Status DC Ceftriaxone Sodium (Rocephin) 1 gm Q24H IVP Last administered on 06/20/20at 17:06; Start 06/20/20 at 17:00; Stop 06/21/20 at 12:44; Status DC Acetaminophen (Tylenol) 650 mg PRN Q6HRS PRN PO MILD PAIN 1-3; Start 06/21/20 a t 10:15 Aspirin (Aspirin Chewable) 81 mg DAILY PO Last administered on 06/25/20at 09:11; Start 06/21/20 at 11:00 Bupropion HCl (Wellbutrin Sr) 75 mg BID PO Last administered on 06/23/20at 22:37; Start 06/21/20 at 11:00; Stop 06/24/20 at 15:23; Status DC Buspirone HCl (Buspar) 10 mg TID PO ; Start 06/21/20 at 11:00; Stop 06/21/20 at 10:56; Status DC Carbidopa/Levodopa (Sinemet 25/100) 2 tab TID PO Last administered on 06/25/20at 09:11; Start 06/21/20 at 11:00 Docusate Sodium (Colace) 100 mg PRN Q12HRS PRN PO HARD STOOLS; Start 06/21/20 at 10:15 Fludrocortisone Acetate (Florinef) 0.1 mg DAILY PO Last administered on 06/25/20at 09:10; Start 06/21/20 at 11:00 Levothyroxine Sodium (Synthroid) 125 mcg DAILY06 PO Last administered on 06/24/20at 06:15; Start 06/22/20 at 06:00 Midodrine (Proamatine) 10 mg [id number] PO Last administered on 06/25/20at 13:03; Start 06/21/20 at 13:00 Nitroglycerin (Nitrostat) 0.4 mg PRN Q5MIN PRN SL CHEST PAIN; Start 06/21/20 at 10:15 Olanzapine (ZyPREXA) 5 mg DAILY PO Last administered on 06/25/20at 09:11; Start 06/21/20 at 11:00 Senna/Docusate Sodium (Senna Plus) 1 tab BID PO Last administered on 06/25/20at 09:10; Start 06/21/20 at 11:00 Non-Formulary Medication (Ciprofloxacin Hcl (Cipro)) 1 tab BID PO ; Start 06/21/20 at 21:00; Stop 06/21/20 at 15:01; Status DC Ferrous Sulfate (Feosol) 325 mg [id number] PO Last administered on 06/25/20at 09:11; Start 06/21/20 at 12:00 Fluticasone Propionate (Flonase) 2 spray DAILY NS Last administered on 07/01/20at 08:24; Start 06/21/20 at 12:00 Folic Acid (Folic Acid) 1 mg DAILY PO Last administered on 06/25/20at 09:11; Start 06/21/20 at 12:00 Lactulose (Lactulose) 10 gm PRN DAILY PRN PO CONSTIPATION; Start 06/21/20 at 11:15 [place] Carbonate (Lithobid) 300 mg DAILY PO Last administered on 06/25/20at 09:10; Start 06/21/20 at 12:00 Multivitamins (Thera M Plus) 1 tab DAILY PO Last administered on 06/25/20at 09:11; Start 06/21/20 at 12:00 Pantoprazole Sodium (Protonix) 40 mg DAILYAC PO Last administered on 06/25/20at 09:15; Start 06/21/20 at 11:30; Stop 06/28/20 at 11:48; Status DC Ropinirole HCl (Requip) 0.5 mg TID PO Last administered on 06/25/20at 09:10; Start 06/21/20 at 14:00 Buspirone HCl (Buspar) 10 mg TID PO Last administered on 06/25/20at 09:09; Start 06/21/20 at 11:00 Piperacillin Sod/ Tazobactam Sod (Zosyn Per Pharmacy) 1 each PRN DAILY PRN MC SEE COMMENTS; Start 06/21/20 at 12:45 Sodium Chloride 1,000 ml @ 100 mls/hr Q10H IV Last administered on 06/23/20at 10:27; Start 06/21/20 at 13:00; Stop 06/23/20 at 11:27; Status DC Piperacillin Sod/ Tazobactam Sod 2.25 gm/Sodium Chloride 50 ml @ 100 mls/hr Q6HRS IV Last administered on 07/02/20at 06:17; Start 06/21/20 at 18:00 Daptomycin 350 mg/ Sodium Chloride 50 ml @ 100 mls/hr Q48H IV Last administered on 06/23/20at 15:46; Start 06/21/20 at 16:00; Stop 06/24/20 at 11:38; Status DC Vitamin A/Vitamin D (Vitamin A & D Ointment) 1 janina BID TP Last administered on 07/01/20at 21:19; Start 06/21/20 at 16:00 Lactobacillus Rhamnosus (Culturelle) 1 cap BID PO Last administered on 06/25/20at 09:14; Start 06/21/20 at 21:00 Dextrose/Sodium Chloride 1,000 ml @ 60 mls/hr [id number] IV Last administered on 06/24/20at 06:15; Start 06/23/20 at 11:30; Stop 06/24/20 at 12:25; Status DC Dextrose 1,000 ml @ 100 mls/hr Q10H IV Last administered on 06/27/20at 20:11; Start 06/24/20 at 12:30; Stop 06/28/20 at 13:16; Status DC Bupropion HCl (Wellbutrin) 75 mg BID PO Last administered on 06/25/20at 09:52; Start 06/24/20 at 21:00 Potassium Chloride/Water 100 ml @ 50 mls/hr 1X ONCE IV Last administered on 06/26/20at 16:24; Start 06/26/20 at 16:00; Stop 06/26/20 at 17:59; Status DC Micafungin Sodium 100 mg/Dextrose 100 ml @ 100 mls/hr Q24H IV Last adm inistered on 06/30/20at 11:07; Start 06/27/20 at 11:00; Stop 07/01/20 at 10:30; Status DC Amino Acids/ Glycerin/ Electrolytes 1,000 ml @ 80 mls/hr [id number] IV Last administered on 07/02/20at 01:59; Start 06/28/20 at 09:30 Daptomycin 270 mg/ Sodium Chloride 50 ml @ 100 mls/hr Q24H IV Last administered on 06/30/20at 14:32; Start 06/28/20 at 13:00; Stop 07/01/20 at 10:30; Status DC Pantoprazole Sodium (PROTONIX VIAL for IV PUSH) 40 mg DAILYAC IVP Last administered on 07/01/20at 08:24; Start 06/29/20 at 07:30 Magnesium Sulfate 50 ml @ 25 mls/hr PRN DAILY PRN IV for Mag < 1.7 on am labs; Start 06/30/20 at 08:45 Desmopressin Acetate (Ddavp) 4 mcg 1X SQ ; Start 06/30/20 at 10:15 Dextrose 1,000 ml @ 75 mls/hr [id number] IV Last administered on 07/02/20at 03:20; Start 07/01/20 at 13:00 Dextrose 1,000 ml @ 60 mls/hr [id number] IV ; Start 07/02/20 at 07:00; Status UNV Dextrose 1,000 ml @ 60 mls/hr [id number] IV Last administered on 07/01/20at 14:45; Start 07/01/20 at 14:45; Stop 07/02/20 at 07:24 Active Scripts Active Reported Tylenol (Acetaminophen) 325 Mg Tablet 2 Tab PO PRN Q6HRS PRN Senna-S 8.6-50 mg Tablet (Sennosides/Docusate Sodium) 1 Each Tablet 1 Each PO BID Ropinirole Hcl 0.5 Mg Tablet 0.5 Mg PO TID Prilosec Otc (Omeprazole Magnesium) 20 Mg Tablet.dr 40 Mg PO DAILY Olanzapine 5 Mg Tablet 5 Mg PO DAILY NITROGLYCERIN SubLingual (Nitroglycerin) 0.4 Mg Tab.subl 0.4 Mg SL PRN Q5MIN PRN Midodrine Hcl 5 Mg Tablet 10 Mg PO TID Methotrexate (Methotrexate Sodium) 2.5 Mg Tablet 20 Tab PO WEEKLY Melatonin 5 Mg Tab.rapdis 1 Tab PO QHS 30 Days [place] Carbonate 300 Mg Capsule 1 Cap PO DAILY Levothyroxine Sodium 125 Mcg Tablet 1 Tab PO DAILY Lactulose 10 Gm Packet 10 Gm PO PRN DAILY PRN Folic Acid 0.4 Mg Tablet 1 Mg PO DAILY Fludrocortisone Acetate 0.1 Mg Tablet 0.1 Mg PO DAILY Flonase Allergy Relief (Fluticasone Propionate) 9.9 Ml [place].susp 2 Sprays NS DAILY Ferrous Sulfate 220 Mg/5 Ml Solution 325 Mg PO DAILY Multiple Vitamins (Multivitamin) 1 Each Tablet 1 Tab PO DAILY 30 Days Vitamin D2 (Ergocalciferol (Vitamin D2)) 1,250 Mcg Capsule 1,250 Mcg PO DAILY Colace (Docusate Sodium) 100 Mg Capsule 1 Cap PO PRN Q12HRS PRN 30 Days Cipro (Ciprofloxacin Hcl) 500 Mg Tablet 1 Tab PO BID 7 Days Carbidopa-Levodopa 25-100 Tab (Carbidopa/Levodopa) 1 Each Tablet 2 Tab PO TID 30 Days Buspirone Hcl 5 Mg Tablet 2 Tab PO TID Bupropion Hcl Sr (Bupropion Hcl) 100 Mg Tablet.er 75 Mg PO BID Children's Aspirin (Aspirin) 81 Mg Tab.chew 1 Tab PO DAILY 30 Days Vitals/I & O Vital Sign - Last 24 Hours 07/01/20 07/01/20 07/01/20 07/01/20 07:00 08:00 11:00 15:00 Temp 97.6 97.9 97.9 97.6 97.9 97.9 Pulse 75 75 82 Resp 18 18 18 B/P (MAP) 117/53 (74) 108/52 (70) 107/55 (72) Pulse Ox 96 96 98 O2 Delivery Room Air Room Air Room Air Room Air 07/01/20 07/01/20 07/01/20 07/02/20 19:00 20:00 23:00 03:00 Temp 98.8 98.0 96.8 98.8 98.0 96.8 Pulse 76 74 66 Resp 20 20 18 B/P (MAP) 141/63 (89) 112/52 (72) 112/58 (76) Pulse Ox 97 97 97 O2 Delivery Room Air Room Air Room Air Room Air Intake and Output 07/01/20 07/01/20 07/02/20 15:00 23:00 07:00 Intake Total 100 ml 900 ml 650 ml Output Total 450 ml 1100 ml 800 ml Balance -350 ml -200 ml -150 ml Nutrition Consultation Dietary Evaluation: Recommendations by RD: Dietary education by RD, PPN/TPN Comments: REC continue PPN < 10 days Expected Outcomes/Goals: comfort care vs nutrition support via PEG Malnutrition Findings: Food and Nutrition Intake (Mod: <75% est energy req 7days Body Fat Depletion (Non Severe: Mild Depletion Weight Status: Underweight Justicifation of Admission Dx: Justifications for Admission: Justification of Admission Dx: Yes Sepsis: Bacteremia GRZEGORZ VERMA MD Jul 02, 2020 06:52
[2020-07-02 07:00] VITALS: BP 101/57
[2020-07-02] MEDS ORDERED: DEXTROSE 5% IV SCH (07:00)
[2020-07-02 07:33] LABS: BASO # 0.1 x10^3/uL (0.0-0.2); BASO % 1 % (0-3); EOS # 0.3 x10^3/uL (0.0-0.7); EOS % 4 % (0-3); HEMATOCRIT 33.3 % (39.0-53.0); HEMOGLOBIN 10.8 g/dL (13.0-17.5); LYMPH # 2.5 x10^3/uL (1.0-4.8); LYMPH % 29 % (24-48); MEAN CORPUSCULAR HEMOGLOBIN 32 pg (25-35); MEAN CORPUSCULAR HGB CONC 33 g/dL (31-37); MEAN CORPUSCULAR VOLUME 98 fL (79-100); MONO # 0.6 x10^3/uL (0.0-1.1); MONO % 7 % (0-9); NEUT # 5.2 x10^3/uL (1.8-7.7); NEUT % 60 % (31-73); PLATELET COUNT 470 x10^3/uL (140-400); RED BLOOD COUNT 3.38 x10^6/uL (4.30-5.70); RED CELL DISTRIBUTION WIDTH 16.2 % (11.5-14.5); WHITE BLOOD COUNT 8.6 x10^3/uL (4.0-11.0)
[2020-07-02 08:00] LABS: ALBUMIN 1.7 g/dL (3.4-5.0); CALCIUM 8.5 mg/dL (8.5-10.1); CREATININE 1.2 mg/dL (0.7-1.3); GFR 58.1; PHOSPHORUS 1.9 mg/dL (2.6-4.7); POTASSIUM 3.6 mmol/L (3.5-5.1)
[2020-07-02] MEDS: PANTOPRAZOLE IV PUSH 40 MG VIAL. IVP SCH (08:40)
[2020-07-02] MEDS: ASPIRIN CHEWABLE 81 MG TABLET. PO SCH (08:40)
[2020-07-02] MEDS: busPIRone 10 MG TABLET. PO SCH ×2 (08:40→13:27)
[2020-07-02] MEDS: FERROUS SULFATE 325 MG TABLET. PO SCH (08:40)
[2020-07-02] MEDS: LITHIUM CARBONATE ER 300 MG TABLET.ER PO SCH (08:41)
[2020-07-02] MEDS: SENNOSIDES/DOCUSATE 8.6/50MG TABLET. PO SCH (08:41)
[2020-07-02] MEDS: rOPINIRole 0.25 MG TABLET. PO SCH ×2 (08:41→13:28)
[2020-07-02] MEDS: LACTOBACILLUS RHAMNOSUS GG 1 CAPSULE. PO SCH (08:41)
[2020-07-02] MEDS: FOLIC ACID 1 MG TABLET. PO SCH (08:41)
[2020-07-02] MEDS: FLUDROCORTISONE 0.1 MG TABLET PO SCH (08:41)
[2020-07-02] MEDS: MULTIVITAMIN with MINERAL TABLET. PO SCH (08:41)
[2020-07-02] MEDS: CARBIDOPA/LEVODOPA 25/100MG TABLET PO SCH ×2 (08:41→13:28)
[2020-07-02] MEDS: buPROPion 75 MG TABLET. PO SCH (08:41)
[2020-07-02] MEDS: OLANZapine 5 MG TABLET PO SCH (08:41)
[2020-07-02] MEDS: VITS A & D/LANOLIN TOPICAL OINTMENT 42GM TUBE. TP SCH (08:42)
[2020-07-02] MEDS: FLUTICASONE 50MCG/NASAL SPRAY 16GM BOTTLE. NS SCH (08:42)
--- NOTE | 2020-07-02 09:48 | PDOC ---
Date of Service: DATE: 07/02/20 TIME: 09:46 Objective: Objective: Reviewed chart, d/w nurse/staff - plans for Hospice. Vital Signs: Vital Signs Date Time Temp Pulse Resp B/P (MAP) Pulse Ox O2 Delivery O2 Flow Rate FiO2 07/02/20 07:00 96.9 76 16 101/57 (72) 97 Room Air 96.9 Labs: Laboratory Tests Test 07/02/20 06:55 White Blood Count 8.6 x10^3/uL Red Blood Count 3.38 x10^6/uL Hemoglobin 10.8 g/dL Hematocrit 33.3 % Mean Corpuscular Volume 98 fL Mean Corpuscular Hemoglobin 32 pg Mean Corpuscular Hemoglobin Concent 33 g/dL Red Cell Distribution Width 16.2 % Platelet Count 470 x10^3/uL Neutrophils (%) (Auto) 60 % Lymphocytes (%) (Auto) 29 % Monocytes (%) (Auto) 7 % Eosinophils (%) (Auto) 4 % Basophils (%) (Auto) 1 % Neutrophils # (Auto) 5.2 x10^3/uL Lymphocytes # (Auto) 2.5 x10^3/uL Monocytes # (Auto) 0.6 x10^3/uL Eosinophils # (Auto) 0.3 x10^3/uL Basophils # (Auto) 0.1 x10^3/uL Sodium Level 148 mmol/L Potassium Level 3.6 mmol/L Chloride Level 114 mmol/L Carbon Dioxide Level 25 mmol/L Anion Gap 9 Blood Urea Nitrogen 25 mg/dL Creatinine 1.2 mg/dL Estimated GFR (Cockcroft-Gault) 58.1 Glucose Level 119 mg/dL Calcium Level 8.5 mg/dL Phosphorus Level 1.9 mg/dL Magnesium Level 2.2 mg/dL Albumin 1.7 g/dL PE: GEN: appears chronically ill NEURO/PSYCH: sleeping, not awakened A/P: Parkinson's w/ dysphagia -- Plans for Hospice as above - family decided not to pursue PEG placement - GI will sign off. Justicifation of Admission Dx: Justifications for Admission: Justification of Admission Dx: Yes Sepsis: Bacteremia ARMAND MAGDALENO Jul 02, 2020 09:48
--- NOTE | 2020-07-02 09:54 | PDOC ---
Infectious Disease Note Subjective Subjective Patient awake, mumbles few words Appears comfortable ROS ROS no n/v/d Vital Sign Vital Signs Vital Signs Date Time Temp Pulse Resp B/P (MAP) Pulse Ox O2 Delivery O2 Flow Rate FiO2 07/02/20 07:00 96.9 76 16 101/57 (72) 97 Room Air 96.9 Physical Exam PHYSICAL EXAM General lethargic, arousable but does not answer any questions HEENT normocephalic atraumatic anicteric no thrush oral mucosa moist Neck supple Lungs clear bilaterally no wheezing Heart S1-S2 Abdomen soft nontender nondistended Carbajal in place, scrotal enlargement, scrotal wounds, Extremities no edema no cyanosis Neuro lethargic, confused Psychiatric unable to obtain Derm multiple wounds pictures reviewed Labs Lab Laboratory Tests Test 07/02/20 06:55 White Blood Count 8.6 x10^3/uL (4.0-11.0) Red Blood Count 3.38 x10^6/uL (4.30-5.70) Hemoglobin 10.8 g/dL (13.0-17.5) Hematocrit 33.3 % (39.0-53.0) Mean Corpuscular Volume 98 fL (79-100) Mean Corpuscular Hemoglobin 32 pg (25-35) Mean Corpuscular Hemoglobin Concent 33 g/dL (31-37) Red Cell Distribution Width 16.2 % (11.5-14.5) Platelet Count 470 x10^3/uL (140-400) Neutrophils (%) (Auto) 60 % (31-73) Lymphocytes (%) (Auto) 29 % (24-48) Monocytes (%) (Auto) 7 % (0-9) Eosinophils (%) (Auto) 4 % (0-3) Basophils (%) (Auto) 1 % (0-3) Neutrophils # (Auto) 5.2 x10^3/uL (1.8-7.7) Lymphocytes # (Auto) 2.5 x10^3/uL (1.0-4.8) Monocytes # (Auto) 0.6 x10^3/uL (0.0-1.1) Eosinophils # (Auto) 0.3 x10^3/uL (0.0-0.7) Basophils # (Auto) 0.1 x10^3/uL (0.0-0.2) Sodium Level 148 mmol/L (136-145) Potassium Level 3.6 mmol/L (3.5-5.1) Chloride Level 114 mmol/L (98-107) Carbon Dioxide Level 25 mmol/L (21-32) Anion Gap 9 (6-14) Blood Urea Nitrogen 25 mg/dL (8-26) Creatinine 1.2 mg/dL (0.7-1.3) Estimated GFR (Cockcroft-Gault) 58.1 Glucose Level 119 mg/dL (70-99) Calcium Level 8.5 mg/dL (8.5-10.1) Phosphorus Level 1.9 mg/dL (2.6-4.7) Magnesium Level 2.2 mg/dL (1.8-2.4) Albumin 1.7 g/dL (3.4-5.0) Micro Microbiology 06/21/20 Urine Culture - Final, Complete 06/20/20 Blood Culture - Final, Complete Objective Assessment Sepsis source wounds vs uti cultures nonrevealing Leukocytosis Bacteremia gram-positive cocci, staph hominis and staph epidermidis likely contaminant UTI cult neg FRACISCO with underlying CKD Hypernatremia Covid Negative Encephalopathy likely metabolic Multiple wounds Generalized debility History of bipolar disorder BPH GERD Plan Plan of Care cont meropenem, change to po if allowed Wound care as directed Offload Maintain aspiration precaution Continue supportive care Overall prognosis poor GI input noted for peg tube placement Consider palliative care Team is in talks with family regarding final goals of treatment,full code for now per d/w RN. need hospice d/w credit control officer decided KELY STEWARD MD Jul 02, 2020 09:54
[2020-07-02 11:00] VITALS: BP 164/59
--- NOTE | 2020-07-02 11:23 | PDOC3 ---
Discharge Summary Date of Admission: Jun 20, 2020 Date of Discharge: Jul 02, 2020 Follow-Up: 1-2 days Admitting Diagnosis comment: Chief Complaint DISCHARGE HOSPITAL SUMMARY [facility] DATE OF ADMIT 06-20-20 date of discharge 07-02-20 complications none discharge condition, guarded D/C MEDS SEE MAR CONSULTATIONS , GI, NEPHROLOGY, NEUROLOGY, INFECTIOUS DISEASE FOLLOW UP TODAY WITH [facility] 07-02 DISCHARGE DX end-stage parkinsonism with dysphagia, dementia, and contracture also may be contributed to from his rheumatoid arthritis. Metabolic encephalopathy, ACUTE urinary tract infection, sepsis, BACTEREMIA hypernatremia, urinary tract infection, azotemia, ACUTE renal INJURY , , ACUTE RENAL TUBULAR NECROSIS leukocytosis. FRACISCO with underlying CKD Hypernatremia Covid Negative Encephalopathy likely metabolic severe protein-caloric malnutrition Multiple wounds Generalized debility PLAN admitted. IV antibiotics. Consult Nephrology. CONSULT ID IV fluids, chg hypotonic saline 06/10 ns home meds, DVT prophylaxis, full code, Carbajal to bedside p.r.n. Zofran, Continue Zosyn iv q 6 hrs continue daptomycin IV Follow GPC in blood culture Remains NPO on PPN, awaiting family decision re: NO PEG. 07-01 History of Present Illness History of Present Illness HISTORY OF PRESENT ILLNESS: The patient is a pleasant 79-year-old male, who has a chronic indwelling Carbajal. He is now presenting from a facility. He has mental status change. I believe the catheter got pulled out by accident last night. . It appears he has probable urinary tract infection with urosepsis and metabolic encephalopathy. We are going to admit the patient and give him IV antibiotics and fluids and try to get him feeling better. 06/24: Patient seen and evaluated at bedside. Afebrile, no acute events overnight. Continue IV antibiotics for positive blood culture and UTI. Still with some hypernatremia. Will continue with IV fluids. Charts and labs reviewed. 06/25: Patient seen and evaluated. He is COVID-19 negative. Transferred to medical floors. Creatinine continues to improve. Continue IV antibiotics for sepsis, UTI, bacteremia (possible contaminant). 06/26: No acute events overnight. Afebrile, breathing comfortably on room air. Leukocytosis improving. Further morning labs pending. Continue to monitor for creatinine and sodium improvement. Continue IV antibiotics, per ID. Daptomycin was added to Zosyn. Discussed with Dr. Steven, no significant improvement noted, patient still very lethargic. Will attempt to discuss with DPOA today about goals of care and hospice. 06/27: No acute events overnight. Patient was made DNR yesterday. Hospice to meet with patient's family to discuss palliative care. Per ID, antibiotics may be switched to p.o. soon. ST evaluated patient yesterday with noted moderate to high risk of aspiration. Would consider puree with honey thick with understanding of risk of aspiration. 06/28: Afebrile. No acute events. ST to re-eval swallow study. Will consult GI for PEG tube placement. Will initiate PPN. I appreciate Dr. Gibson's input; no manipulating his Parkinson's medications will not change overall prognosis. Continue antibiotics, per ID. 06/29: Patient evaluated with at bedside. WBC improved, sodium slightly improved. Patient does say few words with to me today. Still n.p.o. as he is unsafe for oral intake. Will need PEG tube, which will not evaluate his risk of aspiration. would like to discuss with son further. Charts and labs revie wed. 06/30: Afebrile. WBC did show some improvement, however morning labs pending. Patient still n.p.o., receiving ProcalAmine. Will discuss with son and further today about desires to proceed with PEG tube. 07-01 Remains NPO on PPN, awaiting family decision re: PEG. d/w RN 07-02 FAMILY AGREES TO HOSPICE INTAKE TODAY D/C PLANNING 35 MIN Vitals Vitals Vital Signs Date Time Temp Pulse Resp B/P (MAP) Pulse Ox O2 Delivery O2 Flow Rate FiO2 07/01/20 07:00 97.6 75 18 117/53 (74) 96 Room Air 97.6 Physical Exam Physical Exam General lethargic, arousable but does not answer any questions HEENT normocephalic atraumatic anicteric no thrush oral mucosa moist Neck supple Lungs clear bilaterally no wheezing Heart S1-S2 Abdomen soft nontender nondistended Carbajal in place, scrotal enlargement, scrotal wounds, Extremities no edema no cyanosis Neuro lethargic, confused Psychiatric unable to obtain Derm multiple wounds pictures reviewed General: Alert, No acute distress Heart: Regular rate Lungs: Crackles Abdomen: Normal bowel sounds, Soft, No tenderness Extremities: No clubbing, No cyanosis Skin: No rashes FINAL DIAGNOSIS Problems Medical Problems: (1) Dehydration Status: Acute (2) Metabolic encephalopathy Status: Acute (3) Person under investigation for COVID-19 Status: Acute (4) Renal failure Status: Acute (5) UTI (urinary tract infection) Status: Acute Brief Hospital Course Mr. Marie is a 79 old [sex] who presented with [ ACUTE METABOLIC ENCEPHALOPATHY] CONDITION AT DISCHARGE: Comment (GUARDED) Discharge Medications Current Medications Ceftriaxone Sodium (Rocephin) 1 gm 1X ONCE IVP Last administered on 06/20/20at 11:34; Start 06/20/20 at 10:45; Stop 06/20/20 at 10:47; Status DC Sodium Chloride 1,000 ml @ 1,000 mls/hr 1X ONCE IV Last administered on 06/20/20at 11:34; Start 06/20/20 at 10:45; Stop 06/20/20 at 11:44; Status DC Ondansetron HCl (Zofran) 4 mg PRN Q8HRS PRN IV NAUSEA/VOMITING; Start 06/20/20 at 11:30; Stop 06/21/20 at 11:29; Status DC Sodium Chloride 1,000 ml @ 75 mls/hr [id number] IV Last administered on 06/21/20at 06:22; Start 06/20/20 at 12:00; Stop 06/21/20 at 11:59; Status DC Ceftriaxone Sodium (Rocephin) 1 gm Q24H IVP Last administered on 06/20/20at 17:06; Start 06/20/20 at 17:00; Stop 06/21/20 at 12:44; Status DC Acetaminophen (Tylenol) 650 mg PRN Q6HRS PRN PO MILD PAIN 1-3; Start 06/21/20 at 10:15 Aspirin (Aspirin Chewable) 81 mg DAILY PO Last administered on 06/25/20at 09:11; Start 06/21/20 at 11:00 Bupropion HCl (Wellbutrin Sr) 75 mg BID PO Last administered on 06/23/20at 22:37; Start 06/21/20 at 11:00; Stop 06/24/20 at 15:23; Status DC Buspirone HCl (Buspar) 10 mg TID PO ; Start 06/21/20 at 11:00; Stop 06/21/20 at 10:56; Status DC Carbidopa/Levodopa (Sinemet 25/100) 2 tab TID PO Last administered on 06/25/20at 09:11; Start 06/21/20 at 11:00 Docusate Sodium (Colace) 100 mg PRN Q12HRS PRN PO HARD STOOLS; Start 06/21/20 at 10:15 Fludrocortisone Acetate (Florinef) 0.1 mg DAILY PO Last administered on at 09:10; Start 06/21/20 at 11:00 Levothyroxine Sodium (Synthroid) 125 mcg DAILY06 PO Last administered on 06/24/20at 06:15; Start 06/22/20 at 06:00 Midodrine (Proamatine) 10 mg [id number] PO Last administered on 06/25/20at 13:03; Start 06/21/20 at 13:00 Nitroglycerin (Nitrostat) 0.4 mg PRN Q5MIN PRN SL CHEST PAIN; Start 06/21/20 at 10:15 Olanzapine (ZyPREXA) 5 mg DAILY PO Last administered on 06/25/20at 09:11; Start 06/21/20 at 11:00 Senna/Docusate Sodium (Senna Plus) 1 tab BID PO Last administered on 06/25/20at 09:10; Start 06/21/20 at 11:00 Non-Formulary Medication (Ciprofloxacin Hcl (Cipro)) 1 tab BID PO ; Start 06/21/20 at 21:00; Stop 06/21/20 at 15:01; Status DC Ferrous Sulfate (Feosol) 325 mg [id number] PO Last administered on 06/25/20at 09:11; Start 06/21/20 at 12:00 Fluticasone Propionate (Flonase) 2 spray DAILY NS Last administered on 07/02/20at 08:42; Start 06/21/20 at 12:00 Folic Acid (Folic Acid) 1 mg DAILY PO Last administered on 06/25/20at 09:11; Start 06/21/20 at 12:00 Lactulose (Lactulose) 10 gm PRN DAILY PRN PO CONSTIPATION; Start 06/21/20 at 11:15 [place] Carbonate (Lithobid) 300 mg DAILY PO Last administered on 06/25/20at 09:10; Start 06/21/20 at 12:00 Multivitamins (Thera M Plus) 1 tab DAILY PO Last administered on 06/25/20at 09:11; Start 06/21/20 at 12:00 Pantoprazole Sodium (Protonix) 40 mg DAILYAC PO Last administered on 06/25/20at 09:15; Start 06/21/20 at 11:30; Stop 06/28/20 at 11:48; Status DC Ropinirole HCl (Requip) 0.5 mg TID PO Last administered on 06/25/20at 09:10; Start 06/21/20 at 14:00 Buspirone HCl (Buspar) 10 mg TID PO Last administered on 06/25/20at 09:09; Start 06/21/20 at 11:00 Piperacillin Sod/ Tazobactam Sod (Zosyn Per Pharmacy) 1 each PRN DAILY PRN MC SEE COMMENTS; Start 06/21/20 at 12:45 Sodium Chloride 1,000 ml @ 100 mls/hr Q10H IV Last administered on 06/23/20at 10:27; Start 06/21/20 at 13:00; Stop 06/23/20 at 11:27; Status DC Piperacillin Sod/ Tazobactam Sod 2.25 gm/Sodium Chloride 50 ml @ 100 mls/hr Q6HRS IV Last administered on 07/02/20at 06:17; Start 06/21/20 at 18:00 Daptomycin 350 mg/ Sodium Chloride 50 ml @ 100 mls/hr Q48H IV Last administered on 06/23/20at 15:46; Start 06/21/20 at 16:00; Stop 06/24/20 at 11:38; Status DC Vitamin A/Vitamin D (Vitamin A & D Ointment) 1 janina BID TP Last administered on 07/02/20at 08:42; Start 06/21/20 at 16:00 Lactobacillus Rhamnosus (Culturelle) 1 cap BID PO Last administered on 06/25/20at 09:14; Start 06/21/20 at 21:00 Dextrose/Sodium Chloride 1,000 ml @ 60 mls/hr [id number] IV Last administered on 06/24/20at 06:15; Start 06/23/20 at 11:30; Stop 06/24/20 at 12:25; Status DC Dextrose 1,000 ml @ 100 mls/hr Q10H IV Last administered on 06/27/20at 20:11; Start 06/24/20 at 12:30; Stop 06/28/20 at 13:16; Status DC Bupropion HCl (Wellbutrin) 75 mg BID PO Last administered on 06/25/20at 09:52; Start 06/24/20 at 21:00 Potassium Chloride/Water 100 ml @ 50 mls/hr 1X ONCE IV Last administered on 06/26/20at 16:24; Start 06/26/20 at 16:00; Stop 06/26/20 at 17:59; Status DC Micafungin Sodium 100 mg/Dextrose 100 ml @ 100 mls/hr Q24H IV Last administered on 06/30/20at 11:07; Start 06/27/20 at 11:00; Stop 07/01/20 at 10:30; Status DC Amino Acids/ Glycerin/ Electrolytes 1,000 ml @ 80 mls/hr [id number] IV Last administered on 07/02/20at 01:59; Start 06/28/20 at 09:30 Daptomycin 270 mg/ Sodium Chloride 50 ml @ 100 mls/hr Q24H IV Last administered on 06/30/20at 14:32; Start 06/28/20 at 13:00; Stop 07/01/20 at 10:30; Status DC Pantoprazole Sodium (PROTONIX VIAL for IV PUSH) 40 mg DAILYAC IVP Last administered on 07/02/20at 08:40; Start 06/29/20 at 07:30 Magnesium Sulfate 50 ml @ 25 mls/hr PRN DAILY PRN IV for Mag < 1.7 on am labs; Start 06/30/20 at 08:45 Desmopressin Acetate (Ddavp) 4 mcg 1X SQ ; Start 06/30/20 at 10:15 Dextrose 1,000 ml @ 75 mls/hr [id number] IV Last administered on 07/02/20at 03:20; Start 07/01/20 at 13:00 Dextrose 1,000 ml @ 60 mls/hr [id number] IV ; Start 07/02/20 at 07:00; Status UNV Dextrose 1,000 ml @ 60 mls/hr [id number] IV Last administered on 07/01/20at 14:45; Start 07/01/20 at 14:45; Stop 07/02/20 at 07:24; Status DC Active Scripts Active Reported Tylenol (Acetaminophen) 325 Mg Tablet 2 Tab PO PRN Q6HRS PRN Senna-S 8.6-50 mg Tablet (Sennosides/Docusate Sodium) 1 Each Tablet 1 Each PO BID Ropinirole Hcl 0.5 Mg Tablet 0.5 Mg PO TID Prilosec Otc (Omeprazole Magnesium) 20 Mg Tablet.dr 40 Mg PO DAILY Olanzapine 5 Mg Tablet 5 Mg PO DAILY NITROGLYCERIN SubLingual (Nitroglycerin) 0.4 Mg Tab.subl 0.4 Mg SL PRN Q5MIN PRN Midodrine Hcl 5 Mg Tablet 10 Mg PO TID Methotrexate (Methotrexate Sodium) 2.5 Mg Tablet 20 Tab PO WEEKLY Melatonin 5 Mg Tab.rapdis 1 Tab PO QHS 30 Days [place] Carbonate 300 Mg Capsule 1 Cap PO DAILY Levothyroxine Sodium 125 Mcg Tablet 1 Tab PO DAILY Lactulose 10 Gm Packet 10 Gm PO PRN DAILY PRN Folic Acid 0.4 Mg Tablet 1 Mg PO DAILY Fludrocortisone Acetate 0.1 Mg Tablet 0.1 Mg PO DAILY Flonase Allergy Relief (Fluticasone Propionate) 9.9 Ml [place].susp 2 Sprays NS DAILY Ferrous Sulfate 220 Mg/5 Ml Solution 325 Mg PO DAILY Multiple Vitamins (Multivitamin) 1 Each Tablet 1 Tab PO DAILY 30 Days Vitamin D2 (Ergocalciferol (Vitamin D2)) 1,250 Mcg Capsule 1,250 Mcg PO DAILY Colace (Docusate Sodium) 100 Mg Capsule 1 Cap PO PRN Q12HRS PRN 30 Days Cipro (Ciprofloxacin Hcl) 500 Mg Tablet 1 Tab PO BID 7 Days Carbidopa-Levodopa 25-100 Tab (Carbidopa/Levodopa) 1 Each Tablet 2 Tab PO TID 30 Days Buspirone Hcl 5 Mg Tablet 2 Tab PO TID Bupropion Hcl Sr (Bupropion Hcl) 100 Mg Tablet.er 75 Mg PO BID Children's Aspirin (Aspirin) 81 Mg Tab.chew 1 Tab PO DAILY 30 Days Vital Signs Vital Signs Date Time Temp Pulse Resp B/P (MAP) Pulse Ox O2 Delivery O2 Flow Rate FiO2 07/02/20 07:00 96.9 76 16 101/57 (72) 97 Room Air 96.9 Labs Laboratory Tests Test 07/01/20 07:20 07/02/20 06:55 White Blood Count 10.4 x10^3/uL (4.0-11.0) 8.6 x10^3/uL (4.0-11.0) Red Blood Count 3.50 x10^6/uL (4.30-5.70) 3.38 x10^6/uL (4.30-5.70) Hemoglobin 11.2 g/dL (13.0-17.5) 10.8 g/dL (13.0-17.5) Hematocrit 34.7 % (39.0-53.0) 33.3 % (39.0-53.0) Mean Corpuscular Volume 99 fL (79-100) 98 fL (79-100) Mean Corpuscular Hemoglobin 32 pg (25-35) 32 pg (25-35) Mean Corpuscular Hemoglobin Concent 32 g/dL (31-37) 33 g/dL (31-37) Red Cell Distribution Width 16.6 % (11.5-14.5) 16.2 % (11.5-14.5) Platelet Count 494 x10^3/uL (140-400) 470 x10^3/uL (140-400) Neutrophils (%) (Auto) 68 % (31-73) 60 % (31-73) Lymphocytes (%) (Auto) 23 % (24-48) 29 % (24-48) Monocytes (%) (Auto) 6 % (0-9) 7 % (0-9) Eosinophils (%) (Auto) 3 % (0-3) 4 % (0-3) Basophils (%) (Auto) 1 % (0-3) 1 % (0-3) Neutrophils # (Auto) 7.1 x10^3/uL (1.8-7.7) 5.2 x10^3/uL (1.8-7.7) Lymphocytes # (Auto) 2.4 x10^3/uL (1.0-4.8) 2.5 x10^3/uL (1.0-4.8) Monocytes # (Auto) 0.6 x10^3/uL (0.0-1.1) 0.6 x10^3/uL (0.0-1.1) Eosinophils # (Auto) 0.3 x10^3/uL (0.0-0.7) 0.3 x10^3/uL (0.0-0.7) Basophils # (Auto) 0.1 x10^3/uL (0.0-0.2) 0.1 x10^3/uL (0.0-0.2) Sodium Level 154 mmol/L (136-145) 148 mmol/L (136-145) Potassium Level 3.7 mmol/L (3.5-5.1) 3.6 mmol/L (3.5-5.1) Chloride Level 117 mmol/L (98-107) 114 mmol/L (98-107) Carbon Dioxide Level 23 mmol/L (21-32) 25 mmol/L (21-32) Anion Gap 14 (6-14) 9 (6-14) Blood Urea Nitrogen 25 mg/dL (8-26) 25 mg/dL (8-26) Creatinine 1.3 mg/dL (0.7-1.3) 1.2 mg/dL (0.7-1.3) Estimated GFR (Cockcroft-Gault) 53.0 58.1 Glucose Level 85 mg/dL (70-99) 119 mg/dL (70-99) Calcium Level 9.0 mg/dL (8.5-10.1) 8.5 mg/dL (8.5-10.1) Phosphorus Level 2.1 mg/dL (2.6-4.7) 1.9 mg/dL (2.6-4.7) Magnesium Level 2.3 mg/dL (1.8-2.4) 2.2 mg/dL (1.8-2.4) Albumin 1.8 g/dL (3.4-5.0) 1.7 g/dL (3.4-5.0) Laboratory Tests Test 07/02/20 06:55 White Blood Count 8.6 x10^3/uL (4.0-11.0) Red Blood Count 3.38 x10^6/uL (4.30-5.70) Hemoglobin 10.8 g/dL (13.0-17.5) Hematocrit 33.3 % (39.0-53.0) Mean Corpuscular Volume 98 fL (79-100) Mean Corpuscular Hemoglobin 32 pg (25-35) Mean Corpuscular Hemoglobin Concent 33 g/dL (31-37) Red Cell Distribution Width 16.2 % (11.5-14.5) Platelet Count 470 x10^3/uL (140-400) Neutrophils (%) (Auto) 60 % (31-73) Lymphocytes (%) (Auto) 29 % (24-48) Monocytes (%) (Auto) 7 % (0-9) Eosinophils (%) (Auto) 4 % (0-3) Basophils (%) (Auto) 1 % (0-3) Neutrophils # (Auto) 5.2 x10^3/uL (1.8-7.7) Lymphocytes # (Auto) 2.5 x10^3/uL (1.0-4.8) Monocytes # (Auto) 0.6 x10^3/uL (0.0-1.1) Eosinophils # (Auto) 0.3 x10^3/uL (0.0-0.7) Basophils # (Auto) 0.1 x10^3/uL (0.0-0.2) Sodium Level 148 mmol/L (136-145) Potassium Level 3.6 mmol/L (3.5-5.1) Chloride Level 114 mmol/L (98-107) Carbon Dioxide Level 25 mmol/L (21-32) Anion Gap 9 (6-14) Blood Urea Nitrogen 25 mg/dL (8-26) Creatinine 1.2 mg/dL (0.7-1.3) Estimated GFR (Cockcroft-Gault) 58.1 Glucose Level 119 mg/dL (70-99) Calcium Level 8.5 mg/dL (8.5-10.1) Phosphorus Level 1.9 mg/dL (2.6-4.7) Magnesium Level 2.2 mg/dL (1.8-2.4) Albumin 1.7 g/dL (3.4-5.0) Allergies Allergies Coded Allergies Type Severity Reaction Last Updated Verified amitriptyline Allergy Intermediate 06/20/20 Yes haloperidol Allergy Intermediate 06/20/20 Yes lorazepam Allergy Intermediate UNKNOWN 06/20/20 Yes quetiapine Allergy Intermediate 06/20/20 Yes Disposition/Orders: D/C to Home w/ Hospice Justicifation of Admission Dx: Justifications for Admission: Justification of Admission Dx: Yes Sepsis: Bacteremia GRZEGORZ VERMA MD Jul 02, 2020 11:23
[2020-07-02] MEDS ORDERED: LACT1CAP19 PO (11:30)
[2020-07-02] MEDS ORDERED: VITS42.55 TP (11:30)
--- NOTE | 2020-07-02 11:31 | SNU/HH DC ---
DISCHARGE ORDERS DISCHARGE INFORMATION: FINAL DIAGNOSIS Problems Medical Problems: (1) Dehydration Status: Acute (2) Metabolic encephalopathy Status: Acute (3) Person under investigation for COVID-19 Status: Acute (4) Renal failure Status: Acute (5) UTI (urinary tract infection) Status: Acute CONDITION ON DISCHARGE: Guarded CODE STATUS: Code Status: DNR/DNI SENIOR CARE: SNF STAY <30 DAYS: No HOSPICE: HOSPICE: Yes HOSPICE EVAL & TREAT: Yes LTAC: ADMIT TO LTAC: No POST DISCHARGE ORDERS: ACTIVITY ORDERS: Activity as tolerated DIET AFTER DISCHARGE: NPO CHECKS AFTER DISCHARGE: CHECKS AFTER DISCHARGE: Check blood press - daily FOLLOW-UP: PHYSICIAN FOLLOW-UP: PCP WITH HOSPICE TODAY TREATMENT/EQUIPMENT ORDERS: Physical Therapy For: Evalulation/Treatment Occupational Therapy For: Evaluation/Treatment Speech Language Pathology For: Evaluation/Treatment DISCHARGE MEDICATIONS: Home Meds Active Scripts Vits A and D/White Pet/Lanolin (A and D Ointment) 42.5 Gm Oint...g., 1 MARNI TP BID for SKIN INTEGRITY for 30 Days, #120 MISC Prov:GRZEGORZ VERMA MD 07/02/20 Lactobacillus Rhamnosus Gg (CULTURELLE) 1 Each Cap.sprink, 1 CAP PO BID for SUPPLEMENT for 30 Days, #60 CAP Prov:GRZEGORZ VERMA MD 07/02/20 Reported Medications Acetaminophen (TYLENOL) 325 Mg Tablet, 2 TAB PO PRN Q6HRS PRN for MILD PAIN 1-3, #30 TAB 06/20/20 Sennosides/Docusate Sodium (Senna-S 8.6-50 mg Tablet) 1 Each Tablet, 1 EACH PO BID for stools, TAB 06/20/20 Ropinirole Hcl (ROPINIROLE HCL) 0.5 Mg Tablet, 0.5 MG PO TID for parkinsons, TAB 06/20/20 Omeprazole Magnesium (PRILOSEC OTC) 20 Mg Tablet.dr, 40 MG PO DAILY for BARBARA, TAB 06/20/20 Olanzapine (OLANZAPINE) 5 Mg Tablet, 5 MG PO DAILY for agitation, TAB 06/20/20 Nitroglycerin (NITROGLYCERIN SubLingual) 0.4 Mg Tab.subl, 0.4 MG SL PRN Q5MIN PRN for CHEST PAIN, BOTTLE 06/20/20 Midodrine Hcl (MIDODRINE HCL) 5 Mg Tablet, 10 MG PO TID for Hypotension, TAB 06/20/20 Methotrexate Sodium (METHOTREXATE) 2.5 Mg Tablet, 20 TAB PO WEEKLY for RA, #32 TAB 2 Refills 06/20/20 Melatonin (MELATONIN) 5 Mg Tab.rapdis, 1 TAB PO QHS for sleep for 30 Days, #30 TAB 0 Refills 06/20/20 [place] Carbonate (LITHIUM CARBONATE) 300 Mg Capsule, 1 CAP PO DAILY for bipolar, #60 CAP 2 Refills 06/20/20 Levothyroxine Sodium (LEVOTHYROXINE SODIUM) 125 Mcg Tablet, 1 TAB PO DAILY for hypothyroidism, #30 TAB 5 Refills 06/20/20 Lactulose (Lactulose) 10 Gm Packet, 10 GM PO PRN DAILY PRN for CONSTIPATION, PKT 06/20/20 Folic Acid (FOLIC ACID) 0.4 Mg Tablet, 1 MG PO DAILY for SUPPLEMENT, TAB 06/20/20 Fludrocortisone Acetate (FLUDROCORTISONE ACETATE) 0.1 Mg Tablet, 0.1 MG PO DAILY for suppl, TAB 06/20/20 Fluticasone Propionate (Flonase Allergy Relief) 9.9 Ml [place].susp, 2 SPRAYS NS DAILY for unknown, BOTTLE 06/20/20 Ferrous Sulfate (FERROUS SULFATE) 220 Mg/5 Ml Solution, 325 MG PO DAILY for suppl, MISC 06/20/20 Multivitamin (MULTIPLE VITAMINS) 1 Each Tablet, 1 TAB PO DAILY for suppl for 30 Days, #30 TAB 0 Refills 06/20/20 Ergocalciferol (Vitamin D2) (Vitamin D2) 1,250 Mcg Capsule, 1250 MCG PO DAILY for suppl, CAP 06/20/20 Docusate Sodium (COLACE) 100 Mg Capsule, 1 CAP PO PRN Q12HRS PRN for CONSTIPATION for 30 Days, CAP 0 Refills 06/20/20 Carbidopa/Levodopa (CARBIDOPA-LEVODOPA 25-100 TAB) 1 Each Tablet, 2 TAB PO TID for parkinson for 30 Days, #180 TAB 0 Refills 06/20/20 Buspirone Hcl (BUSPIRONE HCL) 5 Mg Tablet, 2 TAB PO TID for anxiety, #60 TAB 2 Refills 06/20/20 Bupropion Hcl (BUPROPION HCL SR) 100 Mg Tablet.er, 75 MG PO BID for Depression , TAB.SR 1/14/21 Aspirin (Children's Aspirin) 81 Mg Tab.chew, 1 TAB PO DAILY for Preventative for 30 Days, #30 TAB 0 Refills 06/20/20 Discontinued Reported Medications Ciprofloxacin Hcl (CIPRO) 500 Mg Tablet, 1 TAB PO BID for infection for 7 Days, #14 TAB 0 Refills 06/20/20 GRZEGORZ VERMA MD Jul 02, 2020 11:31
--- NOTE | 2020-07-02 12:54 | PDOC ---
Renal-Progress Notes Subjective Notes Notes NONE, CONFUSED History of Present Illness Hx of present illness PLANS NOTED Vitals Vitals Vital Signs Date Time Temp Pulse Resp B/P (MAP) Pulse Ox O2 Delivery O2 Flow Rate FiO2 07/02/20 07:00 96.9 76 16 101/57 (72) 97 Room Air 96.9 Weight Weight [ ] I.O. Intake and Output Intake and Output 07/02/20 07:00 Intake Total 1650 ml Output Total 2350 ml Balance -700 ml Intake Oral 0 ml IV Total 1650 ml Output Urine Total 2350 ml Labs Labs Laboratory Tests Test 07/02/20 06:55 White Blood Count 8.6 x10^3/uL (4.0-11.0) Red Blood Count 3.38 x10^6/uL (4.30-5.70) Hemoglobin 10.8 g/dL (13.0-17.5) Hematocrit 33.3 % (39.0-53.0) Mean Corpuscular Volume 98 fL (79-100) Mean Corpuscular Hemoglobin 32 pg (25-35) Mean Corpuscular Hemoglobin Concent 33 g/dL (31-37) Red Cell Distribution Width 16.2 % (11.5-14.5) Platelet Count 470 x10^3/uL (140-400) Neutrophils (%) (Auto) 60 % (31-73) Lymphocytes (%) (Auto) 29 % (24-48) Monocytes (%) (Auto) 7 % (0-9) Eosinophils (%) (Auto) 4 % (0-3) Basophils (%) (Auto) 1 % (0-3) Neutrophils # (Auto) 5.2 x10^3/uL (1.8-7.7) Lymphocytes # (Auto) 2.5 x10^3/uL (1.0-4.8) Monocytes # (Auto) 0.6 x10^3/uL (0.0-1.1) Eosinophils # (Auto) 0.3 x10^3/uL (0.0-0.7) Basophils # (Auto) 0.1 x10^3/uL (0.0-0.2) Sodium Level 148 mmol/L (136-145) Potassium Level 3.6 mmol/L (3.5-5.1) Chloride Level 114 mmol/L (98-107) Carbon Dioxide Level 25 mmol/L (21-32) Anion Gap 9 (6-14) Blood Urea Nitrogen 25 mg/dL (8-26) Creatinine 1.2 mg/dL (0.7-1.3) Estimated GFR (Cockcroft-Gault) 58.1 Glucose Level 119 mg/dL (70-99) Calcium Level 8.5 mg/dL (8.5-10.1) Phosphorus Level 1.9 mg/dL (2.6-4.7) Magnesium Level 2.2 mg/dL (1.8-2.4) Albumin 1.7 g/dL (3.4-5.0) Micro Micro Microbiology 06/21/20 Urine Culture - Final, Complete 06/20/20 Blood Culture - Final, Complete Review of Systems Constitutional: yes: other (CONFUSED) Physical Exam General Appearance: no apparent distress Skin: warm Respiratory: decreased breath sounds Heart: S1S2 Abdomen: soft, bowel sounds present Genitourinary: bladder flat Extremities: pulses present Neurology: confused Assessment Assessment IMP FRACISCO-CR OF 3.8 TO 1.3 - RESOLVING EXTRACELLULAR VOLUME DEPLETION URINARY TRACT INFECTION MET ENCEPHALOPATHY HYPERNATREMIA LEUCOCYTOSIS PLAN HOSPICE PLANS NOTED WILL SIGN OFF RUBEN MCNEIL MD Jul 02, 2020 12:54
[2020-07-02 15:00] VITALS: BP 118/70
--- NOTE | 2020-07-02 17:00 | NUR ---
Discharge Note: Patient was discharged home with hospice. Patients family aware and agreeable with discharge plans. Patients IV's were discontinued without any complications per RN. Patient was take home on Hospice by stretcher, patient was discharge with barrios catheter. [facility] was called and left a voicemail that patient was on his way home.
== END 2020-07-02 17:00 | disposition hospice, home (50) | DRG 871 ==
LOC: ER 08:33 → 6 SOUTH 11:14 → 5 NORTH 06-25 10:28
PROVIDERS: ADMIT Internal Medicine; ATTEND Internal Medicine
DX: A41.9 Sepsis, unspecified organism (principal); G93.41 Metabolic encephalopathy; N17.0 Acute kidney failure with tubular necrosis; E43 Unspecified severe protein-calorie malnutrition; E87.0 Hyperosmolality and hypernatremia; N39.0 Urinary tract infection, site not specified; Z68.1 Body mass index [BMI] 19.9 or less, adult; Z66 Do not resuscitate; Z51.5 Encounter for palliative care; E86.0 Dehydration; R53.81 Other malaise; N18.9 Chronic kidney disease, unspecified; N40.0 Benign prostatic hyperplasia without lower urinary tract symptoms; K21.9 Gastro-esophageal reflux disease without esophagitis; Z20.822 Contact with and (suspected) exposure to COVID-19; I12.9 Hypertensive chronic kidney disease with stage 1 through stage 4 chronic kidney disease, or unspecified chronic kidney disease; F02.80 Dementia in other diseases classified elsewhere, unspecified severity, without behavioral disturbance, psychotic disturbance, mood disturbance, and anxiety; G31.83 Neurocognitive disorder with Lewy bodies; B37.2 Candidiasis of skin and nail; E03.9 Hypothyroidism, unspecified; F31.9 Bipolar disorder, unspecified; G47.33 Obstructive sleep apnea (adult) (pediatric); I48.91 Unspecified atrial fibrillation; M06.9 Rheumatoid arthritis, unspecified; R13.12 Dysphagia, oropharyngeal phase; D64.9 Anemia, unspecified; L89.899 Pressure ulcer of other site, unspecified stage; E87.6 Hypokalemia; Z83.3 Family history of diabetes mellitus; Z88.8 Allergy status to other drugs, medicaments and biological substances
CPT/HCPCS: 36415; 51702; 71045; 76770; 80048; 80053; 80069; 80178; 81001; 82550; 83605; 83735; 84145; 84484; 85007; 85025; 87040; 87077; 87086; 87205; 93005; 96374; C9113; J0696; J0878; J2248; J2543; J3480; J3490; J7030; J7042; J7060; U0003; 92526-GN; 92610-GN; 99285-25; G0378